=== PATIENT | male | born 1955 | race Caucasian/White ===

== ENCOUNTER 2016-04-14 14:25 | Emergency (ER) | payer OTHER ==
[2016-04-14 14:35] VITALS: TEMP 98.8
[2016-04-14] MEDS ORDERED: NS 1,000 ML IV ONE (15:01)
--- NOTE | 2016-04-14 15:09 | EDPHY ---
H & P Stated Complaint: 3 days fever-? PNA Time Seen by Provider: 04/14/16 14:40 HPI/ROS: CHIEF COMPLAINT: High fever HISTORY OF PRESENT ILLNESS: The patient is a 60-year-old partially quadriplegic man who comes to the emergency department with his family complaining of fevers up to 101 for the last 2 nights as well as increased mucusy and slightly greenish discharge from his trach tube and mild increase in his oxygen requirement from 1-2 L. The patient denies cough shortness of breath currently however though. he has had increased spasticity in his extremities and increased pain compared to his chronic baseline diffuse body pain. Also his family feels that he may also have darkened urine compared to baseline. He does have a history of sacral wounds currently being treated with a wound VAC. His family states that these are doing well and improving dramatically. He also has a PEG tube for tube feedings. This has been doing well with normal he stool. He has a suprapubic catheter changed 3 weeks ago. Also baclofen pump a chronic spasticity. REVIEW OF SYSTEMS: Constitutional: See HPI EENTM: denies: blurred vision, double vision, nose congestion Respiratory: See HPI Cardiac: denies: chest pain, irregular heart rate, lightheadedness, palpitations Gastrointestinal/Abdominal: denies: abdominal pain, diarrhea, nausea, vomiting, blood streaked stools Genitourinary: See HPI Musculoskeletal: denies: joint pain, muscle pain Skin: denies: lesions, rash, jaundice, bruising Neurological: denies: headache, numbness, paresthesia, tingling, dizziness, weakness Hematologic/Lymphatic: denies: blood clots, easy bleeding, easy bruising Immunologic/allergic: denies: HIV/AIDS, transplant EXAM: GENERAL: Quadriplegic sitting in wheelchair HEAD: Atraumatic, normocephalic. EYES: Pupils equal round and reactive to light, extraocular movements intact, sclera anicteric, conjunctiva are normal. ENT: TMs normal, nares patent, oropharynx clear without exudates. Moist mucous membranes. NECK: supple without lymphadenopathy or JVD. LUNGS: Mild rhonchi in left lower lobe. No wheezes rales or rhonchi. HEART: Regular rate and rhythm without murmurs, rubs or gallops. ABDOMEN: Soft, nontender, the G-tube in super to pubic catheter in place, no erythema or drainage. No guarding, no rebound. No masses appreciated. BACK: No CVA tenderness, no spinal tenderness, step-offs or deformities EXTREMITIES: Chronic spasming and atrophy, no movement, baseline NEUROLOGICAL: Cranial nerves II through XII grossly intact. Normal speech, no movement of extremities, pain throughout and spasming PSYCH: Normal mood, normal affect. SKIN: Warm, dry, normal turgor, decubitus lesion examination deferred Source: Patient Exam Limitations: No limitations - Personal History Current Tetanus/Diphtheria Vaccine: Unsure Current Tetanus Diphtheria and Acellular Pertussis (TDAP): Unsure - Medical/Surgical History Hx Asthma: No Hx Chronic Respiratory Disease: Yes Hx Diabetes: No Hx Cardiac Disease: Yes Hx Renal Disease: No Hx Cirrhosis: No Hx Alcoholism: No Hx HIV/AIDS: No Hx Splenectomy or Spleen Trauma: No Other PMH: Quadriplegia [id number], pneumonia. Pericardial effusion, multple decubitus ulcer bottom and back, UTI's, Baclofen pump, Peg tube, Tracheostomy ( capped), - Family History Significant Family History: No pertinent family hx - Social History Smoking Status: Never smoked Alcohol Use: Sober Drug Use: None Constitutional: Initial Vital Signs Temperature (C) 37.1 C 04/14/16 14:31 Heart Rate 63 04/14/16 14:31 Respiratory Rate 16 04/14/16 14:31 Blood Pressure 115/74 04/14/16 14:31 O2 Sat (%) 98 04/14/16 14:31 O2 Delivery Mode Nasal Cannula O2 (L/minute) 2 Allergies/Adverse Reactions: Milk Containing Products [dairy] Allergy (Severe, Verified 04/14/16 14:35) Swelling/neck,face,throat soy Allergy (Severe, Verified 04/14/16 14:35) Swelling/neck,face,throat Penicillins Allergy (Verified 04/14/16 14:35) Other-Enter Comments shellfish derived Allergy (Verified 04/14/16 14:35) tree nut [Nuts] Allergy (Verified 04/14/16 14:35) wheat Allergy (Severe, Uncoded 04/27/15 10:47) [place] Home Medications: Medication Instructions Recorded Midodrine HCl 10 mg TUBE TID 04/06/15 ZOLPIDEM TARTRATE [Ambien CR 12.5 12.5 mg TUBE HS 04/06/15 mg] fentaNYL [Duragesic 100 MCG Patch 100 mcg TD Q72H 04/06/15 (*)] Ferrous Sulfate 325 mg TUBE BID 04/27/15 Sennosides [Senna] 1 tab TUBE BID 04/27/15 Acetaminophen [Tylenol 325mg (*)] 650 mg PO Q6 08/24/15 Baclofen [Baclofen 10 mg (*)] 10 mg TUBE TID 08/24/15 Gabapentin [Neurontin Oral Liquid] 500 mg PO QID 08/24/15 Ondansetron Odt [Zofran Odt 4 mg 4 mg PO TID PRN 08/24/15 (*)] Oxybutynin Chloride 10 mg PO DAILY 08/24/15 Sertraline HCl [Zoloft 100mg (*)] 100 mg TUBE HS 08/24/15 clonazePAM [Klonopin (*)] 0.25 mg TUBE QID 08/24/15 Albuterol [Proventil Neb] 3 ml IH Q4 PRN 10/31/15 Docusate Sodium [Colace 100 MG (*)] 200 mg PO BID 10/31/15 Ibuprofen [Motrin (*)] 200 mg PO DAILY PRN 10/31/15 Polyethylene Glycol 3350 [Miralax 8.5 gm TUBE DAILY 10/31/15 17 gm (*)] oxyCODONE IR [Oxycodone Ir (*)] 30 mg TUBE Q3 10/31/15 tiZANidine HCL [Zanaflex] 4 mg PO BID 10/31/15 Medical Decision Making - Diagnostics Imaging: X-ray: chest x-ray was obtained. I viewed the images myself on the PACS system. My interpretation of the images is: negative for acute disease . The radiologist interpretation is improved compared to previous, no consolidation, left-sided atelectasis unchanged. ED Course/Re-evaluation: The patient's x-ray is improved compared to previous. He is saturating well. I offered admission to him and his family because I was concerned about his slight increased oxygen requirement from 1-2 L as well as his worsening mucus at suctioning and low-grade fevers. The family however states that they do not wish to be admitted. They state that this happens every time and that they would prefer to go home and monitor him there for any worsening symptoms. They will bring him back immediately should he have any worsening symptoms. I agree with this plan and gave him strict instructions to return within 24 hours if his symptoms worsen. Patient's family agrees with this plan. Differential Diagnosis: Partial list of the Differential diagnosis considered include but were not limited to; pneumonia, bronchitis, urinary tract infection, and although unlikely based on the history and physical exam, I also considered sepsis, decubitus infection, acute coronary disease, CHF. I discussed these differential diagnoses and the plan with the patient as well as the usual and expected course. The patient understands that the diagnosis is provisional and that in medicine we are not always correct and that further workup is often warranted. Usual and customary warnings were given. All of the patient's questions were answered. The patient was instructed to return to the emergency department should the symptoms at all worsen or return, otherwise to followup with the physician as we discussed. - Data Points Laboratory Results: Laboratory Results 04/14/16 15:10 04/14/16 15:10 04/14/16 04/14/16 04/14/16 15:35 15:10 15:10 WBC RBC Hgb Hct MCV MCH MCHC RDW Plt Count MPV Neut % (Auto) Lymph % (Auto) [place] % (Auto) Eos % (Auto) Baso % (Auto) Nucleat RBC Rel Count Absolute Neuts (auto) Absolute Lymphs (auto) Absolute Monos (auto) Absolute Eos (auto) Absolute Basos (auto) Absolute Nucleated RBC Immature Gran % Immature Gran # APTT VBG Lactic Acid Sodium 136 mEq/L mEq/L (134-144) Potassium 4.8 mEq/L mEq/L (3.5-5.2) Chloride 92 mEq/L L mEq/L (97-110) Carbon Dioxide 33 mEq/l H mEq/l (22-31) Anion Gap 11 mEq/L mEq/L (8-16) BUN 13 mg/dL mg/dL (7-23) Creatinine 0.4 mg/dL L mg/dL (0.7-1.3) Estimated GFR > 60 Glucose 96 mg/dL mg/dL (70-100) Calcium 9.3 mg/dL mg/dL (8.5-10.4) Urine Color YELLOW Urine Appearance HAZY Urine pH 8.0 H (5.0-7.5) Ur Specific [place] 1.009 (1.002-1.030) Urine Protein NEGATIVE (NEGATIVE) Urine Ketones NEGATIVE (NEGATIVE) Urine Blood 2+ H (NEGATIVE) Urine Nitrate POSITIVE H (NEGATIVE) Urine Bilirubin NEGATIVE (NEGATIVE) Urine Urobilinogen NEGATIVE EU EU (0.2-1.0) Ur Leukocyte Esterase 2+ H (NEGATIVE) Urine RBC 15-25 /hpf H /hpf (0-3) Urine WBC 5-10 /hpf H /hpf (0-3) Ur Epithelial Cells TRACE /lpf /lpf (NONE-1+) Urine Bacteria 1+ /hpf H /hpf (NONE SEEN) Ur Culture Indicated? INDICATED H (NI) Urine Glucose NEGATIVE (NEGATIVE) Influenza Typ A,B (DFA) NEGATIVE FOR FLU (NEGATIVE) 04/14/16 04/14/16 04/14/16 15:10 15:10 15:10 WBC 10.43 10^3/uL H 10^3/uL (3.80-9.50) RBC 3.52 10^6/uL L 10^6/uL (4.40-6.38) Hgb 10.5 g/dL L g/dL (13.7-17.5) Hct 32.5 % L % (40.0-51.0) MCV 92.3 fL fL (81.5-99.8) MCH 29.8 pg pg (27.9-34.1) MCHC 32.3 g/dL L g/dL (32.4-36.7) RDW 13.5 % % (11.5-15.2) Plt Count 144 10^3/uL L 10^3/uL (150-400) MPV 11.1 fL fL (8.7-11.7) Neut % (Auto) 87.7 % H % (39.3-74.2) Lymph % (Auto) 5.8 % L % (15.0-45.0) [place] % (Auto) 5.7 % % (4.5-13.0) Eos % (Auto) 0.2 % L % (0.6-7.6) Baso % (Auto) 0.2 % L % (0.3-1.7) Nucleat RBC Rel Count 0.0 % % (0.0-0.2) Absolute Neuts (auto) 9.16 10^3/uL H 10^3/uL (1.70-6.50) Absolute Lymphs (auto) 0.60 10^3/uL L 10^3/uL (1.00-3.00) Absolute Monos (auto) 0.59 10^3/uL 10^3/uL (0.30-0.80) Absolute Eos (auto) 0.02 10^3/uL L 10^3/uL (0.03-0.40) Absolute Basos (auto) 0.02 10^3/uL 10^3/uL (0.02-0.10) Absolute Nucleated RBC 0.00 10^3/uL 10^3/uL (0-0.01) Immature Gran % 0.4 % % (0.0-1.1) Immature Gran # 0.04 10^3/uL 10^3/uL (0.00-0.10) APTT 36.4 SEC SEC (23.0-38.0) VBG Lactic Acid 1.2 mmol/L mmol/L (0.7-2.1) Sodium Potassium Chloride Carbon Dioxide Anion Gap BUN Creatinine Estimated GFR Glucose Calcium Urine Color Urine Appearance Urine pH Ur Specific [place] Urine Protein Urine Ketones Urine Blood Urine Nitrate Urine Bilirubin Urine Urobilinogen Ur Leukocyte Esterase Urine RBC Urine WBC Ur Epithelial Cells Urine Bacteria Ur Culture Indicated? Urine Glucose Influenza Typ A,B (DFA) Medications Given: Discontinued Medications Sodium Chloride (Ns) 1,000 mls @ 0 mls/hr IV ONCE ONE PRN Reason: Wide Open Stop: 04/14/16 15:02 Last Admin: 04/14/16 15:16 Dose: 1,000 mls Departure - Departure Disposition: Home, Routine, Self-Care Clinical Impression: Fever Qualifiers: Fever type: unspecified Qualified Code(s): R50.9 - Fever, unspecified Condition: Fair Instructions: Fever in Adults (ED) Referrals: KYLIE ALDANA [Primary Care Provider] - As per Instructions
[2016-04-14 15:25] LABS: % IMMATURE GRANULYOCYTES 0.4 % (0.0-1.1); ABSOLUTE IMMATURE GRANULOCYTES 0.04 10^3/uL (0.00-0.10); ADD DIFF? NO; ADD MORPH? NO; ADD SCAN? NO; ATYPICAL LYMPHOCYTE FLAG 0 (0-99); FRAGMENT RBC FLAG 0 (0-99); HEMATOCRIT 32.5 % (40.0-51.0); HEMOGLOBIN 10.5 g/dL (13.7-17.5); LEFT SHIFT FLG 0 (0-99); LIPEMIA HEMOLYSIS FLAG 80 (0-99); MEAN CELL HEMOGLOBIN 29.8 pg (27.9-34.1); MEAN CELL HEMOGLOBIN CONCENTR. 32.3 g/dL (32.4-36.7); MEAN CELL VOLUME 92.3 fL (81.5-99.8); MEAN PLATELET VOLUME 11.1 fL (8.7-11.7); PLATELET CLUMPS FLAG 0 (0-99); PLATELET COUNT 144 10^3/uL (150-400); RED BLOOD CELL COUNT 3.52 10^6/uL (4.40-6.38); RED CELL DISTRIBUTION WIDTH 13.5 % (11.5-15.2)
[2016-04-14 15:37] LABS: ANION GAP 11 mEq/L (8-16); CARBON DIOXIDE 33 mEq/l (22-31); CHLORIDE 92 mEq/L (97-110); POTASSIUM 4.8 mEq/L (3.5-5.2); SODIUM 136 mEq/L (134-144)
[2016-04-14 15:38] LABS: CALCIUM 9.3 mg/dL (8.5-10.4); CREATININE 0.4 mg/dL (0.7-1.3); GLOMERULAR FILTRATION RATE > 60; GLUCOSE 96 mg/dL (70-100)
[2016-04-14 16:48] LABS: COLOR YELLOW; LEUKOCYTE ESTERASE,URINE 2+ (NEGATIVE); NITRITE,URINE POSITIVE (NEGATIVE)
[2016-04-14 16:57] VITALS: BP 148/92; PULSE 73; RESP 14; O2SAT 94
[2016-04-14 16:58] LABS: BACTERIA 1+ /hpf (NONE SEEN); RBC,URINE 15-25 /hpf (0-3)
== END 2016-04-14 16:56 | disposition home or self-care (01) ==
DX: R50.9 Fever, unspecified (principal)

== ENCOUNTER 2016-05-24 15:54 | Emergency (ER) | payer OTHER ==
--- NOTE | 2016-05-24 17:04 | EDPHY ---
H & P Stated Complaint: INCREASED SECRETIONS AND FEVER - Personal History Current Tetanus Diphtheria and Acellular Pertussis (TDAP): Yes - Medical/Surgical History Hx Asthma: No Hx Chronic Respiratory Disease: No Hx Diabetes: No Hx Cardiac Disease: No Hx Renal Disease: No Hx Cirrhosis: No Hx Alcoholism: No Hx HIV/AIDS: No Hx Splenectomy or Spleen Trauma: No Other PMH: Quadriplegia [id number], recent admission for pneumonia. Pericardial effusion, multple decubitus ulcer bottom and back, UTI's, Baclofen pump, Peg tube, Tracheostomy (capped), - Social History Smoking Status: Never smoked Time Seen by Provider: 05/24/16 16:39 HPI/ROS: CHIEF COMPLAINT: Increased respiratory secretions HISTORY OF PRESENT ILLNESS: 60-year-old male history of quadriplegia secondary to C3 level injury, family has noticed that for the past 3 days he has had increased secretions the patient's upon suctioning Hand has had a fever to a high of 101, currently afebrile. Mentating clearly. REVIEW OF SYSTEMS: A ten point review of systems was performed and is negative with the exception of the items mentioned in the HPI PAST MEDICAL & SURGICAL HISTORY: C3 quadriplegia. Chronic respiratory failure with tracheostomy. patient did receive a influenza vaccination this season SOCIAL HISTORY:lives with family PHYSICAL EXAM (Prior to examination, patient consented to physical exam, hands were washed and my usual and customary physical exam procedures followed) 1) GENERAL: Well-developed, well-nourished, alert and oriented. Appears to be in no acute distress. 2) HEAD: Normocephalic, atraumatic 3) HEENT: Pupils equal, round, reactive to light bilaterally. Sclera anicteric. Nasopharynx, oropharynx, clear, no lesions. Ears bilaterally with normal tympanic membranes. 4) NECK: Full range of motion, no meningeal signs. 5) LUNGS: Clear auscultation bilaterally, no wheezes, no rhonchi, no retractions. 6) HEART: Regular rate and rhythm, no murmur, no heave, no gallop. 7) ABDOMEN: No guarding, no rebound, no focal tenderness, negative McBurney's, 8) MUSCULOSKELETAL: No peripheral edema or discoloration. 9) BACK: no visual or palpable abnormality. 10) SKIN: No rash, no petechiae. 11) Psychiatric: Patient is oriented X 3, there is no agitation. DIFFERENTIAL DIAGNOSIS: in no particular order including but not limited to pneumonia, bronchitis, influenza (Tegan,D Sadie) Constitutional: Initial Vital Signs Temperature (C) 37.4 C 05/24/16 16:01 Heart Rate 54 L 05/24/16 16:01 Respiratory Rate 16 05/24/16 16:01 Blood Pressure 172/67 H 05/24/16 16:01 O2 Sat (%) 92 05/24/16 16:01 O2 Delivery Mode Room Air Allergies/Adverse Reactions: Milk Containing Products [dairy] Allergy (Severe, Verified 05/24/16 15:58) Swelling/neck,face,throat soy Allergy (Severe, Verified 05/24/16 15:58) Swelling/neck,face,throat Penicillins Allergy (Verified 05/24/16 15:58) Other-Enter Comments shellfish derived Allergy (Verified 05/24/16 15:58) tree nut [Nuts] Allergy (Verified 05/24/16 15:58) wheat Allergy (Severe, Uncoded 05/24/16 15:58) [place] Home Medications: Medication Instructions Recorded Midodrine HCl 10 mg TUBE TID 04/06/15 ZOLPIDEM TARTRATE [Ambien CR 12.5 12.5 mg TUBE HS 04/06/15 mg] fentaNYL [Duragesic 100 MCG Patch 100 mcg TD Q72H 04/06/15 (*)] Ferrous Sulfate 325 mg TUBE BID 04/27/15 Sennosides [Senna] 1 tab TUBE BID 04/27/15 Acetaminophen [Tylenol 325mg (*)] 650 mg PO Q6 08/24/15 Baclofen [Baclofen 10 mg (*)] 10 mg TUBE TID 08/24/15 Gabapentin [Neurontin Oral Liquid] 500 mg PO QID 08/24/15 Sertraline HCl [Zoloft 100mg (*)] 100 mg TUBE HS 08/24/15 clonazePAM [Klonopin (*)] 0.25 mg TUBE QID 08/24/15 Docusate Sodium [Colace 100 MG (*)] 200 mg PO BID 10/31/15 Ibuprofen [Motrin (*)] 200 mg PO DAILY PRN 10/31/15 Polyethylene Glycol 3350 [Miralax 8.5 gm TUBE DAILY 10/31/15 17 gm (*)] oxyCODONE IR [Oxycodone Ir (*)] 30 mg TUBE Q3 10/31/15 tiZANidine HCL [Zanaflex] 4 mg PO BID 10/31/15 AZITHROMYCIN [Z-PACK] 500 mg PO DAILY #1 packet 05/24/16 Medical Decision Making - Diagnostics Imaging Results: Imaging Impressions Chest X-Ray 05/24/16 16:41 Impression: No definite pneumonia. Imaging Impressions Chest X-Ray 05/24/16 16:41 Impression: No definite pneumonia. Images reviewed by myself (Robert Javed) ED Course/Re-evaluation: The patient was evaluated and managed by the physician's legal administrative assistant. My cosignature indicates that I reviewed the chart and I agree with the findings and plan of care as documented. I am the secondary supervising physician. ( Sherry Helms) Patient was re-evaluated with serial exams. Discussed case Dr. Sherry Helms in the ER. We discussed his chronic anemia. We discussed his normal serum sodium level today. At Most recent exam at 6:44 p.m lungs are clear bilaterally, maintain normal mentation. Offered admission however I do not think that this is definitively indicated. The patient and his would like to be discharged. I am prescribing azithromycin to cover for prophylactic infection. Had a lengthy discussion recommended that should he develop new or worsening symptoms needs to return to the ER immediately for re-evaluation. ( Robert Javed) - Data Points Laboratory Results: Laboratory Results 05/24/16 17:45 05/24/16 17:45 05/24/16 05/24/16 05/24/16 17:45 17:45 17:45 WBC 4.79 10^3/uL 10^3/uL (3.80-9.50) RBC 3.28 10^6/uL L 10^6/uL (4.40-6.38) Hgb 9.5 g/dL L g/dL (13.7-17.5) Hct 29.8 % L % (40.0-51.0) MCV 90.9 fL fL (81.5-99.8) MCH 29.0 pg pg (27.9-34.1) MCHC 31.9 g/dL L g/dL (32.4-36.7) RDW 13.4 % % (11.5-15.2) Plt Count 144 10^3/uL L 10^3/uL (150-400) MPV 10.9 fL fL (8.7-11.7) Neut % (Auto) 71.4 % % (39.3-74.2) Lymph % (Auto) 19.8 % % (15.0-45.0) [place] % (Auto) 6.5 % % (4.5-13.0) Eos % (Auto) 1.7 % % (0.6-7.6) Baso % (Auto) 0.2 % L % (0.3-1.7) Nucleat RBC Rel Count 0.0 % % (0.0-0.2) Absolute Neuts (auto) 3.42 10^3/uL 10^3/uL (1.70-6.50) Absolute Lymphs (auto) 0.95 10^3/uL L 10^3/uL (1.00-3.00) Absolute Monos (auto) 0.31 10^3/uL 10^3/uL (0.30-0.80) Absolute Eos (auto) 0.08 10^3/uL 10^3/uL (0.03-0.40) Absolute Basos (auto) 0.01 10^3/uL L 10^3/uL (0.02-0.10) Absolute Nucleated RBC 0.00 10^3/uL 10^3/uL (0-0.01) Immature Gran % 0.4 % % (0.0-1.1) Immature Gran # 0.02 10^3/uL 10^3/uL (0.00-0.10) Sodium 136 mEq/L mEq/L (134-144) Potassium 4.8 mEq/L mEq/L (3.5-5.2) Chloride 91 mEq/L L mEq/L (97-110) Carbon Dioxide 34 mEq/l H mEq/l (22-31) Anion Gap 11 mEq/L mEq/L (8-16) BUN 13 mg/dL mg/dL (7-23) Creatinine 0.4 mg/dL L mg/dL (0.7-1.3) Estimated GFR > 60 Glucose 88 mg/dL mg/dL (70-100) Calcium 9.1 mg/dL mg/dL (8.5-10.4) Influenza Typ A,B (DFA) NEGATIVE FOR FLU (NEGATIVE) Departure - Departure Disposition: Home, Routine, Self-Care Clinical Impression: Upper respiratory infection Qualifiers: URI type: unspecified viral URI Qualified Code(s): J06.9 - Acute upper respiratory infection, unspecified Condition: Good Instructions: Upper Respiratory Infection (ED) Additional Instructions: Return to the ER if Bruno develops difficulty breathing, develops fever, or any other symptoms that concern you Referrals: KYLIE ALDANA [Primary Care Provider] - 1-2 days without fail Prescriptions: AZITHROMYCIN [Z-PACK] 500 mg PO DAILY #1 packet
[2016-05-24 17:58] LABS: % IMMATURE GRANULYOCYTES 0.4 % (0.0-1.1); ABSOLUTE IMMATURE GRANULOCYTES 0.02 10^3/uL (0.00-0.10); ADD DIFF? NO; ADD MORPH? NO; ADD SCAN? NO; ATYPICAL LYMPHOCYTE FLAG 0 (0-99); FRAGMENT RBC FLAG 0 (0-99); HEMATOCRIT 29.8 % (40.0-51.0); HEMOGLOBIN 9.5 g/dL (13.7-17.5); LEFT SHIFT FLG 0 (0-99); LIPEMIA HEMOLYSIS FLAG 80 (0-99); MEAN CELL HEMOGLOBIN CONCENTR. 31.9 g/dL (32.4-36.7); MEAN CELL VOLUME 90.9 fL (81.5-99.8); MEAN PLATELET VOLUME 10.9 fL (8.7-11.7); PLATELET CLUMPS FLAG 0 (0-99); PLATELET COUNT 144 10^3/uL (150-400); RED BLOOD CELL COUNT 3.28 10^6/uL (4.40-6.38); RED CELL DISTRIBUTION WIDTH 13.4 % (11.5-15.2)
[2016-05-24 18:11] LABS: ANION GAP 11 mEq/L (8-16); CALCIUM 9.1 mg/dL (8.5-10.4); CARBON DIOXIDE 34 mEq/l (22-31); CHLORIDE 91 mEq/L (97-110); CREATININE 0.4 mg/dL (0.7-1.3); GLOMERULAR FILTRATION RATE > 60; GLUCOSE 88 mg/dL (70-100); POTASSIUM 4.8 mEq/L (3.5-5.2); SODIUM 136 mEq/L (134-144)
[2016-05-24 19:24] VITALS: BP 121/76; PULSE 52; RESP 18; TEMP 98.6; O2SAT 99
== END 2016-05-24 19:23 | disposition home or self-care (01) ==
DX: J06.9 Acute upper respiratory infection, unspecified (principal)

== ENCOUNTER 2016-07-18 07:27 | Inpatient (IN) | payer OTHER ==
--- NOTE | 2016-07-18 07:36 | EDPHY ---
H & P Stated Complaint: fever wet chest sounds pain Time Seen by Provider: 07/18/16 07:36 - Personal History Current Tetanus/Diphtheria Vaccine: Yes - Medical/Surgical History Hx Asthma: No Hx Chronic Respiratory Disease: No Hx Diabetes: No Hx Cardiac Disease: No Hx Renal Disease: No Hx Cirrhosis: No Hx Alcoholism: No Hx HIV/AIDS: No Hx Splenectomy or Spleen Trauma: No Other PMH: Quadriplegia [id number], recent admission for pneumonia. Pericardial effusion, multple decubitus ulcer bottom and back, UTI's, Baclofen pump, Peg tube, Tracheostomy (capped), - Social History Smoking Status: Never smoked Constitutional: Initial Vital Signs Temperature (C) 37.2 C 07/18/16 07:31 Heart Rate 82 07/18/16 07:31 Respiratory Rate 18 07/18/16 07:31 Blood Pressure 96/66 L 07/18/16 07:31 O2 Sat (%) 90 L 07/18/16 07:31 O2 Delivery Mode Room Air O2 (L/minute) 2 Allergies/Adverse Reactions: Milk Containing Products [dairy] Allergy (Severe, Verified 07/18/16 07:30) Swelling/neck,face,throat Penicillins Allergy (Severe, Verified 07/18/16 12:28) Other-Enter Comments soy Allergy (Severe, Verified 07/18/16 07:30) Swelling/neck,face,throat shellfish derived Allergy (Verified 07/18/16 07:30) tree nut [Nuts] Allergy (Verified 07/18/16 07:30) wheat Allergy (Severe, Uncoded 05/24/16 15:58) [place] Home Medications: Medication Instructions Recorded Midodrine HCl 10 mg TUBE QID 04/06/15 ZOLPIDEM TARTRATE [Ambien CR 12.5 12.5 mg TUBE HS 04/06/15 mg] fentaNYL [Duragesic 100 MCG Patch 100 mcg TD Q48H 04/06/15 (*)] Ferrous Sulfate 325 mg TUBE BID 04/27/15 Sennosides [Senna] 1 tab TUBE DAILY 04/27/15 Acetaminophen [Tylenol 325mg (*)] 650 mg TUBE Q6 08/24/15 Baclofen [Baclofen 10 mg (*)] 10 mg TUBE TID 08/24/15 Gabapentin [Neurontin Oral Liquid] 600 mg TUBE Q8H 08/24/15 Sertraline HCl [Zoloft 100mg (*)] 100 mg TUBE DAILY 08/24/15 clonazePAM [Klonopin (*)] 0.25 mg TUBE QID 08/24/15 Docusate Sodium [Colace 100 MG (*)] 200 mg TUBE BID 10/31/15 Ibuprofen [Motrin (*)] 200 mg TUBE DAILY PRN 10/31/15 Polyethylene Glycol 3350 [Miralax 8.5 gm TUBE TID 10/31/15 17 gm (*)] oxyCODONE IR [Oxycodone Ir (*)] 30 mg TUBE 5XD 10/31/15 tiZANidine HCL [Zanaflex] 4 mg TUBE BID 10/31/15 Bisacodyl [Magic Bullet 10 mg] 10 mg VT DAILY 07/18/16 Ondansetron Odt [Zofran Odt 4 mg 8 mg PO DAILY PRN 07/18/16 (*)] Tolterodine Tartrate [Detrol] 4 mg TUBE DAILY 07/18/16 Medical Decision Making - Diagnostics Imaging Results: Imaging Impressions Chest X-Ray 07/18/16 07:48 Impression: Increased left lower lobe opacity consistent with pneumonia. Results called and discussed with Eric Carrillo MD on July 18, 2016 at 0834 hours. Imaging: Discussed imaging studies w/ scalloper Radiologist, I viewed and interpreted images myself ED Course/Re-evaluation: CHIEF COMPLAINT: Fever, pain, cough HISTORY OF PRESENT ILLNESS: This patient is a 61 year old male with C3-C4 paralysis and tracheostomy complaining of fever, pain, and cough noticed over the last few days. He reports increased pain and difficulty breathing, and his states he has been more contracted. His reports that they suctioned his tracheostomy tube at home, but his breathing remained "gurgling" and rattly. He states that his symptoms are consistent with previous infectious processes. He denies any recent aspiration. He denies other chronic medical history. REVIEW OF SYSTEMS: A 10 point review of systems was performed and is negative with the exception of the elements mentioned in the history of present illness. PHYSICAL EXAM: HR, BP, O2 Sat, RR. Temp noted General Appearance: Alert, well hydrated, appropriate, and non-toxic appearing. Head: Atraumatic without scalp tenderness or obvious injury Eyes: Pupils equal, round, reactive to light and accommodation, EOMI, no trauma , no injection. Ears: Clear bilaterally, no perforation, normal landmarks Nose: Atraumatic, no rhinorrhea, clear. Throat: There is no erythema or exudates, no lesions, normal tonsils, mucus membranes moist. Neck: Tracheostomy in place. Supple, nontender, no lymphadenopathy. Respiratory: Rhonchi in left base. No retractions, no distress, no wheezes, and no accessory muscle use. Cardiovascular: Regular rate and rhythm, no murmurs, rubs, or gallops. Good capillary refill all extremities. Gastrointestinal: Abdomen is soft, nontender, non-distended, no masses, no rebound, no guarding, no peritoneal signs. Musculoskeletal: Quadriplegic. Sacral decubitus ulcer with wound VAC in place. Otherwise atraumatic. Neurological: Alert, appropriate, and interactive. Nonfocal neuro exam. Skin: No rashes, good turgor, no nodules on palpation. Past medical history: C3-C4 paralysis (2013) Past surgical history: C-spine stabilization and infusion, PEG tube, tracheostomy Family history: Noncontributory Social history: at bedside. Nonsmoker. PCP: Zeeshan Bustillo at [facility] DIFFERENTIAL DIAGNOSIS: The differential diagnosis for the patient's fever included but was not limited to pneumonia, viral syndrome, and sepsis. MEDICAL DECISION MAKING: This patient is a 61 year old male with C3-C4 paralysis presenting with cough and pain similar to previous infectious processes. Physical exam reveals congestion and rhonchi in the left base as well as a decubitus ulcer which is currently managed with wound VAC. The patient is quadriplegic so thorough workup will be completed as there may be complaints not perceived. The patient is afebrile, with normal pulse. His blood pressure is low but this is chronic due to C3 paralysis. The patient does not meet sepsis criteria at this time. Plan for labs including CBC, CHEM, and UA, as well as chest x-ray. Plan to administer 1mg IV Dilaudid for pain relief. Lab results received. WBC count elevated with white shift. The patient is anemic , but this condition is chronic for him. 8:[address] Marcello Martinez, radiologist. Left lower lobe infiltrate noted on x- ray. 8:34 Reassessed patient. Discussed results of x-ray. Plan to admit for pneumonia. Decubitus ulcer noted, currently well-managed. Plan to administer 750mg IV Levaquin and 1gm IV Ertapenem. Concern for aspiration addressed choice of full-spectrum antibiotics.. 8:47 Spoke with hospitalist service. Dr. Gutiérrez accepts admission for pneumonia. - Data Points Laboratory Results: Laboratory Results 07/18/16 07:50 07/18/16 07:50 07/18/16 07/18/16 07/18/16 07:50 07:50 07:50 WBC 11.99 10^3/uL H 10^3/uL (3.80-9.50) RBC 3.19 10^6/uL L 10^6/uL (4.40-6.38) Hgb 9.6 g/dL L g/dL (13.7-17.5) Hct 28.8 % L % (40.0-51.0) MCV 90.3 fL fL (81.5-99.8) MCH 30.1 pg pg (27.9-34.1) MCHC 33.3 g/dL g/dL (32.4-36.7) RDW 12.9 % % (11.5-15.2) Plt Count 148 10^3/uL L 10^3/uL (150-400) MPV 11.1 fL fL (8.7-11.7) Neut % (Auto) 90.4 % H % (39.3-74.2) Lymph % (Auto) 3.8 % L % (15.0-45.0) [place] % (Auto) 5.0 % % (4.5-13.0) Eos % (Auto) 0.3 % L % (0.6-7.6) Baso % (Auto) 0.1 % L % (0.3-1.7) Nucleat RBC Rel Count 0.0 % % (0.0-0.2) Absolute Neuts (auto) 10.85 10^3/uL H 10^3/uL (1.70-6.50) Absolute Lymphs (auto) 0.45 10^3/uL L 10^3/uL (1.00-3.00) Absolute Monos (auto) 0.60 10^3/uL 10^3/uL (0.30-0.80) Absolute Eos (auto) 0.03 10^3/uL 10^3/uL (0.03-0.40) Absolute Basos (auto) 0.01 10^3/uL L 10^3/uL (0.02-0.10) Absolute Nucleated RBC 0.00 10^3/uL 10^3/uL (0-0.01) Immature Gran % 0.4 % % (0.0-1.1) Immature Gran # 0.05 10^3/uL 10^3/uL (0.00-0.10) PT 13.4 SEC SEC (12.0-15.0) INR 1.03 (0.83-1.16) APTT 36.6 SEC SEC (23.0-38.0) VBG Lactic Acid Sodium 128 mEq/L L mEq/L (134-144) Potassium 4.6 mEq/L mEq/L (3.5-5.2) Chloride 89 mEq/L L mEq/L (97-110) Carbon Dioxide 28 mEq/l mEq/l (22-31) Anion Gap 11 mEq/L mEq/L (8-16) BUN 14 mg/dL mg/dL (7-23) Creatinine 0.4 mg/dL L mg/dL (0.7-1.3) Estimated GFR > 60 Glucose 90 mg/dL mg/dL (70-100) Calcium 9.2 mg/dL mg/dL (8.5-10.4) Total Bilirubin 1.0 mg/dL mg/dL (0.1-1.4) 07/18/16 07:50 WBC RBC Hgb Hct MCV MCH MCHC RDW Plt Count MPV Neut % (Auto) Lymph % (Auto) [place] % (Auto) Eos % (Auto) Baso % (Auto) Nucleat RBC Rel Count Absolute Neuts (auto) Absolute Lymphs (auto) Absolute Monos (auto) Absolute Eos (auto) Absolute Basos (auto) Absolute Nucleated RBC Immature Gran % Immature Gran # PT INR APTT VBG Lactic Acid 1.1 mmol/L mmol/L (0.7-2.1) Sodium Potassium Chloride Carbon Dioxide Anion Gap BUN Creatinine Estimated GFR Glucose Calcium Total Bilirubin Medications Given: Discontinued Medications Hydromorphone HCl (Dilaudid) 1 mg IVP EDNOW ONE Stop: 07/18/16 07:50 Last Admin: 07/18/16 08:05 Dose: 1 mg Hydromorphone HCl (Dilaudid) 1 mg IVP EDNOW ONE Stop: 07/18/16 10:37 Last Admin: 07/18/16 10:36 Dose: 1 mg Hydromorphone HCl (Dilaudid) 1 mg IVP EDNOW ONE Stop: 07/18/16 12:22 Last Admin: 07/18/16 12:28 Dose: 1 mg Sodium Chloride (Ns) 500 mls @ 0 mls/hr IV ONCE ONE PRN Reason: Wide Open Stop: 07/18/16 07:59 Last Admin: 07/18/16 08:06 Dose: 500 mls Levofloxacin/Dextrose (Levaquin 750 Mg (Premix)) 150 mls @ 100 mls/hr IV EDNOW ONE PRN Reason: Protocol Stop: 07/18/16 10:06 Last Admin: 07/18/16 08:56 Dose: 150 mls Departure - Departure Disposition: [facility] Inpatient Acute Clinical Impression: Pneumonia Qualifiers: Pneumonia type: due to unspecified organism Laterality: left Lung location: lower lobe of lung Qualified Code(s): J18.1 - Lobar pneumonia, unspecified organism Condition: Fair Report Scribed for: Eric Carrillo Report Scribed by: Edita Hanna Date of Report: 07/18/16 Time of Report: 08:33
[2016-07-18] MEDS ORDERED: HYDROmorphONE/DILAUDID 1 MG/ML SYR IVP ONE ×3 (07:49→12:21)
[2016-07-18] MEDS ORDERED: NS 500 ML IV ONE (07:58)
[2016-07-18 08:13] LABS: % IMMATURE GRANULYOCYTES 0.4 % (0.0-1.1); ABSOLUTE IMMATURE GRANULOCYTES 0.05 10^3/uL (0.00-0.10); ADD DIFF? NO; ADD MORPH? NO; ADD SCAN? NO; ATYPICAL LYMPHOCYTE FLAG 0 (0-99); FRAGMENT RBC FLAG 10 (0-99); HEMATOCRIT 28.8 % (40.0-51.0); HEMOGLOBIN 9.6 g/dL (13.7-17.5); LEFT SHIFT FLG 0 (0-99); LIPEMIA HEMOLYSIS FLAG 80 (0-99); MEAN CELL HEMOGLOBIN 30.1 pg (27.9-34.1); MEAN CELL HEMOGLOBIN CONCENTR. 33.3 g/dL (32.4-36.7); MEAN CELL VOLUME 90.3 fL (81.5-99.8); MEAN PLATELET VOLUME 11.1 fL (8.7-11.7); PLATELET CLUMPS FLAG 20 (0-99); PLATELET COUNT 148 10^3/uL (150-400); RED BLOOD CELL COUNT 3.19 10^6/uL (4.40-6.38); RED CELL DISTRIBUTION WIDTH 12.9 % (11.5-15.2)
[2016-07-18 08:19] LABS: INR 1.03 (0.83-1.16); PROTIME(PATIENT) 13.4 SEC (12.0-15.0)
[2016-07-18 08:20] LABS: APTT 36.6 SEC (23.0-38.0)
[2016-07-18 08:25] LABS: ANION GAP 11 mEq/L (8-16); CALCIUM 9.2 mg/dL (8.5-10.4); CARBON DIOXIDE 28 mEq/l (22-31); CHLORIDE 89 mEq/L (97-110); CREATININE 0.4 mg/dL (0.7-1.3); GLOMERULAR FILTRATION RATE > 60; GLUCOSE 90 mg/dL (70-100); POTASSIUM 4.6 mEq/L (3.5-5.2); SODIUM 128 mEq/L (134-144)
[2016-07-18] MEDS ORDERED: ERTAPENEM 1 GM in NS 100 ML IV ONE (08:37)
[2016-07-18] MEDS ORDERED: ONDANSETRON DISINTEGRATING 4 MG TAB PO PRN ×2 (09:26→13:42)
[2016-07-18] MEDS ORDERED: ACETAMINOPHEN 325 MG TAB PO PRN (09:26)
[2016-07-18] MEDS ORDERED: NS 1,000 ML IV SCH ×2 (09:30→21:00)
[2016-07-18] MEDS ORDERED: HYDROmorphONE/DILAUDID 1 MG/ML SYR ONE (10:21)
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
[2016-07-18 12:38] LABS: COLOR YELLOW; LEUKOCYTE ESTERASE,URINE 2+ (NEGATIVE)
[2016-07-18 12:48] LABS: AMORPHOUS PRESENT /hpf (NONE-1+)
[2016-07-18 12:53] LABS: BACTERIA 1+ /hpf (NONE SEEN); NITRITE,URINE POSITIVE (NEGATIVE)
[2016-07-18] MEDS ORDERED: IBUPROFEN 200 MG TAB PO PRN (13:42)
[2016-07-18] MEDS ORDERED: SENNOSIDES TUBE SCH (13:45)
[2016-07-18] MEDS: fentaNYL 100 MCG PATCH TD SCH (14:22)
[2016-07-18] MEDS: TOLTERODINE TARTRATE 1 MG TAB TUBE SCH (14:22)
[2016-07-18] MEDS: ERTAPENEM 1 GM in NS 100 ML IV SCH (14:23)
[2016-07-18] MEDS: GABAPENTIN 250 MG/5 ML 30 ML BOTTLE TUBE SCH ×2 (14:40→20:48)
[2016-07-18] MEDS: ACETAMINOPHEN 325 MG TAB TUBE SCH (17:30)
[2016-07-18] MEDS: MIDODRINE HCL 5 MG TAB TUBE SCH ×2 (17:31→20:47)
[2016-07-18] MEDS: POLYETHYLENE GLYCOL 3350 17 GM PKT TUBE SCH ×2 (17:31→20:47)
[2016-07-18] MEDS: clonazePAM 0.5 MG TAB TUBE SCH ×2 (17:32→20:47)
[2016-07-18] MEDS: BACLOFEN 10 MG TAB TUBE SCH ×2 (17:32→20:47)
[2016-07-18] MEDS: ZOLPIDEM TARTRATE 5 MG TAB PO SCH (20:47)
[2016-07-18] MEDS: DOCUSATE SODIUM 100 MG CAP PO SCH (20:47)
[2016-07-18] MEDS ORDERED: NON-FORMULARY NEW DRUG (Zolpidem Tartrate [Ambien Cr 12.5 Mg] 12.5 MG) TUBE SCH (21:00)
[2016-07-18] MEDS: FERROUS SULFATE 325 MG TAB PO SCH (21:10)
[2016-07-19] MEDS: ACETAMINOPHEN 325 MG TAB TUBE SCH ×4 (00:15→18:00)
[2016-07-19 04:49] LABS: HEMATOCRIT 26.2 % (40.0-51.0); HEMOGLOBIN 8.4 g/dL (13.7-17.5); MEAN CELL HEMOGLOBIN CONCENTR. 32.1 g/dL (32.4-36.7); MEAN CELL VOLUME 93.6 fL (81.5-99.8); RED BLOOD CELL COUNT 2.8 10^6/uL (4.40-6.38); RED CELL DISTRIBUTION WIDTH 13.6 % (11.5-15.2)
[2016-07-19 05:58] LABS: ANION GAP 10 mEq/L (8-16); CALCIUM 8.9 mg/dL (8.5-10.4); CARBON DIOXIDE 31 mEq/l (22-31); CHLORIDE 96 mEq/L (97-110); CREATININE 0.5 mg/dL (0.7-1.3); GLOMERULAR FILTRATION RATE > 60; GLUCOSE 86 mg/dL (70-100); POTASSIUM 4.2 mEq/L (3.5-5.2); SODIUM 137 mEq/L (134-144)
[2016-07-19] MEDS: GABAPENTIN 250 MG/5 ML 30 ML BOTTLE TUBE SCH ×3 (06:03→21:51)
[2016-07-19] MEDS: clonazePAM 0.5 MG TAB TUBE SCH ×4 (06:03→21:51)
[2016-07-19] MEDS: MIDODRINE HCL 5 MG TAB TUBE SCH ×4 (06:04→21:51)
[2016-07-19] MEDS: ENOXAPARIN 40 MG/0.4 ML SYR SC SCH (09:42)
[2016-07-19] MEDS: SENNOSIDES 17.6 MG/10 ML UDL PO SCH (09:42)
[2016-07-19] MEDS: POLYETHYLENE GLYCOL 3350 17 GM PKT TUBE SCH ×3 (09:42→22:33)
[2016-07-19] MEDS: TOLTERODINE TARTRATE 1 MG TAB TUBE SCH (09:43)
[2016-07-19] MEDS: SERTRALINE HCL 100 MG TAB TUBE SCH (09:43)
[2016-07-19] MEDS: FERROUS SULFATE 325 MG TAB PO SCH ×2 (09:43→22:32)
[2016-07-19] MEDS: BACLOFEN 10 MG TAB TUBE SCH ×3 (09:44→21:52)
[2016-07-19] MEDS: ERTAPENEM 1 GM in NS 100 ML IV SCH (09:44)
[2016-07-19] MEDS: DOCUSATE SODIUM 100 MG CAP PO SCH ×2 (09:44→21:51)
[2016-07-19] MEDS: BISACODYL 10 MG SUPP PR SCH (09:44)
--- NOTE | 2016-07-19 11:33 | HOSPPROG ---
Hospitalist Progress Note Assessment/Plan: 61-year-old with C3 quadriplegia is admitted with fever and nonproductive cough. Chest x-ray personally reviewed and is notable for a left elevated hemidiaphragm and possible home left lower lobe pneumonia. He is in hypoxemic respiratory failure requiring supplemental oxygen. # pneumonia with acute hypoxemic respiratory failure, at risk for aspiration. Currently on increased oxygen needs. On 1 L at home at baseline * Will do speech evaluation * Will add Zithromax to cover atypicals * Continue monitoring and oxygen as needed * Discussed with Dr. Calabrese # tracheostomy, defer to pulmonology if this needs to be downsized. # C3 quadriplegia and poor cough with elevated left hemidiaphragm, at risk for poor sponsored antibiotics and recurrent pneumonia. Complicated by contractions , neuropathy and respiratory failure on 1 L at home. * Continue pulmonary toilet here in the hospital # stage IV sacral wound followed by the wound clinic and Dr. Bocanegra. Wound Care has been consulted and I will alert Dr. Dior in that he is in the hospital. # hypertension # history of seizures # nutrition, continue his usual tube feeds # DVT prophylaxis Subjective: Patient does have increased difficulty breathing although admits to chronic congestion in his lungs. No chest pain no emesis recently but does think he might of had some vomiting prior to admission. He is on tube feeds however does drink water Objective: Vital Signs Temp Pulse Resp BP Pulse Ox 36.4 C 65 14 93/53 L 93 07/19/16 08:00 07/19/16 08:00 07/19/16 08:00 07/19/16 08:00 07/19/16 08:00 Microbiology 07/18/16 17:55 Respiratory Panel (PCR) - Final Nasal, Sinus - [place] Viral Transport No Organism Detected Laboratory Results 07/19/16 04:30 07/19/16 05:15 07/18/16 07/19/16 07/20/16 05:59 05:59 05:59 Intake Total 4563 Output Total 4200 Balance 363 PT 13.4 SEC (12.0-15.0) 07/18/16 07:50 INR 1.03 (0.83-1.16) 07/18/16 07:50 - Physical Exam Constitutional: chronically ill appearing, uncomfortable Eyes: PERRL, EOMI Ears, Nose, Mouth, Throat: moist mucous membranes Cardiovascular: regular rate and rhythym, no murmur, rub, or gallop Respiratory: reduced air movement, inspiratory crackles, bronchial breath sounds , respiratory distress Gastrointestinal: normoactive bowel sounds, soft, non-tender abdomen, no palpable masses Genitourinary: guaman in urethra Skin: warm, pressure ulcer, other (wound vac) Musculoskeletal: other (C3 paraplegia), No full muscle strength Neurologic: AAOx3 Psychiatric: interacting appropriately ICD10 Worksheet Patient Problems: Problems Problem Status Onset History of quadriplegia Acute Generalized tonic-clonic seizure Acute New onset seizure Acute Urinary tract infection Acute Constipation Acute Abdominal pain Acute Fecal impaction of colon Acute Anemia Acute Hyponatremia Acute Pneumonia Acute
--- NOTE | 2016-07-19 15:08 | WOCRNPDOC ---
SHILA Advanced Assessment Note - Skin Integrity Problem, Advanced Assess Coccyx Pressure Injury Dressing Type: Black Vac Foam, Hydrocolloid, Wound Vac Dressing Description: Intact Exudate Amount: Scant Exudate Color: Reddish/Yellow Exudate Characteristic(s): Serosanguinous Integumentary Issue Intervention: Dressing Changed Marty Wound Tissue: Erythema (mild) Marty Wound Swelling: Mild Wound Bed Color: Red Wound Bed Constitution: Granulation Tissue Wound Edges: Epithelizing Site Odor: None Site Measurement - Head-to-Toe Length X Width X Depth (cm): [id number], ridge in medial wound bed undermines 3cm from 6-11 o'clock Pressure Injury Stage: Stage 4 (Previous stage; now resembles stage 3) Pressure Injury Present on Admit: Yes (Documented in H&P) Skin Integrity Problem Comment: Well-granulating wound noted over coccyx, previously a stage 4 pressure injury w/ current appearance consistent w/ stage 3. Mild marty-wound erythema, discrete, w/ minimal associated swelling. There is a vertical ridge in the middle of the wound bed which undermines to 3cm from 6- 11 o'clock. Marty-wound skin prepped and draped, and 1 piece of black vac foam was placed in wound bed and bridged over patient's L hip to his L lower abdomen. Wound vac therapy resumes at 125 mmHg low, continuous suction, no leak detected. Report given to [facility] consultantMURALI Goodwin. Next dressing change scheduled for Friday 07/21. Ileo/sacral pressure injury Dressing Type: Allevyn Life, Non-Bordered Foam Dressing Description: Intact, Shadowed Exudate Amount: Minimal Exudate Color: Reddish/Yellow Exudate Characteristic(s): Serosanguinous Integumentary Issue Intervention: Dressing Changed, Hydrogel Applied Marty Wound Tissue: Blanching, Erythema, Scaly, Dry, Hypertrophic Marty Wound Swelling: Mild Wound Bed Color: Red, Yellow Wound Bed Constitution: Granulation Tissue, Smooth Tissue, Mixed Loose & Adhered Slough/Eschar Wound Edges: Epithelizing Site Odor: None Site Measurement - Head-to-Toe Length X Width X Depth (cm): Proximal: [id number]. Distal: 0.6cmx0.5cmx slough Pressure Injury Stage: Stage 4 (previous stage; presently appearance consistent w/ stage 3) Pressure Injury Present on Admit: Yes (Documented in H&P) Skin Integrity Problem Comment: This wound was previously a stage 4 pressure injury, appearance now consistent w/ stage 3. There are now two smaller wounds w / copious hypertrophic tissue surrounding. The proximal wound is comprised of 60 % smooth tissue, 40% granulation; distal wound was slough-filled, base visualized when site cleansed. Marty-wound tissue is flaky and dry, w/ mild blanching erythema throughout. Hydrogel applied, followed by Allevyn dressing. In addition, this author sent down a honey imed absorbent dressing to be applied over the wound, followed by the Allevyn.
--- NOTE | 2016-07-19 19:45 | GCON ---
[f rep st] CONSULTATION DATE OF CONSULTATION: 07/19/2016 HISTORY OF PRESENT ILLNESS: The patient is a 61-year-old man with C3 quadriplegia who is well known to [facility] He was admitted at this time with fev er and nonproductive cough. He was found to have a left lower lobe pneumonia with acute hypoxemic r espiratory failure. He has been followed as an outpatient for a stage IV sacral decubitus ulcer, pr eviously [address] Robles. The wound has been treated with wound VAC therapy with impro vement, as well as offloading pressure from his sacrum. The wound VAC was just changed this afterno on by the wound care nurse, Annita French. His daughter and the patient do not have any current complai nts at this time. PAST MEDICAL HISTORY: C3 quadriplegia, history of seizures, pneumonia with history of bilateral ace st tubes, chronic spasticity, hypertension, iron-deficiency anemia. PAST SURGICAL HISTORY: C-spine stabilization and fusion, tracheostomy, PEG tube, suprapubic cathete r, wound debridement. ALLERGIES: Penicillin and adhesive. SOCIAL HISTORY: He lives at home with his . He has home care. His daughter is a MEDICAL RECORDS ADMINISTRATOR. He is a nonsmoker. He denies alcohol or recreational drug use. FAMILY HISTORY: Noncontributory to wound. REVIEW OF SYSTEMS: Nonproductive cough, otherwise negative aside from HPI. PHYSICAL EXAM: GENERAL: A thin man, in no acute distress, daughter at bedside. HEENT: Normocepha lic, atraumatic. No hearing deficits. Pupils equal and round. No scleral icterus. Mucous membran es moist. NECK: Trachea midline. Tracheostomy tube in place. RESPIRATORY: No increased work of breathing. CARDIOVASCULAR: No peripheral edema. NEURO: Quadriplegia. MUSCULOSKELETAL: Quadripleg ia and spasticity. SKIN: The sacral wound has a wound VAC intact over the top. No surrounding jay thema or evidence of infection. IMPRESSION AND PLAN: The patient is a 61-year-old man with quadriplegia and a stage IV pressure ulc er of his sacrum, admitted with left lower lobe pneumonia. We will continue to follow him through h is hospital stay and provide wound care. He is on a [place] bed. He will continue offloading rosa e to side. We will change the wound VAC Tuesday, Tuesday and Tuesday. May consider advanced wound healing product while inpatient. Please do not hesitate to contact me or Dr. Robles with any wound c are questions. The patient and his daughter had their questions answered to their satisfaction. /[id number]/MODL
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
[2016-07-19] MEDS: ZOLPIDEM TARTRATE 5 MG TAB PO SCH (21:52)
[2016-07-20] MEDS: ACETAMINOPHEN 325 MG TAB TUBE SCH ×5 (00:14→23:19)
[2016-07-20] MEDS: ONDANSETRON 4 MG/2 ML VIAL IVP PRN ×2 (01:57→20:32)
[2016-07-20] MEDS ORDERED: VANCOMYCIN 1.25 GM in D5W 250 ML IV SCH (04:30)
[2016-07-20] MEDS: MIDODRINE HCL 5 MG TAB TUBE SCH ×4 (05:15→21:27)
[2016-07-20] MEDS: GABAPENTIN 250 MG/5 ML 30 ML BOTTLE TUBE SCH ×3 (05:16→21:27)
[2016-07-20] MEDS: clonazePAM 0.5 MG TAB TUBE SCH ×4 (05:16→21:27)
[2016-07-20 05:44] LABS: HEMATOCRIT 26.3 % (40.0-51.0); HEMOGLOBIN 8.4 g/dL (13.7-17.5); MEAN CELL HEMOGLOBIN 29.8 pg (27.9-34.1); MEAN CELL HEMOGLOBIN CONCENTR. 31.9 g/dL (32.4-36.7); MEAN CELL VOLUME 93.3 fL (81.5-99.8); RED BLOOD CELL COUNT 2.82 10^6/uL (4.40-6.38); RED CELL DISTRIBUTION WIDTH 12.9 % (11.5-15.2)
[2016-07-20 06:07] LABS: ANION GAP 11 mEq/L (8-16); CALCIUM 9.2 mg/dL (8.5-10.4); CARBON DIOXIDE 32 mEq/l (22-31); CHLORIDE 94 mEq/L (97-110); CREATININE 0.4 mg/dL (0.7-1.3); GLOMERULAR FILTRATION RATE > 60; GLUCOSE 112 mg/dL (70-100); POTASSIUM 4.4 mEq/L (3.5-5.2); SODIUM 137 mEq/L (134-144)
[2016-07-20] MEDS: TOLTERODINE TARTRATE 1 MG TAB TUBE SCH (08:19)
[2016-07-20] MEDS: BACLOFEN 10 MG TAB TUBE SCH ×3 (08:19→21:28)
[2016-07-20] MEDS: FERROUS SULFATE 300 MG/5 ML UD CUP TUBE SCH ×2 (08:19→21:27)
[2016-07-20] MEDS: SERTRALINE HCL 100 MG TAB TUBE SCH (08:20)
[2016-07-20] MEDS: ERTAPENEM 1 GM in NS 100 ML IV SCH (08:39)
[2016-07-20] MEDS: ENOXAPARIN 40 MG/0.4 ML SYR SC SCH (08:39)
[2016-07-20] MEDS: BISACODYL 10 MG SUPP PR SCH (09:08)
[2016-07-20] MEDS: DOCUSATE SODIUM 100 MG CAP PO SCH ×2 (09:08→20:31)
[2016-07-20] MEDS: POLYETHYLENE GLYCOL 3350 17 GM PKT TUBE SCH ×3 (09:09→20:32)
[2016-07-20] MEDS: SENNOSIDES 17.6 MG/10 ML UDL PO SCH (09:09)
--- NOTE | 2016-07-20 13:21 | PDINTPN ---
Civil Lawyer Progress Note Assessment/Plan: Assessment/plan: 61 M with C3 quadreplegia and chronic and recurrent aspiration despite tracheostomy and PEG admitted with fever, leukocytosis and increased oxygen requirement consistent with PNA. He was treated with antibiotics and improved, though did have an increased O2 requirement and increased infiltrates on HD# 2. His trach was placed 02/14/15 while an inpatient at [facility], where he had sever pneumonia requiring mechanical ventilation and bilateral pleural effusions. He was eventually discharged to [place] and then home where his plays a very active role in management. She reports frequent suctioing up to 2-3 times daily and a desire to keep the trach for long term care phlebotomist use. The trach is a 70mm TTS Bivona , which was not likely the original trach. * PNA- clinically improved though oxygen requirement and CXR seem to be fluctuating- his needs increased to as high as 8 lpm overnight and are now back to 2 lpm (baseline). Continue antibiotics * Hypoxemia- as above- his procalcitonin is relatively low, but his BNP is > 4000. He may benefit from diuresis. Another distinct possibility is aspiration pneumonitis (as opposed to PNA), which has been a chronic problem. I have called ENT to look at the trach to help determine if a differnt device would be more appropriate for long term care phlebotomist use. Objective: Vital Signs Temp Pulse Resp BP Pulse Ox 37.0 C 65 16 103/59 L 92 07/20/16 07:34 07/20/16 07:34 07/20/16 07:34 07/20/16 07:34 07/20/16 07:34 Microbiology 07/19/16 16:39 - Final Sputum, Induced/Suctioned Laboratory Results 07/20/16 05:10 07/20/16 05:10 07/19/16 07/20/16 07/21/16 05:59 05:59 05:59 Intake Total 4563 3031 Output Total 4200 2025 Balance 363 1006 PT 13.4 SEC (12.0-15.0) 07/18/16 07:50 INR 1.03 (0.83-1.16) 07/18/16 07:50 Physical Exam - Physical Exam General Appearance: alert, no apparent distress, thin EENT: PERRL/EOMI, other (tracheostomy tube) Neck: supple Respiratory: rales, rhonchi, No respiratory distress Cardiac/Chest: regular rate, rhythm, No edema Abdomen: non-tender, soft, No distended Skin: normal color, warm/dry Lymphatic: no adenopathy Extremities: No pedal edema Neuro/Psych: alert, normal mood/affect ICD10 Worksheet Patient Problems: Problems Problem Status Onset Pneumonia Acute Abdominal pain Acute Anemia Acute Constipation Acute Fecal impaction of colon Acute Generalized tonic-clonic seizure Acute History of quadriplegia Acute Hyponatremia Acute New onset seizure Acute Urinary tract infection Acute
[2016-07-20] MEDS: fentaNYL 100 MCG PATCH TD SCH (14:02)
[2016-07-20] MEDS ORDERED: FUROSEMIDE 20 MG/2 ML VIAL IVP ONE (15:19)
--- NOTE | 2016-07-20 15:23 | HOSPPROG ---
Hospitalist Progress Note Assessment/Plan: 61-year-old with C3 quadriplegia is admitted with fever and nonproductive cough. Chest x-ray personally reviewed and is notable for a left elevated hemidiaphragm and possible home left lower lobe pneumonia. He is in hypoxemic respiratory failure requiring supplemental oxygen. Discussed with Dr. Calabrese # pneumonia with acute hypoxemic respiratory failure, at risk for aspiration. Oxygen needs increased overnight however now close to baseline On 1 L at home at baseline * Will do speech evaluation * Will add Zithromax to cover atypicals # elevated BPP chest x-ray could potentially represent pulmonary edema. * Give 1 time dose of Lasix, patient's blood pressure is borderline still give low dose follow-up symptoms, oxygen needs and chest x-ray in a.m.. # tracheostomy, will have ENT see evaluate to make # C3 quadriplegia and poor cough with elevated left hemidiaphragm, at risk for poor sponsored antibiotics and recurrent pneumonia. Complicated by contractions , neuropathy and respiratory failure on 1 L at home. * Continue pulmonary toilet here in the hospital # stage IV sacral wound followed by the wound clinic and Dr. Bocanegra. Wound Care has been consulted and I will alert Dr. Dior in that he is in the hospital. # hypertension # history of seizures # nutrition, continue his usual tube feeds # DVT prophylaxis Disposition: Patient will likely need 1-2 more days acute hospitalization. We will need to make sure his respiratory status is stabilized and ENT has time to evaluate his trach. Subjective: Feels like his oxygen needs are better he says his shortness of breath is much improved since admission Objective: Vital Signs Temp Pulse Resp BP Pulse Ox 37.0 C 65 16 103/59 L 92 07/20/16 07:34 07/20/16 07:34 07/20/16 07:34 07/20/16 07:34 07/20/16 07:34 Microbiology 07/19/16 16:39 - Final Sputum, Induced/Suctioned Laboratory Results 07/20/16 05:10 07/20/16 05:10 07/19/16 07/20/16 07/21/16 05:59 05:59 05:59 Intake Total 4563 3031 Output Total 4200 2024 Balance 363 1006 PT 13.4 SEC (12.0-15.0) 07/18/16 07:50 INR 1.03 (0.83-1.16) 07/18/16 07:50 - Physical Exam Constitutional: chronically ill appearing, uncomfortable Eyes: PERRL, EOMI Ears, Nose, Mouth, Throat: moist mucous membranes Cardiovascular: regular rate and rhythym Respiratory: no respiratory distress, reduced air movement, inspiratory crackles Gastrointestinal: soft, non-tender abdomen Genitourinary: guaman in urethra Skin: warm, pressure ulcer Neurologic: AAOx3 Psychiatric: interacting appropriately ICD10 Worksheet Patient Problems: Problems Problem Status Onset History of quadriplegia Acute Generalized tonic-clonic seizure Acute New onset seizure Acute Urinary tract infection Acute Constipation Acute Abdominal pain Acute Fecal impaction of colon Acute Anemia Acute Hyponatremia Acute Pneumonia Acute
[2016-07-20] MEDS ORDERED: BIOTENE DRY MOUTH MOUTHWASH 237 ML BTL MM PRN (21:58)
[2016-07-20] MEDS ORDERED: ORAL BALANCE GEL TUBE PO PRN (22:07)
[2016-07-20] MEDS: ZOLPIDEM TARTRATE 5 MG TAB PO SCH (23:19)
[2016-07-21] MEDS: GABAPENTIN 250 MG/5 ML 30 ML BOTTLE TUBE SCH ×3 (04:46→21:22)
[2016-07-21] MEDS: ONDANSETRON 4 MG/2 ML VIAL IVP PRN (04:46)
[2016-07-21] MEDS: clonazePAM 0.5 MG TAB TUBE SCH ×4 (04:46→21:24)
[2016-07-21] MEDS: ACETAMINOPHEN 325 MG TAB TUBE SCH ×4 (04:46→23:55)
[2016-07-21] MEDS: MIDODRINE HCL 5 MG TAB TUBE SCH ×4 (04:47→21:23)
[2016-07-21 05:12] LABS: HEMATOCRIT 27.9 % (40.0-51.0); HEMOGLOBIN 8.9 g/dL (13.7-17.5); MEAN CELL HEMOGLOBIN 30.1 pg (27.9-34.1); MEAN CELL HEMOGLOBIN CONCENTR. 31.9 g/dL (32.4-36.7); MEAN CELL VOLUME 94.3 fL (81.5-99.8); RED BLOOD CELL COUNT 2.96 10^6/uL (4.40-6.38); RED CELL DISTRIBUTION WIDTH 12.9 % (11.5-15.2)
[2016-07-21 06:12] LABS: ANION GAP 10 mEq/L (8-16); CALCIUM 9.2 mg/dL (8.5-10.4); CARBON DIOXIDE 35 mEq/l (22-31); CHLORIDE 93 mEq/L (97-110); CREATININE 0.4 mg/dL (0.7-1.3); GLOMERULAR FILTRATION RATE > 60; GLUCOSE 88 mg/dL (70-100); POTASSIUM 4.8 mEq/L (3.5-5.2); SODIUM 138 mEq/L (134-144)
[2016-07-21] MEDS ORDERED: ACETAMINOPHEN 325 MG TAB TUBE PRN (07:24)
[2016-07-21] MEDS: BISACODYL 10 MG SUPP PR SCH (08:36)
[2016-07-21] MEDS: TOLTERODINE TARTRATE 1 MG TAB TUBE SCH (08:42)
[2016-07-21] MEDS: ENOXAPARIN 40 MG/0.4 ML SYR SC SCH (08:42)
[2016-07-21] MEDS: FERROUS SULFATE 300 MG/5 ML UD CUP TUBE SCH ×2 (08:42→21:24)
[2016-07-21] MEDS: SERTRALINE HCL 100 MG TAB TUBE SCH (08:43)
[2016-07-21] MEDS: BACLOFEN 10 MG TAB TUBE SCH ×3 (08:43→21:24)
[2016-07-21] MEDS: ERTAPENEM 1 GM in NS 100 ML IV SCH (09:03)
--- NOTE | 2016-07-21 09:40 | PDINTPN ---
Parachute Inspector Progress Note Assessment/Plan: Assessment/plan: 61 M with C3 quadreplegia and chronic and recurrent aspiration despite tracheostomy and PEG admitted with fever, leukocytosis and increased oxygen requirement consistent with PNA. He was treated with antibiotics and improved, though did have an increased O2 requirement and increased infiltrates on HD# 2. His trach was placed 02/14/15 while an inpatient at [facility], where he had sever pneumonia requiring mechanical ventilation and bilateral pleural effusions. He was eventually discharged to [place] and then home where his plays a very active role in management. She reports frequent suctioing up to 2-3 times daily and a desire to keep the trach for intermediate frame tender use. The trach is a 70mm TTS Bivona , which was not likely the original trach. * PNA- he seems quite stable from this perspective and his CXR may have "blossomed". Continue antibiotics, though his procalcitonin is relatively low * Hypoxemia- presumably from PNA but seems to fluctuate. DDx includes PNA, volume overload, BOOP, central sleep apnea, positional hypoxia. Not much response to lasix, but O2 requirement back to baseline in AM two days in a row. Continue support for now, and consider outpatient nocturnal oximetry study. * Chronic trach- discussed with ENT. His device is OK for intermediate frame tender use, but he should get outpatient ENT followup for ongoing management such as trach changes , cleaning, etc. Objective: Vital Signs Temp Pulse Resp BP Pulse Ox 36.9 C 55 L 16 103/56 L 99 07/21/16 00:00 07/21/16 01:00 07/21/16 01:00 07/21/16 01:00 07/21/16 04:00 Microbiology 07/19/16 16:39 - Final Sputum, Induced/Suctioned Laboratory Results 07/21/16 04:55 07/21/16 04:55 07/20/16 07/21/16 07/22/16 05:59 05:59 05:59 Intake Total 3035 2729 Output Total 2024 1849 Balance 1006 249 PT 13.4 SEC (12.0-15.0) 07/18/16 07:50 INR 1.03 (0.83-1.16) 07/18/16 07:50 Physical Exam - Physical Exam General Appearance: alert, no apparent distress EENT: PERRL/EOMI Neck: supple, other (trach site clean) Respiratory: lungs clear, normal breath sounds, No respiratory distress Cardiac/Chest: regular rate, rhythm, No edema Abdomen: soft, No distended Skin: normal color, warm/dry Lymphatic: no adenopathy Extremities: No pedal edema Neuro/Psych: alert, normal mood/affect ICD10 Worksheet Patient Problems: Problems Problem Status Onset Pneumonia Acute Abdominal pain Acute Anemia Acute Constipation Acute Fecal impaction of colon Acute Generalized tonic-clonic seizure Acute History of quadriplegia Acute Hyponatremia Acute New onset seizure Acute Urinary tract infection Acute
--- NOTE | 2016-07-21 11:19 | SOAPPROG ---
<Frida Petty - Last Filed: 07/21/16 11:18> SOAP Progress Note Assessment/Plan: Assessment: 61yo M well known to our service for stage IV sacral debuc Amniofill or epifix under wound vac today Will not need to change wound vac dressing x 1 week - home care can change F/u at wound healing center in [address] Robles and Annita Hyatt [facility] Objective: Vital Signs Temp Pulse Resp BP Pulse Ox 37.0 C 63 14 101/51 L 94 07/21/16 08:00 07/21/16 08:00 07/21/16 08:00 07/21/16 08:00 07/21/16 08:00 Microbiology 07/19/16 16:39 - Final Sputum, Induced/Suctioned Laboratory Results 07/21/16 04:55 07/21/16 04:55 07/20/16 07/21/16 07/22/16 05:59 05:59 05:59 Intake Total 3031 2099 Output Total 2024 1850 Balance 1006 249 PT 13.4 SEC (12.0-15.0) 07/18/16 07:50 INR 1.03 (0.83-1.16) 07/18/16 07:50 ICD10 Worksheet Patient Problems: Problems Problem Status Onset Pneumonia Acute chronic disease mgmt/transitional care Acute Abdominal pain Acute Anemia Acute Constipation Acute Fecal impaction of colon Acute Generalized tonic-clonic seizure Acute History of quadriplegia Acute Hyponatremia Acute New onset seizure Acute Urinary tract infection Acute <Jackie Robles - Last Filed: 07/21/16 15:30> SOAP Progress Note Assessment/Plan: Assessment: Wound much improved today. Can keep WV in place one week if it will hold. Otherwise change if soiled or leaking. Plan: 07/21/16 15:30 Objective: Vital Signs Temp Pulse Resp BP Pulse Ox 37.0 C 63 14 101/51 L 94 07/21/16 08:00 07/21/16 08:00 07/21/16 08:00 07/21/16 08:00 07/21/16 08:00 Microbiology 07/19/16 16:39 - Final Sputum, Induced/Suctioned Laboratory Results 07/21/16 04:55 07/21/16 04:55 0607/21/16 07/22/16 05:59 05:59 05:59 Intake Total 3032098 Output Total 2024 1849 Balance 1006 249 PT 13.4 SEC (12.0-15.0) 07/18/16 07:50 INR 1.03 (0.83-1.16) 07/18/16 07:50
[2016-07-21] MEDS: SENNOSIDES 17.6 MG/10 ML UDL TUBE SCH (12:15)
--- NOTE | 2016-07-21 13:10 | WOCRNPDOC ---
SHILA Advanced Assessment Note - Skin Integrity Problem, Advanced Assess Coccyx Pressure Injury Dressing Type: Black Vac Foam, Wound Vac Dressing Description: Intact Exudate Amount: Minimal Exudate Color: Reddish/Yellow Exudate Characteristic(s): Serosanguinous Integumentary Issue Intervention: Dressing Changed Masha Wound Tissue: Blanching, Erythema, Macerated (mild, along margins) Masha Wound Swelling: Mild Wound Bed Color: Red Wound Bed Constitution: Granulation Tissue Wound Edges: Epithelizing Site Odor: None Site Measurement - Head-to-Toe Length X Width X Depth (cm): [id number] (w/ ridge through middle running head-to-toe that undermines 2.8cm from 6-11 o'clock ) Pressure Injury Stage: Stage 4 (now has appearance of a stage 3) Pressure Injury Present on Admit: Yes (Documented in H&P) Skin Integrity Problem Comment: Assessed site w/ Dr. Robles and MANUEL Garcia. Determination made to apply Epifix placental tissue graft, followed by NPWT x 7 days. Wound comprised of 100% granulation, w/ mild erythema and maceration noted in immediate masha-wound tissues. Draped masha-wound skin w/ hydrocolloid dressing, Epifix placed followed by Adaptic Touch and steri-strips. One continuous piece of black Simplace foam placed over wound bed, bridged over L hip to patient's L lower abdomen. Vac set at 125mmHg, low, continuous suction, no leaks. retail merchandising coordinatorMURALI Ramirez present and assisting. Ileo/sacral pressure injury Dressing Type: Allevyn Life, Other Other Dressing Type: ManukaHD honey sheet Dressing Description: Intact Exudate Amount: Scant Exudate Color: Reddish/Yellow Exudate Characteristic(s): Serosanguinous Integumentary Issue Intervention: Dressing Changed Masha Wound Tissue: Blanching, Erythema Masha Wound Swelling: Mild Wound Bed Color: Red, Yellow Wound Bed Constitution: Granulation Tissue, Smooth Tissue, Adhered Slough Wound Edges: Epithelizing Site Measurement - Head-to-Toe Length X Width X Depth (cm): Proximal: 1.0hkj7gjy6.2cm; Distal: 0.6cmx0.5cmx 0.1cm Pressure Injury Stage: Stage 4 (Current appearance consistent w/ stage 3) Skin Integrity Problem Comment: Two discrete full-thickness pressure injuries noted to L ileosacral region, consistent in appearance w/ stage 3 at this time; previously a stage 4, so it resumes its original staging. Masha-wound tissue is is various stages of epithelialization, w/ blanching erythema throughout and hypertrophic tissue noted. Distal wound, which was previously slough-filled, is now 50% smooth/granulating tissue. Continue w/ ManukaHD to promote autolysis of remaining slough.
[2016-07-21] MEDS: DOCUSATE SODIUM 100 MG CAP PO SCH (13:24)
--- NOTE | 2016-07-21 13:40 | HOSPPROG ---
Hospitalist Progress Note Assessment/Plan: 61-year-old with C3 quadriplegia is admitted with fever and nonproductive cough. # pneumonia with acute hypoxemic respiratory failure, at risk for aspiration. Oxygen needs increased overnight however now close to baseline On 1 L at home at baseline * Will do speech evaluation * Currently on Ertapenem, can switch to Levaquin. * Sputum culture is c/w Stenotrophomonas Maltophilia sensitive to Levaquin. Will stop Ertapenem and start Levaquin # elevated BPP chest x-ray could potentially represent pulmonary edema. * No need for Lasix today, although he has required Lasix in the past. Will hold for now. # tracheostomy, will need f/u with ENT as an outpatient. # C3 quadriplegia and poor cough with elevated left hemidiaphragm, at risk for poor sponsored antibiotics and recurrent pneumonia. Complicated by contractions , neuropathy and respiratory failure on 1 L at home. * Continue pulmonary toilet here in the hospital # stage IV sacral wound followed by the wound clinic and Dr. Bocanegra. Wound Care has been consulted. # hypertension # history of seizures # nutrition, continue his usual tube feeds # DVT prophylaxis Disposition: Will be ready for discharge in 1-2 days, possibly tomorrow Subjective: No complaints. O2 requirements are close to baseline Objective: Vital Signs Temp Pulse Resp BP Pulse Ox 37.0 C 63 14 101/51 L 94 07/21/16 08:00 07/21/16 08:00 07/21/16 08:00 07/21/16 08:00 07/21/16 08:00 Microbiology 07/19/16 16:39 - Final Sputum, Induced/Suctioned Laboratory Results 07/21/16 04:55 07/21/16 04:55 07/20/16 07/21/16 07/22/16 05:59 05:59 05:59 Intake Total 30309 Output Total 2024 185 Balance 1006 249 PT 13.4 SEC (12.0-15.0) 07/18/16 07:50 INR 1.03 (0.83-1.16) 07/18/16 07:50 - Physical Exam Constitutional: no apparent distress, chronically ill appearing Eyes: PERRL, EOMI Ears, Nose, Mouth, Throat: moist mucous membranes, hearing normal Cardiovascular: regular rate and rhythym, No JVD Respiratory: no respiratory distress, reduced air movement Gastrointestinal: normoactive bowel sounds Skin: warm Neurologic: AAOx3 Psychiatric: interacting appropriately ICD10 Worksheet Patient Problems: Problems Problem Status Onset Pneumonia Acute chronic disease mgmt/transitional care Acute Abdominal pain Acute Anemia Acute Constipation Acute Fecal impaction of colon Acute Generalized tonic-clonic seizure Acute History of quadriplegia Acute Hyponatremia Acute New onset seizure Acute Urinary tract infection Acute
[2016-07-21] MEDS ORDERED: IBUPROFEN SUSP 100 MG/5 ML UDCUP PO PRN (15:30)
[2016-07-21] MEDS: POLYETHYLENE GLYCOL 3350 17 GM PKT TUBE SCH ×3 (15:53→21:24)
[2016-07-21] MEDS ORDERED: ZOLPIDEM TARTRATE 5 MG TAB TUBE SCH (21:00)
[2016-07-22] MEDS: GABAPENTIN 250 MG/5 ML 30 ML BOTTLE TUBE SCH ×2 (05:04→14:28)
[2016-07-22] MEDS: clonazePAM 0.5 MG TAB TUBE SCH ×3 (05:04→16:51)
[2016-07-22] MEDS: MIDODRINE HCL 5 MG TAB TUBE SCH ×3 (05:05→16:50)
[2016-07-22] MEDS: ACETAMINOPHEN 325 MG TAB TUBE SCH ×3 (05:05→16:50)
[2016-07-22] MEDS: SERTRALINE HCL 100 MG TAB TUBE SCH (08:44)
[2016-07-22] MEDS: TOLTERODINE TARTRATE 1 MG TAB TUBE SCH (08:44)
[2016-07-22] MEDS: FERROUS SULFATE 300 MG/5 ML UD CUP TUBE SCH (08:44)
[2016-07-22] MEDS: BACLOFEN 10 MG TAB TUBE SCH ×2 (08:44→16:51)
[2016-07-22] MEDS: ENOXAPARIN 40 MG/0.4 ML SYR SC SCH (08:44)
[2016-07-22] MEDS: BISACODYL 10 MG SUPP PR SCH (08:45)
[2016-07-22] MEDS: POLYETHYLENE GLYCOL 3350 17 GM PKT TUBE SCH ×2 (08:45→16:53)
[2016-07-22] MEDS: SENNOSIDES 17.6 MG/10 ML UDL TUBE SCH (08:45)
--- NOTE | 2016-07-22 09:37 | PDINTPN ---
Milieu Coordinator Progress Note Assessment/Plan: Assessment/plan: 61 M with C3 quadreplegia and chronic and recurrent aspiration despite tracheostomy and PEG admitted with fever, leukocytosis and increased oxygen requirement consistent with PNA. He was treated with antibiotics and improved, though did have an increased O2 requirement and increased infiltrates on HD# 2. His trach was placed 02/14/15 while an inpatient at [facility], where he had sever pneumonia requiring mechanical ventilation and bilateral pleural effusions. He was eventually discharged to [place] and then home where his plays a very active role in management. 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 The trach is a 70mm TTS [place] , which was not likely the original trach. * PNA- he seems quite stable from this perspective and his CXR may have "blossomed". Continue antibiotics, though his procalcitonin is relatively low. * Hypoxemia- likely transient mucous plugging. Only brief desat last pm and cleared with suctioning. * Chronic trach- discussed with ENT. His device is OK for terminal operations manager use, but he should get outpatient ENT followup for ongoing management such as trach changes , cleaning, etc. * Dispo- dc home soon? Objective: Vital Signs Temp Pulse Resp BP Pulse Ox 37.4 C 58 L 20 135/77 H 100 07/22/16 08:00 07/22/16 08:00 07/22/16 08:00 07/22/16 08:00 07/22/16 08:00 Microbiology 07/19/16 16:39 - Final Sputum, Induced/Suctioned Laboratory Results 07/21/16 04:55 07/21/16 04:55 07/21/16 07/22/16 07/23/16 05:59 05:59 05:59 Intake Total 2099 1500 Output Total 1850 2150 Balance 249 -650 PT 13.4 SEC (12.0-15.0) 07/18/16 07:50 INR 1.03 (0.83-1.16) 07/18/16 07:50 Physical Exam - Physical Exam General Appearance: alert, no apparent distress, thin EENT: PERRL/EOMI Neck: supple Respiratory: lungs clear, normal breath sounds, No respiratory distress Cardiac/Chest: regular rate, rhythm, No edema Abdomen: non-tender, soft, No distended Skin: normal color, warm/dry Lymphatic: no adenopathy Extremities: No pedal edema Neuro/Psych: alert, normal mood/affect, oriented x 3 ICD10 Worksheet Patient Problems: Problems Problem Status Onset Pneumonia Acute chronic disease mgmt/transitional care Acute Abdominal pain Acute Anemia Acute Constipation Acute Fecal impaction of colon Acute Generalized tonic-clonic seizure Acute History of quadriplegia Acute Hyponatremia Acute New onset seizure Acute Urinary tract infection Acute
--- NOTE | 2016-07-22 11:27 | HOSPPROG ---
Hospitalist Progress Note Assessment/Plan: 61-year-old with C3 quadriplegia is admitted with Pneumonia. He has a hx of chronic trach (placed Feb 2015), long standing dysphagia, recurrent aspiration, and chronic stage IV sacral wound. He was treated with Ertapenem and this has been switched to Levaquin with a stop date of 07/27. He is now back to baseline. He lives at home and discharge is being arranged for possibly today vs tomorrow. He has a hx of chronic urinary colonization and is not symptomatic. He needs f/u with ENT as an outpatient # pneumonia with acute hypoxemic respiratory failure, at risk for aspiration. On 1 L at home at baseline * Levaquin. * Sputum culture is c/w Stenotrophomonas Maltophilia sensitive to Levaquin. Will stop Ertapenem and start Levaquin # elevated BPP chest x-ray could potentially represent pulmonary edema. * No need for Lasix today, although he has required Lasix in the past. Will hold for now. # tracheostomy, will need f/u with ENT as an outpatient. # C3 quadriplegia and poor cough with elevated left hemidiaphragm, at risk for poor sponsored antibiotics and recurrent pneumonia. Complicated by contractions , neuropathy and respiratory failure on 1 L at home. * Continue pulmonary toilet here in the hospital # stage IV sacral wound followed by the wound clinic and Dr. Bocanegra. Wound Care has been consulted. # hypertension # history of seizures # nutrition, continue his usual tube feeds # DVT prophylaxis Disposition: likely today vs tomorrow Subjective: Feels better. Now back to baseline. Objective: Vital Signs Temp Pulse Resp BP Pulse Ox 37.4 C 58 L 20 135/77 H 100 07/22/16 08:00 07/22/16 08:00 07/22/16 08:00 07/22/16 08:00 07/22/16 08:00 Microbiology 07/19/16 16:39 - Final Sputum, Induced/Suctioned Laboratory Results 07/21/16 04:55 07/21/16 04:55 07/21/16 07/22/16 07/23/16 05:59 05:59 05:59 Intake Total 2099 1500 Output Total 1850 2150 Balance 249 -650 PT 13.4 SEC (12.0-15.0) 07/18/16 07:50 INR 1.03 (0.83-1.16) 07/18/16 07:50 - Physical Exam Constitutional: no apparent distress, chronically ill appearing Eyes: PERRL, EOMI Ears, Nose, Mouth, Throat: moist mucous membranes, hearing normal Cardiovascular: regular rate and rhythym, no murmur, rub, or gallop, No JVD Respiratory: reduced air movement Gastrointestinal: normoactive bowel sounds, soft, non-tender abdomen Skin: warm, normal color Neurologic: AAOx3 Psychiatric: interacting appropriately, not anxious, not encephalopathic ICD10 Worksheet Patient Problems: Problems Problem Status Onset Pneumonia Acute chronic disease mgmt/transitional care Acute Abdominal pain Acute Anemia Acute Constipation Acute Fecal impaction of colon Acute Generalized tonic-clonic seizure Acute History of quadriplegia Acute Hyponatremia Acute New onset seizure Acute Urinary tract infection Acute
[2016-07-22] MEDS: ONDANSETRON 4 MG/2 ML VIAL IVP PRN (12:24)
--- NOTE | 2016-07-22 13:08 | PDDCSUM ---
Discharge Summary Discharge Summary: 61-year-old with C3 quadriplegia is admitted with Pneumonia. He has a hx of chronic trach (placed Feb 2015), long standing dysphagia, recurrent aspiration, and chronic stage IV sacral wound. He was treated with Ertapenem and this has been switched to Levaquin with a stop date of 07/27. He is now back to baseline. He lives at home and discharge is has been arranged for today. He has a hx of chronic urinary colonization and is not symptomatic. He needs f/u with ENT as an outpatient DISCHARGE DIAGNOSIS # pneumonia with acute hypoxemic respiratory failure, at risk for aspiration. On 1 L at home at baseline * Levaquin. * Sputum culture is c/w Stenotrophomonas Maltophilia sensitive to Levaquin. Will stop Ertapenem and start Levaquin # elevated BPP chest x-ray could potentially represent pulmonary edema. * No need for Lasix today, although he has required Lasix in the past. Will hold for now. # tracheostomy, will need f/u with ENT as an outpatient. # C3 quadriplegia and poor cough with elevated left hemidiaphragm, at risk for poor sponsored antibiotics and recurrent pneumonia. Complicated by contractions , neuropathy and respiratory failure on 1 L at home. * Continue pulmonary toilet here in the hospital # stage IV sacral wound followed by the wound clinic and Dr. Bocanegra. Wound Care has been consulted. # hypertension # history of seizures # nutrition, continue his usual tube feeds DISCHARGE MEDS: NEW MEDICATION: Levaquin 750 mg daily x 5 additional days f/u: with PCP in one week total time spent on discharge is 35 minutes
--- NOTE | 2016-07-22 13:59 | PDIAF ---
- Diagnosis Diagnosis: pneumonia Code Status: Full Code - Medication Management Discharge Medications: Medications to Continue on Transfer Midodrine HCl 10 mg TUBE QID 04/06/15 [Last Taken 07/18/16] ZOLPIDEM TARTRATE [Ambien CR 12.5 mg] 12.5 mg TUBE HS 04/06/15 [Last Taken 07/17] fentaNYL [Duragesic 100 MCG Patch (*)] 100 mcg TD Q48H 04/06/15 [Last Taken 10/24] Ferrous Sulfate 325 mg TUBE BID 04/27/15 [Last Taken 07/17/16] Sennosides [Senna] 1 tab TUBE DAILY 04/27/15 [Last Taken 07/17/16] Acetaminophen [Tylenol 325mg (*)] 650 mg TUBE Q6 08/24/15 [Last Taken 07/18/16] Baclofen [Baclofen 10 mg (*)] 10 mg TUBE TID 08/24/15 [Last Taken 07/17/16] Gabapentin [Neurontin Oral Liquid] 600 mg TUBE Q8H 08/24/15 [Last Taken 07/18/16 ] Sertraline HCl [Zoloft 100mg (*)] 100 mg TUBE DAILY 08/24/15 [Last Taken ] clonazePAM [Klonopin (*)] 0.25 mg TUBE QID 08/24/15 [Last Taken 07/18/16] Docusate Sodium [Colace 100 MG (*)] 200 mg TUBE BID 10/31/15 [Last Taken ] Ibuprofen [Motrin (*)] 200 mg TUBE DAILY PRN 10/31/15 [Last Taken 07/17/16] Polyethylene Glycol 3350 [Miralax 17 gm (*)] 8.5 gm TUBE TID 10/31/15 [Last Taken 07/18/16] oxyCODONE IR [Oxycodone Ir (*)] 30 mg TUBE 5XD 10/31/15 [Last Taken 07/17/16] tiZANidine HCL [Zanaflex] 4 mg TUBE BID 10/31/15 [Last Taken 07/17/16] Bisacodyl [Magic Bullet 10 mg] 10 mg TN DAILY 07/18/16 [Last Taken 07/17/16] Ondansetron Odt [Zofran Odt 4 mg (*)] 8 mg PO DAILY PRN 07/18/16 [Last Taken 11/23] Tolterodine Tartrate [Detrol 1MG (*)] 4 mg TUBE DAILY 07/18/16 [Last Taken 07/17] levOFLOXACIN [levAQUIN (*)] 750 mg PO DAILY #5 tab 07/22/16 [Last Taken Unknown] Discharge Medications: Refer to the Discharge Home Medication list for PRN reason. - Orders Services needed: Home [facility] Care Face to Face: I certify that this patient was under my care and that I had the required [id number] encounter meeting the encounter requirements on the discharge day. My findings support the fact that the patient is homebound as defined in CMS Chapter 7 Medicare Benefits Manual 30.1.1, The condition of the patient is such that there exists a normal inability to leave home and consequently, leaving home would require a considerable and taxing effort. Diet Recommendation: other (npo. TUBE FEEDS) - Follow Up Care Current Providers and Referrals: KYLIE ALDANA [Primary Care Provider] - As per Instructions
[2016-07-22] MEDS: fentaNYL 100 MCG PATCH TD SCH (15:13)
[2016-07-22 16:18] VITALS: BP 122/61; PULSE 54; RESP 18; TEMP 98.6; O2SAT 95
== END 2016-07-22 18:05 | disposition home health service (06) | DRG 193 ==
LOC: F2N 12:58
PROVIDERS: ADMIT Internal Medicine; ATTEND Family Medicine
DX: J18.0 Bronchopneumonia, unspecified organism (principal); B96.89 Other specified bacterial agents as the cause of diseases classified elsewhere; L89.153 Pressure ulcer of sacral region, stage 3; D50.9 Iron deficiency anemia, unspecified; G82.51 Quadriplegia, C1-C4 complete; V00.1 Rolling-type pedestrian conveyance accident; Z98.1 Arthrodesis status; Z93.1 Gastrostomy status; R13.10 Dysphagia, unspecified; Z93.0 Tracheostomy status; Z93.59 Other cystostomy status; I10 Essential (primary) hypertension; Z99.81 Dependence on supplemental oxygen
CPT/HCPCS: 96365; J1170; J1335; J1650; J1940; J1956; J2405; J3370

== ENCOUNTER 2016-09-02 08:48 | Emergency (ER) | payer OTHER ==
--- NOTE | 2016-09-02 09:34 | EDPHY ---
H & P Stated Complaint: G-tube pulled out this AM, in since 2014 Time Seen by Provider: 09/02/16 09:03 HPI/ROS: CHIEF COMPLAINT: feeding tube pulled out HISTORY OF PRESENT ILLNESS: 61-year-old male presents emergency department by private vehicle with his after his feeding tube was pulled out by a caregiver this morning while transferring him out of bed. Patient is a quadriplegic and is wheelchair bound since an accident in 2013. After the feeding tube was pulled the placed a Gamez catheter to keep the hole open. No bleeding from site. is requesting a urinalysis as well as she states his urine is slightly darker than it usually is. No fevers or chills, no increased sedation or fatigue. The patient has no complaints. REVIEW OF SYSTEMS: A comprehensive 10 point review of systems is otherwise negative aside from elements mentioned in the history of present illness. Source: Patient, Family Exam Limitations: No limitations - Personal History Current Tetanus/Diphtheria Vaccine: Yes Current Tetanus Diphtheria and Acellular Pertussis (TDAP): Yes - Medical/Surgical History Hx Asthma: No Hx Chronic Respiratory Disease: No Hx Diabetes: No Hx Cardiac Disease: No Hx Renal Disease: No Hx Cirrhosis: No Hx Alcoholism: No Hx HIV/AIDS: No Hx Splenectomy or Spleen Trauma: No Other PMH: Quadriplegia C3-C4 2013, recent admission for pneumonia. Pericardial effusion, multple decubitus ulcer bottom and back, UTI's, Baclofen pump, Peg tube, Tracheostomy (capped), - Family History Significant Family History: No pertinent family hx - Social History Smoking Status: Never smoked - Physical Exam Exam: Physical Exam Gen: Alert and Oriented, NAD, in wheelchair HEENT: PERRL, moist mucous membranes NECK: Trach in place, no surrounding drainage or erythema CV: Irregular rate and regular rhythm PULM: CTAB, no wheezes ABDOMEN: soft, non tender to palpation, G-tube site with no bleeding or surrounding erythema, Gamez catheter in G-tube location present time, BS present NEURO: Awake, alert and oriented, patient is a quadriplegic, no movement below shoulders EXTREMITIES: normal appearing SKIN: no rash or break in skin on exposed skin PSYCH: answers questions appropriately. Constitutional: Initial Vital Signs Temperature (C) 37.6 C 09/02/16 08:55 Heart Rate 90 09/02/16 08:55 Respiratory Rate 17 09/02/16 08:55 Blood Pressure 84/63 L 09/02/16 08:55 O2 Sat (%) 95 09/02/16 08:55 O2 Delivery Mode Nasal Cannula O2 (L/minute) 1 Allergies/Adverse Reactions: Milk Containing Products [dairy] Allergy (Severe, Verified 09/02/16 08:51) Swelling/neck,face,throat Penicillins Allergy (Severe, Verified 09/02/16 08:51) Other-Enter Comments soy Allergy (Severe, Verified 09/02/16 08:51) Swelling/neck,face,throat shellfish derived Allergy (Verified 09/02/16 08:51) tree nut [Nuts] Allergy (Verified 09/02/16 08:51) wheat Allergy (Severe, Uncoded 05/24/16 15:58) [place] Home Medications: Medication Instructions Recorded Midodrine HCl 10 mg TUBE QID 04/06/15 ZOLPIDEM TARTRATE [Ambien CR 12.5 12.5 mg TUBE HS 04/06/15 mg] fentaNYL [Duragesic 100 MCG Patch 100 mcg TD Q48H 04/06/15 (*)] Ferrous Sulfate 325 mg TUBE BID 04/27/15 Sennosides [Senna] 1 tab TUBE DAILY 04/27/15 Acetaminophen [Tylenol 325mg (*)] 650 mg TUBE Q6 08/24/15 Baclofen [Baclofen 10 mg (*)] 10 mg TUBE TID 08/24/15 Gabapentin [Neurontin Oral Liquid] 600 mg TUBE Q8H 08/24/15 Sertraline HCl [Zoloft 100mg (*)] 100 mg TUBE DAILY 08/24/15 clonazePAM [Klonopin (*)] 0.25 mg TUBE QID 08/24/15 Docusate Sodium [Colace 100 MG (*)] 200 mg TUBE BID 10/31/15 Ibuprofen [Motrin (*)] 200 mg TUBE DAILY PRN 10/31/15 Polyethylene Glycol 3350 [Miralax 8.5 gm TUBE TID 10/31/15 17 gm (*)] oxyCODONE IR [Oxycodone Ir (*)] 30 mg TUBE 5XD 10/31/15 tiZANidine HCL [Zanaflex] 4 mg TUBE BID 10/31/15 Bisacodyl [Magic Bullet 10 mg] 10 mg NM DAILY 07/18/16 Ondansetron Odt [Zofran Odt 4 mg 8 mg PO DAILY PRN 07/18/16 (*)] Tolterodine Tartrate [Detrol 1MG 4 mg TUBE DAILY 07/18/16 (*)] levOFLOXACIN [levAQUIN (*)] 750 mg PO DAILY #5 tab 07/22/16 Medical Decision Making Procedures: Feeding tube replacement- 24 [place]i gastrostomy feeding to placed without difficulty, 9 mL saline placed in the balloon, tube flushed without difficulty, contents withdrawn without difficulty. ED Course/Re-evaluation: Gastrostomy tube replaced without difficulty, concerned about urine that is a little darker than usual. Urinalysis shows 25-50 WBCs, 15-25 RBCs. The states that his urine is always mildly infected due to indwelling catheter. She and the patient would like to wait for the culture results prior to starting on antibiotics. Patient with blood pressure of 89/60 upon discharge, this is normal for patient per patient and . He will be discharged home. They are given return precautions for any fevers, problems with feeding tube, any other questions or concerns. - Data Points Laboratory Results: 09/02/16 09:17 Urine Color YELLOW Urine Appearance MODERATELY TURBID Urine pH 7.0 (5.0-7.5) Ur Specific [place] 1.014 (1.002-1.030) Urine Protein 1+ H (NEGATIVE) Urine Ketones NEGATIVE (NEGATIVE) Urine Blood 1+ H (NEGATIVE) Urine Nitrate NEGATIVE (NEGATIVE) Urine Bilirubin NEGATIVE (NEGATIVE) Urine Urobilinogen NEGATIVE EU EU (0.2-1.0) Ur Leukocyte Esterase 3+ H (NEGATIVE) Urine RBC 15-25 /hpf H /hpf (0-3) Urine WBC 25-50 /hpf H /hpf (0-3) Ur Epithelial Cells NONE SEEN /lpf /lpf (NONE-1+) Urine Bacteria 4+ /hpf H /hpf (NONE SEEN) Urine Mucus 1+ /lpf /lpf (NONE-1+) Urine Yeast PRESENT /hpf /hpf (NONE SEEN) Urine Glucose NEGATIVE (NEGATIVE) Departure - Departure Disposition: Home, Routine, Self-Care Clinical Impression: Gastrojejunostomy tube dislodgement Condition: Good Instructions: How to Use and Care for Your PEG Tube (ED) Additional Instructions: Call for urine culture results in 48 hours. [phone]. Return to the ED for any problems with feeding tube, fevers, any new symptoms or concerns. Referrals: KYLIE ALDANA [Primary Care Provider] - As per Instructions
[2016-09-02 09:41] LABS: COLOR YELLOW; LEUKOCYTE ESTERASE,URINE 3+ (NEGATIVE); NITRITE,URINE NEGATIVE (NEGATIVE)
[2016-09-02 09:53] LABS: BACTERIA 4+ /hpf (NONE SEEN); MUCUS 1+ /lpf (NONE-1+); RBC,URINE 15-25 /hpf (0-3); WBC,URINE 25-50 /hpf (0-3); YEAST PRESENT /hpf (NONE SEEN)
[2016-09-02 10:25] VITALS: BP 89/67; PULSE 86; RESP 16; TEMP 98.8; O2SAT 98
== END 2016-09-02 10:41 | disposition home or self-care (01) ==
PROC: 0DH63UZ Insertion of Feeding Device into Stomach, Percutaneous Approach (ICD-10-PCS; principal; 2016-09-02)
DX: K94.23 Gastrostomy malfunction (principal)

== ENCOUNTER 2016-09-10 14:27 | Emergency (ER) | payer OTHER ==
[2016-09-10 14:36] VITALS: RESP 16
--- NOTE | 2016-09-10 15:00 | EDPHY ---
H & P Stated Complaint: feeding tube leaking Source: Patient, Family Exam Limitations: No limitations - Personal History Current Tetanus Diphtheria and Acellular Pertussis (TDAP): Yes - Medical/Surgical History Hx Asthma: No Hx Chronic Respiratory Disease: No Hx Diabetes: No Hx Cardiac Disease: No Hx Renal Disease: No Hx Cirrhosis: No Hx Alcoholism: No Hx HIV/AIDS: No Hx Splenectomy or Spleen Trauma: No Other PMH: Quadriplegia C3-C4 2013, recent admission for pneumonia. Pericardial effusion, multple decubitus ulcer bottom and back, UTI's, Baclofen pump, Peg tube, Tracheostomy (capped), - Social History Smoking Status: Never smoked HPI/ROS: CHIEF COMPLAINT: Feeding tube malfunction HISTORY OF PRESENT ILLNESS: Patient presents with . She complains that his feeding tube has been leaking since it was placed on September 02. The original tube was placed back in 2014. This is a G-tube. It was accidentally pulled out. Which time they were seen here this emergency department with a bedside replacement of the tube on September 02. Since then she has noted drainage at the site. It is sometimes black and sometimes appears to be consistent with the food product. He has had no complaints of abdominal pain or fever. No other associated complaints or modifying factors. They have been dressing it with further gauze but it is not stopping the leakage. REVIEW OF SYSTEMS: Ten systems reviewed and are negative unless otherwise noted in the HPI PAST MEDICAL HISTORY: C3-C4 spinal cord injury with quadriplegia (2013) SOCIAL HISTORY: Lives with his spouse here in [place] FAMILY HISTORY: Noncontributory EXAMINATION General Appearance: Presents in wheelchair. Alert, no distress Head: normocephalic, atraumatic Eyes: Pupils equal and round, no conjunctival pallor or injection ENT, Mouth: Mucous membranes moist Gastrointestinal: Abdomen is soft. There is a G-tube in place on the left side of the abdomen. There is drainage from around the insertion site consistent with gastric contents. There is also mild skin breakdown at the site of insertion. No erythema. No fluctuance. No signs of infection. Neurological: A&O. Baseline neuro quadriplegia status Skin: Warm and dry, no rash. Mild breakdown of the skin at the site of the G- tube insertion. DIFFERENTIAL DIAGNOSES: Including but not limited to G-tube dysfunction, perforated G-tube, cellulitis, G-tube tract dysfunction, paralysis, spinal cord injury MDM: 2:50 p.m. Complaints of leaking from around the insertion site of the G-tube. This has been present for nearly a week since it was replaced here. No abdominal pain. No fever. There is some reports of erythema and irritation at the site we will break down the dressing to examine the skin. I will also obtain a tube study for placement. 3:45 p.m. I discussed the case with radiologist Dr. Teixeira. X-ray reveals tube within the lumen of the stomach. No abnormality noted. I will consult GI for further recommendations. 4:15 p.m. I discussed the case with Dr. Parsons. He informed me that there is no larger G-tube that may be placed. He recommended that I ensured that the balloon is up against the line of the stomach as much as can be. Recommends a depth of approximately 2.5 cm from the flange. He said that we can then dressed the wound and within 3-4 days that should improved. I discussed this with the patient's spouse. I have performed this I have also placed a total of 10 mL in the balloon. It was originally at approximately 6 mL, which also may help tamponade. He tolerated this well without any complication. He will be discharged home with instructions to follow up with GI next week. Return here for any signs of infection. As there was some skin breakdown, we did provide a tube of the skin barrier cream for them to apply. SUPERVISION: Patient was evaluated in conjunction with the supervising physician. Please see their note for details. (Nathanael Herrera) Constitutional: Initial Vital Signs Temperature (C) 36.8 C 09/10/16 14:34 Heart Rate 59 L 09/10/16 14:34 Respiratory Rate 16 09/10/16 14:34 Blood Pressure 81/44 L 09/10/16 14:34 O2 Sat (%) 96 09/10/16 14:34 O2 Delivery Mode Room Air Allergies/Adverse Reactions: Milk Containing Products [dairy] Allergy (Severe, Verified 09/10/16 14:32) Swelling/neck,face,throat Penicillins Allergy (Severe, Verified 09/10/16 14:32) Other-Enter Comments soy Allergy (Severe, Verified 09/10/16 14:32) Swelling/neck,face,throat shellfish derived Allergy (Verified 09/10/16 14:32) tree nut [Nuts] Allergy (Verified 09/10/16 14:32) wheat Allergy (Severe, Uncoded 09/10/16 14:32) [place] Home Medications: Medication Instructions Recorded Midodrine HCl 10 mg TUBE QID 04/06/15 ZOLPIDEM TARTRATE [Ambien CR 12.5 12.5 mg TUBE HS 04/06/15 mg] fentaNYL [Duragesic 100 MCG Patch 100 mcg TD Q48H 04/06/15 (*)] Ferrous Sulfate 325 mg TUBE BID 04/27/15 Sennosides [Senna] 1 tab TUBE DAILY 04/27/15 Acetaminophen [Tylenol 325mg (*)] 650 mg TUBE Q6 08/24/15 Baclofen [Baclofen 10 mg (*)] 10 mg TUBE TID 08/24/15 Gabapentin [Neurontin Oral Liquid] 600 mg TUBE Q8H 08/24/15 Sertraline HCl [Zoloft 100mg (*)] 100 mg TUBE DAILY 08/24/15 clonazePAM [Klonopin (*)] 0.25 mg TUBE QID 08/24/15 Docusate Sodium [Colace 100 MG (*)] 200 mg TUBE BID 10/31/15 Ibuprofen [Motrin (*)] 200 mg TUBE DAILY PRN 10/31/15 Polyethylene Glycol 3350 [Miralax 8.5 gm TUBE TID 10/31/15 17 gm (*)] oxyCODONE IR [Oxycodone Ir (*)] 30 mg TUBE 5XD 10/31/15 tiZANidine HCL [Zanaflex] 4 mg TUBE BID 10/31/15 Bisacodyl [Magic Bullet 10 mg] 10 mg NE DAILY 07/18/16 Ondansetron Odt [Zofran Odt 4 mg 8 mg PO DAILY PRN 07/18/16 (*)] Tolterodine Tartrate [Detrol 1MG 4 mg TUBE DAILY 07/18/16 (*)] levOFLOXACIN [levAQUIN (*)] 750 mg PO DAILY #5 tab 07/22/16 Medical Decision Making - Diagnostics Imaging Results: Imaging Impressions Abdomen X-Ray 09/10/16 14:56 Impression: 1. Gastrostomy is positioned within the stomach, with no contrast extravasation. 2. Bibasilar consolidation, left greater than right, which could be related to atelectasis and effusion, although pneumonia cannot be excluded. ED Course/Re-evaluation: I have evaluated and participated in the management of this patient. My co- signature indicates that I have reviewed this chart and that I agree with the findings and the plan of care as documented. My personal history and physical findings include: G-tube inadvertently dislodged and replaced in ED with 24 [place]. He has been leaking around the tube since it was replaced. He denies abdominal pain. On exam his abdomen is soft, nontender. [address], mild surrounding erythema/chafed skin around insertion site. I reviewed the x-ray. Tube is appropriately placed. Physician metal moulder's assistant spoke with Dr. Waldemar Parsons and was given advice about how to reposition and check the tube for optimal positioning. This was done. The patient will follow up with Dr. Parsons. (Oneida Salazar) Departure - Departure Disposition: Home, Routine, Self-Care Clinical Impression: Feeding tube dysfunction Qualifiers: Encounter type: initial encounter Qualified Code(s): T85.598A - Other mechanical complication of other gastrointestinal prosthetic devices, implants and grafts, initial encounter Condition: Good Instructions: How to Use and Care for Your PEG Tube (ED) Additional Instructions: 1. Follow up with GI next week 2. Return to the ER for any worsening symptoms, fever, chills Referrals: KYLIE ALDANA [Primary Care Provider] - As per Instructions Waldemar Parsons MD [Medical Doctor] - As per Instructions
[2016-09-10 16:39] VITALS: BP 98/62; PULSE 51; TEMP 97.7; O2SAT 100
== END 2016-09-10 16:38 | disposition home or self-care (01) ==
DX: T85.598A Other mechanical complication of other gastrointestinal prosthetic devices, implants and grafts, initial encounter (principal); Y82.8 Other medical devices associated with adverse incidents

== ENCOUNTER 2016-11-08 16:33 | Emergency (ER) | payer OTHER ==
[2016-11-08 16:41] VITALS: RESP 18
--- NOTE | 2016-11-08 17:20 | EDPHY ---
H & P Time Seen by Provider: 11/08/16 16:52 HPI/ROS: CHIEF COMPLAINT: Fever, cough HISTORY OF PRESENT ILLNESS: 61-year-old male with C3-4 paraplegia presents with fever and cough. Onset of a moist cough a few days ago, associated with low-grade fever. He also seems more contracted than usual, which usually happens when he has an infection. Concern for pneumonia. Tolerating fluids via PEG tube, no diarrhea. Has not received a flu vaccination this year. No urinary symptoms, sore throat or runny nose. REVIEW OF SYSTEMS: Eyes: No visual changes ENT: No sore throat Respiratory: no shortness of breath Cardiac: No palpitations Gastrointestinal: No nausea, vomiting or diarrhea Genitourinary: no dysuria Musculoskeletal: No new extremity swelling Skin: No rash; healed decubitus ulcers Neurological: No headache Psychiatric: No anxiety Past Medical/Surgical History: C3-4 quadriplegia secondary to injury in 2013 Tracheostomy, peg tube and suprapubic catheter Social History: Smoking Status: Never smoked Physical Exam: General Appearance: Alert, pleasant, non-toxic appearing Eyes: Pupils equal and round, no conjunctival injection ENT, Mouth: Mucous membranes moist Neck: Normal inspection Respiratory: Lungs are clear to auscultation anteriorly Cardiovascular: Regular rate and rhythm Gastrointestinal: Abdomen is soft Neurological: alert, answers questions appropriately, paraplegic Skin: Warm and dry Extremities: normal inspection Psychiatric: Mood and affect normal Constitutional: Initial Vital Signs Temperature (C) 36.8 C 11/08/16 16:38 Heart Rate 52 L 11/08/16 16:38 Respiratory Rate 18 11/08/16 16:38 Blood Pressure 146/87 H 11/08/16 16:38 O2 Sat (%) 98 11/08/16 16:38 O2 Delivery Mode Nasal Cannula O2 (L/minute) 5 Allergies/Adverse Reactions: Milk Containing Products [dairy] Allergy (Severe, Verified 09/10/16 14:32) Swelling/neck,face,throat Penicillins Allergy (Severe, Verified 09/10/16 14:32) Other-Enter Comments soy Allergy (Severe, Verified 09/10/16 14:32) Swelling/neck,face,throat shellfish derived Allergy (Verified 09/10/16 14:32) tree nut [Nuts] Allergy (Verified 09/10/16 14:32) wheat Allergy (Severe, Uncoded 09/10/16 14:32) [place] Home Medications: Medication Instructions Recorded Midodrine HCl 10 mg TUBE QID 04/06/15 ZOLPIDEM TARTRATE [Ambien CR 12.5 12.5 mg TUBE HS 04/06/15 mg] fentaNYL [Duragesic 100 MCG Patch 100 mcg TD Q48H 04/06/15 (*)] Ferrous Sulfate 325 mg TUBE BID 04/27/15 Sennosides [Senna] 1 tab TUBE DAILY 04/27/15 Acetaminophen [Tylenol 325mg (*)] 650 mg TUBE Q6 08/24/15 Baclofen [Baclofen 10 mg (*)] 10 mg TUBE TID 08/24/15 Gabapentin [Neurontin Oral Liquid] 600 mg TUBE Q8H 08/24/15 Sertraline HCl [Zoloft 100mg (*)] 100 mg TUBE DAILY 08/24/15 clonazePAM [Klonopin (*)] 0.25 mg TUBE QID 08/24/15 Docusate Sodium [Colace 100 MG (*)] 200 mg TUBE BID 10/31/15 Ibuprofen [Motrin (*)] 200 mg TUBE DAILY PRN 10/31/15 Polyethylene Glycol 3350 [Miralax 8.5 gm TUBE TID 10/31/15 17 gm (*)] oxyCODONE IR [Oxycodone Ir (*)] 30 mg TUBE 5XD 10/31/15 tiZANidine HCL [Zanaflex] 4 mg TUBE BID 10/31/15 Bisacodyl [Magic Bullet 10 mg] [address] DAILY 07/18/16 Ondansetron Odt [Zofran Odt 4 mg 8 mg PO DAILY PRN 07/18/16 (*)] Tolterodine Tartrate [Detrol 1MG 4 mg TUBE DAILY 07/18/16 (*)] levOFLOXACIN [levAQUIN (*)] 750 mg PO DAILY #5 tab 07/22/16 Doxycycline Monohydrate 100 mg PO BID #400 ml 11/08/16 Medical Decision Making - Diagnostics EKG Interpretation: CXR: possible LLL infiltrate Imaging: I viewed and interpreted images myself ED Course/Re-evaluation: This non-toxic appearing patient presents with fever and cough. He is at high risk for pneumonia. He does not meet SIRS criteria, O2 sat normal and lactate is normal. Chest x-ray reveals a possible early infiltrate. Urine cx sent because of fever in pt with suprapubic catheter; I doubt urinary source, however. He greatly prefers to go home. Doxycycline prescribed. Warning signs discussed. Differential Diagnosis: Differential diagnosis includes pyelonephritis, cholecystitis, influenza, cellulitis, pneumonia, abscess, decubitus ulcer, meningitis. - Data Points Laboratory Results: Laboratory Results 11/08/16 17:22 11/08/16 17:22 Departure - Departure Disposition: Home, Routine, Self-Care Clinical Impression: Pneumonia Qualifiers: Pneumonia type: due to unspecified organism Laterality: unspecified laterality Lung location: unspecified part of lung Qualified Code(s): J18.9 - Pneumonia, unspecified organism Condition: Good Instructions: Pneumonia (ED) Additional Instructions: Return for worsening symptoms, shortness of breath or any concerns. Take Tylenol as needed for fever. Referrals: KYLIE ALDANA [Primary Care Provider] - 2-3 days, if not improved Prescriptions: Doxycycline Monohydrate 100 mg PO BID #400 ml
[2016-11-08 17:41] LABS: % IMMATURE GRANULYOCYTES 0.4 % (0.0-1.1); ABSOLUTE IMMATURE GRANULOCYTES 0.02 10^3/uL (0.00-0.10); ADD DIFF? NO; ADD MORPH? NO; ADD SCAN? NO; ATYPICAL LYMPHOCYTE FLAG 10 (0-99); FRAGMENT RBC FLAG 0 (0-99); HEMATOCRIT 32.4 % (40.0-51.0); HEMOGLOBIN 10.7 g/dL (13.7-17.5); LEFT SHIFT FLG 0 (0-99); LIPEMIA HEMOLYSIS FLAG 80 (0-99); MEAN CELL HEMOGLOBIN 29.5 pg (27.9-34.1); MEAN CELL VOLUME 89.3 fL (81.5-99.8); PLATELET CLUMPS FLAG 10 (0-99); PLATELET COUNT 190 10^3/uL (150-400); RED BLOOD CELL COUNT 3.63 10^6/uL (4.40-6.38); RED CELL DISTRIBUTION WIDTH 14.1 % (11.5-15.2)
[2016-11-08 17:57] LABS: ANION GAP 10 mEq/L (8-16); CALCIUM 9.8 mg/dL (8.5-10.4); CARBON DIOXIDE 34 mEq/l (22-31); CHLORIDE 87 mEq/L (97-110); CREATININE 0.5 mg/dL (0.7-1.3); GLOMERULAR FILTRATION RATE > 60; GLUCOSE 99 mg/dL (70-100); POTASSIUM 5.2 mEq/L (3.5-5.2); SODIUM 131 mEq/L (134-144)
[2016-11-08 18:40] VITALS: BP 140/70; PULSE 80; TEMP 98.4; O2SAT 95
[2016-11-08 18:53] LABS: COLOR YELLOW; LEUKOCYTE ESTERASE,URINE 1+ (NEGATIVE); NITRITE,URINE NEGATIVE (NEGATIVE)
[2016-11-08 19:06] LABS: BACTERIA 1+ /hpf (NONE SEEN); MUCUS TRACE /lpf (NONE-1+); YEAST PRESENT /hpf (NONE SEEN)
== END 2016-11-08 18:40 | disposition home or self-care (01) ==
DX: J18.9 Pneumonia, unspecified organism (principal)

== ENCOUNTER 2016-12-11 14:56 | Emergency (ER) | payer OTHER ==
[2016-12-11 15:10] VITALS: RESP 16
--- NOTE | 2016-12-11 16:12 | EDPHY ---
HPI/HX/ROS/PE/MDM Narrative: CHIEF COMPLAINT: Possible infection HPI: The patient is a quadriplegic 61 y/o male with a tracheostomy complaining of difficulty breathing, fever, pain, and increased amount of and darker suctioned mucus. He was seen here on 11/08/16 for a possible infection. He was determined to have pneumonia and was sent home on antibiotics. The antibiotic prescribed was not covered by insurance so the family had the PCP prescribe Levaquin. Two days after starting Levaquin lab results indicated a positive urinary culture. He was switched to a macrolide antibiotic and had an adverse reaction. Over the past few days, his family has noticed the mucus suctioned is darker green and brown than normal and there is more mucus to suction. He has a fever of 101, difficulty breathing, and increased pain and shaking. His family denies any other associated symptoms. In addition, his family reports his tracheostomy hasn't been changed in two years. HPI obtained primarily from family. REVIEW OF SYSTEMS: Aside from elements discussed in the HPI, a comprehensive 10-point review of systems was reviewed and is negative. PMH: C3-C4 quadriplegia secondary ot injury in 2013, tracheostomy, peg tube, suprapubic catheter. Prior medical records reviewed including 11/08/16 ED visit SOCIAL HISTORY: Family at bedside, lives with his family, lives in [place] PHYSICAL EXAM: General:Patient is alert, in no acute distress. ENT:Eyes are normal to inspection. ENT inspection normal. Neck: Normal inspection. Tracheostomy. Respiratory:No respiratory distress. Breath sounds normal bilaterally. Cardiovascular: Regular rate and rhythm. Normal cap refill. Abdomen:The abdomen is nontender to palpation. There are no peritoneal signs. There are normal bowel sounds. Back: Normal to inspection. No tenderness to palpation. Skin: Normal color. No rash. Warm and dry. Extremities: Normal appearance. Full range of motion. Neuro: Oriented x3. C3-C4 quadriplegia ED Course: Study: X-ray of the chest Indication: Possible pneumonia, increased mucus Results: X-ray of the chest was obtained. The results of the study are: Right middle lobe infiltrate The study was read by the radiologist, Dr. Teixeira. I viewed the images myself on the PACS system. I reassessed the patient and discussed the results of his workup with him and his family. I feel he is ready for discharge. Medication instructions, follow- up instructions, and return precautions given. MDM: This patient presents with fever and chills in the setting of frequent PNA and chronic quadreplegia. His labs are unremarkable and his normal lactate is certainly reassuring. His CXR is difficult to interpret, but seems to show a RML infiltrate. His UA is abnormal but he has a chronic guaman so difficult to interpret as well. I had an extensive discussion with patient and family and they are comfortable to treat PNA with levofloxacin as outpatient and follow-up with PCP. - Data Points Imaging: Discussed imaging studies w/ call center support consultant Radiologist, I viewed and interpreted images myself Laboratory Results: Laboratory Results 12/11/16 16:35 12/11/16 16:35 12/11/16 12/11/16 12/11/16 17:36 16:35 16:35 WBC 7.91 10^3/uL 10^3/uL (3.80-9.50) RBC 3.45 10^6/uL L 10^6/uL (4.40-6.38) Hgb 10.2 g/dL L g/dL (13.7-17.5) Hct 31.4 % L % (40.0-51.0) MCV 91.0 fL fL (81.5-99.8) MCH 29.6 pg pg (27.9-34.1) MCHC 32.5 g/dL g/dL (32.4-36.7) RDW 14.4 % % (11.5-15.2) Plt Count 170 10^3/uL 10^3/uL (150-400) MPV 10.3 fL fL (8.7-11.7) Neut % (Auto) 81.6 % H % (39.3-74.2) Lymph % (Auto) 12.1 % L % (15.0-45.0) [place] % (Auto) 5.2 % % (4.5-13.0) Eos % (Auto) 0.4 % L % (0.6-7.6) Baso % (Auto) 0.3 % % (0.3-1.7) Nucleat RBC Rel Count 0.0 % % (0.0-0.2) Absolute Neuts (auto) 6.46 10^3/uL 10^3/uL (1.70-6.50) Absolute Lymphs (auto) 0.96 10^3/uL L 10^3/uL (1.00-3.00) Absolute Monos (auto) 0.41 10^3/uL 10^3/uL (0.30-0.80) Absolute Eos (auto) 0.03 10^3/uL 10^3/uL (0.03-0.40) Absolute Basos (auto) 0.02 10^3/uL 10^3/uL (0.02-0.10) Absolute Nucleated RBC 0.00 10^3/uL 10^3/uL (0-0.01) Immature Gran % 0.4 % % (0.0-1.1) Immature Gran # 0.03 10^3/uL 10^3/uL (0.00-0.10) VBG Lactic Acid Sodium 137 mEq/L mEq/L (134-144) Potassium 5.0 mEq/L mEq/L (3.5-5.2) Chloride 92 mEq/L L mEq/L (97-110) Carbon Dioxide 35 mEq/l H mEq/l (22-31) Anion Gap 10 mEq/L mEq/L (8-16) BUN 14 mg/dL mg/dL (7-23) Creatinine 0.5 mg/dL L mg/dL (0.7-1.3) Estimated GFR > 60 Glucose 106 mg/dL H mg/dL (70-100) Calcium 9.3 mg/dL mg/dL (8.5-10.4) Urine Color LT. YELLOW Urine Appearance CLEAR Urine pH 7.0 (5.0-7.5) Ur Specific [place] 1.010 (1.002-1.030) Urine Protein NEGATIVE (NEGATIVE) Urine Ketones NEGATIVE (NEGATIVE) Urine Blood TRACE-INTACT H (NEGATIVE) Urine Nitrate NEGATIVE (NEGATIVE) Urine Bilirubin NEGATIVE (NEGATIVE) Urine Urobilinogen 0.2 EU EU (0.2-1.0) Ur Leukocyte Esterase 2+ H (NEGATIVE) Urine RBC Pending Urine WBC Pending Ur Epithelial Cells Pending Urine Glucose NEGATIVE (NEGATIVE) 12/11/16 16:35 WBC RBC Hgb Hct MCV MCH MCHC RDW Plt Count MPV Neut % (Auto) Lymph % (Auto) [place] % (Auto) Eos % (Auto) Baso % (Auto) Nucleat RBC Rel Count Absolute Neuts (auto) Absolute Lymphs (auto) Absolute Monos (auto) Absolute Eos (auto) Absolute Basos (auto) Absolute Nucleated RBC Immature Gran % Immature Gran # VBG Lactic Acid 1.0 mmol/L mmol/L (0.7-2.1) Sodium Potassium Chloride Carbon Dioxide Anion Gap BUN Creatinine Estimated GFR Glucose Calcium Urine Color Urine Appearance Urine pH Ur Specific [place] Urine Protein Urine Ketones Urine Blood Urine Nitrate Urine Bilirubin Urine Urobilinogen Ur Leukocyte Esterase Urine RBC Urine WBC Ur Epithelial Cells Urine Glucose Medications Given: Discontinued Medications Sodium Chloride (Ns) 500 mls @ 1,000 mls/hr IV EDNOW ONE PRN Reason: Protocol Stop: 12/11/16 16:42 Last Admin: 12/11/16 16:32 Dose: 500 mls General Time Seen by Provider: 12/11/16 15:59 Initial Vital Signs: Initial Vital Signs Temperature (C) 37 C 12/11/16 15:05 Heart Rate 78 12/11/16 15:05 Respiratory Rate 16 12/11/16 15:05 Blood Pressure 136/72 H 12/11/16 15:05 O2 Sat (%) 32 L 12/11/16 15:05 O2 Delivery Mode Nasal Cannula O2 (L/minute) 1.5 Allergies/Adverse Reactions: Milk Containing Products [dairy] Allergy (Severe, Verified 12/11/16 15:06) Swelling/neck,face,throat Penicillins Allergy (Severe, Verified 12/11/16 15:06) Other-Enter Comments soy Allergy (Severe, Verified 12/11/16 15:06) Swelling/neck,face,throat shellfish derived Allergy (Verified 12/11/16 15:06) tree nut [Nuts] Allergy (Verified 12/11/16 15:06) wheat Allergy (Severe, Uncoded 09/10/16 14:32) [place] Home Medications: Medication Instructions Recorded Midodrine HCl 10 mg TUBE QID 04/06/15 ZOLPIDEM TARTRATE [Ambien CR 12.5 12.5 mg TUBE HS 04/06/15 mg] fentaNYL [Duragesic 100 MCG Patch 100 mcg TD Q48H 04/06/15 (*)] Ferrous Sulfate 325 mg TUBE BID 04/27/15 Sennosides [Senna] 1 tab TUBE DAILY 04/27/15 Acetaminophen [Tylenol 325mg (*)] 650 mg TUBE Q6 08/24/15 Baclofen [Baclofen 10 mg (*)] 10 mg TUBE TID 08/24/15 Gabapentin [Neurontin Oral Liquid] 600 mg TUBE Q8H 08/24/15 Sertraline HCl [Zoloft 100mg (*)] 100 mg TUBE DAILY 08/24/15 clonazePAM [Klonopin (*)] 0.25 mg TUBE QID 08/24/15 Docusate Sodium [Colace 100 MG (*)] 200 mg TUBE BID 10/31/15 Ibuprofen [Motrin (*)] 200 mg TUBE DAILY PRN 10/31/15 Polyethylene Glycol 3350 [Miralax 8.5 gm TUBE TID 10/31/15 17 gm (*)] oxyCODONE IR [Oxycodone Ir (*)] 30 mg TUBE 5XD 10/31/15 tiZANidine HCL [Zanaflex] 4 mg TUBE BID 10/31/15 Bisacodyl [Magic Bullet 10 mg] 10 mg [place] DAILY 07/18/16 Ondansetron Odt [Zofran Odt 4 mg 8 mg PO DAILY PRN 07/18/16 (*)] Tolterodine Tartrate [Detrol 1MG 4 mg TUBE DAILY 07/18/16 (*)] Doxycycline Monohydrate 100 mg PO BID #400 ml 11/08/16 levOFLOXACIN [levAQUIN] 750 mg PO DAILY #10 tab 12/11/16 Departure - Departure Disposition: Home, Routine, Self-Care Clinical Impression: Pneumonia Qualifiers: Pneumonia type: due to unspecified organism Laterality: right Lung location: middle lobe of lung Qualified Code(s): J18.1 - Lobar pneumonia, unspecified organism Condition: Good Instructions: Pneumonia (ED) Additional Instructions: 1. Take antibiotic as directed. Take the entire course of antibiotics, even if symptoms improve before the course is over. 2. Follow-up with your primary care provider for unimproved symptoms in 5-7 days. 3. Return for worsening of condition. Referrals: KYLIE ALDANA [Primary Care Provider] - As per Instructions Prescriptions: levOFLOXACIN [levAQUIN] 750 mg PO DAILY #10 tab Report Scribed for: Miguel Byrnes Report Scribed by: Ronna García Date of Report: 12/11/16 Time of Report: 16:36 Physician Review and Approval Statement: Portions of this note were transcribed by an ED scribe. I personally performed the history, physical exam, and medical decision making; and confirm the accuracy of the information in the transcribed note.
[2016-12-11] MEDS ORDERED: NS 500 ML IV ONE (16:13)
[2016-12-11 16:53] LABS: PLATELET COUNT 170 10^3/uL (150-400)
[2016-12-11 19:20] VITALS: O2SAT 97
[2016-12-11 19:36] VITALS: BP 101/62; PULSE 66; TEMP 98.2
== END 2016-12-11 19:35 | disposition home or self-care (01) ==
DX: J18.9 Pneumonia, unspecified organism (principal); E86.9 Volume depletion, unspecified
CPT/HCPCS: 71020; 96365; 96366; 99284; J1956

== ENCOUNTER 2017-01-13 01:54 | Observation (INO) | payer OTHER ==
[2017-01-13 02:37] LABS: % IMMATURE GRANULYOCYTES 0.2 % (0.0-1.1); ABSOLUTE IMMATURE GRANULOCYTES 0.01 10^3/uL (0.00-0.10); ADD DIFF? NO; ADD MORPH? NO; ADD SCAN? NO; ATYPICAL LYMPHOCYTE FLAG 10 (0-99); FRAGMENT RBC FLAG 0 (0-99); HEMATOCRIT 32.9 % (40.0-51.0); HEMOGLOBIN 10.7 g/dL (13.7-17.5); LEFT SHIFT FLG 0 (0-99); LIPEMIA HEMOLYSIS FLAG 80 (0-99); MEAN CELL HEMOGLOBIN 30.2 pg (27.9-34.1); MEAN CELL HEMOGLOBIN CONCENTR. 32.5 g/dL (32.4-36.7); MEAN CELL VOLUME 92.9 fL (81.5-99.8); MEAN PLATELET VOLUME 10.7 fL (8.7-11.7); PLATELET CLUMPS FLAG 0 (0-99); PLATELET COUNT 175 10^3/uL (150-400); RED BLOOD CELL COUNT 3.54 10^6/uL (4.40-6.38); RED CELL DISTRIBUTION WIDTH 12.9 % (11.5-15.2)
[2017-01-13 02:42] LABS: ANION GAP 14 mEq/L (8-16); CALCIUM 9.6 mg/dL (8.5-10.4); CARBON DIOXIDE 35 mEq/l (22-31); CHLORIDE 92 mEq/L (97-110); CREATININE 0.5 mg/dL (0.7-1.3); GLOMERULAR FILTRATION RATE > 60; GLUCOSE 87 mg/dL (70-100); POTASSIUM 4.7 mEq/L (3.5-5.2); SODIUM 141 mEq/L (134-144)
[2017-01-13 02:52] LABS: COLOR YELLOW; LEUKOCYTE ESTERASE,URINE 3+ (NEGATIVE); NITRITE,URINE NEGATIVE (NEGATIVE)
[2017-01-13 03:00] LABS: BACTERIA TRACE /hpf (NONE SEEN); MUCUS TRACE /lpf (NONE-1+); RBC,URINE 50-182 /hpf (0-3)
[2017-01-13] MEDS ORDERED: HYDROmorphONE/DILAUDID 1 MG/ML INJ IVP ONE ×3 (03:01→05:04)
[2017-01-13] MEDS ORDERED: HYDROmorphONE/DILAUDID 1 MG/ML INJ ONE ×3 (03:01→12:21)
[2017-01-13] MEDS ORDERED: IOPAMIDOL (ISOVUE-300) 100 ML BTL ONE (03:04)
[2017-01-13] MEDS ORDERED: NS 1,000 ML IV ONE (03:05)
--- NOTE | 2017-01-13 03:05 | EDPHY ---
H & P Stated Complaint: abd pain possible uti sx HPI/ROS: HPI The patient presents with pain throughout his body that mostly in his shoulders in abdomen which began suddenly at 2:00 p.m. today. The pain is achy, radiates diffusely, and has been constant. His daughter who helps in his care gave him all of his usual pain medication, also a dose of Levaquin for possible urinary tract infection. His abdominal pain got worse after this. He has not had any vomiting or fever. He has been coughing, though this is usual for him. He does not have any shortness of breath. He has had frequent urinary tract infections. A visiting came to the house and did a urinalysis which showed leukocyte esterase and blood. He has had body pains like this before, usually in the setting of infection. He uses a baclofen pump for pain and is trying to taper off of his oral pain medications which could include OxyContin. He also wears a fentanyl patch. He is starting to use Dilaudid in his pump in addition to baclofen and they are trying to lower his dose of oral pain medication. REVIEW OF SYSTEMS Constitutional: No fever, no chills. Eyes: No discharge. ENT: No sore throat. Cardiovascular: No chest pain, no palpitations. Respiratory: No cough, no shortness of breath. Gastrointestinal: No abdominal pain, no vomiting. Genitourinary: No hematuria. Musculoskeletal: No back pain. Skin: No rashes. Neurological: No headache. PMHx: Quadriplegic, baclofen pump in place, suprapubic catheter, feeding tube Soc Hx: Lives at home with family PHYSICAL General Appearance: Alert, no distress Eyes: Pupils equal and round no pallor or injection ENT, Mouth: Mucous membranes moist Respiratory: There are no retractions, lungs are clear to auscultation Cardiovascular: Regular rate and rhythm Gastrointestinal: Abdomen is soft and non-tender, no masses, bowel sounds normal, palpable baclofen pump, suprapubic tube in place, feeding tube in place Neurological: A&O, quadriplegic Skin: Warm and dry, no rashes Musculoskeletal: Capped trach in place Extremities: Contractions of his upper extremities, no lower extremity edema Psychiatric: Patient is oriented X 3, there is no agitation Source: Patient Exam Limitations: No limitations - Personal History Current Tetanus/Diphtheria Vaccine: Yes Current Tetanus Diphtheria and Acellular Pertussis (TDAP): Yes - Medical/Surgical History Hx Asthma: No Hx Chronic Respiratory Disease: No Hx Diabetes: No Hx Cardiac Disease: No Hx Renal Disease: No Hx Cirrhosis: No Hx Alcoholism: No Hx HIV/AIDS: No Hx Splenectomy or Spleen Trauma: No Other PMH: Quadriplegia C3-C4 2014, trach, pNA, Pericardial effusion, multple decubitus ulcer bottom and back, UTI's, Baclofen pump, Peg tube, Tracheostomy ( capped), - Social History Smoking Status: Never smoked Constitutional: Initial Vital Signs Temperature (C) 36.7 C 01/13/17 01:57 Heart Rate 52 L 01/13/17 01:57 Respiratory Rate 20 01/13/17 01:57 Blood Pressure 87/47 L 01/13/17 01:57 O2 Sat (%) 99 01/13/17 01:57 O2 Delivery Mode Nasal Cannula O2 (L/minute) 3 Allergies/Adverse Reactions: Milk Containing Products [dairy] Allergy (Severe, Verified 12/11/16 15:06) Swelling/neck,face,throat Penicillins Allergy (Severe, Verified 12/11/16 15:06) Other-Enter Comments soy Allergy (Severe, Verified 12/11/16 15:06) Swelling/neck,face,throat shellfish derived Allergy (Verified 12/11/16 15:06) tree nut [Nuts] Allergy (Verified 12/11/16 15:06) wheat Allergy (Severe, Uncoded 09/10/16 14:32) [place] Home Medications: Medication Instructions Recorded Midodrine HCl 10 mg TUBE QID 04/06/15 ZOLPIDEM TARTRATE [Ambien CR 12.5 12.5 mg TUBE HS 04/06/15 mg] fentaNYL [Duragesic 100 MCG Patch 100 mcg TD Q48H 04/06/15 (*)] Ferrous Sulfate 325 mg TUBE BID 04/27/15 Sennosides [Senna] 1 tab TUBE DAILY 04/27/15 Acetaminophen [Tylenol 325mg (*)] 650 mg TUBE Q6 08/24/15 Baclofen [Baclofen 10 mg (*)] 10 mg TUBE TID 08/24/15 Gabapentin [Neurontin Oral Liquid] 600 mg TUBE Q8H 08/24/15 Sertraline HCl [Zoloft 100mg (*)] 100 mg TUBE DAILY 08/24/15 clonazePAM [Klonopin (*)] 0.25 mg TUBE QID 08/24/15 Docusate Sodium [Colace 100 MG (*)] 200 mg TUBE BID 10/31/15 Ibuprofen [Motrin (*)] 200 mg TUBE DAILY PRN 10/31/15 Polyethylene Glycol 3350 [Miralax 8.5 gm TUBE TID 10/31/15 17 gm (*)] oxyCODONE IR [Oxycodone Ir (*)] 30 mg TUBE 5XD 10/31/15 tiZANidine HCL [Zanaflex] 4 mg TUBE BID 10/31/15 Bisacodyl [Magic Bullet 10 mg] 10 mg [place] DAILY 07/18/16 Ondansetron Odt [Zofran Odt 4 mg 8 mg PO DAILY PRN 07/18/16 (*)] Tolterodine Tartrate [Detrol 1MG 4 mg TUBE DAILY 07/18/16 (*)] Doxycycline Monohydrate 100 mg PO BID #400 ml 11/08/16 levOFLOXACIN [levAQUIN] 750 mg PO DAILY #10 tab 12/11/16 Medical Decision Making - Diagnostics Imaging Results: CT scan abdomen pelvis with IV contrast demonstrates dilated distal appendix measuring up to 12 mm, possible right basilar pneumonia, discussed with Dr. Diaz of Radiology. Chest x-ray demonstrates no obvious infiltrate. Interpreted by me, radiology interpretation is pending. Imaging: Discussed imaging studies w/ medical associate Radiologist, I viewed and interpreted images myself Differential Diagnosis: This is a 61-year-old male who is a quadriplegic who presents from home with increasing body pains, felt most prominently in his shoulder an abdomen. On arrival, he is afebrile, hypotensive, and does not have any overt signs of infection on exam. In the emergency department, patient was given 1 L of IV fluid. He was given 2 doses of Dilaudid for pain with minimal improvement in his symptoms. He was then given a dose of ketamine which did not help his pain. He then was given another dose of Dilaudid. Labs were checked and were relatively unremarkable. Urine appeared infected, however given the patient has a chronic indwelling suprapubic catheter I think it is unclear if this is truly an infection. CT scan of his abdomen pelvis was performed which demonstrated possible appendicitis with a dilated appendix without any other signs. He was also noted to have a possible right lower lobe pneumonia. I have discussed the case with Dr. Calixto of General surgery. He recommends a dose of Invanz for possible appendicitis and will see the patient in the hospital. I discussed the case with the hospitalist Dr. Colon who will admit the patient. Patient's pain could be related to possible appendicitis, versus pneumonia, versus UTI, verses opiate withdrawal. - Data Points Laboratory Results: Laboratory Results 01/13/17 02:27 01/13/17 02:27 01/13/17 01/13/17 01/13/17 02:41 02:27 02:27 WBC RBC Hgb Hct MCV MCH MCHC RDW Plt Count MPV Neut % (Auto) Lymph % (Auto) [place] % (Auto) Eos % (Auto) Baso % (Auto) Nucleat RBC Rel Count Absolute Neuts (auto) Absolute Lymphs (auto) Absolute Monos (auto) Absolute Eos (auto) Absolute Basos (auto) Absolute Nucleated RBC Immature Gran % Immature Gran # Sodium 141 mEq/L mEq/L (134-144) Potassium 4.7 mEq/L mEq/L (3.5-5.2) Chloride 92 mEq/L L mEq/L (97-110) Carbon Dioxide 35 mEq/l H mEq/l (22-31) Anion Gap 14 mEq/L mEq/L (8-16) BUN 11 mg/dL mg/dL (7-23) Creatinine 0.5 mg/dL L mg/dL (0.7-1.3) Estimated GFR > 60 Glucose 87 mg/dL mg/dL (70-100) Calcium 9.6 mg/dL mg/dL (8.5-10.4) Total Bilirubin 0.3 mg/dL mg/dL (0.1-1.4) Conjugated Bilirubin 0.2 mg/dL mg/dL (0.0-0.5) Unconjugated Bilirubin 0.1 mg/dL mg/dL (0.0-1.1) AST 34 IU/L IU/L (17-59) ALT 52 IU/L IU/L (21-72) Alkaline Phosphatase 93 IU/L IU/L (38-126) Total Protein 7.3 g/dL g/dL (6.3-8.2) Albumin 4.1 g/dL g/dL (3.5-5.0) Urine Color YELLOW Urine Appearance HAZY Urine pH 6.0 (5.0-7.5) Ur Specific [place] 1.016 (1.002-1.030) Urine Protein NEGATIVE (NEGATIVE) Urine Ketones NEGATIVE (NEGATIVE) Urine Blood NEGATIVE (NEGATIVE) Urine Nitrate NEGATIVE (NEGATIVE) Urine Bilirubin NEGATIVE (NEGATIVE) Urine Urobilinogen NEGATIVE EU EU (0.2-1.0) Ur Leukocyte Esterase 3+ H (NEGATIVE) Urine RBC 50-182 /hpf H /hpf (0-3) Urine WBC 10-15 /hpf H /hpf (0-3) Ur Epithelial Cells Not Reported Urine Bacteria TRACE /hpf H /hpf (NONE SEEN) Urine Mucus TRACE /lpf /lpf (NONE-1+) Urine Glucose NEGATIVE (NEGATIVE) 01/13/17 02:27 WBC 5.41 10^3/uL 10^3/uL (3.80-9.50) RBC 3.54 10^6/uL L 10^6/uL (4.40-6.38) Hgb 10.7 g/dL L g/dL (13.7-17.5) Hct 32.9 % L % (40.0-51.0) MCV 92.9 fL fL (81.5-99.8) MCH 30.2 pg pg (27.9-34.1) MCHC 32.5 g/dL g/dL (32.4-36.7) RDW 12.9 % % (11.5-15.2) Plt Count 175 10^3/uL 10^3/uL (150-400) MPV 10.7 fL fL (8.7-11.7) Neut % (Auto) 67.4 % % (39.3-74.2) Lymph % (Auto) 21.1 % % (15.0-45.0) [place] % (Auto) 9.6 % % (4.5-13.0) Eos % (Auto) 1.5 % % (0.6-7.6) Baso % (Auto) 0.2 % L % (0.3-1.7) Nucleat RBC Rel Count 0.0 % % (0.0-0.2) Absolute Neuts (auto) 3.65 10^3/uL 10^3/uL (1.70-6.50) Absolute Lymphs (auto) 1.14 10^3/uL 10^3/uL (1.00-3.00) Absolute Monos (auto) 0.52 10^3/uL 10^3/uL (0.30-0.80) Absolute Eos (auto) 0.08 10^3/uL 10^3/uL (0.03-0.40) Absolute Basos (auto) 0.01 10^3/uL L 10^3/uL (0.02-0.10) Absolute Nucleated RBC 0.00 10^3/uL 10^3/uL (0-0.01) Immature Gran % 0.2 % % (0.0-1.1) Immature Gran # 0.01 10^3/uL 10^3/uL (0.00-0.10) Sodium Potassium Chloride Carbon Dioxide Anion Gap BUN Creatinine Estimated GFR Glucose Calcium Total Bilirubin Conjugated Bilirubin Unconjugated Bilirubin AST ALT Alkaline Phosphatase Total Protein Albumin Urine Color Urine Appearance Urine pH Ur Specific [place] Urine Protein Urine Ketones Urine Blood Urine Nitrate Urine Bilirubin Urine Urobilinogen Ur Leukocyte Esterase Urine RBC Urine WBC Ur Epithelial Cells Urine Bacteria Urine Mucus Urine Glucose Medications Given: Hydromorphone HCl (Dilaudid) 0.4 - 1 mg IVP Q3H PRN PRN Reason: Pain, Severe Unable to Take PO Stop: 01/23/17 05:59 Last Admin: 01/13/17 06:23 Dose: 1 mg Discontinued Medications Clonazepam (Klonopin) 0.5 mg PO EDNOW ONE Stop: 01/13/17 05:22 Last Admin: 01/13/17 05:39 Dose: 0.5 mg Ertapenem (Invanz) 1 gm IVP EDNOW ONE PRN Reason: Protocol Stop: 01/13/17 05:18 Last Admin: 01/13/17 06:23 Dose: 1 gm Hydromorphone HCl (Dilaudid) 0.5 mg IVP EDNOW ONE Stop: 01/13/17 03:02 Last Admin: 01/13/17 03:07 Dose: 0.5 mg Hydromorphone HCl (Dilaudid) 0.5 mg IVP EDNOW ONE Stop: 01/13/17 03:37 Last Admin: 01/13/17 03:37 Dose: 0.5 mg Hydromorphone HCl (Dilaudid) 1 mg IVP EDNOW ONE Stop: 01/13/17 05:05 Last Admin: 01/13/17 05:09 Dose: 1 mg Sodium Chloride (Ns) 1,000 mls @ 0 mls/hr IV EDNOW ONE; Wide Open PRN Reason: Protocol Stop: 01/13/17 03:06 Last Admin: 01/13/17 03:10 Dose: 1,000 mls Ketamine HCl (Ketamine) 14.1 mg 0.2 mg/kg (14.1 mg) IVP EDNOW ONE Stop: 01/13/17 04:12 Last Admin: 01/13/17 04:30 Dose: 14.1 mg Ondansetron HCl (Zofran) 4 mg IVP EDNOW ONE Stop: 01/13/17 03:31 Last Admin: 01/13/17 03:12 Dose: 4 mg Departure - Departure Disposition: [facility] In[facility] Acute Clinical Impression: Chronic complete quadriplegia Abdominal pain Qualifiers: Abdominal location: generalized Qualified Code(s): R10.84 - Generalized abdominal pain Condition: Fair
[2017-01-13] MEDS ORDERED: ONDANSETRON 4 MG/2 ML VIAL ONE (03:11)
[2017-01-13 03:14] LABS: ALBUMIN 4.1 g/dL (3.5-5.0); BILIRUBIN,TOTAL 0.3 mg/dL (0.1-1.4); BILIRUBIN-CONJUGATED 0.2 mg/dL (0.0-0.5); BILIRUBIN-UNCONJUGATED 0.1 mg/dL (0.0-1.1); TOTAL PROTEIN 7.3 g/dL (6.3-8.2)
[2017-01-13] MEDS ORDERED: ONDANSETRON 4 MG/2 ML VIAL IVP ONE (03:30)
[2017-01-13] MEDS ORDERED: KETAMINE 100 MG/10 ML SYR IVP ONE (04:11)
[2017-01-13] MEDS ORDERED: ERTAPENEM 1 GM VIAL IVP ONE (05:17)
[2017-01-13] MEDS ORDERED: clonazePAM 0.5 MG TAB PO ONE (05:21)
--- NOTE | 2017-01-13 05:49 | PDGENHP ---
History and Physical - Chief Complaint Abdominal pain - History of Present Illness 61 yo M w/ quadriplegia presents with abdominal pain. History obtained from patient, daughter, and pedigree tracer. They describe abdominal pain starting around 2 PM on day prior to admission. Patient's symptoms are vague due to quadriplegia. He denies fever, chills, sore throat, congestion, and other new respiratory symptoms. There have been no problems with his trach, G-tube, or supra-pubic tube. His urine is not cloud or malodorous. He has had no significant change in bowel habits either. In the ED urine appears dirty, but likely chronically so 2/[address] scan of the abdomen revealed possible appendicitis as well as stable or slightly worsened renal and bladder stones. History Information - Allergies/Home Medication List Allergies/Adverse Reactions: Milk Containing Products [dairy] Allergy (Severe, Verified 12/11/16 15:06) Swelling/neck,face,throat Penicillins Allergy (Severe, Verified 12/11/16 15:06) Other-Enter Comments soy Allergy (Severe, Verified 12/11/16 15:06) Swelling/neck,face,throat shellfish derived Allergy (Verified 12/11/16 15:06) tree nut [Nuts] Allergy (Verified 12/11/16 15:06) wheat Allergy (Severe, Uncoded 09/10/16 14:32) [place] Home Medications: Midodrine HCl 10 mg TUBE QID 04/06/15 [Last Taken 07/18/16] ZOLPIDEM TARTRATE [Ambien CR 12.5 mg] 12.5 mg TUBE HS 04/06/15 [Last Taken 07/17] fentaNYL [Duragesic 100 MCG Patch (*)] 100 mcg TD Q48H 04/06/15 [Last Taken 10/24] Ferrous Sulfate 325 mg TUBE BID 04/27/15 [Last Taken 07/17/16] Sennosides [Senna] 1 tab TUBE DAILY 04/27/15 [Last Taken 07/17/16] Acetaminophen [Tylenol 325mg (*)] 650 mg TUBE Q6 08/24/15 [Last Taken 07/18/16] Baclofen [Baclofen 10 mg (*)] 10 mg TUBE TID 08/24/15 [Last Taken 07/17/16] Gabapentin [Neurontin Oral Liquid] 600 mg TUBE Q8H 08/24/15 [Last Taken 07/18/16 ] Sertraline HCl [Zoloft 100mg (*)] 100 mg TUBE DAILY 08/24/15 [Last Taken ] clonazePAM [Klonopin (*)] 0.25 mg TUBE QID 08/24/15 [Last Taken 07/18/16] Docusate Sodium [Colace 100 MG (*)] 200 mg TUBE BID 10/31/15 [Last Taken ] Ibuprofen [Motrin (*)] 200 mg TUBE DAILY PRN 10/31/15 [Last Taken 07/17/16] Polyethylene Glycol 3350 [Miralax 17 gm (*)] 8.5 gm TUBE TID 10/31/15 [Last Taken 07/18/16] oxyCODONE IR [Oxycodone Ir (*)] 30 mg TUBE 5XD 10/31/15 [Last Taken 07/17/16] tiZANidine HCL [Zanaflex] 4 mg TUBE BID 10/31/15 [Last Taken 07/17/16] Bisacodyl [Magic Bullet 10 mg] 10 mg [place] DAILY 07/18/16 [Last Taken 07/17/16] Ondansetron Odt [Zofran Odt 4 mg (*)] 8 mg PO DAILY PRN 07/18/16 [Last Taken 11/23] Tolterodine Tartrate [Detrol 1MG (*)] 4 mg TUBE DAILY 07/18/16 [Last Taken 07/17] I have personally reviewed and updated: family history, medical history - Past Medical History Additional medical history: Quadriplegia - Surgical History Additional surgical history: Trach, PEG, SPT - Family History Positive for: cancer - Social History Smoking Status: Never smoked Review of Systems Review of Systems: ROS: 10pt was reviewed & negative except for what was stated in HPI & below Physical Exam Physical Exam: Temp Pulse Resp BP Pulse Ox 36.7 C 61 14 102/66 100 01/13/17 01:57 01/13/17 04:30 01/13/17 04:30 01/13/17 04:30 01/13/17 04:30 Constitutional: chronically ill appearing, uncomfortable Eyes: PERRL, EOMI Ears, Nose, Mouth, Throat: moist mucous membranes, no oral mucosal ulcers Cardiovascular: regular rate and rhythym, no murmur, rub, or gallop Respiratory: no respiratory distress, clear to auscultation Gastrointestinal: other (PEG tube and SPT without signs of infection) Skin: warm, normal color Neurologic: AAOx3, CN II-XII Intact Lab Data & Imaging Review 01/13/17 02:27 01/13/17 02:27 WBC 5.41 10^3/uL (3.80-9.50) 01/13/17 02:27 RBC 3.54 10^6/uL (4.40-6.38) L 01/13/17 02:27 Hgb 10.7 g/dL (13.7-17.5) L 01/13/17 02:27 Hct 32.9 % (40.0-51.0) L 01/13/17 02:27 MCV 92.9 fL (81.5-99.8) 01/13/17 02:27 MCH 30.2 pg (27.9-34.1) 01/13/17 02:27 MCHC 32.5 g/dL (32.4-36.7) 01/13/17 02:27 RDW 12.9 % (11.5-15.2) 01/13/17 02:27 Plt Count 175 10^3/uL (150-400) 01/13/17 02:27 MPV 10.7 fL (8.7-11.7) 01/13/17 02:27 Neut % (Auto) 67.4 % (39.3-74.2) 01/13/17 02:27 Lymph % (Auto) 21.1 % (15.0-45.0) 01/13/17 02:27 [place] % (Auto) 9.6 % (4.5-13.0) 01/13/17 02:27 Eos % (Auto) 1.5 % (0.6-7.6) 01/13/17 02:27 Baso % (Auto) 0.2 % (0.3-1.7) L 01/13/17 02:27 Nucleat RBC Rel Count 0.0 % (0.0-0.2) 01/13/17 02:27 Absolute Neuts (auto) 3.65 10^3/uL (1.70-6.50) 01/13/17 02:27 Absolute Lymphs (auto) 1.14 10^3/uL (1.00-3.00) 01/13/17 02:27 Absolute Monos (auto) 0.52 10^3/uL (0.30-0.80) 01/13/17 02:27 Absolute Eos (auto) 0.08 10^3/uL (0.03-0.40) 01/13/17 02:27 Absolute Basos (auto) 0.01 10^3/uL (0.02-0.10) L 01/13/17 02:27 Absolute Nucleated RBC 0.00 10^3/uL (0-0.01) 01/13/17 02:27 Immature Gran % 0.2 % (0.0-1.1) 01/13/17 02:27 Immature Gran # 0.01 10^3/uL (0.00-0.10) 01/13/17 02:27 Sodium 141 mEq/L (134-144) 01/13/17 02:27 Potassium 4.7 mEq/L (3.5-5.2) 01/13/17 02:27 Chloride 92 mEq/L (97-110) L 01/13/17 02:27 Carbon Dioxide 35 mEq/l (22-31) H 01/13/17 02:27 Anion Gap 14 mEq/L (8-16) 01/13/17 02:27 BUN 11 mg/dL (7-23) 01/13/17 02:27 Creatinine 0.5 mg/dL (0.7-1.3) L 01/13/17 02:27 Estimated GFR > 60 01/13/17 02:27 Glucose 87 mg/dL (70-100) 01/13/17 02:27 Calcium 9.6 mg/dL (8.5-10.4) 01/13/17 02:27 Total Bilirubin 0.3 mg/dL (0.1-1.4) 01/13/17 02:27 Conjugated Bilirubin 0.2 mg/dL (0.0-0.5) 01/13/17 02:27 Unconjugated Bilirubin 0.1 mg/dL (0.0-1.1) 01/13/17 02:27 AST 34 IU/L (17-59) 01/13/17 02:27 ALT 52 IU/L (21-72) 01/13/17 02:27 Alkaline Phosphatase 93 IU/L (38-126) 01/13/17 02:27 Total Protein 7.3 g/dL (6.3-8.2) 01/13/17 02:27 Albumin 4.1 g/dL (3.5-5.0) 01/13/17 02:27 Urine Color YELLOW 01/13/17 02:41 Urine Appearance HAZY 01/13/17 02:41 Urine pH 6.0 (5.0-7.5) 01/13/17 02:41 Ur Specific [place] 1.016 (1.002-1.030) 01/13/17 02:41 Urine Protein NEGATIVE (NEGATIVE) 01/13/17 02:41 Urine Ketones NEGATIVE (NEGATIVE) 01/13/17 02:41 Urine Blood NEGATIVE (NEGATIVE) 01/13/17 02:41 Urine Nitrate NEGATIVE (NEGATIVE) 01/13/17 02:41 Urine Bilirubin NEGATIVE (NEGATIVE) 01/13/17 02:41 Urine Urobilinogen NEGATIVE EU (0.2-1.0) 01/13/17 02:41 Ur Leukocyte Esterase 3+ (NEGATIVE) H 01/13/17 02:41 Urine RBC 50-182 /hpf (0-3) H 01/13/17 02:41 Urine WBC 10-15 /hpf (0-3) H 01/13/17 02:41 Ur Epithelial Cells Not Reported 01/13/17 02:41 Urine Bacteria TRACE /hpf (NONE SEEN) H 01/13/17 02:41 Urine Mucus TRACE /lpf (NONE-1+) 01/13/17 02:41 Urine Glucose NEGATIVE (NEGATIVE) 01/13/17 02:41 Imaging Review: CT w/ possible appendicitis; stable renal and increased bladder stones. Assessment & Plan Assessment: 61 yo M quadriplegic presents w/ abdominal pain. Plan: 1. Abdominal pain - Unclear etiology; differential includes appendicitis vs. UTI vs. worsening stone burden. Vital signs stable, no signs of autonomic dysreflexia, WBC WNL, and LFTs unremarkable. - Surgery service consulted: recommended Invanz x1 and will evaluate for possible appendicitis - Obtain urine culture - Will order Dilaudid IV PRN in addition to home regimen (needs home meds reconciled) 2. C3 quadriplegia - S/p trach, PEG, and SPT. He used to have s Stage IV decubitus ulcer but this has healed per daughter's and caregiver's reports. Has baclofen pump in place. 3. Chronic pain - On fentanyl patch (50 mcg recently decreased from 62.5), oxycodone PRN, and Dilaudid now being infused through baclofen pump at unclear rate. - Needs home meds reconciled - Additional Dilaudid IV PRN for breakthrough Code - Full Ppx - SCDs Dispo - Admit to observation status
[2017-01-13] MEDS ORDERED: ONDANSETRON DISINTEGRATING 4 MG TAB PO PRN ×2 (06:00→09:55)
[2017-01-13] MEDS ORDERED: ONDANSETRON 4 MG/2 ML VIAL IVP PRN ×2 (06:00→11:36)
[2017-01-13] MEDS ORDERED: ACETAMINOPHEN 325 MG TAB PO PRN (06:00)
[2017-01-13] MEDS: HYDROmorphONE/DILAUDID 1 MG/ML INJ IVP PRN ×4 (06:23→20:36)
[2017-01-13] MEDS ORDERED: BUPIVACAINE 0.25% 30 ML SDV ONE (09:40)
--- NOTE | 2017-01-13 09:57 | PDGENHP ---
History and Physical - Chief Complaint abdominal pain - History of Present Illness 61yo M quadriplegic well known to my partner Dr Robles. Presents to the ED with abdominal pain, appears to be lower abdominal in nature. In the past, the patient had relief with IV narcotics but the pain has persisted ever since. Reviewed the CT scan and he does have dilated appendix at the tip, WBC normal. History Information - Allergies/Home Medication List Allergies/Adverse Reactions: Milk Containing Products [dairy] Allergy (Severe, Verified 12/11/16 15:06) Swelling/neck,face,throat Penicillins Allergy (Severe, Verified 12/11/16 15:06) Other-Enter Comments soy Allergy (Severe, Verified 12/11/16 15:06) Swelling/neck,face,throat nitrofurantoin [From Macrobid] Allergy (Verified 01/13/17 08:27) Other-Enter Comments shellfish derived Allergy (Verified 12/11/16 15:06) tree nut [Nuts] Allergy (Verified 12/11/16 15:06) wheat Allergy (Severe, Uncoded 09/10/16 14:32) [place] Home Medications: Midodrine HCl 10 mg TUBE QID 04/06/15 [Last Taken 01/12/17] ZOLPIDEM TARTRATE [Ambien CR 12.5 mg] 12.5 mg TUBE HS 04/06/15 [Last Taken 01/11] Ferrous Sulfate 325 mg TUBE BID 04/27/15 [Last Taken 01/12/17] Acetaminophen [Tylenol 325mg (*)] 650 mg TUBE Q6H 08/24/15 [Last Taken 01/12/17] Baclofen [Baclofen 10 mg (*)] 10 mg TUBE TID 08/24/15 [Last Taken 01/12/17] Gabapentin [Neurontin Oral Liquid] 600 mg TUBE Q8H 08/24/15 [Last Taken 01/12/17 ] Sertraline HCl [Zoloft 100mg (*)] 100 mg TUBE DAILY 08/24/15 [Last Taken ] clonazePAM [Klonopin (*)] 0.25 mg TUBE QID 08/24/15 [Last Taken 01/12/17] Polyethylene Glycol 3350 [Miralax 17 gm (*)] 8.5 gm TUBE TID 10/31/15 [Last Taken 01/12/17] oxyCODONE IR [Oxycodone Ir (*)] 30 mg TUBE QID 10/31/15 [Last Taken 01/12/17] tiZANidine HCL [Zanaflex] 4 mg TUBE BID 10/31/15 [Last Taken 01/12/17] Bisacodyl [Magic Bullet 10 mg] 10 mg [place] DAILY 07/18/16 [Last Taken 01/12/17] Ondansetron Odt [Zofran Odt 4 mg (*)] 8 mg PO DAILY PRN 07/18/16 [Last Taken 07/24] Tolterodine Tartrate [Detrol 1MG (*)] 4 mg TUBE DAILY 07/18/16 [Last Taken 01/12] Sennosides/Docusate Sodium [Senna-Docusate Sodium Tablet] 1 each TUBE DAILY 08/23 [Last Taken 01/12/17] fentaNYL [Duragesic 50 MCG Patch (*)] 50 mcg TD Q48H 01/13/17 [Last Taken ] I have personally reviewed and updated: medical history, social history, surgical history - Past Medical History Additional medical history: Quadriplegia - Surgical History Additional surgical history: Trach, PEG, SPT - Family History Positive for: cancer - Social History Smoking Status: Never smoked Review of Systems Review of Systems: ROS: 10pt was reviewed & negative except for what was stated in HPI & below Physical Exam Physical Exam: Temp Pulse Resp BP Pulse Ox 36.5 C 66 18 101/56 L 99 01/13/17 09:37 01/13/17 09:37 01/13/17 09:37 01/13/17 09:37 01/13/17 09:37 O2 (L/minute) 3 Constitutional: no apparent distress, appears nourished, not in pain Eyes: PERRL, anicteric sclera, EOMI Ears, Nose, Mouth, Throat: moist mucous membranes, hearing normal, ears appear normal, no oral mucosal ulcers, other (trach c/d/i with pessy shilpi in place ) Cardiovascular: regular rate and rhythym, no murmur, rub, or gallop, No edema Respiratory: no respiratory distress, no rales or rhonchi, clear to auscultation Gastrointestinal: other (soft, TTP in lower abdomen. PEG in place, suprapubic in place. ) Genitourinary: no bladder fullness, no bladder tenderness Skin: warm, normal color, no rashes or abrasions, no fluctuance, no induration, No mottled Musculoskeletal: full muscle strength, no muscle tenderness, normal joint ROM, no joint effusions Psychiatric: interacting appropriately, not anxious, not encephalopathic, thought process linear Lymph, Heme, Immunologic: no cervical LAD, no supraclavicular LAD Lab Data & Imaging Review 01/13/17 02:27 01/13/17 02:27 WBC 5.41 10^3/uL (3.80-9.50) 01/13/17 02:27 RBC 3.54 10^6/uL (4.40-6.38) L 01/13/17 02:27 Hgb 10.7 g/dL (13.7-17.5) L 01/13/17 02:27 Hct 32.9 % (40.0-51.0) L 01/13/17 02:27 MCV 92.9 fL (81.5-99.8) 01/13/17 02:27 MCH 30.2 pg (27.9-34.1) 01/13/17 02:27 MCHC 32.5 g/dL (32.4-36.7) 01/13/17 02:27 RDW 12.9 % (11.5-15.2) 01/13/17 02:27 Plt Count 175 10^3/uL (150-400) 01/13/17 02:27 MPV 10.7 fL (8.7-11.7) 01/13/17 02:27 Neut % (Auto) 67.4 % (39.3-74.2) 01/13/17 02:27 Lymph % (Auto) 21.1 % (15.0-45.0) 01/13/17 02:27 [place] % (Auto) 9.6 % (4.5-13.0) 01/13/17 02:27 Eos % (Auto) 1.5 % (0.6-7.6) 01/13/17 02:27 Baso % (Auto) 0.2 % (0.3-1.7) L 01/13/17 02:27 Nucleat RBC Rel Count 0.0 % (0.0-0.2) 01/13/17 02:27 Absolute Neuts (auto) 3.65 10^3/uL (1.70-6.50) 01/13/17 02:27 Absolute Lymphs (auto) 1.14 10^3/uL (1.00-3.00) 01/13/17 02:27 Absolute Monos (auto) 0.52 10^3/uL (0.30-0.80) 01/13/17 02:27 Absolute Eos (auto) 0.08 10^3/uL (0.03-0.40) 01/13/17 02:27 Absolute Basos (auto) 0.01 10^3/uL (0.02-0.10) L 01/13/17 02:27 Absolute Nucleated RBC 0.00 10^3/uL (0-0.01) 01/13/17 02:27 Immature Gran % 0.2 % (0.0-1.1) 01/13/17 02:27 Immature Gran # 0.01 10^3/uL (0.00-0.10) 01/13/17 02:27 Sodium 141 mEq/L (134-144) 01/13/17 02:27 Potassium 4.7 mEq/L (3.5-5.2) 01/13/17 02:27 Chloride 92 mEq/L (97-110) L 01/13/17 02:27 Carbon Dioxide 35 mEq/l (22-31) H 01/13/17 02:27 Anion Gap 14 mEq/L (8-16) 01/13/17 02:27 BUN 11 mg/dL (7-23) 01/13/17 02:27 Creatinine 0.5 mg/dL (0.7-1.3) L 01/13/17 02:27 Estimated GFR > 60 01/13/17 02:27 Glucose 87 mg/dL (70-100) 01/13/17 02:27 Calcium 9.6 mg/dL (8.5-10.4) 01/13/17 02:27 Total Bilirubin 0.3 mg/dL (0.1-1.4) 01/13/17 02:27 Conjugated Bilirubin 0.2 mg/dL (0.0-0.5) 01/13/17 02:27 Unconjugated Bilirubin 0.1 mg/dL (0.0-1.1) 01/13/17 02:27 AST 34 IU/L (17-59) 01/13/17 02:27 ALT 52 IU/L (21-72) 01/13/17 02:27 Alkaline Phosphatase 93 IU/L (38-126) 01/13/17 02:27 Total Protein 7.3 g/dL (6.3-8.2) 01/13/17 02:27 Albumin 4.1 g/dL (3.5-5.0) 01/13/17 02:27 Urine Color YELLOW 01/13/17 02:41 Urine Appearance HAZY 01/13/17 02:41 Urine pH 6.0 (5.0-7.5) 01/13/17 02:41 Ur Specific [place] 1.016 (1.002-1.030) 01/13/17 02:41 Urine Protein NEGATIVE (NEGATIVE) 01/13/17 02:41 Urine Ketones NEGATIVE (NEGATIVE) 01/13/17 02:41 Urine Blood NEGATIVE (NEGATIVE) 01/13/17 02:41 Urine Nitrate NEGATIVE (NEGATIVE) 01/13/17 02:41 Urine Bilirubin NEGATIVE (NEGATIVE) 01/13/17 02:41 Urine Urobilinogen NEGATIVE EU (0.2-1.0) 01/13/17 02:41 Ur Leukocyte Esterase 3+ (NEGATIVE) H 01/13/17 02:41 Urine RBC 50-182 /hpf (0-3) H 01/13/17 02:41 Urine WBC 10-15 /hpf (0-3) H 01/13/17 02:41 Ur Epithelial Cells Not Reported 01/13/17 02:41 Urine Bacteria TRACE /hpf (NONE SEEN) H 01/13/17 02:41 Urine Mucus TRACE /lpf (NONE-1+) 01/13/17 02:41 Urine Glucose NEGATIVE (NEGATIVE) 01/13/17 02:41 Visualized and Interpreted imaging results: Yes Interpretation: CT: tip of appendix is inflamed, doesnt appear to be any periappendiceal fluid Assessment & Plan Assessment: Abdominal pain (Acute) Chronic complete quadriplegia (Acute) Plan: 61yo M with MMP, lower abdominal pain which is unrelenting - Plan will be to go to OR, ex-laparoscopy appendectomy. Discussed the risks, benefits and alternatives discussed with patient, daughter at bedside and who is MDPOA over telephone.
[2017-01-13] MEDS ORDERED: ONDANSETRON 0.8 MG/ML UDSYR TUBE PRN (10:23)
[2017-01-13] MEDS ORDERED: fentaNYL 100 MCG/2 ML INJ ONE ×2 (10:24→12:07)
[2017-01-13] MEDS ORDERED: PROPOFOL 200 MG/20 ML VIAL ONE (10:27)
--- NOTE | 2017-01-13 10:34 | PDHPUP ---
History & Physical Update H&P update statement: This history and physical update is based on an assessment of the patient which was completed after admission or registration (within 24 hours), but prior to the surgery/procedure. H&P update: H&P reviewed & patient examined, no change in patient's condition since H&P completed
[2017-01-13] MEDS ORDERED: NALOXONE HCL 0.4 MG/ML INJ IVP PRN (11:36)
[2017-01-13] MEDS ORDERED: fentaNYL 100 MCG/2 ML INJ IVP PRN (11:36)
[2017-01-13] MEDS ORDERED: LR 500 ML IV PRN (11:36)
--- NOTE | 2017-01-13 11:36 | PDANEPAE ---
DREW History of Present Illness PATIENT PRESENTS FOR [facility] Past Medical History - Pulmonary History Hx Oxygen in Use at Home: No Hx Sleep Apnea: No Sleep Apnea Screening Result - Last Documented: Negative Pulmonary History Comment: tracheostomy - Endocrine History Hx Diabetes: No - Neurological & Psychiatric Hx Hx Neurological and Psychiatric Disorders: Yes - Chronic Pain History Chronic Pain: Yes (Neck, shoulders) ANE Review of Systems Review of Systems: ANE Patient History - Allergies Allergies/Adverse Reactions: Milk Containing Products [dairy] Allergy (Severe, Verified 12/11/16 15:06) Swelling/neck,face,throat Penicillins Allergy (Severe, Verified 12/11/16 15:06) Other-Enter Comments soy Allergy (Severe, Verified 12/11/16 15:06) Swelling/neck,face,throat nitrofurantoin [From Macrobid] Allergy (Verified 01/13/17 08:27) Other-Enter Comments shellfish derived Allergy (Verified 12/11/16 15:06) tree nut [Nuts] Allergy (Verified 12/11/16 15:06) wheat Allergy (Severe, Uncoded 09/10/16 14:32) [place] - Home Medications Home medications: home medication list seen and reviewed Home Medications: Midodrine HCl 10 mg TUBE QID 04/06/15 [Last Taken 01/12/17] ZOLPIDEM TARTRATE [Ambien CR 12.5 mg] 12.5 mg TUBE HS 04/06/15 [Last Taken 01/11] Ferrous Sulfate 325 mg TUBE BID 04/27/15 [Last Taken 01/12/17] Acetaminophen [Tylenol 325mg (*)] 650 mg TUBE Q6H 08/24/15 [Last Taken 01/12/17] Baclofen [Baclofen 10 mg (*)] 10 mg TUBE TID 08/24/15 [Last Taken 01/12/17] Gabapentin [Neurontin Oral Liquid] 600 mg TUBE Q8H 08/24/15 [Last Taken 01/12/17 ] Sertraline HCl [Zoloft 100mg (*)] 100 mg TUBE DAILY 08/24/15 [Last Taken ] clonazePAM [Klonopin (*)] 0.25 mg TUBE QID 08/24/15 [Last Taken 01/12/17] Polyethylene Glycol 3350 [Miralax 17 gm (*)] 8.5 gm TUBE TID 10/31/15 [Last Taken 01/12/17] oxyCODONE IR [Oxycodone Ir (*)] 30 mg TUBE QID 10/31/15 [Last Taken 01/12/17] tiZANidine HCL [Zanaflex] 4 mg TUBE BID 10/31/15 [Last Taken 01/12/17] Bisacodyl [Magic Bullet 10 mg] 10 mg [place] DAILY 07/18/16 [Last Taken 01/12/17] Ondansetron Odt [Zofran Odt 4 mg (*)] 8 mg PO DAILY PRN 07/18/16 [Last Taken 07/24] Tolterodine Tartrate [Detrol 1MG (*)] 4 mg TUBE DAILY 07/18/16 [Last Taken 01/12] Sennosides/Docusate Sodium [Senna-Docusate Sodium Tablet] 1 each TUBE DAILY 08/23 [Last Taken 01/12/17] fentaNYL [Duragesic 50 MCG Patch (*)] 50 mcg TD Q48H 01/13/17 [Last Taken ] - NPO status NPO Status: no food or drink >8 hours NPO Since - Liquids (Date): 01/13/17 NPO Since - Liquids (Time): 00:00 NPO Since - Solids (Date): 01/13/17 NPO Since - Solids (Time): 00:00 - Anes Hx Anes Hx: no prior problems - Smoking Hx Smoking Status: Never smoked ANE Labs/Vital Signs - Labs Result Diagrams: 01/13/17 02:27 01/13/17 02:27 - Vital Signs Blood Pressure: 101/56 Heart Rate: 66 Respiratory Rate: 18 O2 Sat (%): 99 Height: 182.88 cm Weight: 70.307 kg ANE Physical Exam - Airway Mallampati Score: Class 1 Mouth exam: normal dental/mouth exam - Pulmonary Pulmonary: other - Cardiovascular Cardiovascular: regular rate and rhythym - ASA Status ASA Status: III (tracheostomy)
--- NOTE | 2017-01-13 12:04 | POSTANESTH ---
Post Anesthetic Evaluation Cardiovascular Status: Similar to Pre-Op Cond Respiratory Status: Similar to Pre-op Cond. Level of Consciousness/Mental Status: Can Participate in Eval Pain Control: Adequate, Prn Tx Ordered Nausea/Vomiting Control: Adequate, Prn Tx Ordered Complications Possibly Related to Anesthesia: None Noted
--- NOTE | 2017-01-13 12:24 | POSTOPPROG ---
Post Op Note Date of Operation: 01/13/17 Surgeon: Mike Wilson Grain Grader: Anish Calixto MD Anesthesiologist: Monica Anesthesia: GET(General Endotracheal) Pre-op Diagnosis: Appendicitis Post-op Diagnosis: same Procedure: Lap appy Findings: tip appeared inflamed and had adhesions Inf/Abcess present in the surg proc area at time of surgery?: No EBL: Minimal Total fluids administered: 500cc NS washout Specimen(s): appendix
[2017-01-13] MEDS ORDERED: oxyCODONE IR 5 MG TAB ONE (13:13)
[2017-01-13] MEDS: clonazePAM 0.5 MG TAB TUBE SCH ×3 (14:10→21:21)
[2017-01-13] MEDS: GABAPENTIN 250 MG/5 ML 30 ML BOTTLE TUBE SCH ×2 (14:34→22:55)
--- NOTE | 2017-01-13 15:34 | GOP ---
[f rep st] OPERATIVE REPORT DATE OF OPERATION: 01/13/2017 SURGEON: Mike Wilson MD VICE PRESIDENT OF RECRUITING: Zack Calixto MD, who was requested for me for adequate exposure and timely completion of the case. ANESTHESIA: General endotracheal. ANESTHESIOLOGIST: Harrison Anderson MD. PREOPERATIVE DIAGNOSIS: Acute appendicitis. POSTOPERATIVE DIAGNOSIS: Acute appendicitis. PROCEDURE PERFORMED: Laparoscopic appendectomy. FINDINGS: Appendix appeared inflamed at the tip with some mild adhesive disease to it. Remainder of the appendix did appear normal. Uneventful appendectomy performed. SPECIMENS: Appendix. ESTIMATED BLOOD LOSS: 5 cc. DESCRIPTION OF PROCEDURE: The patient was greeted in the preoperative suite. Risks, benefits, and alternatives were discussed with him, his daughter, and his was is his MDPOA. Consent was subsequently given by the , assent was obtained by the patient. He was brought back to the operative suite and placed on the OR table in the supine position. After all anesthesia and machines, including SCDs, were on and functioning, a World [employer] time-out was performed. After successful induction of general anesthesia, the patient's abdomen was prepped and draped in typical sterile fashion. I used an Ioban to successfully excluded both his G-tube and his suprapubic catheter. I entered the abdomen via an infraumbilical cutdown through which I bluntly entered the abdominal cavity. Through this, I inserted my 12 mm Visiport and achieved pneumoperitoneum to 15 mmHg which was well tolerated by the patient. I then inserted 2 additional 5 mm trocars, 1 in the left lower and 1 in the left upper quadrant, both under direct visualization. Once successfully in the abdomen, I identified the appendix by tracing the taeniae inferiorly. The appendix, again, the base did not appear infected. The tip was somewhat indurated and injected and did appear inflamed with some mild adhesions. I successfully skeletonized the appendix using the Harmonic Scalpel down to the appendiceal base. I then amputated the appendix from the cecal base using a single fire Endo-REA blue load stapler. The appendix was then placed in an EndoCatch bag and removed. My staple line was then inspected and noted to be intact and hemostatic. I then ran a portion of the terminal ilium looking for any other pathology, none of which was found. He had some free fluid in his pelvis which was successfully irrigated and washed out. I then infiltrated local anesthesia into all port sites which were removed under direct visualization. I then evacuated my pneumoperitoneum and closed my infraumbilical site with an 0 Vicryl stitch, noting excellent fascial reapproximation. Skin was then closed with Monocryl over which Dermabond was placed. The patient was then extubated in the operative suite and taken to the PACU in satisfactory condition. DRAINS: None. COUNTS: All counts were reported as correct x2. /[id number]/MODL MTDD
[2017-01-13] MEDS ORDERED: clonazePAM 0.5 MG TAB TUBE SCH (16:00)
[2017-01-13] MEDS: ACETAMINOPHEN 325 MG TAB TUBE SCH ×2 (17:19→23:18)
[2017-01-13] MEDS: BACLOFEN 10 MG TAB TUBE SCH ×2 (17:20→21:20)
[2017-01-13] MEDS: POLYETHYLENE GLYCOL 3350 17 GM PKT TUBE SCH ×2 (17:20→21:19)
[2017-01-13] MEDS: MIDODRINE HCL 5 MG TAB TUBE SCH ×2 (17:20→21:20)
--- NOTE | 2017-01-13 20:20 | HOSPPROG ---
Hospitalist Progress Note Assessment/Plan: 61 yo M quadriplegic presents w/ abdominal pain. First encounter, chart reviewed. Discussed at bedside with Dr Guillen. Plan: 1. Abdominal pain - Unclear etiology appendicitis vs. UTI vs. worsening stone burden. Vital signs stable, no signs of autonomic dysreflexia, WBC WNL, and LFTs unremarkable. Appreciate Surgery consult Plan for OR today Invanz for possible appendicitis Obtain urine culture, pending Dilaudid IV PRN, will add IV Morphine. Will restart home meds when taking PO 2. C3 quadriplegia - S/p trach, PEG, and SPT. He used to have s Stage IV decubitus ulcer but this has healed per daughter's and caregiver's reports. Has baclofen pump in place. 3. Chronic pain - On fentanyl patch (50 mcg recently decreased from 62.5), oxycodone PRN, and Dilaudid now being infused through baclofen pump at unclear rate. Needs home meds restarted when taking PO Additional Dilaudid IV PRN for breakthrough and Morphine Code - Full Ppx - SCDs Dispo - Admit to observation status Subjective: Still having abd pain. Objective: Vital Signs Temp Pulse Resp BP Pulse Ox 36.9 C 62 16 121/71 H 100 01/13/17 20:03 01/13/17 20:03 01/13/17 20:03 01/13/17 20:03 01/13/17 20:03 01/12/17 01/13/17 01/14/17 05:59 05:59 05:59 Intake Total 1740 Output Total 600 Balance 1140 - Physical Exam Constitutional: chronically ill appearing, uncomfortable, cachectic Eyes: PERRL, anicteric sclera, EOMI Ears, Nose, Mouth, Throat: moist mucous membranes, hearing normal, ears appear normal Cardiovascular: regular rate and rhythym, No JVD, No edema Respiratory: no respiratory distress, no rales or rhonchi, reduced air movement Gastrointestinal: tenderness, No ascites, No distension Skin: warm, normal color, No mottled Musculoskeletal: muscular tenderness, generalized weakness, No normal joint ROM Neurologic: AAOx3 Psychiatric: not encephalopathic, thought process linear, anxious ICD10 Worksheet Patient Problems: Problems Problem Status Onset Chronic complete quadriplegia Acute MRSA (methicillin resistant Staphylococcus aureus) Acute ~11/08/16 MRSA (methicillin resistant Staphylococcus aureus) Acute ~09/02/16 chronic disease mgmt/transitional care Acute History of quadriplegia Acute Generalized tonic-clonic seizure Acute New onset seizure Acute Urinary tract infection Acute Constipation Acute Abdominal pain Acute Fecal impaction of colon Acute Anemia Acute Hyponatremia Acute Pneumonia Acute
[2017-01-13] MEDS ORDERED: NON-FORMULARY NEW DRUG (Zolpidem Tartrate [Ambien Cr 12.5 Mg] 12.5 MG) TUBE SCH (21:00)
[2017-01-13] MEDS ORDERED: ZOLPIDEM TARTRATE 5 MG TAB TUBE SCH (21:00)
[2017-01-13] MEDS: FERROUS SULFATE 325 MG TAB PO SCH (21:20)
[2017-01-13] MEDS ORDERED: GABAPENTIN 250 MG/5 ML 30 ML BOTTLE TUBE SCH (22:00)
[2017-01-14] MEDS: HYDROmorphONE/DILAUDID 1 MG/ML INJ IVP PRN ×2 (00:02→06:15)
[2017-01-14] MEDS: GABAPENTIN 250 MG/5 ML 30 ML BOTTLE TUBE SCH ×2 (05:49→13:03)
[2017-01-14] MEDS: clonazePAM 0.5 MG TAB TUBE SCH ×2 (05:51→13:02)
[2017-01-14] MEDS: ACETAMINOPHEN 325 MG TAB TUBE SCH ×2 (05:52→13:02)
[2017-01-14] MEDS: MIDODRINE HCL 5 MG TAB TUBE SCH ×2 (05:52→13:02)
[2017-01-14 08:17] VITALS: RESP 14; TEMP 98.4
[2017-01-14] MEDS ORDERED: SERTRALINE HCL 100 MG TAB TUBE SCH (09:00)
[2017-01-14] MEDS ORDERED: BISACODYL 10 MG SUPP PR SCH (09:00)
[2017-01-14] MEDS ORDERED: SENNOSIDES/DOCUSATE SODIUM TAB PO SCH (09:00)
[2017-01-14] MEDS ORDERED: TOLTERODINE TARTRATE 1 MG TAB TUBE SCH (09:00)
[2017-01-14] MEDS ORDERED: fentaNYL 50 MCG PATCH TD SCH (09:00)
[2017-01-14] MEDS: BACLOFEN 10 MG TAB TUBE SCH (10:13)
[2017-01-14] MEDS: FERROUS SULFATE 325 MG TAB PO SCH (10:13)
[2017-01-14] MEDS: POLYETHYLENE GLYCOL 3350 17 GM PKT TUBE SCH (10:13)
[2017-01-14 11:25] VITALS: BP 90/61; PULSE 62; O2SAT 100
--- NOTE | 2017-01-14 13:11 | PDIAF ---
- Diagnosis Diagnosis: abd pain Code Status: Full Code - Medication Management Discharge Medications: Medications to Continue on Transfer Midodrine HCl 10 mg TUBE QID 04/06/15 [Last Taken 01/12/17] ZOLPIDEM TARTRATE [Ambien CR 12.5 mg] 12.5 mg TUBE HS 04/06/15 [Last Taken 01/11] Ferrous Sulfate 325 mg TUBE BID 04/27/15 [Last Taken 01/12/17] Acetaminophen [Tylenol 325mg (*)] 650 mg TUBE Q6H 08/24/15 [Last Taken 01/12/17] Baclofen [Baclofen 10 mg (*)] 10 mg TUBE TID 08/24/15 [Last Taken 01/12/17] Gabapentin [Neurontin Oral Liquid] 600 mg TUBE Q8H 08/24/15 [Last Taken 01/12/17 ] Sertraline HCl [Zoloft 100mg (*)] 100 mg TUBE DAILY 08/24/15 [Last Taken ] clonazePAM [Klonopin (*)] 0.25 mg TUBE QID 08/24/15 [Last Taken 01/12/17] Polyethylene Glycol 3350 [Miralax 17 gm (*)] 8.5 gm TUBE TID 10/31/15 [Last Taken 01/12/17] oxyCODONE IR [Oxycodone Ir (*)] 30 mg TUBE QID 10/31/15 [Last Taken 01/12/17] tiZANidine HCL [Zanaflex] 4 mg TUBE BID 10/31/15 [Last Taken 01/12/17] Bisacodyl [Magic Bullet 10 mg] 10 mg [place] DAILY 07/18/16 [Last Taken 01/12/17] Ondansetron Odt [Zofran Odt 4 mg (*)] 8 mg PO DAILY PRN 07/18/16 [Last Taken 07/24] Tolterodine Tartrate [Detrol 1MG (*)] 4 mg TUBE DAILY 07/18/16 [Last Taken 01/12] Sennosides/Docusate Sodium [Senna-Docusate Sodium Tablet] 1 each TUBE DAILY 08/23 [Last Taken 01/12/17] fentaNYL [Duragesic 50 MCG Patch (*)] 50 mcg TD Q48H 01/13/17 [Last Taken ] Discharge Medications: Refer to the Discharge Home Medication list for PRN reason. PICC Care - Routine: N/A - Orders Services needed: Home Care, Registered Nurse Home Care Face to Face: I certify that this patient was under my care and that I had the required [id number] encounter meeting the encounter requirements on the discharge day. My findings support the fact that the patient is homebound as defined in Home Care Face to Face Continued: CMS Chapter 7 Medicare Benefits Manual 30.1.1 , The condition of the patient is such that there exists a normal inability to leave home and consequently, leaving home would require a considerable and taxing effort. Isolation Type: Contact Isolation - Follow Up Care Current Providers and Referrals: KYLIE ALDANA [Primary Care Provider] - As per Instructions
--- NOTE | 2017-01-14 15:20 | ASMTCMCOM ---
CM Note CM Note Notes: Spoke w/t pt, he wanted to know if he could get homecare. Pt is already current with [facility] per . Advised pt that I could set up a different home care agency for RN if he wanted, pt stated I should come back and speak with his . On the phone his declined any changes in homecare and was upset that pt was being dc'd today, as they were not prepared. CM apologized for any miscommunication and will relay concerns to the staff. DC Plan: Home w/ current homecare Date Signed: 01/14/2017 03:19 PM Electronically Signed By:Letty Vargas RN
--- NOTE | 2017-01-14 15:52 | SOAPPROG ---
SOAP Progress Note Assessment/Plan: Assessment/Plan: 61yo M POD#1 s/p lap appy - Pain remarkably improved today, He states that he feels much better - Tolerating TFs without issue - Abdomen is soft, incision sites are c/d/i - OK with dc home from my standpoint. Discussed with Krzysztof that I will want to see him in clinic 10-14 days for routine post op 01/14/17 15:51 Subjective: Feels much better Objective: Vital Signs Temp Pulse Resp BP Pulse Ox 36.9 C 62 14 90/61 L 100 01/14/17 11:25 01/14/17 11:25 01/14/17 11:25 01/14/17 11:25 01/14/17 11:25 01/13/17 01/14/17 01/15/17 05:59 05:59 05:59 Intake Total 1840 Output Total 2300 Balance -460 ICD10 Worksheet Patient Problems: Problems Problem Status Onset Abdominal pain Acute Chronic complete quadriplegia Acute Anemia Acute Constipation Acute Fecal impaction of colon Acute Generalized tonic-clonic seizure Acute History of quadriplegia Acute Hyponatremia Acute MRSA (methicillin resistant Staphylococcus aureus) Acute ~09/02/16 MRSA (methicillin resistant Staphylococcus aureus) Acute ~11/08/16 New onset seizure Acute Pneumonia Acute Urinary tract infection Acute chronic disease mgmt/transitional care Acute
--- NOTE | 2017-01-14 15:59 | GDS ---
[f rep st] DISCHARGE SUMMARY DISCHARGE DIAGNOSES: 1. Possible appendicitis. 2. Abdominal pain. 3. History of quadriplegia. 4. Chronic pain. CONSULTATIONS: Surgery. STUDIES AND PROCEDURES: Laparoscopic appendectomy. PHYSICAL EXAM: GENERAL: The patient is alert. VITAL SIGNS: Afebrile at 36.9, pulse is 62, respira tory rate 14, blood pressure is 90/61, he is saturating 100% on 4 L. I have seen evaluated the patie nt on the day of discharge. HOSPITAL COURSE: The patient is a 61-year-old male with history of quadriplegia. He presented to the emergency room with complaints of abdominal pain. He was evaluated and diagnosed with. 1. Abdominal pain. During this hospitalization, he received a laparoscopic appendectomy performed homero Wilson of general surgery. The patient's pain has completely resolved. He is feeling sign ificantly better and he is tolerating his regular diet. 2. History of C3 quadriplegia. The patient is stable with regard to this condition. 3. Chronic pain. He has continued his previously prescribed pain medications during this hospital c ourse. DISPOSITION: The patient will be discharged home with home health care and follow up in the outpatie nt setting with his primary care physician. He will also follow up with General Surgery. There are no pending studies. DISCHARGE MEDICATIONS: Please refer to EMR form. I have not discontinued any of the patient's previ ously prescribed home medications. /[id number]/MODL
--- NOTE | 2017-01-15 13:55 | ASDISCHSUM ---
Discharge Information Plan Status: Medically Cleared to Leave: Discharge Date:01/14/2017 04:17 PM CM D/C Disposition: ADT D/C Disposition:Home Health Service Projected Discharge Date:01/14/2017 04:17 PM Transportation at D/C: Discharge Delay Reason: Follow-Up Date:01/14/2017 04:17 PM Discharge Slot: Final Diagnosis: Placement Information Patient Contact Information Contact Name:KATHIE Relationship: Address:[address] Work Phone: City:[place] [facility] Phone: State/[employer] Code:[place] Email: Financial Information Financial Class: Primary Plan Desc:MEDICARE OUTPATIENT Primary Plan Number:[id number] Secondary Plan Desc:[facility] Secondary Plan Number:[id number] Assessment Information [facility] Progress Note CM Note CM Note Notes: Spoke w/t pt, he wanted to know if he could get homecare. Pt is already current with [facility] per . Advised pt that I could set up a different home care agency for RN if he wanted, pt stated I should come back and speak with his . On the phone his declined any changes in homecare and was upset that pt was being dc'd today, as they were not prepared. CM apologized for any miscommunication and will relay concerns to the staff. DC Plan: Home w/ current homecare Date Signed: 01/14/2017 03:19 PM Electronically Signed By:Letty Vargas RN Intervention Information Intervention Type:*CATHLEEN-Signed Date of Service:01/13/2017 03:29 PM Patient Type:Observation Staff Member:Mireya Carvalho Hours: Discipline: Severity: Comment:
== END 2017-01-14 16:17 | disposition home health service (06) ==
LOC: F3E 06:33
PROVIDERS: ADMIT Student in an Organized Health Care Education/Training Program; ATTEND Internal Medicine
PROC: 0DTJ4ZZ Resection of Appendix, Percutaneous Endoscopic Approach (ICD-10-PCS; principal; 2017-01-13 09:45)
DX: K35.80 Unspecified acute appendicitis (principal); G82.52 Quadriplegia, C1-C4 incomplete; G89.29 Other chronic pain; Z87.440 Personal history of urinary (tract) infections; Z93.1 Gastrostomy status; Z96.0 Presence of urogenital implants
CPT/HCPCS: 44970; 71010; 74177; 88304; G0378; J0171; J1170; J1335; J2405; J2704; J3010; Q9967; 96374

== ENCOUNTER 2017-02-19 10:42 | Inpatient (IN) | payer OTHER ==
--- NOTE | 2017-02-19 11:08 | EDPHY ---
H & P Stated Complaint: fever, abd pain for past couple days. - Personal History Current Tetanus/Diphtheria Vaccine: Yes Current Tetanus Diphtheria and Acellular Pertussis (TDAP): Yes - Medical/Surgical History Hx Asthma: No Hx Chronic Respiratory Disease: No Hx Diabetes: No Hx Cardiac Disease: No Hx Renal Disease: No Hx Cirrhosis: No Hx Alcoholism: No Hx HIV/AIDS: No Hx Splenectomy or Spleen Trauma: No Other PMH: Quadriplegia C3-C4 2014, trach, pNA, Pericardial effusion, multple decubitus ulcer bottom and back, UTI's, Baclofen pump, Peg tube, Tracheostomy ( capped), - Social History Smoking Status: Never smoked Time Seen by Provider: 02/19/17 10:48 HPI/ROS: CHIEF COMPLAINT: Fever, abdominal pain, history of quadriplegia HISTORY OF PRESENT ILLNESS: 61-year-old male with multiple medical comorbidities arrives via private vehicle with his . is the primary historian. Patient has a history of appendectomy, quadriplegia, chronic pain, chronic UTI with indwelling suprapubic catheter reports that he felt warm this morning, obtained a temperature 101.5degrees. He was complaining of concomitant abdominal pain. Stooling habits have been normal. Urine output has been normal. G-tube feedings have been normal. No influenza vaccination. REVIEW OF SYSTEMS: A ten point review of systems was performed and is negative with the exception of the items mentioned in the HPI PAST MEDICAL & SURGICAL HISTORY: G-tube. Indwelling suprapubic catheter. Chronic UTI. Chronic pain. C3 quadriplegia. Wheelchair-bound. Appendectomy. SOCIAL HISTORY:Lives with PHYSICAL EXAM (Prior to examination, patient consented to physical exam, hands were washed and my usual and customary physical exam procedures followed) 1) GENERAL: Well-developed, well-nourished, alert and oriented.. 2) HEAD: Normocephalic, atraumatic 3) HEENT: Pupils equal, round, reactive to light bilaterally. Sclera anicteric. Nasopharynx, oropharynx, clear, no lesions. No tonsillar enlargement or exudate Ears bilaterally with normal tympanic membranes. 4) NECK: Full range of motion, no meningeal signs. Tracheostomy in place. 5) LUNGS: Clear auscultation bilaterally, no wheezes, no rhonchi, no retractions. 6) HEART: Regular rate and rhythm, no murmur, no heave, no gallop. 7) ABDOMEN: G-tube in suprapubic catheter in place. No signs of infection at sites. Patient does not appear to experience pain with palpation of the abdomen., 8) MUSCULOSKELETAL: Moving all extremities, no focal areas of tenderness, no obvious trauma. No peripheral edema or discoloration. 9) BACK: No CVA tenderness, no midline vertebral tenderness, no fluctuance, no step-off, no obvious trauma, no visual or palpable abnormality. 10) SKIN: No rash, no petechiae. 11) normal male external genitalia no rash no lesions.. DIFFERENTIAL DIAGNOSIS: In no particular order including but not limited to bowel obstruction, acute surgical abdominal pathology, pneumonia, influenza (Tegan,Robert Noel) Constitutional: Initial Vital Signs Temperature (C) 37.1 C 02/19/17 10:42 Heart Rate 65 02/19/17 10:42 Respiratory Rate 16 02/19/17 10:42 Blood Pressure 80/53 L 02/19/17 10:42 O2 Sat (%) 93 02/19/17 10:42 O2 Delivery Mode Nasal Cannula O2 (L/minute) 4 Allergies/Adverse Reactions: Milk Containing Products [dairy] Allergy (Severe, Verified 12/11/16 15:06) Swelling/neck,face,throat Penicillins Allergy (Severe, Verified 12/11/16 15:06) Other-Enter Comments soy Allergy (Severe, Verified 12/11/16 15:06) Swelling/neck,face,throat nitrofurantoin [From Macrobid] Allergy (Verified 01/13/17 08:27) Other-Enter Comments shellfish derived Allergy (Verified 12/11/16 15:06) tree nut [Nuts] Allergy (Verified 12/11/16 15:06) wheat Allergy (Severe, Uncoded 09/10/16 14:32) [place] Home Medications: Medication Instructions Recorded Midodrine HCl 10 mg TUBE QID 04/06/15 ZOLPIDEM TARTRATE [Ambien CR 12.5 12.5 mg TUBE HS 04/06/15 mg] Ferrous Sulfate 325 mg TUBE BID 04/27/15 Acetaminophen [Tylenol 325mg (*)] 650 mg TUBE Q6H 08/24/15 Baclofen [Baclofen 10 mg (*)] 10 mg TUBE TID 08/24/15 Gabapentin [Neurontin Oral Liquid] 600 mg TUBE Q8H 08/24/15 Sertraline HCl [Zoloft 100mg (*)] 100 mg TUBE DAILY 08/24/15 clonazePAM [Klonopin (*)] 0.25 mg TUBE QID 08/24/15 Polyethylene Glycol 3350 [Miralax 8.5 gm TUBE TID 10/31/15 17 gm (*)] oxyCODONE IR [Oxycodone Ir (*)] 30 mg TUBE QID 10/31/15 tiZANidine HCL [Zanaflex] 4 mg TUBE BID 10/31/15 Bisacodyl [Magic Bullet 10 mg] 10 mg WA DAILY 07/18/16 Ondansetron Odt [Zofran Odt 4 mg 8 mg PO DAILY PRN 07/18/16 (*)] Tolterodine Tartrate [Detrol 1MG 4 mg TUBE DAILY 07/18/16 (*)] Sennosides/Docusate Sodium 1 each TUBE DAILY 01/13/17 [Senna-Docusate Sodium Tablet] fentaNYL [Duragesic 50 MCG Patch 50 mcg TD Q48H 01/13/17 (*)] Medical Decision Making - Diagnostics Imaging Results: Imaging Impressions Abdomen CT 02/19/17 11:04 Impression: 1. Elevated left hemidiaphragm with new patchy infiltrate left lower lobe, possible pneumonia. Stable right lower lobe infiltrate. 2. Nonobstructing left nephrolithiasis. 3. Dependent urinary bladder calculi. Results called to Fidencio Javed PA-C at 1:15 p.m. Chest X-Ray 02/19/17 11:04 Impression: Elevated left hemidiaphragm, with new left lower lobe infiltrate suspicious for pneumonia. ED Course/Re-evaluation: I discussed this case with Fidencio. This patient is a quadriplegic with a pneumonia. He has autonomic dysfunction from his underlying quadriplegia and therefore is always slightly hypotensive. He has no intra-abdominal findings. His lactate is fine. We will give him dual antibiotics and admit him to the hospital. (Eric Carrillo) 11:05 a.m.: Old medical records reviewed. Discussed case with secondary supervising physician Dr. Eric Carrillo in the ER. Will obtain diagnostic studies. 1:55 p.m.: Consultation with hospitalist Poonam, admit to Dr. Svetlana Thomas for pneumonia (Robert Javed) - Data Points Laboratory Results: Laboratory Results 02/19/17 11:10 02/19/17 11:10 02/19/17 02/19/17 02/19/17 13:10 12:00 11:10 WBC RBC Hgb Hct MCV MCH MCHC RDW Plt Count MPV Neut % (Auto) Lymph % (Auto) [place] % (Auto) Eos % (Auto) Baso % (Auto) Nucleat RBC Rel Count Absolute Neuts (auto) Absolute Lymphs (auto) Absolute Monos (auto) Absolute Eos (auto) Absolute Basos (auto) Absolute Nucleated RBC Immature Gran % Immature Gran # PT INR APTT VBG Lactic Acid Sodium 132 mEq/L L mEq/L (135-145) Potassium 4.3 mEq/L mEq/L (3.5-5.2) Chloride 88 mEq/L L mEq/L (97-110) Carbon Dioxide 30 mEq/l mEq/l (22-31) Anion Gap 14 mEq/L mEq/L (8-16) BUN 9 mg/dL mg/dL (7-23) Creatinine 0.4 mg/dL L mg/dL (0.7-1.3) Estimated GFR > 60 Glucose 104 mg/dL H mg/dL (70-100) Calcium 9.0 mg/dL mg/dL (8.5-10.4) Total Bilirubin 0.6 mg/dL mg/dL (0.1-1.4) Conjugated Bilirubin 0.1 mg/dL mg/dL (0.0-0.5) Unconjugated Bilirubin 0.5 mg/dL mg/dL (0.0-1.1) AST 35 IU/L IU/L (17-59) ALT 51 IU/L IU/L (21-72) Alkaline Phosphatase 88 IU/L IU/L (38-126) Total Protein 6.7 g/dL g/dL (6.3-8.2) Albumin 4.0 g/dL g/dL (3.5-5.0) Lipase 16 IU/L L IU/L (23-300) Urine Color YELLOW Urine Appearance CLEAR Urine pH 8.0 H (5.0-7.5) Ur Specific [place] 1.006 (1.002-1.030) Urine Protein NEGATIVE (NEGATIVE) Urine Ketones NEGATIVE (NEGATIVE) Urine Blood 1+ H (NEGATIVE) Urine Nitrate NEGATIVE (NEGATIVE) Urine Bilirubin NEGATIVE (NEGATIVE) Urine Urobilinogen 2.0 EU H EU (0.2-1.0) Ur Leukocyte Esterase 1+ H (NEGATIVE) Urine RBC 1-3 /hpf /hpf (0-3) Urine WBC 3-5 /hpf H /hpf (0-3) Ur Epithelial Cells NONE SEEN /lpf /lpf (NONE-1+) Urine Bacteria TRACE /hpf H /hpf (NONE SEEN) Urine Glucose NEGATIVE (NEGATIVE) Nasal Influenza A PCR Pending Nasal Influenza B PCR Pending 02/19/17 02/19/17 02/19/17 11:10 11:10 11:10 WBC 6.19 10^3/uL 10^3/uL (3.80-9.50) RBC 3.11 10^6/uL L 10^6/uL (4.40-6.38) Hgb 9.5 g/dL L g/dL (13.7-17.5) Hct 28.0 % L % (40.0-51.0) MCV 90.0 fL fL (81.5-99.8) MCH 30.5 pg pg (27.9-34.1) MCHC 33.9 g/dL g/dL (32.4-36.7) RDW 13.1 % % (11.5-15.2) Plt Count 99 10^3/uL L 10^3/uL (150-400) MPV 11.1 fL fL (8.7-11.7) Neut % (Auto) 81.9 % H % (39.3-74.2) Lymph % (Auto) 9.0 % L % (15.0-45.0) [place] % (Auto) 8.4 % % (4.5-13.0) Eos % (Auto) 0.2 % L % (0.6-7.6) Baso % (Auto) 0.2 % L % (0.3-1.7) Nucleat RBC Rel Count 0.0 % % (0.0-0.2) Absolute Neuts (auto) 5.07 10^3/uL 10^3/uL (1.70-6.50) Absolute Lymphs (auto) 0.56 10^3/uL L 10^3/uL (1.00-3.00) Absolute Monos (auto) 0.52 10^3/uL 10^3/uL (0.30-0.80) Absolute Eos (auto) 0.01 10^3/uL L 10^3/uL (0.03-0.40) Absolute Basos (auto) 0.01 10^3/uL L 10^3/uL (0.02-0.10) Absolute Nucleated RBC 0.00 10^3/uL 10^3/uL (0-0.01) Immature Gran % 0.3 % % (0.0-1.1) Immature Gran # 0.02 10^3/uL 10^3/uL (0.00-0.10) PT 13.9 SEC SEC (12.0-15.0) INR 1.05 (0.83-1.16) APTT 34.9 SEC SEC (23.0-38.0) VBG Lactic Acid 0.9 mmol/L mmol/L (0.7-2.1) Sodium Potassium Chloride Carbon Dioxide Anion Gap BUN Creatinine Estimated GFR Glucose Calcium Total Bilirubin Conjugated Bilirubin Unconjugated Bilirubin AST ALT Alkaline Phosphatase Total Protein Albumin Lipase Urine Color Urine Appearance Urine pH Ur Specific [place] Urine Protein Urine Ketones Urine Blood Urine Nitrate Urine Bilirubin Urine Urobilinogen Ur Leukocyte Esterase Urine RBC Urine WBC Ur Epithelial Cells Urine Bacteria Urine Glucose Nasal Influenza A PCR Nasal Influenza B PCR Medications Given: Discontinued Medications Fentanyl (Sublimaze) 100 mcg IVP EDNOW ONE Stop: 02/19/17 12:32 Last Admin: 02/19/17 12:37 Dose: 100 mcg Hydromorphone HCl (Dilaudid) 1 mg IVP EDNOW ONE Stop: 02/19/17 13:35 Last Admin: 02/19/17 13:38 Dose: 1 mg Departure - Departure Clinical Impression: Thrombocytopenia, Quadriplegia Referrals: KYLIE ALDANA [Primary Care Provider] - As per Instructions
[2017-02-19 11:26] LABS: PLATELET COUNT 99 10^3/uL (150-400)
[2017-02-19] MEDS ORDERED: IOPAMIDOL (ISOVUE-300) 100 ML BTL ONE (11:29)
[2017-02-19 11:40] LABS: INR 1.05 (0.83-1.16); PROTIME(PATIENT) 13.9 SEC (12.0-15.0)
[2017-02-19] MEDS ORDERED: fentaNYL 100 MCG/2 ML INJ IVP ONE ×2 (12:31→13:34)
[2017-02-19] MEDS ORDERED: HYDROmorphONE/DILAUDID 1 MG/ML INJ IVP ONE (13:34)
[2017-02-19] MEDS ORDERED: ONDANSETRON DISINTEGRATING 4 MG TAB PO PRN ×2 (14:38→14:41)
[2017-02-19] MEDS ORDERED: ONDANSETRON 4 MG/2 ML VIAL IVP PRN (14:38)
[2017-02-19] MEDS ORDERED: NS 1,000 ML IV SCH (14:45)
[2017-02-19] MEDS ORDERED: SIMETHICONE DROPS 30 ML BOTTLE PO PRN (14:51)
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
[2017-02-19] MEDS: HYDROmorphONE/DILAUDID 1 MG/ML INJ IVP PRN ×2 (16:47→21:14)
[2017-02-19] MEDS: fentaNYL 50 MCG PATCH TD SCH (16:49)
[2017-02-19] MEDS: clonazePAM 0.5 MG TAB TUBE SCH ×2 (16:52→21:23)
[2017-02-19] MEDS: BACLOFEN 10 MG TAB TUBE SCH ×2 (16:52→21:21)
[2017-02-19] MEDS: ACETAMINOPHEN 325 MG TAB PO SCH ×2 (16:53→21:19)
[2017-02-19] MEDS: POLYETHYLENE GLYCOL 3350 17 GM PKT TUBE SCH ×2 (16:54→21:25)
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
[2017-02-19] MEDS: GABAPENTIN 250 MG/5 ML 30 ML BOTTLE TUBE SCH (18:32)
[2017-02-19] MEDS: MIDODRINE HCL 5 MG TAB TUBE SCH ×2 (18:33→21:21)
[2017-02-19] MEDS ORDERED: NON-FORMULARY NEW DRUG (Zolpidem Tartrate [Ambien Cr 12.5 Mg] 12.5 MG) TUBE SCH (21:00)
[2017-02-19] MEDS: ZOLPIDEM TARTRATE 5 MG TAB TUBE SCH (21:23)
[2017-02-20] MEDS: GABAPENTIN 250 MG/5 ML 30 ML BOTTLE TUBE SCH ×4 (00:28→23:48)
[2017-02-20] MEDS: HYDROmorphONE/DILAUDID 1 MG/ML INJ IVP PRN (02:22)
[2017-02-20 05:36] LABS: PLATELET COUNT 86 10^3/uL (150-400)
[2017-02-20] MEDS ORDERED: NS 500 ML IV ONE (05:49)
[2017-02-20] MEDS: clonazePAM 0.5 MG TAB TUBE SCH ×4 (06:05→21:16)
[2017-02-20] MEDS: MIDODRINE HCL 5 MG TAB TUBE SCH ×4 (06:05→21:16)
[2017-02-20] MEDS: ACETAMINOPHEN 325 MG TAB PO SCH ×3 (06:06→21:16)
[2017-02-20] MEDS: BISACODYL 10 MG SUPP PR SCH ×2 (10:19→10:35)
[2017-02-20] MEDS: BACLOFEN 10 MG TAB TUBE SCH ×3 (10:34→21:18)
[2017-02-20] MEDS: POLYETHYLENE GLYCOL 3350 17 GM PKT TUBE SCH ×3 (10:35→21:15)
[2017-02-20] MEDS: ENOXAPARIN 40 MG/0.4 ML SYR SC SCH (10:35)
[2017-02-20] MEDS: SERTRALINE HCL 100 MG TAB TUBE SCH (10:35)
--- NOTE | 2017-02-20 10:56 | HOSPPROG ---
Hospitalist Progress Note Assessment/Plan: Patient is a 61-year-old gentleman with quadriplegia. He has had a recent bout of viral gastroenteritis. Today his stool studies show norovirus. Will give him supportive care. Today is my 1st encounter with the patient. Chart reviewed. * norovirus -will give supportive care and hydrate -likely the etiology of his fever -patient states he has been feeling dehydrated for a while * initial concern for pneumonia -likely has chronic atelectasis/patient has an elevated hemidiaphragm and is quadriplegic * pyuria, likely chronic colonization * hypotension -blood pressure is lower than his baseline will continue active hydration * anemia -close to his baseline * chronic abdominal pain -patient on scheduled Oxy-IR has requested p.r.n. oxy IR * DVT prophylaxis -low-molecular weight heparin * plan. Continue supportive Care/explain to Krzysztof the plan of care. Subjective: Bruno feeling better after getting fluids. Objective: Vital Signs Temp Pulse Resp BP Pulse Ox 36.8 C 59 L 16 104/54 L 95 02/20/17 08:00 02/20/17 08:00 02/20/17 08:00 02/20/17 08:00 02/20/17 08:00 Microbiology 02/20/17 05:04 Gastrointestinal Tract Panel (PCR) - Final Stool Norovirus Gi/Gii Laboratory Results 02/20/17 04:15 02/19/17 02/20/17 02/21/17 05:59 05:59 05:59 Intake Total 150 Output Total 2000 Balance -1850 PT 13.9 SEC (12.0-15.0) 02/19/17 11:10 INR 1.05 (0.83-1.16) 02/19/17 11:10 - Physical Exam Constitutional: chronically ill appearing, other (Patient is extremely thin) Eyes: PERRL Ears, Nose, Mouth, Throat: hearing normal Cardiovascular: regular rate and rhythym Respiratory: no respiratory distress Gastrointestinal: normoactive bowel sounds Skin: warm, other (Take site clear has a previous tracheostomy site) Musculoskeletal: other (Patient is quadriplegic) Neurologic: AAOx3 Psychiatric: interacting appropriately, not anxious, thought process linear ICD10 Worksheet Patient Problems: Problems Problem Status Onset Quadriplegia Acute Thrombocytopenia Acute Abdominal pain Acute Anemia Acute Chronic complete quadriplegia Acute Constipation Acute Fecal impaction of colon Acute Generalized tonic-clonic seizure Acute History of quadriplegia Acute Hyponatremia Acute MRSA (methicillin resistant Staphylococcus aureus) Acute ~09/02/16 MRSA (methicillin resistant Staphylococcus aureus) Acute ~11/08/16 New onset seizure Acute Pneumonia Acute Urinary tract infection Acute chronic disease mgmt/transitional care Acute
[2017-02-20] MEDS: TOLTERODINE TARTRATE 2 MG EXT REL CAP PO SCH (11:04)
--- NOTE | 2017-02-20 12:24 | ASMTCMCOM ---
CM Note CM Note Notes: Patient chart reviewed. DC'd from this facility last month with [facility]. He is a quadrapalegic and has home health in place with supportive family. Needs to be determined at this time. CM to follow. Date Signed: 02/20/2017 12:23 PM Electronically Signed By:Domi Napier RN
[2017-02-20] MEDS: NS 1,000 ML IV SCH ×2 (12:36→21:20)
--- NOTE | 2017-02-20 13:29 | WOCRNPDOC ---
WOCRN Advanced Assessment Note - Skin Integrity Problem, Advanced Assess Tracheostomy Site Dressing Type: Gauze (drain sponge x2) Dressing Description: Clean/Dry, Intact Exudate Amount: Moderate Exudate Color: Reddish/Yellow Integumentary Issue Intervention: Visualized Under Dressing Masha Wound Tissue: Blanching, Intact Masha Wound Swelling: None Skin Integrity Problem Comment: Visualized under gauze at trach site. Moistened gauze used to clean away secretions. Small area of denuded skin noted just distal to trach tubing. It appears that this is related to moisture in the area. Recommend frequent gentle cleaning of the area to keep moisture buildup from secretions to a minimum. Wound care will not continue to follow this wound. 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 Patient rolled to his right side with help of MURALI Guadalupe. Both wounds are now closed with obvious scarring. TAPS in place and patient being rolled Q2 hours. Of note, the Clinitron bed ordered for this patient has not yet arrived so he remains on a standard Accumax mattress at this time. Wound care will not continue to follow these wounds.
[2017-02-20] MEDS: oxyCODONE IR 5 MG TAB PO PRN ×2 (16:19→23:49)
[2017-02-20] MEDS: ZOLPIDEM TARTRATE 5 MG TAB TUBE SCH (23:49)
[2017-02-21 05:04] LABS: PLATELET COUNT 92 10^3/uL (150-400)
[2017-02-21] MEDS: ACETAMINOPHEN 325 MG TAB PO SCH ×2 (05:44→18:21)
[2017-02-21] MEDS: MIDODRINE HCL 5 MG TAB TUBE SCH ×4 (05:45→21:10)
[2017-02-21] MEDS: clonazePAM 0.5 MG TAB TUBE SCH ×4 (05:45→21:10)
[2017-02-21] MEDS: NS 1,000 ML IV SCH ×2 (05:46→15:56)
[2017-02-21] MEDS: GABAPENTIN 250 MG/5 ML 30 ML BOTTLE TUBE SCH ×2 (05:48→15:52)
[2017-02-21] MEDS: POLYETHYLENE GLYCOL 3350 17 GM PKT TUBE SCH ×3 (09:59→21:10)
[2017-02-21] MEDS: ENOXAPARIN 40 MG/0.4 ML SYR SC SCH (09:59)
[2017-02-21] MEDS: BISACODYL 10 MG SUPP PR SCH (10:03)
[2017-02-21] MEDS: BACLOFEN 10 MG TAB TUBE SCH ×3 (10:03→21:10)
[2017-02-21] MEDS: SERTRALINE HCL 100 MG TAB TUBE SCH (10:03)
[2017-02-21] MEDS: TOLTERODINE TARTRATE 2 MG EXT REL CAP PO SCH (10:09)
--- NOTE | 2017-02-21 11:20 | ASMTCMCOM ---
CM Note CM Note Notes: Per hospitalist patient is medically ready to dc back to home with current services resumed. Attempted to contact his and no answer. Attempted to call daughter number and again no answer. Will attempt again in an hour. CM to follow. Date Signed: 02/21/2017 11:20 AM Electronically Signed By:Domi Napier RN
--- NOTE | 2017-02-21 12:43 | HOSPPROG ---
Hospitalist Progress Note Assessment/Plan: Patient is a 61-year-old gentleman with quadriplegia. He has had a recent bout of viral gastroenteritis. Today his stool studies show norovirus. Will give him supportive care. * norovirus -will give supportive care and hydrate -likely the etiology of his fever -feeling much better today * initial concern for pneumonia -likely has chronic atelectasis/patient has an elevated hemidiaphragm and is quadriplegic * pyuria, likely chronic colonization * hypotension/much improved today * anemia -close to his baseline * chronic abdominal pain -patient on scheduled Oxy-IR has requested p.r.n. oxy IR * DVT prophylaxis -low-molecular weight heparin * plan. dc home, he is feeling much better today Subjective: Krzysztof said he is feeling better. Objective: Vital Signs Temp Pulse Resp BP Pulse Ox 37 C 56 L 18 108/66 96 02/21/17 12:00 02/21/17 12:00 02/21/17 12:00 02/21/17 12:00 02/21/17 12:00 Microbiology 02/20/17 05:04 Gastrointestinal Tract Panel (PCR) - Final Stool Norovirus Gi/Gii Laboratory Results 02/21/17 04:20 02/21/17 04:20 02/20/17 02/21/17 02/22/17 05:59 05:59 05:59 Intake Total 150 4722 Output Total 1999 850 775 Balance -1850 3872 -775 PT 13.9 SEC (12.0-15.0) 02/19/17 11:10 INR 1.05 (0.83-1.16) 02/19/17 11:10 - Physical Exam Constitutional: chronically ill appearing, cachectic Eyes: PERRL Ears, Nose, Mouth, Throat: hearing normal Cardiovascular: regular rate and rhythym Respiratory: no respiratory distress, reduced air movement Genitourinary: other (suprapubic guaman) Skin: warm Musculoskeletal: other (quadraplegia) Neurologic: AAOx3 Psychiatric: interacting appropriately, not anxious ICD10 Worksheet Patient Problems: Problems Problem Status Onset Quadriplegia Acute Thrombocytopenia Acute Abdominal pain Acute Anemia Acute Chronic complete quadriplegia Acute Constipation Acute Fecal impaction of colon Acute Generalized tonic-clonic seizure Acute History of quadriplegia Acute Hyponatremia Acute MRSA (methicillin resistant Staphylococcus aureus) Acute ~09/02/16 MRSA (methicillin resistant Staphylococcus aureus) Acute ~11/08/16 New onset seizure Acute Pneumonia Acute Urinary tract infection Acute chronic disease mgmt/transitional care Acute
--- NOTE | 2017-02-21 15:07 | ASMTCMCOM ---
CM Note CM Note Notes: Spoke to at 3pm. She states she is unaware of discharge and has not talked with MD. Relayed information regarding dc plan and his status. She is upset and states she can't come for hours. I suggested she might come in the am to get him and she is agreeable to that plan. Hopsitalist aware dc might be delayed due to family. CM to follow. Date Signed: 02/21/2017 03:06 PM Electronically Signed By:Domi Napier RN
[2017-02-21] MEDS: fentaNYL 50 MCG PATCH TD SCH (15:42)
[2017-02-21 20:26] VITALS: RESP 16
[2017-02-21] MEDS: ZOLPIDEM TARTRATE 5 MG TAB TUBE SCH ×2 (21:09→23:54)
[2017-02-21] MEDS: ACETAMINOPHEN 500 MG TAB PO SCH (21:09)
[2017-02-22] MEDS: GABAPENTIN 250 MG/5 ML 30 ML BOTTLE TUBE SCH ×3 (00:02→13:43)
[2017-02-22] MEDS: oxyCODONE IR 5 MG TAB PO PRN (01:56)
[2017-02-22] MEDS: NS 1,000 ML IV SCH (02:03)
[2017-02-22] MEDS: ACETAMINOPHEN 500 MG TAB PO SCH ×2 (05:48→13:41)
[2017-02-22] MEDS: MIDODRINE HCL 5 MG TAB TUBE SCH ×2 (05:48→11:47)
[2017-02-22] MEDS: clonazePAM 0.5 MG TAB TUBE SCH ×2 (05:48→11:47)
[2017-02-22] MEDS: ENOXAPARIN 40 MG/0.4 ML SYR SC SCH (09:42)
[2017-02-22] MEDS: BACLOFEN 10 MG TAB TUBE SCH (09:43)
[2017-02-22] MEDS: POLYETHYLENE GLYCOL 3350 17 GM PKT TUBE SCH (09:44)
[2017-02-22] MEDS: SERTRALINE HCL 100 MG TAB TUBE SCH (09:45)
[2017-02-22] MEDS: TOLTERODINE TARTRATE 2 MG EXT REL CAP PO SCH (09:45)
[2017-02-22] MEDS: BISACODYL 10 MG SUPP PR SCH (10:09)
[2017-02-22 11:39] VITALS: BP 106/66; PULSE 52; TEMP 97.9; O2SAT 95
--- NOTE | 2017-02-22 11:43 | HOSPPROG ---
Hospitalist Progress Note Assessment/Plan: Patient is a 61-year-old gentleman with quadriplegia. He has had a recent bout of viral gastroenteritis. Today his stool studies show norovirus. Will give him supportive care. * norovirus -will give supportive care and hydrate -likely the etiology of his fever -feeling much better today * initial concern for pneumonia -likely has chronic atelectasis/patient has an elevated hemidiaphragm and is quadriplegic * pyuria, likely chronic colonization * hypotension/much improved today * anemia -close to his baseline * chronic abdominal pain -patient on scheduled Oxy-IR has requested p.r.n. oxy IR * DVT prophylaxis -low-molecular weight heparin *home today > 30 minutes Subjective: feels better. ready for dc. 1 stool per day Objective: Vital Signs Temp Pulse Resp BP Pulse Ox 36.6 C 52 L 16 106/66 95 02/22/17 11:38 02/22/17 11:38 02/22/17 11:38 02/22/17 11:38 02/22/17 11:38 Microbiology 02/20/17 05:04 Gastrointestinal Tract Panel (PCR) - Final Stool Norovirus Gi/Gii Laboratory Results 02/21/17 04:20 02/21/17 04:20 02/21/17 02/22/17 02/23/17 05:59 05:59 05:59 Intake Total 4722 6784 Output Total 850 5325 Balance 3872 1459 PT 13.9 SEC (12.0-15.0) 02/19/17 11:10 INR 1.05 (0.83-1.16) 02/19/17 11:10 - Physical Exam Constitutional: no apparent distress, appears nourished Eyes: PERRL, anicteric sclera Ears, Nose, Mouth, Throat: moist mucous membranes, hearing normal Cardiovascular: regular rate and rhythym, no murmur, rub, or gallop Respiratory: no respiratory distress, no rales or rhonchi Gastrointestinal: normoactive bowel sounds, No guarding, No rebound Genitourinary: no bladder fullness, No guaman in urethra Skin: warm, normal color Musculoskeletal: full muscle strength Neurologic: AAOx3 ICD10 Worksheet Patient Problems: Problems Problem Status Onset Quadriplegia Acute Thrombocytopenia Acute Abdominal pain Acute Anemia Acute Chronic complete quadriplegia Acute Constipation Acute Fecal impaction of colon Acute Generalized tonic-clonic seizure Acute History of quadriplegia Acute Hyponatremia Acute MRSA (methicillin resistant Staphylococcus aureus) Acute ~09/02/16 MRSA (methicillin resistant Staphylococcus aureus) Acute ~11/08/16 New onset seizure Acute Pneumonia Acute Urinary tract infection Acute chronic disease mgmt/transitional care Acute
--- NOTE | 2017-02-22 12:35 | PDIAF ---
- Diagnosis Diagnosis: norovirus Code Status: Full Code - Medication Management Discharge Medications: Medications to Continue on Transfer Midodrine HCl 10 mg TUBE QID 04/06/15 [Last Taken 02/19/17 05:00] ZOLPIDEM TARTRATE [Ambien CR 12.5 mg] 12.5 mg TUBE HS 04/06/15 [Last Taken 02/19 05:00] Ferrous Sulfate 325 mg TUBE BID 04/27/15 [Last Taken 02/19/17 09:00] Acetaminophen [Tylenol 325mg (*)] 650 mg TUBE Q6H 08/24/15 [Last Taken 02/19/17 05:00] Baclofen [Baclofen 10 mg (*)] 10 mg TUBE TID 08/24/15 [Last Taken 02/19/17 09:00 ] Gabapentin [Neurontin Oral Liquid] 600 mg TUBE Q8H 08/24/15 [Last Taken 05:00] Sertraline HCl [Zoloft 100mg (*)] 100 mg TUBE DAILY 08/24/15 [Last Taken 09:00] clonazePAM [Klonopin (*)] 0.25 mg TUBE QID 08/24/15 [Last Taken 02/19/17 11:00] Polyethylene Glycol 3350 [Miralax 17 gm (*)] 8.5 gm TUBE TID 10/31/15 [Last Taken 02/19/17 05:00] oxyCODONE IR [Oxycodone Ir (*)] 30 mg TUBE QID 10/31/15 [Last Taken 02/19/17 11: 00] tiZANidine HCL [Zanaflex] 4 mg TUBE BID 10/31/15 [Last Taken 02/19/17 09:00] Bisacodyl [Magic Bullet 10 mg] 10 mg [place] DAILY 07/18/16 [Last Taken 02/19/17 09: 00] Ondansetron Odt [Zofran Odt 4 mg (*)] 8 mg PO DAILY PRN 07/18/16 [Last Taken 07/24] Sennosides/Docusate Sodium [Senna-Docusate Sodium Tablet] 1 each TUBE DAILY 08/23 [Last Taken 02/19/17 09:00] fentaNYL [Duragesic 50 MCG Patch (*)] 50 mcg TD Q48H 12/07/17 [Last Taken 09:00] Tolterodine Tartrate [Detrol LA 2MG (*)] 4 mg PO DAILY 02/19/17 [Last Taken 09:00] Discharge Medications: Refer to the Discharge Home Medication list for PRN reason. - Orders Services needed: Home Care, Physical Therapy, Occupational Therapy Home Care Face to Face: I certify that this patient was under my care and that I had the required qgor-ct-unre encounter meeting the encounter requirements on the discharge day. My findings support the fact that the patient is homebound as defined in Home Care Face to Face Continued: CMS Chapter 7 Medicare Benefits Manual 30.1.1 , The condition of the patient is such that there exists a normal inability to leave home and consequently, leaving home would require a considerable and taxing effort. Isolation Type: Contact Isolation, Droplet Isolation - Follow Up Care Current Providers and Referrals: KYLIE ALDANA [Primary Care Provider] - As per Instructions
--- NOTE | 2017-02-22 12:40 | ASMTCMCOM ---
CM Note CM Note Notes: Patient medically ready for dc to home. He has current HHC services set up and his is caregiver as well. She will transport him in private vehicle that is handicap equipped. Will alert HHC services regarding discharge for resumption of service. Compassionate aware of dc as well [place]. Will update via [facility]. Date Signed: 02/22/2017 12:39 PM Electronically Signed By:Domi Napier RN
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
== END 2017-02-22 13:59 | disposition home health service (06) | DRG 391 ==
LOC: F3E 15:28 → OBSVTOIN 17:45
PROVIDERS: ADMIT Internal Medicine; ATTEND Internal Medicine
DX: A08.39 Other viral enteritis (principal); G82.52 Quadriplegia, C1-C4 incomplete; J98.11 Atelectasis; G89.29 Other chronic pain; Z93.1 Gastrostomy status; Z96.9 Presence of functional implant, unspecified
CPT/HCPCS: 96365; 97162-GP; 97166-GO; 97530-GO; G8978-GP-CM; G8979-GP-CI; G8987-GO-CM; G8988-GO-CM; G8989-GO-CM; J1170; J1650; J1956; J3010; Q9967

== ENCOUNTER 2017-04-21 00:09 | Emergency (ER) | payer OTHER ==
[2017-04-21 00:20] VITALS: TEMP 98.4
[2017-04-21] MEDS ORDERED: ONDANSETRON 4 MG/2 ML VIAL IVP ONE (00:39)
[2017-04-21] MEDS ORDERED: NS 1,000 ML IV ONE (00:39)
[2017-04-21] MEDS ORDERED: HYDROmorphONE/DILAUDID 1 MG/ML INJ IVP ONE ×2 (00:39→02:04)
[2017-04-21] MEDS ORDERED: HYDROmorphONE/DILAUDID 2 MG/ML INJ ONE ×3 (00:43→04:16)
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
[2017-04-21] MEDS ORDERED: clonazePAM 0.5 MG TAB PO ONE (01:06)
[2017-04-21 01:09] LABS: PLATELET COUNT 97 10^3/uL (150-400)
[2017-04-21 01:14] VITALS: RESP 16
[2017-04-21] MEDS ORDERED: HYDROmorphONE/DILAUDID 2 MG/ML INJ IVP ONE (01:24)
[2017-04-21] MEDS ORDERED: IOPAMIDOL (ISOVUE-300) 100 ML BTL ONE (03:05)
[2017-04-21] MEDS ORDERED: HYDROmorphONE/DILAUDID 1 MG/ML INJ IM ONE (04:17)
[2017-04-21 04:26] VITALS: BP 94/45; PULSE 58; O2SAT 97
== END 2017-04-21 04:30 | disposition home or self-care (01) ==
DX: K59.00 Constipation, unspecified (principal); E86.9 Volume depletion, unspecified
CPT/HCPCS: 74177; 96361; 96372; 96374; 96375; 96376; 99285; J1170; J2405; Q9967

== ENCOUNTER 2017-05-10 02:04 | Emergency (ER) | payer OTHER ==
[2017-05-10] MEDS ORDERED: NS 1,000 ML IV ONE (02:08)
--- NOTE | 2017-05-10 02:08 | EDPHY ---
H & P Time Seen by Provider: 05/10/17 02:07 HPI/ROS: HPI CHIEF COMPLAINT: Abdominal pain HISTORY OF PRESENT ILLNESS: Patient is a 61-year-old male, presents emergency room with abdominal pain. Patient states that he often suffers from constipation and chronic abdominal pain with a pain over the last 3 days has been worse. Pain is located left upper quadrant. Describes rather severe. Could not sleep tonight. Denies any chest pain or shortness of breath denies vomiting. Denies diarrhea. States he has had a bowel movement today. Denies fever. Decided come the emergency room for further evaluation of his abdominal pain. Past Medical History: History of pneumonia, quadriplegic incomplete, pain pump , norovirus Past Surgical History: Peg tube Social History: Denies drugs alcohol tobacco. Family History: Noncontributory ROS REVIEW OF SYSTEMS: A comprehensive 10 point review of systems is otherwise negative aside from elements mentioned in the history of present illness. Exam Constitutional quadriplegic incomplete, triage nursing summary reviewed, vital signs reviewed, awake/alert. Eyes normal conjunctivae and sclera, EOMI, PERRLA. HENT normal inspection, atraumatic, moist mucus membranes, no epistaxis, neck supple/ no meningismus, no raccoon eyes. Respiratory clear to auscultation bilaterally, normal breath sounds, no respiratory distress, no wheezing. Cardiovascular rate normal, regular rhythm, no murmur, no edema, distal pulses normal. Gastrointestinal mild tender palpation left upper quadrant, no rebound, no guarding, normal bowel sounds, no distension, no pulsatile mass. Genitourinary no CVA tenderness. Musculoskeletal no midline vertebral tenderness, full range of motion, no calf swelling, no tenderness of extremities, no meningismus, good pulses, neurovascularly intact. Skin pink, warm, & dry, no rash, skin atraumatic. Neurologic quadriplegic incomplete. Wheelchair-bound. Normal neurological exam at his baseline. Psychiatric normal mood/affect. Heme/Lymph/Immune no lymphadenopathy. Differential diagnosis includes but is not limited to and in no particular order : Bowel obstruction, appendicitis, gallbladder disease, diverticulitis, colitis , enteritis, perforated viscus, gastritis, GERD, esophagitis, urinary tract infection, pyelonephritis, kidney stones Medical Decision Making: Plan for this patient IV establishment with IV fluid bolus 1 L normal saline, IV Zofran for nausea IV Dilaudid 0.5 mg for pain control, basic blood work and lactic acid re-evaluate. Plan on CT scan abdomen pelvis with IV contrast rule out acute intra-abdominal process. Re-evaluation: CT scan abdomen pelvis with IV contrast shows no evidence of acute inflammatory process. I do not have a great explanation for his diffuse crampy abdominal pain. Blood work is being reassuring vital signs are stable. I will add some Bentyl for him for abdominal cramping. I do recommend he follows up with Gastroenterology. Additionally return precautions discussed returning if worsening abdominal pain fever vomiting. He does feel better after IV Dilaudid IV fluids here in the emergency room. Source: Patient - Medical/Surgical History Hx Asthma: No Hx Chronic Respiratory Disease: No Hx Diabetes: No Hx Cardiac Disease: No Hx Renal Disease: No Hx Cirrhosis: No Hx Alcoholism: No Hx HIV/AIDS: No Hx Splenectomy or Spleen Trauma: No Other PMH: Quadriplegia C3-C4 2013, trach, pNA, Pericardial effusion, multple decubitus ulcer bottom and back, UTI's, Baclofen pump, Peg tube, Tracheostomy ( capped), APPY JANUARY 2017 - Social History Smoking Status: Never smoked Constitutional: Initial Vital Signs Temperature (C) 36.4 C 05/10/17 02:17 Heart Rate 55 L 05/10/17 02:17 Respiratory Rate 12 05/10/17 02:17 Blood Pressure 148/133 H 05/10/17 02:17 O2 Sat (%) 99 05/10/17 02:17 O2 Delivery Mode Nasal Cannula O2 (L/minute) 1.5 Allergies/Adverse Reactions: Milk Containing Products [dairy] Allergy (Severe, Verified 04/21/17 00:16) Swelling/neck,face,throat Penicillins Allergy (Severe, Verified 04/21/17 00:16) Other-Enter Comments soy Allergy (Severe, Verified 04/21/17 00:16) Swelling/neck,face,throat nitrofurantoin [From Macrobid] Allergy (Verified 04/21/17 00:16) Other-Enter Comments shellfish derived Allergy (Verified 04/21/17 00:16) tree nut [Nuts] Allergy (Verified 04/21/17 00:16) wheat Allergy (Severe, Uncoded 09/10/16 14:32) [place] Home Medications: Medication Instructions Recorded Midodrine HCl 10 mg TUBE QID 04/06/15 ZOLPIDEM TARTRATE [Ambien CR 12.5 12.5 mg TUBE HS 04/06/15 mg] Ferrous Sulfate 325 mg TUBE BID 04/27/15 Acetaminophen [Tylenol 325mg (*)] 650 mg TUBE Q6H 08/24/15 Baclofen [Baclofen 10 mg (*)] 10 mg TUBE TID 08/24/15 Gabapentin [Neurontin Oral Liquid] 600 mg TUBE Q8H 08/24/15 Sertraline HCl [Zoloft 100mg (*)] 100 mg TUBE DAILY 08/24/15 clonazePAM [Klonopin (*)] 0.25 mg TUBE QID 08/24/15 Polyethylene Glycol 3350 [Miralax 8.5 gm TUBE TID 10/31/15 17 gm (*)] oxyCODONE IR [Oxycodone Ir (*)] 30 mg TUBE QID 10/31/15 tiZANidine HCL [Zanaflex] 4 mg TUBE BID 10/31/15 Bisacodyl [Magic Bullet 10 mg] 10 mg [place] DAILY 07/18/16 Ondansetron Odt [Zofran Odt 4 mg 8 mg PO DAILY PRN 07/18/16 (*)] Sennosides/Docusate Sodium 1 each TUBE DAILY 01/13/17 [Senna-Docusate Sodium Tablet] fentaNYL [Duragesic 50 MCG Patch 50 mcg TD Q48H 01/13/17 (*)] Tolterodine Tartrate [Detrol LA 4 mg PO DAILY 02/19/17 2MG (*)] Dicyclomine [Bentyl 20 MG (*)] 20 mg PO QID #14 tab 05/10/17 Magnesium Citrate [Citrate of 300 ml PO BID #1 solution 05/10/17 Magnesia] Medical Decision Making - Data Points Laboratory Results: Laboratory Results 05/10/17 02:25 05/10/17 02:25 05/10/17 05/10/17 05/10/17 02:25 02:25 02:25 WBC 5.78 10^3/uL 10^3/uL (3.80-9.50) RBC 3.12 10^6/uL L 10^6/uL (4.40-6.38) Hgb 9.4 g/dL L g/dL (13.7-17.5) Hct 28.5 % L % (40.0-51.0) MCV 91.3 fL fL (81.5-99.8) MCH 30.1 pg pg (27.9-34.1) MCHC 33.0 g/dL g/dL (32.4-36.7) RDW 12.5 % % (11.5-15.2) Plt Count 165 10^3/uL 10^3/uL (150-400) MPV 10.6 fL fL (8.7-11.7) Neut % (Auto) 71.4 % % (39.3-74.2) Lymph % (Auto) 20.1 % % (15.0-45.0) [place] % (Auto) 7.3 % % (4.5-13.0) Eos % (Auto) 0.7 % % (0.6-7.6) Baso % (Auto) 0.2 % L % (0.3-1.7) Nucleat RBC Rel Count 0.0 % % (0.0-0.2) Absolute Neuts (auto) 4.13 10^3/uL 10^3/uL (1.70-6.50) Absolute Lymphs (auto) 1.16 10^3/uL 10^3/uL (1.00-3.00) Absolute Monos (auto) 0.42 10^3/uL 10^3/uL (0.30-0.80) Absolute Eos (auto) 0.04 10^3/uL 10^3/uL (0.03-0.40) Absolute Basos (auto) 0.01 10^3/uL L 10^3/uL (0.02-0.10) Absolute Nucleated RBC 0.00 10^3/uL 10^3/uL (0-0.01) Immature Gran % 0.3 % % (0.0-1.1) Immature Gran # 0.02 10^3/uL 10^3/uL (0.00-0.10) PT INR APTT VBG Lactic Acid 0.8 mmol/L mmol/L (0.7-2.1) Sodium 133 mEq/L L mEq/L (135-145) Potassium 4.2 mEq/L mEq/L (3.5-5.2) Chloride 88 mEq/L L mEq/L (97-110) Carbon Dioxide 31 mEq/l mEq/l (22-31) Anion Gap 14 mEq/L mEq/L (8-16) BUN 9 mg/dL mg/dL (7-23) Creatinine 0.4 mg/dL L mg/dL (0.7-1.3) Estimated GFR > 60 Glucose 69 mg/dL L mg/dL (70-100) Calcium 8.9 mg/dL mg/dL (8.5-10.4) Total Bilirubin 0.7 mg/dL mg/dL (0.1-1.4) Conjugated Bilirubin 0.4 mg/dL mg/dL (0.0-0.5) Unconjugated Bilirubin 0.3 mg/dL mg/dL (0.0-1.1) AST 29 IU/L IU/L (17-59) ALT 41 IU/L IU/L (21-72) Alkaline Phosphatase 70 IU/L IU/L (38-126) Total Protein 7.2 g/dL g/dL (6.3-8.2) Albumin 4.3 g/dL g/dL (3.5-5.0) Lipase 21 IU/L L IU/L (23-300) 05/10/17 02:09 WBC RBC Hgb Hct MCV MCH MCHC RDW Plt Count MPV Neut % (Auto) Lymph % (Auto) [place] % (Auto) Eos % (Auto) Baso % (Auto) Nucleat RBC Rel Count Absolute Neuts (auto) Absolute Lymphs (auto) Absolute Monos (auto) Absolute Eos (auto) Absolute Basos (auto) Absolute Nucleated RBC Immature Gran % Immature Gran # PT 13.8 SEC SEC (12.0-15.0) INR 1.04 (0.83-1.16) APTT 36.9 SEC SEC (23.0-38.0) VBG Lactic Acid Sodium Potassium Chloride Carbon Dioxide Anion Gap BUN Creatinine Estimated GFR Glucose Calcium Total Bilirubin Conjugated Bilirubin Unconjugated Bilirubin AST ALT Alkaline Phosphatase Total Protein Albumin Lipase Medications Given: Discontinued Medications Hydromorphone HCl (Dilaudid) 0.5 mg IVP EDNOW ONE Stop: 05/10/17 02:20 Last Admin: 05/10/17 02:42 Dose: 1 mg Sodium Chloride (Ns) 1,000 mls @ 0 mls/hr IV EDNOW ONE; Wide Open PRN Reason: Protocol Stop: 05/10/17 02:09 Last Admin: 05/10/17 02:34 Dose: 1,000 mls Ondansetron HCl (Zofran) 4 mg IVP EDNOW ONE Stop: 05/10/17 02:20 Last Admin: 05/10/17 02:39 Dose: 4 mg Departure - Departure Disposition: Home, Routine, Self-Care Clinical Impression: Abdominal pain Qualifiers: Abdominal location: generalized Qualified Code(s): R10.84 - Generalized abdominal pain Condition: Good Instructions: Acute Abdominal Pain (ED) Referrals: KYLIE ALDANA [Primary Care Provider] - As per Instructions Simon Ford MD [Medical Doctor] - As per Instructions Prescriptions: Dicyclomine [Bentyl 20 MG (*)] 20 mg PO QID #14 tab Magnesium Citrate [Citrate of Magnesia] 300 ml PO BID #1 solution
[2017-05-10] MEDS ORDERED: ONDANSETRON 4 MG/2 ML VIAL IVP ONE (02:19)
[2017-05-10 02:20] VITALS: TEMP 97.5
[2017-05-10 02:38] LABS: PLATELET COUNT 165 10^3/uL (150-400)
[2017-05-10] MEDS: HYDROmorphONE/DILAUDID 2 MG/ML INJ IVP ONE ×2 (02:42→04:39)
[2017-05-10] MEDS ORDERED: IOPAMIDOL (ISOVUE-300) 100 ML BTL ONE (02:47)
[2017-05-10 02:51] LABS: INR 1.04 (0.83-1.16); PROTIME(PATIENT) 13.8 SEC (12.0-15.0)
[2017-05-10] MEDS ORDERED: HYDROmorphONE/DILAUDID 2 MG/ML INJ ONE ×2 (04:30→04:34)
[2017-05-10] MEDS ORDERED: HYDROmorphONE/DILAUDID 1 MG/ML INJ IVP ONE (04:32)
[2017-05-10 04:52] VITALS: BP 79/53; PULSE 76; RESP 16; O2SAT 96
== END 2017-05-10 04:52 | disposition home or self-care (01) ==
DX: R10.84 Generalized abdominal pain (principal); E86.9 Volume depletion, unspecified
CPT/HCPCS: 74177; 96361; 96374; 96375; 99285; J1170; J2405; Q9967

== ENCOUNTER 2017-06-05 06:02 | Emergency (ER) | payer OTHER ==
--- NOTE | 2017-06-05 06:19 | EDPHY ---
H & P Stated Complaint: abd pain Source: Patient Exam Limitations: No limitations - Personal History Current Tetanus/Diphtheria Vaccine: Unsure Current Tetanus Diphtheria and Acellular Pertussis (TDAP): Unsure - Medical/Surgical History Hx Asthma: No Hx Chronic Respiratory Disease: No Hx Diabetes: No Hx Cardiac Disease: No Hx Renal Disease: No Hx Cirrhosis: No Hx Alcoholism: No Hx HIV/AIDS: No Hx Splenectomy or Spleen Trauma: No Other PMH: Quadriplegia C3-C4 2014, trach, pNA, Pericardial effusion, multple decubitus ulcer bottom and back, UTI's, Baclofen pump, Peg tube, Tracheostomy ( capped), APPY JANUARY 2017 - Social History Smoking Status: Never smoked Time Seen by Provider: 06/05/17 06:04 HPI/ROS: HPI The patient presents brought in by ambulance from his assisted living facility for abdominal pain, worse than his usual that began last night and has been constant and is rated as severe. He has been taking his usual pain medication, however this is not helping. He was given fentanyl 200 mcg EN route. He has not had any nausea or vomiting. He has been able to tolerate his usual G-tube feeds. He has had 2 visits in the last 2 months for abdominal pain, on 1 visit he was constipated. He does not have any fevers or chills. REVIEW OF SYSTEMS Constitutional: No fever, no chills. Eyes: No discharge. ENT: No sore throat. Cardiovascular: No chest pain, no palpitations. Respiratory: No cough, no shortness of breath. Gastrointestinal: See HPI Genitourinary: No hematuria. Musculoskeletal: No back pain. Skin: No rashes. Neurological: No headache. 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, G-tube in place Soc Hx: Resides at the [facility] PHYSICAL General Appearance: Alert, no distress Eyes: Pupils equal and round no pallor or injection ENT, Mouth: Mucous membranes moist Respiratory: There are no retractions, lungs are clear to auscultation Cardiovascular: Regular rate and rhythm Gastrointestinal: Abdomen is soft, G-tube is in place, suprapubic tube is in place Neurological: A&O, quadriplegic Skin: Warm and dry, no rashes Musculoskeletal: Neck is supple Extremities: symmetrical, full range of motion Psychiatric: Patient is oriented X 3, there is no agitation (Riguzzi,Floridalma) Constitutional: Initial Vital Signs Temperature (C) 37.3 C 06/05/17 06:09 Heart Rate 54 L 06/05/17 06:09 Respiratory Rate 16 06/05/17 06:09 Blood Pressure 111/63 06/05/17 06:09 O2 Sat (%) 97 06/05/17 06:09 O2 Delivery Mode Room Air Allergies/Adverse Reactions: Milk Containing Products [dairy] Allergy (Severe, Verified 04/21/17 00:16) Swelling/neck,face,throat Penicillins Allergy (Severe, Verified 04/21/17 00:16) Other-Enter Comments soy Allergy (Severe, Verified 04/21/17 00:16) Swelling/neck,face,throat nitrofurantoin [From Macrobid] Allergy (Verified 04/21/17 00:16) Other-Enter Comments shellfish derived Allergy (Verified 04/21/17 00:16) tree nut [Nuts] Allergy (Verified 04/21/17 00:16) wheat Allergy (Severe, Uncoded 09/10/16 14:32) [place] Home Medications: Medication Instructions Recorded Midodrine HCl 10 mg TUBE QID 04/06/15 ZOLPIDEM TARTRATE [Ambien CR 12.5 12.5 mg TUBE HS 04/06/15 mg] Ferrous Sulfate 325 mg TUBE BID 04/27/15 Acetaminophen [Tylenol 325mg (*)] 650 mg TUBE Q6H 08/24/15 Baclofen [Baclofen 10 mg (*)] 10 mg TUBE TID 08/24/15 Gabapentin [Neurontin Oral Liquid] 600 mg TUBE Q8H 08/24/15 Sertraline HCl [Zoloft 100mg (*)] 100 mg TUBE DAILY 08/24/15 clonazePAM [Klonopin (*)] 0.25 mg TUBE QID 08/24/15 Polyethylene Glycol 3350 [Miralax 8.5 gm TUBE TID 10/31/15 17 gm (*)] oxyCODONE IR [Oxycodone Ir (*)] 30 mg TUBE QID 10/31/15 tiZANidine HCL [Zanaflex] 4 mg TUBE BID 10/31/15 Bisacodyl [Magic Bullet 10 mg] 10 mg IA DAILY 07/18/16 Ondansetron Odt [Zofran Odt 4 mg 8 mg PO DAILY PRN 07/18/16 (*)] Sennosides/Docusate Sodium 1 each TUBE DAILY 01/13/17 [Senna-Docusate Sodium Tablet] fentaNYL [Duragesic 50 MCG Patch 50 mcg TD Q48H 01/13/17 (*)] Tolterodine Tartrate [Detrol LA 4 mg PO DAILY 02/19/17 2MG (*)] Dicyclomine [Bentyl 20 MG (*)] 20 mg PO QID #14 tab 05/10/17 Magnesium Citrate [Citrate of 300 ml PO BID #1 solution 05/10/17 Magnesia] Medical Decision Making - Diagnostics Imaging Results: Imaging Impressions Abdomen CT 06/05/17 06:36 Impression: 1. Numerous nonobstructive small renal calculi as well as bladder calculi once again noted 2. No CT evidence of abscess or bowel obstruction. 3. G-tube in good position as well as suprapubic bladder catheter. These findings discussed by telephone with Dr. Trey Lubin at 8:25 hour, 2017. Differential Diagnosis: This is a 61-year-old male who is a quadriplegic, G-tube dependent who presents with worsening of his chronic abdominal pain. On exam, he does have diffuse abdominal tenderness. G-tube appears normal with no surrounding erythema. He has been able to tolerate his feeds. He does have a history of constipation. He is quite sedate here after receiving opiate pain medications. Differential diagnosis includes constipation, renal colic, biliary colic, less likely appendicitis as he is status post appy. In the emergency department, patient was started on IV fluids. Pain medication was held as his pain is controlled he is quite sedate. Labs will be checked. At 7:00 a.m., I anticipate the case will be signed out to the oncoming provider Dr. Lubin pending patient's CT scan. Labs were checked and do reveal anemia which is chronic for him. He does have an elevated CO2 which I suspect could be related to respiratory depression from opiate medications which she has just received. UA is pending. (Floridalma Shelby) Other Provider: I assumed care of the patient at 7 o'clock in the morning. 8:30 a.m.: I am informed that the patient's abdominal CT scan demonstrates no evidence of an acute process. I reviewed the patient's laboratory studies. The patient has had a total of 4 CT scans now this year for evaluation of chronic abdominal pain all of which continued to demonstrate no evidence of acute disease. The patient has a chronic metabolic alkalosis. At this point time I do feel the patient can be discharged from the emergency department. He is encouraged to continue to work with his primary care providers for evaluation of his chronic abdominal pain. (Eriberto Lubin) - Data Points Laboratory Results: Laboratory Results 06/05/17 06:10 06/05/17 06:10 06/05/17 06/05/17 06/05/17 06:55 06:10 06:10 WBC 4.81 10^3/uL 10^3/uL (3.80-9.50) RBC 3.01 10^6/uL L 10^6/uL (4.40-6.38) Hgb 9.0 g/dL L g/dL (13.7-17.5) Hct 27.2 % L % (40.0-51.0) MCV 90.4 fL fL (81.5-99.8) MCH 29.9 pg pg (27.9-34.1) MCHC 33.1 g/dL g/dL (32.4-36.7) RDW 12.4 % % (11.5-15.2) Plt Count 151 10^3/uL 10^3/uL (150-400) MPV 10.7 fL fL (8.7-11.7) Neut % (Auto) 57.4 % % (39.3-74.2) Lymph % (Auto) 28.7 % % (15.0-45.0) [place] % (Auto) 11.2 % % (4.5-13.0) Eos % (Auto) 2.1 % % (0.6-7.6) Baso % (Auto) 0.2 % L % (0.3-1.7) Nucleat RBC Rel Count 0.0 % % (0.0-0.2) Absolute Neuts (auto) 2.76 10^3/uL 10^3/uL (1.70-6.50) Absolute Lymphs (auto) 1.38 10^3/uL 10^3/uL (1.00-3.00) Absolute Monos (auto) 0.54 10^3/uL 10^3/uL (0.30-0.80) Absolute Eos (auto) 0.10 10^3/uL 10^3/uL (0.03-0.40) Absolute Basos (auto) 0.01 10^3/uL L 10^3/uL (0.02-0.10) Absolute Nucleated RBC 0.00 10^3/uL 10^3/uL (0-0.01) Immature Gran % 0.4 % % (0.0-1.1) Immature Gran # 0.02 10^3/uL 10^3/uL (0.00-0.10) Sodium 132 mEq/L L mEq/L (135-145) Potassium 4.6 mEq/L mEq/L (3.5-5.2) Chloride 86 mEq/L L mEq/L (97-110) Carbon Dioxide 37 mEq/l H mEq/l (22-31) Anion Gap 9 mEq/L mEq/L (8-16) BUN 9 mg/dL mg/dL (7-23) Creatinine 0.4 mg/dL L mg/dL (0.7-1.3) Estimated GFR > 60 Glucose 76 mg/dL mg/dL (70-100) Calcium 8.6 mg/dL mg/dL (8.5-10.4) Total Bilirubin 0.4 mg/dL mg/dL (0.1-1.4) Conjugated Bilirubin 0.4 mg/dL mg/dL (0.0-0.5) Unconjugated Bilirubin 0.0 mg/dL mg/dL (0.0-1.1) AST 22 IU/L IU/L (17-59) ALT 33 IU/L IU/L (21-72) Alkaline Phosphatase 74 IU/L IU/L (38-126) Total Protein 6.6 g/dL g/dL (6.3-8.2) Albumin 3.7 g/dL g/dL (3.5-5.0) Lipase 28 IU/L IU/L (23-300) Urine Color PALE YELLOW Urine Appearance HAZY Urine pH 8.0 H (5.0-7.5) Ur Specific [place] 1.002 (1.002-1.030) Urine Protein NEGATIVE (NEGATIVE) Urine Ketones NEGATIVE (NEGATIVE) Urine Blood 1+ H (NEGATIVE) Urine Nitrate NEGATIVE (NEGATIVE) Urine Bilirubin NEGATIVE (NEGATIVE) Urine Urobilinogen NEGATIVE EU EU (0.2-1.0) Ur Leukocyte Esterase TRACE H (NEGATIVE) Urine RBC 1-3 /hpf /hpf (0-3) Urine WBC 1-3 /hpf /hpf (0-3) Ur Epithelial Cells NONE SEEN /lpf /lpf (NONE-1+) Urine Bacteria 3+ /hpf H /hpf (NONE SEEN) Urine Mucus TRACE /lpf /lpf (NONE-1+) Urine Yeast PRESENT /hpf /hpf (NONE SEEN) Urine Glucose NEGATIVE (NEGATIVE) Medications Given: Discontinued Medications Sodium Chloride (Ns) 1,000 mls @ 0 mls/hr IV EDNOW ONE; Wide Open PRN Reason: Protocol Stop: 06/05/17 06:36 Last Admin: 06/05/17 06:46 Dose: 1,000 mls Departure - Departure Disposition: Home, Routine, Self-Care Clinical Impression: Chronic abdominal pain Condition: Good Instructions: Chronic Abdominal Pain (ED) Additional Instructions: 1. The laboratory testing and CT scan demonstrate no evidence of an abdominal emergency. 2. Please return to the ED for markedly worsening pain, intractable vomiting, high fever or other concerns. 3. Follow up with your primary care provider as needed. Referrals: NONE *PRIMARY CARE P,. [Primary Care Provider] - As per Instructions
[2017-06-05] MEDS ORDERED: NS 1,000 ML IV ONE (06:35)
[2017-06-05 06:40] LABS: PLATELET COUNT 151 10^3/uL (150-400)
[2017-06-05] MEDS ORDERED: IOPAMIDOL (ISOVUE-300) 100 ML BTL ONE (06:53)
[2017-06-05 09:39] VITALS: BP 106/71
== END 2017-06-05 09:35 | disposition home or self-care (01) ==
LOC: EDUNIT#
DX: R10.9 Unspecified abdominal pain (principal); G89.29 Other chronic pain; E86.9 Volume depletion, unspecified
CPT/HCPCS: 74177; 99285; Q9967

== ENCOUNTER 2017-06-10 09:55 | Day surgery (SDC) | payer OTHER ==
[2017-06-10] MEDS ORDERED: NALOXONE HCL 0.4 MG/ML INJ IVP PRN (11:23)
[2017-06-10] MEDS ORDERED: FLUMAZENIL 0.5 MG/5 ML MDV IVP PRN (11:23)
[2017-06-10] MEDS ORDERED: fentaNYL 100 MCG/2 ML INJ IVP PRN (11:23)
[2017-06-10] MEDS ORDERED: MIDAZOLAM 2 MG/2 ML VIAL IVP PRN (11:23)
[2017-06-10] MEDS ORDERED: MEPERIDINE 25 MG/ML SYR IVP PRN (11:23)
[2017-06-10] MEDS ORDERED: fentaNYL 100 MCG/2 ML INJ ONE (11:25)
[2017-06-10] MEDS ORDERED: NALOXONE HCL 0.4 MG/ML INJ ONE (11:25)
[2017-06-10] MEDS ORDERED: NS 1,000 ML IV SCH (11:30)
[2017-06-10] MEDS ORDERED: IOPAMIDOL (ISOVUE-300) 100 ML BTL ONE (12:30)
[2017-06-10] MEDS ORDERED: LIDOCAINE 1% 300 MG/30 ML SDV ONE (12:31)
[2017-06-10] MEDS ORDERED: ONDANSETRON 4 MG/2 ML VIAL IVP PRN (13:27)
[2017-06-10] MEDS ORDERED: ACETAMINOPHEN 325 MG TAB PO PRN (13:27)
--- NOTE | 2017-06-10 13:30 | PDRADPN ---
Radiology Procedure Note Date of Procedure: 06/10/17 Radiologist: Rishi Morales Anesthesia: IV Sedation Pre-op Diagnosis: Quadriplegia Post-op Diagnosis: Same Indication: Not tolerated gastric tube feeds Procedure: G to GJ conversion Finding(s): See dicated report Inf/Abcess present in the surg proc area at time of surgery?: No EBL: Minimal Complications: No immediate
--- NOTE | 2017-06-10 13:36 | PDGENHP ---
History & Physical Chief Complaint: Stomach pain, bloating History of Present Illness: 62 yo m w incomplete quadriplegia 2013 and gastrostomy tube. C/o recurrent stomach pain and bloating following tube feeds. G to GJ tube conversion requested. Pertinent Past, Social, Family History: Non contributory Relevant Physical Exam: G tube in place, abd soft, NTND Cardiorespiratory Assessment: Alec, normal resp effort
--- NOTE | 2017-06-10 13:37 | PDPROPOC ---
Sedation Plan of Care Sedation Plan of Care: vital signs stable, mental status noted, patient educated of risks, benefits, alternatives, patient can tolerate sedation Planned drugs: fentanyl Mallampati Score: Unable to assesss (Trach'd) Mallampati Reference Image: Patient passed 3-3-2 rule?: Yes
[2017-06-10 14:54] VITALS: BP 130/76
== END 2017-06-10 14:55 ==
LOC: FIMAGING 09:55
PROVIDERS: ATTEND Nurse Practitioner Family
PROC: 0DW03UZ Revision of Feeding Device in Upper Intestinal Tract, Percutaneous Approach (ICD-10-PCS; principal; 2017-06-10 13:20)
DX: G82.50 Quadriplegia, unspecified (principal); R63.3 Feeding difficulties
CPT/HCPCS: 49446; 49450; 99152; 99153; C1769; C1894; J1644; J2310; J3010; Q9967

== ENCOUNTER 2017-06-12 06:24 | Emergency (ER) | payer OTHER ==
--- NOTE | 2017-06-12 07:00 | EDPHY ---
H & P Stated Complaint: j tube fell out Time Seen by Provider: 06/12/17 06:59 - Personal History Current Tetanus/Diphtheria Vaccine: Yes Current Tetanus Diphtheria and Acellular Pertussis (TDAP): Yes - Medical/Surgical History Hx Asthma: No Hx Chronic Respiratory Disease: No Hx Diabetes: No Hx Cardiac Disease: No Hx Renal Disease: No Hx Cirrhosis: No Hx Alcoholism: No Hx HIV/AIDS: No Hx Splenectomy or Spleen Trauma: No Other PMH: Quadriplegia C3-C4 2013, trach, pNA, Pericardial effusion, multple decubitus ulcer bottom and back, UTI's, Baclofen pump, Peg tube, Tracheostomy ( capped), APPY JANUARY 2017 - Social History Smoking Status: Never smoked Constitutional: Initial Vital Signs Temperature (C) 36.9 C 06/12/17 06:30 Heart Rate 60 06/12/17 06:30 Respiratory Rate 18 06/12/17 06:30 Blood Pressure 91/61 L 06/12/17 06:30 O2 Sat (%) 96 06/12/17 06:30 O2 Delivery Mode Nasal Cannula O2 (L/minute) 2 Allergies/Adverse Reactions: Milk Containing Products [dairy] Allergy (Severe, Verified 06/12/17 06:33) Swelling/neck,face,throat Penicillins Allergy (Severe, Verified 06/12/17 06:33) Other-Enter Comments soy Allergy (Severe, Verified 06/12/17 06:33) Swelling/neck,face,throat nitrofurantoin [From Macrobid] Allergy (Verified 06/12/17 06:33) Other-Enter Comments shellfish derived Allergy (Verified 06/12/17 06:33) tree nut [Nuts] Allergy (Verified 06/12/17 06:33) wheat Allergy (Severe, Uncoded 06/12/17 06:33) [place] Home Medications: Medication Instructions Recorded Midodrine HCl 10 mg TUBE QID 04/06/15 ZOLPIDEM TARTRATE [Ambien CR 12.5 12.5 mg TUBE HS 04/06/15 mg] Ferrous Sulfate 325 mg TUBE BID 04/27/15 Acetaminophen [Tylenol 325mg (*)] 650 mg TUBE Q6H 08/24/15 Baclofen [Baclofen 10 mg (*)] 10 mg TUBE TID 08/24/15 Gabapentin [Neurontin Oral Liquid] 600 mg TUBE Q8H 08/24/15 Sertraline HCl [Zoloft 100mg (*)] 100 mg TUBE DAILY 08/24/15 clonazePAM [Klonopin (*)] 0.25 mg TUBE QID 08/24/15 Polyethylene Glycol 3350 [Miralax 8.5 gm TUBE TID 10/31/15 17 gm (*)] oxyCODONE IR [Oxycodone Ir (*)] 30 mg TUBE QID 10/31/15 tiZANidine HCL [Zanaflex] 4 mg TUBE BID 10/31/15 Bisacodyl [Magic Bullet 10 mg] 10 mg [place] DAILY 07/18/16 Ondansetron Odt [Zofran Odt 4 mg 8 mg PO DAILY PRN 07/18/16 (*)] Sennosides/Docusate Sodium 1 each TUBE DAILY 01/13/17 [Senna-Docusate Sodium Tablet] fentaNYL [Duragesic 50 MCG Patch 50 mcg TD Q48H 01/13/17 (*)] Tolterodine Tartrate [Detrol LA 4 mg PO DAILY 02/19/17 2MG (*)] Dicyclomine [Bentyl 20 MG (*)] 20 mg PO QID #14 tab 05/10/17 Magnesium Citrate [Citrate of 300 ml PO BID #1 solution 05/10/17 Magnesia] Medical Decision Making ED Course/Re-evaluation: CHIEF COMPLAINT: J-tube fell out HISTORY OF PRESENT ILLNESS: The patient is a 62 y/o male with quadriplegia arriving with his family member requesting help with his J-tube that fell out this morning. His family member also thinks the tube that was in place was too small for the fistula and has been difficult to push medications through. No other acute complaints. REVIEW OF SYSTEMS: A 10 point review of systems was performed and is negative with the exception of the elements mentioned in the history of present illness. PHYSICAL EXAM: HR, BP, O2 Sat, RR. Temp noted General Appearance: Alert, well hydrated, appropriate, and non-toxic appearing. Head: Atraumatic without scalp tenderness or obvious injury Eyes: Pupils equal, round, reactive to light and accommodation, EOMI, no trauma , no injection. Nose: Atraumatic, no rhinorrhea, clear. Throat: There is no erythema or exudates, no lesions, normal tonsils, mucus membranes moist. Neck: Supple. Respiratory: No retractions, no distress, no wheezes, and no accessory muscle use. Lungs are clear to auscultation bilaterally. Cardiovascular: Regular rate and rhythm, no murmurs, rubs, or gallops. Good capillary refill all extremities. Gastrointestinal: Abdomen is soft, nontender, non-distended, no masses, no rebound, no guarding, no peritoneal signs. G-tube fistula is clean and intact, no signs of infection. Musculoskeletal: Atraumatic. Neurological: Alert, appropriate, and interactive. Quadriplegia at baseline. Skin: No rashes, good turgor, no nodules on palpation. Past medical history: Quadriplegia C3-C4 2013, PNA, Pericardial effusion, multiple decubitus ulcer bottom and back, UTI's Past surgical history: Tracheostomy, Baclofen pump, Peg tube, Appendectomy Jan 2017 Family history: Noncontributory Social history: Family member at bedside. Lives in [place] DIAGNOSTICS/PROCEDURES/CRITICAL CARE TIME: Procedure: G-tube placement Indication: Dislodged GJ-tube. Temporary G-tube placed by myself to keep fistula open and usable until IR can place J-tube. No complications. Patient tolerated the procedure well. DIFFERENTIAL DIAGNOSIS: The differential diagnosis for the patient's symptoms included but was not limited to GJ-tube dislodgement, quadriplegia. MEDICAL DECISION MAKING: This is a 62 y/o male with quadriplegia who presents requesting replacement of his GJ-tube after it fell out this morning. No other acute complaints. Exam at baseline. I've temporarily placed a Gamez catheter in the fistula to keep it open until he can get to IR for J-tube replacement. Consulted with [facility]. They do not have the appropriately-sized tube in house and will need to order it. I placed a G-tube in the ED and patient will be discharged home awaiting call from radiology to return for J-tube placement as soon as it is available. Patient and family are comfortable with this plan. Care and return precautions discussed. - Data Points Medications Given: Discontinued Medications Hydromorphone HCl (Dilaudid) 1 mg IVP EDNOW ONE Stop: 06/12/17 07:24 Last Admin: 06/12/17 07:27 Dose: 1 mg Sodium Chloride (Ns) 1,000 mls @ 0 mls/hr IV ONCE ONE PRN Reason: Wide Open Stop: 06/12/17 07:28 Last Admin: 06/12/17 07:27 Dose: 1,000 mls Departure - Departure Disposition: Home, Routine, Self-Care Clinical Impression: Gastrojejunostomy tube dislodgement Condition: Good Instructions: How to Use and Care for Your PEG Tube (ED) Additional Instructions: Use G-tube as directed. Dr. Morales's office will contact you early this week as soon as the new J tube arrives to schedule placement. Return to the ED for any worsening of condition. Referrals: KYLIE ALDANA [Primary Care Provider] - As per Instructions Report Scribed for: Eric Carrillo Report Scribed by: Catrachita Keyes Date of Report: 06/12/17 Time of Report: 08:00
[2017-06-12] MEDS ORDERED: HYDROmorphONE/DILAUDID 2 MG/ML INJ IVP ONE ×2 (07:23→08:19)
[2017-06-12] MEDS ORDERED: HYDROmorphONE/DILAUDID 2 MG/ML INJ ONE (07:24)
[2017-06-12] MEDS ORDERED: NS 1,000 ML IV ONE (07:27)
[2017-06-12 07:28] VITALS: BP 98/62
== END 2017-06-12 08:37 | disposition home or self-care (01) ==
DX: K94.13 Enterostomy malfunction (principal)
CPT/HCPCS: 96361; 96374; 96376; 99284; J1170

== ENCOUNTER → 2017-06-24 | Day surgery (SDC) | payer OTHER ==
[~2017-06-24] MED LIST: IOPAMIDOL (ISOVUE-370) 150 ML BTL IV ONE
== END | disposition home or self-care (01) ==
LOC: FIMAGING 14:07
PROVIDERS: ATTEND Radiology Diagnostic Radiology
PROC: 0D20XUZ Change Feeding Device in Upper Intestinal Tract, External Approach (ICD-10-PCS; principal; 2017-06-24)
DX: Z43.1 Encounter for attention to gastrostomy (principal)
CPT/HCPCS: 49450; C1729; C1769; Q9967

== ENCOUNTER → 2017-06-27 | Outpatient (CLI) | payer OTHER | LOC: FIMAGING 11:30 | PROVIDERS: ATTEND Radiology Diagnostic Radiology | PROC: BD12YZZ Fluoroscopy of Stomach using Other Contrast (ICD-10-PCS; principal; 2017-06-27) | DX: K94.23 Gastrostomy malfunction (principal) ==

== ENCOUNTER 2017-07-04 04:43 | Inpatient (IN) | payer OTHER ==
[2017-07-04] MEDS ORDERED: NS 500 ML IV ONE ×2 (04:51→06:21)
--- NOTE | 2017-07-04 04:59 | EDPHY ---
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 Where according to his they performed the endoscopy to place the or reposition the J-tube. He presents emergency room this evening for increasing pulmonary secretions, change in sputum color out of his tracheostomy, fever 102-103 at home, increased stiffness, generalized weakness and spasticity. His is concerned that he may have pneumonia. He is residing at the [facility], nursing staff called his at home that he had low oxygen level in the 60s percent. They report 63% at [facility]. Upon arrival to the emergency room the patient is noted to have an O2 sat of 83 % on his baseline oxygen of 2 L, additionally is noted his blood pressure is 86/ 56. Heart rate in the 80s. reports to me that his blood pressure does run low high 80s to low 90s over 50s. This is not unusual for him. However the oxygen requirement is unusual. Past Medical History: Incomplete quadriplegic, previous history of pneumonia Past Surgical History: Peg tube, J tube, Trach, suprapubic catheterization Social History: at bedside. Lives at [facility]. Family History: Noncontributory ROS REVIEW OF SYSTEMS: A comprehensive 10 point review of systems is otherwise negative aside from elements mentioned in the history of present illness. Exam Constitutional triage nursing summary reviewed, vital signs reviewed, awake/ alert. Vital signs noted at triage to be hypoxic and hypotensive. Eyes normal conjunctivae and sclera, EOMI, PERRLA. HENT normal inspection, atraumatic, moist mucus membranes, no epistaxis, neck supple/ no meningismus, no raccoon eyes. Respiratory wet sounding cough with increasing tracheotomy secretions. Decreased air movement bilaterally. Cardiovascular rate normal, regular rhythm, no murmur, no edema, distal pulses normal. Gastrointestinal soft, non-tender, no rebound, no guarding, normal bowel sounds, no distension, no pulsatile mass. Genitourinary no CVA tenderness. Musculoskeletal no midline vertebral tenderness, full range of motion, no calf swelling, no tenderness of extremities, no meningismus, good pulses, neurovascularly intact. Skin pink, warm, & dry, no rash, skin atraumatic. Neurologic awake, alert and oriented x 3, AAOx3, moves all 4 extremities equally, motor intact, sensory intact, CN II-XII intact, normal cerebellar, normal vision, normal speech. Psychiatric normal mood/affect. Heme/Lymph/Immune no lymphadenopathy. Differential Diagnosis: Includes but is not limited to in a particular order sepsis, severe sepsis, bacteremia, pneumonia, PE, pneumothorax, CHF, electrolyte disturbance, UTI, UTI with sepsis, pyelo. Medical Decision Making: Plan for this patient given his low oxygen saturation and hypotension will obtain chest x-ray to rule out significant pneumonia, will deep suction to make sure he does not have significant mucous plugging, give IV fluid bolus, blood cultures, lactic acid, urine culture, check electrolytes, check urinalysis. Re-evaluation: X-ray of the chest reviewed; shows elevated hemidiaphragm left, and most likely pneumonia. Given the patient's increasing oxygen requirement, fever, generalized weakness, white blood cell count, and hypotension I am concerned this patient may have pneumonia. Respiratory did come down and deep suction the patient and was able to get thick yellow purulent sputum. 0539: Patient's blood work, x-ray reviewed. It appears that he has a left lower lobe pneumonia on his x-ray with an elevated hemidiaphragm. Also there is some haziness on the right lower lung field concerning for pneumonia. The x- ray is highly rotated. I will repeat for better position x-ray Additionally the patient is noted to have an elevated white blood cell count. Concerning for infection. Blood cultures, sputum culture are pending. As well as urine culture. His lactic acid upon arrival is 1. Patient's baseline oxygen is 2 L nasal cannula. However currently is on 6 L to maintain an oxygen saturation of 91-92%. Patient is getting normal saline IV fluids 500 cc fluid bolus. Will distally most likely repeat this fluid bolus. Want to see his response. Additionally I have admitted him to the step-down unit I spoke with Dr. Kumar who agrees to admit. IV Levaquin has been ordered. Patient asking for IV Dilaudid. 1 mg has been ordered. Patient is relatively stable however has I oxygen requirement. Patient be admitted to step-down unit for further close care. Updated his at bedside she is agreeable this plan. EKG interpretation by me on record in [employer] system. Impression time of EKG 5:45 a.m., sinus rhythm rate of 91 significant motion artifact with this EKG due to the patient's shaking. However I do not appreciate any significant acute ischemia like ST elevation however limited due to motion artifact. Patient has no chest pain. Source: Patient, Family - Medical/Surgical History Hx Asthma: No Hx Chronic Respiratory Disease: No Hx Diabetes: No Hx Cardiac Disease: No Hx Renal Disease: No Hx Cirrhosis: No Hx Alcoholism: No Hx HIV/AIDS: No Hx Splenectomy or Spleen Trauma: No Other PMH: Quadriplegia C3-C4 2013, trach, pNA, Pericardial effusion, multple decubitus ulcer bottom and back, UTI's, Baclofen pump, Peg tube, Tracheostomy ( capped), APPY JANUARY 2017 - Social History Smoking Status: Never smoked Constitutional: Initial Vital Signs Temperature (C) 36.9 C 07/04/17 04:47 Heart Rate 83 07/04/17 04:47 Respiratory Rate 20 07/04/17 04:47 Blood Pressure 85/55 L 07/04/17 04:47 O2 Sat (%) 82 L 07/04/17 04:47 O2 Delivery Mode Nasal Cannula O2 (L/minute) 6 Allergies/Adverse Reactions: corn syrup Allergy (Severe, Verified 07/04/17 08:33) Unknown Milk Containing Products [dairy] Allergy (Severe, Verified 07/04/17 05:01) Swelling/neck,face,throat Penicillins Allergy (Severe, Verified 07/04/17 05:01) Other-Enter Comments soy Allergy (Severe, Verified 07/04/17 05:01) Swelling/neck,face,throat nitrofurantoin [From Macrobid] Allergy (Verified 07/04/17 05:01) Other-Enter Comments shellfish derived Allergy (Verified 07/04/17 05:01) tree nut [Nuts] Allergy (Verified 07/04/17 05:01) wheat Allergy (Severe, Uncoded 07/04/17 05:01) [place] Home Medications: Medication Instructions Recorded Baclofen [Baclofen 10 mg (*)] 10 mg TUBE BID 07/04/17 Baclofen [Baclofen 10 mg (*)] 10 mg TUBE DAILY@1100 07/04/17 Biotene Moisturizing [place] 1 spray PO Q1H PRN 07/04/17 Ferrous Sulfate [Ferrous Sulf 325 325 mg TUBE BID 07/04/17 MG (*)] Gabapentin [Neurontin 300 MG (*)] 600 mg TUBE 05,17,22 07/04/17 Magnesium Citrate [Magnesium 150 ml TUBE DAILY PRN 07/04/17 Citrate 300 ml (*)] Magnesium Hydroxide [Milk of 30 ml TUBE BID PRN 07/04/17 Magnesia] Midodrine HCl 10 mg TUBE BID 07/04/17 Ondansetron [Ondansetron Odt] 8 mg TUBE Q8 PRN 07/04/17 Polyethylene Glycol 3350 [Miralax 17 gm TUBE DAILY 07/04/17 17 gm (*)] Polyethylene Glycol 3350 [Miralax 17 gm TUBE DAILY PRN 07/04/17 17 gm (*)] Sennosides [Senna Lax] 8.6 mg TUBE BID 07/04/17 Sertraline HCl [Zoloft 100mg (*)] 100 mg TUBE DAILY 07/04/17 Tizanidine HCl 4 mg TUBE BID 07/04/17 Tolterodine Tartrate [Detrol] 4 mg TUBE DAILY 07/04/17 Zolpidem Tartrate [Zolpidem 12.5 mg TUBE HS 07/04/17 Tartrate ER] clonazePAM [Klonopin (*)] 0.25 mg TUBE QID 07/04/17 fentaNYL [Duragesic 25 MCG Patch 25 mcg TD Q2D 07/04/17 (*)] oxyCODONE IR [Oxycodone Ir (*)] 10 - 20 mg TUBE Q6 PRN 07/04/17 oxyCODONE IR [Oxycodone Ir (*)] 30 mg TUBE QID 07/04/17 traZODone [traZODONE 50MG (*)] 50 mg TUBE HS 07/04/17 levOFLOXACIN [Levofloxacin] 750 mg PO DAILY #2 ml 07/08/17 Medical Decision Making - Data Points Laboratory Results: Laboratory Results 07/04/17 04:55 07/04/17 04:55 Medications Given: Discontinued Medications Acetaminophen (Tylenol) 650 mg PO Q4HRS PRN PRN Reason: Pain, Mild/Fever, Can Take PO Stop: 12/31/17 05:37 Last Admin: 07/04/17 07:46 Dose: 650 mg Acetaminophen (Tylenol 650/20.3ml Oral Liquid) 650 mg TUBE Q4 PRN PRN Reason: FEVER/MILD PAIN Stop: 01/01/18 14:23 Last Admin: 07/05/17 20:24 Dose: 650 mg Albuterol/Ipratropium (Duoneb) 3 ml IH EDNOW ONE Stop: 07/04/17 05:01 Last Admin: 07/04/17 08:07 Dose: 3 ml Baclofen (Baclofen) 10 mg TUBE BID MERRY Stop: 12/31/17 09:59 Last Admin: 07/08/17 08:36 Dose: 10 mg Baclofen (Baclofen) 10 mg TUBE DAILY@1100 [facility] Stop: 12/31/17 10:59 Last Admin: 07/08/17 12:20 Dose: 10 mg Benzocaine (Orajel) 1 lara TP Q2 PRN PRN Reason: MOUTH PAIN Stop: 01/03/18 14:38 Last Admin: 07/08/17 08:38 Dose: 1 lara Clonazepam (Klonopin) 0.25 mg TUBE QID MERRY Stop: 12/31/17 09:59 Last Admin: 07/08/17 12:20 Dose: 0.25 mg Enoxaparin Sodium (Lovenox) 40 mg SC DAILY MERRY Stop: 12/31/17 08:59 Last Admin: 07/08/17 08:36 Dose: 40 mg Fentanyl (Duragesic) 25 mcg TD Q2D MERRY Stop: 07/14/17 09:59 Last Admin: 07/08/17 08:36 Dose: 25 mcg Ferrous Sulfate (Ferrous Sulfate) 325 mg PO BID MERRY Stop: 12/31/17 09:59 Last Admin: 07/05/17 08:32 Dose: 325 mg Ferrous Sulfate (Ferrous Sulfate Oral Liquid) 300 mg TUBE BID MERRY Stop: 01/01/18 20:59 Last Admin: 07/08/17 08:36 Dose: 300 mg Gabapentin (Neurontin) 600 mg TUBE ,, MERRY Stop: 12/31/17 16:59 Last Admin: 07/08/17 05:07 Dose: 600 mg Hydromorphone HCl (Dilaudid) 1 mg IVP EDNOW ONE Stop: 07/04/17 05:26 Last Admin: 07/04/17 05:31 Dose: 1 mg Hydromorphone HCl (Dilaudid) 1 mg IVP EDNOW ONE Stop: 07/04/17 05:59 Last Admin: 07/04/17 06:06 Dose: 1 mg Hydromorphone HCl (Dilaudid) 0.2 - 0.4 mg IVP Q1H PRN PRN Reason: Pain, Severe Unable to Take PO Stop: 07/14/17 05:37 Last Admin: 07/08/17 13:42 Dose: 0.4 mg Hydromorphone HCl (Dilaudid) 1 mg IVP ONCE ONE Stop: 07/04/17 09:53 Last Admin: 07/04/17 10:52 Dose: 1 mg Sodium Chloride (Ns) 500 mls @ 1,000 mls/hr IV EDNOW ONE PRN Reason: Protocol Stop: 07/04/17 05:20 Last Admin: 07/04/17 05:30 Dose: 500 mls Levofloxacin/Dextrose (Levaquin 750 Mg (Premix)) 150 mls @ 100 mls/hr IV EDNOW ONE PRN Reason: Protocol Stop: 07/04/17 06:47 Last Admin: 07/04/17 05:33 Dose: 150 mls Levofloxacin/Dextrose (Levaquin 750 Mg (Premix)) 150 mls @ 100 mls/hr IV DAILY MRERY PRN Reason: Protocol Stop: 08/04/17 08:59 Last Admin: 07/08/17 08:37 Dose: 150 mls Sodium Chloride (Ns) 500 mls @ 1,000 mls/hr IV EDNOW ONE PRN Reason: Protocol Stop: 07/04/17 06:50 Last Admin: 07/04/17 06:24 Dose: 500 mls Sodium Chloride (Ns) 1,000 mls @ 100 mls/hr IV CONT MERRY Stop: 12/31/17 17:29 Last Admin: 07/05/17 02:32 Dose: 1,000 mls Magnesium Citrate (Magnesium Citrate) 150 ml TUBE DAILY PRN PRN Reason: CONSTIPATION/ABDOMINAL PAIN Stop: 12/31/17 09:47 Last Admin: 07/07/17 02:28 Dose: 150 ml Magnesium Hydroxide (Milk Of Magnesia) 30 ml TUBE BID PRN PRN Reason: Constipation Stop: 12/31/17 09:47 Last Admin: 07/07/17 03:49 Dose: 30 ml Midodrine (Proamatine) 10 mg TUBE BID [facility] Stop: 12/31/17 10:14 Last Admin: 07/08/17 08:37 Dose: 10 mg Ondansetron HCl (Zofran) 4 mg IVP EDNOW ONE Stop: 07/04/17 05:26 Last Admin: 07/04/17 05:34 Dose: 4 mg Oxycodone HCl (Oxycodone Ir) 10 - 20 mg TUBE Q6 PRN PRN Reason: BREAKTHROUGH PAIN Stop: 07/14/17 09:47 Last Admin: 07/08/17 15:12 Dose: 20 mg Oxycodone HCl (Oxycodone Ir) 30 mg TUBE QID [facility] Stop: 07/14/17 09:59 Last Admin: 07/04/17 12:21 Dose: Not Given Oxycodone HCl (Oxycodone Ir) 30 mg TUBE QID [facility] Stop: 07/14/17 10:29 Last Admin: 07/05/17 11:50 Dose: 30 mg Oxycodone HCl (Oxycodone Ir) 30 mg TUBE 0500,1100,1700,2300 [facility] Stop: 07/15/17 16:59 Last Admin: 07/08/17 12:20 Dose: 30 mg Polyethylene Glycol (Miralax) 17 gm TUBE DAILY [facility] Stop: 12/31/17 09:59 Last Admin: 07/08/17 08:37 Dose: 17 gm Saliva Substitute (Biotene) 15 ml MM Q1H PRN PRN Reason: Dry Mouth Stop: 12/31/17 10:11 Last Admin: 07/06/17 22:40 Dose: 15 ml Senna (Senokot) 1 tab PO BID MERRY Stop: 12/31/17 09:59 Last Admin: 07/04/17 22:30 Dose: Not Given Senna (Senexon Oral Liquid) 17.6 mg TUBE BID MERRY Stop: 01/01/18 08:59 Last Admin: 07/08/17 08:37 Dose: 17.6 mg Sertraline HCl (Zoloft) 100 mg TUBE DAILY [facility] Stop: 12/31/17 09:59 Last Admin: 07/08/17 08:37 Dose: 100 mg Tizanidine HCl (Zanaflex) 4 mg TUBE BID [facility] Stop: 12/31/17 09:59 Last Admin: 07/08/17 08:37 Dose: 4 mg Tolterodine Tartrate (Detrol) 4 mg TUBE DAILY [facility] Stop: 12/31/17 10:29 Last Admin: 07/08/17 08:38 Dose: 4 mg Trazodone HCl (Trazodone) 50 mg TUBE HS [facility] Stop: 12/31/17 20:59 Last Admin: 07/07/17 23:33 Dose: 50 mg Zolpidem Tartrate (Ambien) 10 mg TUBE HS PRN PRN Reason: Sleep/Insomnia Stop: 12/31/17 10:17 Last Admin: 07/08/17 00:17 Dose: 10 mg Departure - Departure Disposition: [facility] Acute Clinical Impression: Hypoxia, Generalized weakness Fever Qualifiers: Fever type: unspecified Qualified Code(s): R50.9 - Fever, unspecified Pneumonia Qualifiers: Pneumonia type: due to unspecified organism Laterality: left Lung location: lower lobe of lung Qualified Code(s): J18.1 - Lobar pneumonia, unspecified organism Condition: Serious
[2017-07-04] MEDS ORDERED: IPRATROPIUM/ALBUTEROL 3 ML DEYVIAL IH ONE (05:00)
[2017-07-04 05:11] LABS: PLATELET COUNT 144 10^3/uL (150-400)
[2017-07-04 05:16] LABS: CREATINE KINASE 52 IU/L (0-224)
[2017-07-04] MEDS ORDERED: ONDANSETRON 4 MG/2 ML VIAL IVP ONE (05:25)
[2017-07-04] MEDS ORDERED: HYDROmorphONE/DILAUDID 2 MG/ML INJ IVP ONE ×2 (05:25→05:58)
[2017-07-04] MEDS ORDERED: HYDROmorphONE/DILAUDID 1 MG/ML INJ ONE ×2 (05:27→06:00)
[2017-07-04] MEDS ORDERED: ACETAMINOPHEN 325 MG TAB PO PRN (05:38)
[2017-07-04] MEDS ORDERED: HYDROmorphONE/DILAUDID 1 MG/ML INJ IVP PRN (05:38)
[2017-07-04] MEDS ORDERED: ALBUTEROL 3 ML DEYVIAL IH PRN (05:38)
[2017-07-04] MEDS ORDERED: ONDANSETRON 4 MG/2 ML VIAL IVP PRN (05:38)
[2017-07-04] MEDS ORDERED: ONDANSETRON DISINTEGRATING 4 MG TAB PO PRN (05:38)
[2017-07-04 05:48] LABS: INR 1.02 (0.83-1.16); PROTIME(PATIENT) 13.6 SEC (12.0-15.0)
--- NOTE | 2017-07-04 05:49 | CPEKG ---
Heart Rate: 91 RR Interval: 659 P-R Interval: 143 QRSD Interval: 100 QT Interval: 356 QTC Interval: 439 P [place]: 0 QRS [place]: -73 T Wave [place]: 87 EKG Severity - ABNORMAL ECG - EKG Impression: SINUS RHYTHM EKG Impression: LEFT ANTERIOR FASCICULAR BLOCK EKG Impression: BORDERLINE T ABNORMALITIES, ANT-LAT LEADS Electronically Signed By: Tristin Cody 06-Jul-2017 11:53:04
--- NOTE | 2017-07-04 06:23 | PDGENHP ---
History and Physical - Chief Complaint Fever, pain, hypoxia - History of Present Illness 62 yo M w/ C3 quadriplegia presents with fever, pain, and hypoxia since Tuesday. Patient had an endoscopic procedure last Tuesday at [facility] in order to clip J-tube into proper place. Shortly after he began to develop progressive increase in sputum production followed by fever and hypoxia. A diffuse increase in pain, which usually accompanies infections for him, also developed. He has difficult to control pain at baseline with fentanyl patch, oxycodone 30 mg q6h, and baclofen/hydromorphone pump in place. In the ED patient is requiring 6 L/min O2 to maintain O2 sats >90%. He is febrile and complaining of severe, diffuse, pain. History Information - Allergies/Home Medication List Allergies/Adverse Reactions: Milk Containing Products [dairy] Allergy (Severe, Verified 07/04/17 05:01) Swelling/neck,face,throat Penicillins Allergy (Severe, Verified 07/04/17 05:01) Other-Enter Comments soy Allergy (Severe, Verified 07/04/17 05:01) Swelling/neck,face,throat nitrofurantoin [From Macrobid] Allergy (Verified 07/04/17 05:01) Other-Enter Comments shellfish derived Allergy (Verified 07/04/17 05:01) tree nut [Nuts] Allergy (Verified 07/04/17 05:01) wheat Allergy (Severe, Uncoded 07/04/17 05:01) [place] Home Medications: Midodrine HCl 10 mg TUBE QID 04/06/15 [Last Taken 02/19/17 05:00] ZOLPIDEM TARTRATE [Ambien CR 12.5 mg] 12.5 mg TUBE HS 04/06/15 [Last Taken 02/19 05:00] Ferrous Sulfate 325 mg TUBE BID 04/27/15 [Last Taken 02/19/17 09:00] Acetaminophen [Tylenol 325mg (*)] 650 mg TUBE Q6H 08/24/15 [Last Taken 02/19/17 05:00] Baclofen [Baclofen 10 mg (*)] 10 mg TUBE TID 08/24/15 [Last Taken 02/19/17 09:00 ] Gabapentin [Neurontin Oral Liquid] 600 mg TUBE Q8H 08/24/15 [Last Taken 05:00] Sertraline HCl [Zoloft 100mg (*)] 100 mg TUBE DAILY 08/24/15 [Last Taken 09:00] clonazePAM [Klonopin (*)] 0.25 mg TUBE QID 08/24/15 [Last Taken 02/19/17 11:00] Polyethylene Glycol 3350 [Miralax 17 gm (*)] 8.5 gm TUBE TID 10/31/15 [Last Taken 02/19/17 05:00] oxyCODONE IR [Oxycodone Ir (*)] 30 mg TUBE QID 10/31/15 [Last Taken 02/19/17 11: 00] tiZANidine HCL [Zanaflex] 4 mg TUBE BID 10/31/15 [Last Taken 02/19/17 09:00] Bisacodyl [Magic Bullet 10 mg] 10 mg [place] DAILY 07/18/16 [Last Taken 02/19/17 09: 00] Ondansetron Odt [Zofran Odt 4 mg (*)] 8 mg PO DAILY PRN 07/18/16 [Last Taken 07/24] Sennosides/Docusate Sodium [Senna-Docusate Sodium Tablet] 1 each TUBE DAILY 08/23 [Last Taken 02/19/17 09:00] fentaNYL [Duragesic 50 MCG Patch (*)] 50 mcg TD Q48H 01/13/17 [Last Taken 09:00] Tolterodine Tartrate [Detrol LA 2MG (*)] 4 mg PO DAILY 02/19/17 [Last Taken 09:00] I have personally reviewed and updated: family history, medical history - Past Medical History Additional medical history: Quadriplegia - Surgical History Additional surgical history: Trach, PEG, SPT - Family History Positive for: cancer - Social History Smoking Status: Never smoked Review of Systems Review of Systems: ROS: 10pt was reviewed & negative except for what was stated in HPI & below Physical Exam Physical Exam: Temp Pulse Resp BP Pulse Ox 37.7 C 88 20 113/58 L 95 07/04/17 06:12 07/04/17 06:12 07/04/17 06:12 07/04/17 06:12 07/04/17 06:12 O2 (L/minute) 5 Constitutional: chronically ill appearing, uncomfortable Eyes: PERRL, anicteric sclera Ears, Nose, Mouth, Throat: moist mucous membranes, no oral mucosal ulcers Cardiovascular: regular rate and rhythym, no murmur, rub, or gallop Respiratory: reduced air movement, rhonchi (Diffuse), other (Limited evaluation due to quadriplegia) Gastrointestinal: normoactive bowel sounds, other (J-tube site with mild surround erythema) Genitourinary: other (SPT in place, c/d/i dressing no signs of infection) Musculoskeletal: other (C3 quadriplegia) Neurologic: weakness, numbness, No facial droop Psychiatric: interacting appropriately, not anxious Lab Data & Imaging Review 07/04/17 04:55 07/04/17 04:55 WBC 10.19 10^3/uL (3.80-9.50) H 07/04/17 04:55 RBC 3.26 10^6/uL (4.40-6.38) L 07/04/17 04:55 Hgb 9.8 g/dL (13.7-17.5) L 07/04/17 04:55 Hct 29.8 % (40.0-51.0) L 07/04/17 04:55 MCV 91.4 fL (81.5-99.8) 07/04/17 04:55 MCH 30.1 pg (27.9-34.1) 07/04/17 04:55 MCHC 32.9 g/dL (32.4-36.7) 07/04/17 04:55 RDW 12.8 % (11.5-15.2) 07/04/17 04:55 Plt Count 144 10^3/uL (150-400) L 07/04/17 04:55 MPV 10.2 fL (8.7-11.7) 07/04/17 04:55 Neut % (Auto) 84.5 % (39.3-74.2) H 07/04/17 04:55 Lymph % (Auto) 7.9 % (15.0-45.0) L 07/04/17 04:55 [place] % (Auto) 6.7 % (4.5-13.0) 07/04/17 04:55 Eos % (Auto) 0.5 % (0.6-7.6) L 07/04/17 04:55 Baso % (Auto) 0.1 % (0.3-1.7) L 07/04/17 04:55 Nucleat RBC Rel Count 0.0 % (0.0-0.2) 07/04/17 04:55 Absolute Neuts (auto) 8.62 10^3/uL (1.70-6.50) H 07/04/17 04:55 Absolute Lymphs (auto) 0.80 10^3/uL (1.00-3.00) L 07/04/17 04:55 Absolute Monos (auto) 0.68 10^3/uL (0.30-0.80) 07/04/17 04:55 Absolute Eos (auto) 0.05 10^3/uL (0.03-0.40) 07/04/17 04:55 Absolute Basos (auto) 0.01 10^3/uL (0.02-0.10) L 07/04/17 04:55 Absolute Nucleated RBC 0.00 10^3/uL (0-0.01) 07/04/17 04:55 Immature Gran % 0.3 % (0.0-1.1) 07/04/17 04:55 Immature Gran # 0.03 10^3/uL (0.00-0.10) 07/04/17 04:55 PT 13.6 SEC (12.0-15.0) 07/04/17 05:25 INR 1.02 (0.83-1.16) 07/04/17 05:25 APTT 33.3 SEC (23.0-38.0) 07/04/17 05:25 VBG Lactic Acid 1.0 mmol/L (0.7-2.1) 07/04/17 04:55 Sodium 128 mEq/L (135-145) L 07/04/17 04:55 Potassium 4.4 mEq/L (3.3-5.0) 07/04/17 04:55 Chloride 86 mEq/L (97-110) L 07/04/17 04:55 Carbon Dioxide 33 mEq/l (22-31) H 07/04/17 04:55 Anion Gap 9 mEq/L (8-16) 07/04/17 04:55 BUN 10 mg/dL (7-23) 07/04/17 04:55 Creatinine 0.4 mg/dL (0.7-1.3) L 07/04/17 04:55 Estimated GFR > 60 07/04/17 04:55 Glucose 88 mg/dL (70-100) 07/04/17 04:55 Calcium 8.1 mg/dL (8.5-10.4) L 07/04/17 04:55 Magnesium 1.8 mg/dL (1.6-2.3) 07/04/17 04:55 Total Bilirubin 0.7 mg/dL (0.1-1.4) 07/04/17 04:55 Conjugated Bilirubin 0.5 mg/dL (0.0-0.5) 07/04/17 04:55 Unconjugated Bilirubin 0.2 mg/dL (0.0-1.1) 07/04/17 04:55 AST 21 IU/L (17-59) 07/04/17 04:55 ALT 32 IU/L (21-72) 07/04/17 04:55 Alkaline Phosphatase 81 IU/L (38-126) 07/04/17 04:55 Creatine Kinase 52 IU/L (0-224) 07/04/17 04:55 CK-MB (CK-2) Fraction 1.47 ng/mL (0.00-3.19) 07/04/17 04:55 Troponin I < 0.012 ng/mL (0.000-0.034) 07/04/17 04:55 NT-Pro-B Natriuret Pep 2010 pg/mL (0-125) H 07/04/17 04:55 Total Protein 6.7 g/dL (6.3-8.2) 07/04/17 04:55 Albumin 3.6 g/dL (3.5-5.0) 07/04/17 04:55 Lipase 15 IU/L (23-300) L 07/04/17 04:55 Procalcitonin 0.27 ng/mL (0.02-0.10) H 07/04/17 04:55 Urine Color YELLOW 07/04/17 05:25 Urine Appearance HAZY 07/04/17 05:25 Urine pH 7.0 (5.0-7.5) 07/04/17 05:25 Ur Specific [place] 1.009 (1.002-1.030) 07/04/17 05:25 Urine Protein NEGATIVE (NEGATIVE) 07/04/17 05:25 Urine Ketones NEGATIVE (NEGATIVE) 07/04/17 05:25 Urine Blood 2+ (NEGATIVE) H 07/04/17 05:25 Urine Nitrate NEGATIVE (NEGATIVE) 07/04/17 05:25 Urine Bilirubin NEGATIVE (NEGATIVE) 07/04/17 05:25 Urine Urobilinogen 2.0 EU (0.2-1.0) H 07/04/17 05:25 Ur Leukocyte Esterase 3+ (NEGATIVE) H 07/04/17 05:25 Urine RBC 15-25 /hpf (0-3) H 07/04/17 05:25 Urine WBC 3-5 /hpf (0-3) H 07/04/17 05:25 Ur Epithelial Cells TRACE /lpf (NONE-1+) 07/04/17 05:25 Urine Bacteria 3+ /hpf (NONE SEEN) H 07/04/17 05:25 Urine Mucus TRACE /lpf (NONE-1+) 07/04/17 05:25 Urine Yeast PRESENT /hpf (NONE SEEN) 07/04/17 05:25 Urine Glucose NEGATIVE (NEGATIVE) 07/04/17 05:25 Visualized and Interpreted Chest x-ray results: Yes Chest X-Ray results: other (Elevated L hemidiaphragm w/ chronic opacity; possible superimposed PNA, also with atelectasis vs. pna RLL) Visualized and Interpreted EKG results: Yes EKG Interpretation: Positive for: normal sinsus rhythm, other (Poor quality baseline) Assessment & Plan Assessment: 62 yo M w/ C3 quadriplegia p/w fever, hypoxia, and increased sputum production most likely 2/2 pneumonia. Plan: 1. Suspected pneumonia - Presents with fever, hypoxia, and increased sputum production starting shortly after endoscopic procedure performed last Tuesday. CXR shows chronic LLL opacity but possibly worsened from baseline; also w/ atelectasis vs. pneumonia RLL. Aspiration after his procedure is quite possible. His urine sample does not appear convincing for infection noting he has an indwelling catheter. J-tube site mildly irritated but does not seem overtly infected; trach and SPT site are well appearing. - Admit to SDU for close monitoring - S/p levofloxacin in ED, will continue broad coverage noting high risk for resistant organisms - Low threshold to step up to Invanz for anaerobic coverage (PCN allergic) if not improving - Blood cultures, sputum cultures, procalcitonin - Family ok with using trach to ventilate if necessary - Wound care, dietary consults placed - Discussed case with Dr. Felder 2. C3 paraplegia - S/p trach, J-tube, and SPT. This is complicated by difficult to control chronic pain, which he addresses with oxycodone 30 mg q6h, fentanyl patch 25 mcg/hr, and baclofen/hydromorphone pump. - Continue baseline pain regimen (needs med reconciliation) - Will use Dilaudid IV to control breakthrough pain for now 3. Hyponatremia - Appears acute on chronic from review of recent lab work. Noting infection, may be a hypovolemic component. - Monitor BMP s/p IVF 4. Normocytic anemia - At baseline Hgb currently; will add on ferritin and B12 to lab work. - Monitor CBC 5. Thrombocytopenia - Plts 144 on admission, this is near or above his usual value. Diet - NPO, Will consult Dietary for TFs Code - Full Ppx - LMWH Dispo - Admit to SDU under observation status for now
[2017-07-04] MEDS: HYDROmorphONE/DILAUDID 1 MG/ML INJ IVP PRN ×2 (07:19→14:21)
[2017-07-04] MEDS ORDERED: MAGNESIUM CITRATE 300 ML BOTTLE TUBE PRN (09:48)
[2017-07-04] MEDS ORDERED: MAGNESIUM HYDROXIDE 30 ML UDCUP TUBE PRN (09:48)
[2017-07-04] MEDS ORDERED: POLYETHYLENE GLYCOL 3350 17 GM PKT TUBE PRN (09:48)
[2017-07-04] MEDS ORDERED: HYDROmorphONE/DILAUDID 1 MG/ML INJ IVP ONE (09:52)
--- NOTE | 2017-07-04 09:54 | WOCRNPDOC ---
WOCRN Advanced Assessment Note - Skin Integrity Problem, Advanced Assess Left Upper Sacrum Pressure Injury Dressing Type: Open to Air Wound Bed Constitution: Healed Pressure Injury Stage: Stage 4 Pressure Injury Present on Admit: Yes Coccyx Pressure Injury Dressing Type: Open to Air Wound Bed Constitution: Healed Pressure Injury Stage: Stage 4 Pressure Injury Present on Admit: Yes
[2017-07-04] MEDS ORDERED: ONDANSETRON DISINTEGRATING 4 MG TAB TUBE PRN (10:15)
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
[2017-07-04] MEDS: TOLTERODINE TARTRATE 1 MG TAB TUBE SCH (10:54)
[2017-07-04] MEDS: SERTRALINE HCL 100 MG TAB TUBE SCH (10:59)
[2017-07-04] MEDS: BACLOFEN 10 MG TAB TUBE SCH ×3 (11:00→20:06)
[2017-07-04] MEDS: clonazePAM 0.5 MG TAB TUBE SCH ×4 (11:00→20:06)
[2017-07-04] MEDS: FERROUS SULFATE 325 MG TAB PO SCH ×2 (11:00→20:06)
[2017-07-04] MEDS: ENOXAPARIN 40 MG/0.4 ML SYR SC SCH (11:02)
[2017-07-04] MEDS: POLYETHYLENE GLYCOL 3350 17 GM PKT TUBE SCH (11:06)
[2017-07-04] MEDS: fentaNYL 25 MCG PATCH TD SCH (12:11)
[2017-07-04] MEDS: MIDODRINE HCL 5 MG TAB TUBE SCH ×2 (12:14→20:07)
[2017-07-04] MEDS: SENNOSIDES 1 TAB PO SCH ×2 (12:16→22:30)
[2017-07-04] MEDS: oxyCODONE IR 15 MG TAB TUBE SCH ×4 (12:22→20:07)
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
--- NOTE | 2017-07-04 16:23 | ASMTCMCOM ---
CM Note CM Note Notes: Pt admitted for suspected PNA, hypoxia, generalized weakness, fever. Pt has C3 quadriplegia, trach, j-tube, suprapubic catheter. Pt lives at [facility] (Main: [phone]) on their skilled unit ([phone]) and receives most of his care through them, as well as daily morning visits from [facility] ([phone]). Spoke with Holly, Web Site Administrator at [facility] (direct: [phone]) and updated on pts status. Pt's , Jenise, involved with patients care and has transported pt back to [facility] in the past via her handicap-accessible vehicle. OT was ordered but canceled due to pt's baseline C3-C4 quadriplegia and dependent for all ADLs. Wound Care was consulted; pt has two healed decub ulcers on pelvis areas; WC discussed continued preventive care w/pt's , Jenise. Anticipate pt to DC back to [facility] and resume prior HC services once medically stable. CM to follow. Date Signed: 07/04/2017 04:22 PM Electronically Signed By:Cris Armstrong RN
--- NOTE | 2017-07-04 16:26 | ASMTLACE ---
MIKE Acuity / Level of Answers: No Care: Did the patient have an inpatient admission? Comorbidities - select Answers: Opioid dependence all that apply / Chronic pain Other Notes: PNA, C3-C4 quadriplegia, tracheost du , J-tube, suprapubic catheter, decubitious ulcers # of Emergency department Answers: 5-8 visits in the last 6 months Score: 9 Date Signed: 07/04/2017 04:26 PM Electronically Signed By:Cris Armstrong RN
[2017-07-04] MEDS: GABAPENTIN 300 MG CAP TUBE SCH ×2 (16:41→20:08)
[2017-07-04] MEDS: NS 1,000 ML IV SCH (17:05)
[2017-07-04] MEDS: traZODone 50 MG TAB TUBE SCH (20:08)
[2017-07-05] MEDS: oxyCODONE IR 5 MG TAB TUBE PRN ×3 (02:30→15:08)
[2017-07-05] MEDS: NS 1,000 ML IV SCH (02:32)
[2017-07-05] MEDS: HYDROmorphONE/DILAUDID 1 MG/ML INJ IVP PRN ×4 (04:08→21:04)
[2017-07-05] MEDS: oxyCODONE IR 15 MG TAB TUBE SCH ×4 (05:16→22:00)
[2017-07-05] MEDS: GABAPENTIN 300 MG CAP TUBE SCH ×3 (05:16→21:04)
[2017-07-05] MEDS: clonazePAM 0.5 MG TAB TUBE SCH ×4 (05:16→20:22)
[2017-07-05 05:44] LABS: PLATELET COUNT 119 10^3/uL (150-400)
[2017-07-05] MEDS: SERTRALINE HCL 100 MG TAB TUBE SCH (08:32)
[2017-07-05] MEDS: FERROUS SULFATE 325 MG TAB PO SCH (08:32)
[2017-07-05] MEDS: BACLOFEN 10 MG TAB TUBE SCH ×3 (08:33→20:23)
[2017-07-05] MEDS: MIDODRINE HCL 5 MG TAB TUBE SCH ×2 (08:33→20:23)
[2017-07-05] MEDS: TOLTERODINE TARTRATE 1 MG TAB TUBE SCH (08:33)
[2017-07-05] MEDS: ENOXAPARIN 40 MG/0.4 ML SYR SC SCH (08:48)
[2017-07-05] MEDS: POLYETHYLENE GLYCOL 3350 17 GM PKT TUBE SCH (09:38)
[2017-07-05] MEDS: SENNOSIDES 17.6 MG/10 ML UDL TUBE SCH ×2 (09:38→21:32)
--- NOTE | 2017-07-05 12:53 | ASMTCMCOM ---
CM Note CM Note Notes: Patient lives at [facility] and his has a W/C van to transport. Patient doesn't have therapy goals due to his quad status. Will return to [facility] when medically ready. Date Signed: 07/05/2017 12:52 PM Electronically Signed By:Jackie Arevalo LCSW
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
--- NOTE | 2017-07-05 14:14 | PDINTPN ---
Senior Benefits Analyst Progress Note Assessment/Plan: Assessment: Sepsis: Associated with fever, hypotension, elevated procalcitonin. Pulmonary source likely. History of quadriplegia, tracheostomy, peg tube. History of recurrent pneumonia. Probable small pneumonia, left base. On Levaquin Recent J-tube placement through G-tube. Chronic pain syndrome with spasticity. On appropriate medications. DVT prophylaxis: On enoxaparin Plan: Continue care in the intensive care unit. Follow x-ray, laboratory. Continue antibiotics and pain management. Feedings and water flushes via J- tube. 25 min of critical care time spent directly with the patient. Discussed with hospitalist, nursing, respiratory, and the ICU multi disciplinary team. Subjective: Sleeping, arouses, responds. Objective: Vital Signs Temp Pulse Resp BP Pulse Ox 37.1 C 56 L 12 120/74 98 07/05/17 12:00 07/05/17 12:00 07/05/17 12:00 07/05/17 12:00 07/05/17 12:00 Laboratory Results 07/05/17 05:10 07/05/17 05:10 07/04/17 07/05/17 07/06/17 05:59 05:59 05:59 Intake Total 4663 826 Output Total 2850 0 Balance 1813 826 PT 13.6 SEC (12.0-15.0) 07/04/17 05:25 INR 1.02 (0.83-1.16) 07/04/17 05:25 Physical Exam - Physical Exam General Appearance: no apparent distress, thin, other (Sleeping, arouses) EENT: PERRL/EOMI, other (Nasal cannula in place) Neck: other Respiratory: lungs clear, decreased breath sounds (At bases), other (Does have diaphragmatic movement) Cardiac/Chest: bradycardia (Sinus) Abdomen: normal bowel sounds, non-tender, soft, other (Peg tube in place) Male Genitalia: other (Catheter in place, adequate urine output) Skin: warm/dry, pallor Extremities: pedal edema (Trace. Compression stockings in place) Neuro/Psych: cognition abnormalities (Somnolent), No no motor/sensory deficits ( C3 quad) ICD10 Worksheet Patient Problems: Problems Problem Status Onset Chronic complete quadriplegia Acute Thrombocytopenia Acute Quadriplegia Acute Hypoxia Acute Fever Acute Generalized weakness Acute MRSA (methicillin resistant Staphylococcus aureus) Acute ~11/08/16 MRSA (methicillin resistant Staphylococcus aureus) Acute ~09/02/16 chronic disease mgmt/transitional care Acute History of quadriplegia Acute Generalized tonic-clonic seizure Acute New onset seizure Acute Urinary tract infection Acute Constipation Acute Abdominal pain Acute Fecal impaction of colon Acute Anemia Acute Hyponatremia Acute Pneumonia Acute
[2017-07-05] MEDS ORDERED: ACETAMINOPHEN 650 MG/20.3 ML UDCUP TUBE PRN (14:24)
--- NOTE | 2017-07-05 15:47 | PDMN ---
Medical Necessity Medical necessity: Pt meets INPT criteria per MD as of 07/05/17 and MCG M-[id number] Pneumonia, Community Acquired (suspected pneumonia with SIRS/sepsis, hypotension , leukocytosis, fever, elevated procalcitonin; bacturia - pt with chronic SP catheter, acute on chronic hypoxic respiratory failure, C3 quadriplegia; requiring SDU monitoring, IVABx; est. LOS >2 MN).
[2017-07-05] MEDS: traZODone 50 MG TAB TUBE SCH (20:23)
[2017-07-05] MEDS: FERROUS SULFATE 300 MG/5 ML UD CUP TUBE SCH (20:23)
[2017-07-05] MEDS: BIOTENE DRY MOUTH ORAL RINSE 237 ML BTL MM PRN (21:19)
[2017-07-06] MEDS: ZOLPIDEM TARTRATE 5 MG TAB TUBE PRN ×2 (00:11→23:34)
[2017-07-06] MEDS: oxyCODONE IR 15 MG TAB TUBE SCH ×4 (05:19→22:29)
[2017-07-06] MEDS: GABAPENTIN 300 MG CAP TUBE SCH ×3 (05:20→22:29)
[2017-07-06] MEDS: clonazePAM 0.5 MG TAB TUBE SCH ×5 (06:24→20:20)
[2017-07-06] MEDS: oxyCODONE IR 5 MG TAB TUBE PRN ×3 (07:33→20:19)
[2017-07-06] MEDS: ENOXAPARIN 40 MG/0.4 ML SYR SC SCH (07:42)
[2017-07-06] MEDS: fentaNYL 25 MCG PATCH TD SCH (07:52)
[2017-07-06] MEDS ORDERED: ONDANSETRON DISINTEGRATING 4 MG TAB TUBE PRN (08:30)
[2017-07-06] MEDS: SERTRALINE HCL 100 MG TAB TUBE SCH (08:59)
[2017-07-06] MEDS: BACLOFEN 10 MG TAB TUBE SCH ×3 (08:59→20:20)
[2017-07-06] MEDS: POLYETHYLENE GLYCOL 3350 17 GM PKT TUBE SCH (08:59)
[2017-07-06] MEDS: FERROUS SULFATE 300 MG/5 ML UD CUP TUBE SCH ×2 (08:59→20:20)
[2017-07-06] MEDS: MIDODRINE HCL 5 MG TAB TUBE SCH ×2 (08:59→20:19)
[2017-07-06] MEDS: TOLTERODINE TARTRATE 1 MG TAB TUBE SCH (09:01)
[2017-07-06] MEDS: SENNOSIDES 17.6 MG/10 ML UDL TUBE SCH ×2 (09:13→20:20)
--- NOTE | 2017-07-06 13:56 | PDINTPN ---
Tools Developer Progress Note Assessment/Plan: Assessment: Sepsis: Associated with fever, hypotension, elevated procalcitonin. Pulmonary source likely. Sepsis physiology has resolved. History of quadriplegia, tracheostomy, peg tube, suprapubic catheter. Probable pneumonia, left base. On Levaquin. Chest x-ray looks worse today: atelectasis versus infiltrate? Clinically doing well but x-ray changes are worrisome. Will follow. Recent J-tube placement through G-tube. On tube feedings. Abd pain: LLQ. Unclear regarding the etiology of this chronic pain. Evaluation has been negative for his specific cause. Chronic pain syndrome with spasticity. On appropriate medications. DVT prophylaxis: On enoxaparin Plan: Continue care. Follow x-ray, laboratory. If x-ray continues to worsen he will require a bronchoscopy for airway assessment and removal of secretions if present. Continue antibiotics and pain management. Feedings and water flushes via J-tube. 30 min of critical care time spent directly with the patient. Discussed with hospitalist, nursing, respiratory, and the ICU multi disciplinary team. Subjective: Complains of ongoing left lower quadrant pain, present for months. Denies shortness of breath. No cough, no mucus Objective: Vital Signs Temp Pulse Resp BP Pulse Ox 36.8 C 61 17 114/77 96 07/06/17 08:00 07/06/17 08:00 07/06/17 08:00 07/06/17 08:00 07/06/17 08:00 Laboratory Results 07/06/17 05:30 07/05/17 05:10 07/05/17 07/06/17 07/07/17 05:59 05:59 05:59 Intake Total 4663 2895 Output Total 2850 3200 Balance 1813 -305 PT 13.6 SEC (12.0-15.0) 07/04/17 05:25 INR 1.02 (0.83-1.16) 07/04/17 05:25 CXR: Increased atelectasis/infiltrates at the bases, left more so than right. Physical Exam - Physical Exam General Appearance: thin, other (Somnolent, arousable, responsive) EENT: PERRL/EOMI, other (Nasal cannula in place at 2 L) Neck: other (Tracheostomy in placed, capped) Respiratory: lungs clear (Anteriorly), decreased breath sounds (At bases), No rales, No rhonchi, No wheezing Cardiac/Chest: regular rate, rhythm Abdomen: other (Peg/J tube in place. Suprapubic catheter in place. Some tenderness in the lower abdomen, left greater than right. No masses appreciated.), No normal bowel sounds (Decreased, present), No non-tender, No soft Male Genitalia: other (Suprapubic catheter, good urine output) Skin: warm/dry, pallor Extremities: pedal edema Neuro/Psych: No no motor/sensory deficits, No cognition abnormalities ( Quadriplegia) ICD10 Worksheet Patient Problems: Problems Problem Status Onset Chronic complete quadriplegia Acute Thrombocytopenia Acute Quadriplegia Acute Hypoxia Acute Fever Acute Generalized weakness Acute MRSA (methicillin resistant Staphylococcus aureus) Acute ~11/08/16 MRSA (methicillin resistant Staphylococcus aureus) Acute ~09/02/16 chronic disease mgmt/transitional care Acute History of quadriplegia Acute Generalized tonic-clonic seizure Acute New onset seizure Acute Urinary tract infection Acute Constipation Acute Abdominal pain Acute Fecal impaction of colon Acute Anemia Acute Hyponatremia Acute Pneumonia Acute
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
[2017-07-06] MEDS: HYDROmorphONE/DILAUDID 1 MG/ML INJ IVP PRN (18:59)
--- NOTE | 2017-07-06 20:18 | GCON ---
[f rep st] CONSULTATION INFECTIOUS DISEASES CONSULTATION DATE OF CONSULTATION: 07/06/2017 REFERRING PHYSICIAN: Cele Godwin MD REASON FOR CONSULTATION: Polymicrobial urine culture. HISTORY OF PRESENT ILLNESS: The patient is a 62-year-old male with a past medical history of C3 quad riplegia, who I am asked to see in consultation for a urine culture showing multiple bacterial specie s. The patient has a suprapubic catheter chronically in place which was changed approximately 2 week s ago and typically is changed every month. The patient recently had an endoscopic procedure related to his J tube done at [facility] last Tuesday. He is unclear if he received sedation fo r his procedure. After his procedure, the patient developed fever, hypoxia and increased sputum prod uction. He also had a diffuse increase in body pain. [facility] was noted to be requiring 6 liters to maintain his oxygen saturations greater than 90%. Temperature was also noted to be elevated at 38.1. Laboratory assessment revealed a white blood cell count of 10.2 with left shift. Chest x-ray was obtained showing a left basilar opacity. Blood cult ures were obtained as well as sputum and urine cultures. Blood cultures have remained "no growth" wi th urine culture showing growth of Pseudomonas Oryzihabitans, yeast species, and Enterococcus faecali s, all of which are greater than 100,000 colony-forming units. The patient's sputum has shown a Kleb siella species and a gram-negative amina, which is a non lactose fermenting organism, which is oxidase negative. The patient has had previous cultures with Stenotrophomonas. The patient has been receivi ng empiric levofloxacin since time of admission with clinical improvement. X-ray has shown progressi ve left lower lobe infiltrate and/or atelectasis. Given the above findings, I am now asked to assist in his ongoing management. 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 PAST SURGICAL HISTORY: Tracheostomy, debridement of sacral ulcer and abscess, suprapubic catheter pl acement, PEG tube. CURRENT MEDICATIONS: Levofloxacin 750 mg IV daily, baclofen 10 mg per tube b.i.d., albuterol nebs, K lonopin 0.25 mg by tube q.i.d., Lovenox 40 mg subcu daily, fentanyl patch 25 mcg applied q.48 hours, ferrous sulfate 300 mg per tube b.i.d., Neurontin 600 mg per tube t.i.d., midodrine 10 mg per tube b. i.d., OxyIR 30 mg per tube q.i.d., senna 17.6 mg per tube b.i.d., Zoloft 100 mg per tube daily, Zanaf mario 4 mg per tube b.i.d., Detrol 4 mg per tube daily, trazodone 50 mg per tube q.h.s. ALLERGIES: Penicillin associated with hives. SOCIAL HISTORY: Patient does not smoke or drink alcohol. REVIEW OF SYSTEMS: Outside that noted in the HPI, remainder of 10 system review is unremarkable. FAMILY HISTORY: Noncontributory. PHYSICAL EXAMINATION: VITAL SIGNS: Temperature 37.0, heart rate 66, respiratory rate 20, blood pres sure 141/77, oxygen saturation 93% on 2 liters. GENERAL: Patient is chronically ill-appearing, in n o acute distress. He appears nontoxic. HEENT: There is no scleral icterus, conjunctival injection, or conjunctival petechiae. Oropharynx shows dry mucous membranes with no thrush. There is no nasal discharge or sinus tenderness. NECK: No cervical or supraclavicular adenopathy. Tracheostomy is i n place. CHEST: Coarse breath sounds bilaterally. The respiratory effort is normal. CARDIOVASCULA R: Regular rate and rhythm without murmurs, gallops, or rubs. ABDOMEN: Soft, nontender, nondistend ed. Feeding tube site without erythema or drainage; suprapubic site without erythema or drainage. M USCULOSKELETAL: Contractures bilaterally. SKIN: No stigmata of endocarditis. The skin is warm and dry to touch. NEUROLOGIC: Patient is paraplegic. The patient is oriented appropriately. LABORATORY DATA: White blood cell count 3.3, hematocrit 22.5, platelets 100. Serum creatinine is 0. 3, bicarbonate 33. Blood cultures x2 sets: No growth. Sputum with polymicrobial Gram stain and whi te blood cells with growth of Klebsiella variicola, and a second non lactose fermenting gram-negative amina which is oxidase negative. Urine culture with polymicrobial carolina as outlined in HPI. Chest x-ray showing left lower lobe infiltrate. IMPRESSION: 1. Left lower lobe pneumonia: Clinical presentation most compatible with left lower lobe pneumonia. May have aspiration after recent procedure. Non lactose fermenting gram-negative aimna may represent Stenotrophomonas. Previous isolates have been levofloxacin susceptible. 2. Polymicrobial urine culture with chronic suprapubic catheter: Suspect this represents chronic co lonization and is not contributing to current presentation. RECOMMENDATIONS: 1. Agree with levofloxacin 750 mg IV daily with anticipated 5 day course of therapy. 2. Agree with plans for bronchoscopy to assess for mucus plugging if has progressive worsening of in filtrate. 3. No antibiotic therapy targeting urine organisms necessary at this point in time given these likel y represent colonization. 4. Follow up sputum culture and susceptibility findings as available. Thank you for this consultation. We will continue to follow the patient with you. /[id number]/MODL
[2017-07-06] MEDS: traZODone 50 MG TAB TUBE SCH (20:19)
[2017-07-06] MEDS: BIOTENE DRY MOUTH ORAL RINSE 237 ML BTL MM PRN (22:40)
[2017-07-07] MEDS: HYDROmorphONE/DILAUDID 1 MG/ML INJ IVP PRN ×2 (00:50→18:32)
[2017-07-07] MEDS: oxyCODONE IR 5 MG TAB TUBE PRN ×2 (02:28→19:35)
[2017-07-07] MEDS ORDERED: [UNRECOGNIZED DRUG - OTHER] TP PRN (04:43)
[2017-07-07] MEDS: clonazePAM 0.5 MG TAB TUBE SCH ×4 (05:32→20:54)
[2017-07-07] MEDS: GABAPENTIN 300 MG CAP TUBE SCH ×3 (05:32→20:55)
[2017-07-07] MEDS: oxyCODONE IR 15 MG TAB TUBE SCH ×4 (05:32→23:33)
[2017-07-07] MEDS: BACLOFEN 10 MG TAB TUBE SCH ×3 (09:30→20:54)
[2017-07-07] MEDS: FERROUS SULFATE 300 MG/5 ML UD CUP TUBE SCH ×2 (09:30→20:55)
[2017-07-07] MEDS: ENOXAPARIN 40 MG/0.4 ML SYR SC SCH (09:30)
[2017-07-07] MEDS: SERTRALINE HCL 100 MG TAB TUBE SCH (09:30)
[2017-07-07] MEDS: MIDODRINE HCL 5 MG TAB TUBE SCH ×2 (09:31→20:55)
[2017-07-07] MEDS: SENNOSIDES 17.6 MG/10 ML UDL TUBE SCH ×2 (09:31→20:46)
[2017-07-07] MEDS: POLYETHYLENE GLYCOL 3350 17 GM PKT TUBE SCH (09:31)
[2017-07-07] MEDS: TOLTERODINE TARTRATE 1 MG TAB TUBE SCH (09:31)
--- NOTE | 2017-07-07 14:16 | PCMIDPN ---
Assessment/Plan: Assessment: Left lower lobe pneumonia. Presented with fever and shortness of breath. Now mostly recovered back to baseline. Patient wants to go home. Will continue the Levaquin directed to the stenotrophomonas found in his sputum. The sensitivities from this sample do confirm that the isolate is fluoroquinolone susceptible. 2nd isolate waiting to be characterized. Plan: 1. Continue Levaquin 750 mg daily. Plan a 7 day total course. 2. Observe clinically for another day. If he maintains his improvement can discharge back to [facility]. Subjective: Patient is resting in his hospital bed. Known to our service from prior visits. Has a spinal cord injury. Feels better and back to baseline. Wants to go home. Denies shortness of breath. Objective: Levaquin # 3 Vital Signs Temp Pulse Resp BP Pulse Ox 37.1 C 55 L 16 89/57 L 98 07/07/17 08:00 07/07/17 08:00 07/07/17 08:00 07/07/17 08:00 07/07/17 08:00 Laboratory Results 07/06/17 05:30 07/05/17 05:10 07/06/17 07/07/17 07/08/17 05:59 05:59 05:59 Intake Total 2895 2495 Output Total 3200 1400 Balance -305 1095 - Physical Exam General Appearance: WD/WN, alert, no apparent distress, non-toxic Respiratory: No lungs clear, No normal breath sounds (Decreased breath sounds left lower lobe), No crackles, No wheezing Cardiac/Chest: regular rate, rhythm, No tachycardia Extremities: normal inspection Skin: normal color, warm/dry, No rash Neuro/Psych: alert, normal mood/affect, oriented x 3 ICD10 Worksheet Patient Problems: Problems Problem Status Onset Fever Acute Generalized weakness Acute Hypoxia Acute Pneumonia Acute Abdominal pain Acute Anemia Acute Chronic complete quadriplegia Acute Constipation Acute Fecal impaction of colon Acute Generalized tonic-clonic seizure Acute History of quadriplegia Acute Hyponatremia Acute MRSA (methicillin resistant Staphylococcus aureus) Acute ~09/02/16 MRSA (methicillin resistant Staphylococcus aureus) Acute ~11/08/16 New onset seizure Acute Quadriplegia Acute Thrombocytopenia Acute Urinary tract infection Acute chronic disease mgmt/transitional care Acute
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
[2017-07-07] MEDS: BENZOCAINE (ORAJEL) GEL 11.9GM TUBE TP PRN (20:56)
[2017-07-07] MEDS: traZODone 50 MG TAB TUBE SCH (23:33)
[2017-07-08] MEDS: ZOLPIDEM TARTRATE 5 MG TAB TUBE PRN (00:17)
[2017-07-08] MEDS: HYDROmorphONE/DILAUDID 1 MG/ML INJ IVP PRN ×3 (03:58→15:08)
[2017-07-08] MEDS: GABAPENTIN 300 MG CAP TUBE SCH (05:07)
[2017-07-08] MEDS: oxyCODONE IR 15 MG TAB TUBE SCH ×2 (05:07→12:20)
[2017-07-08] MEDS: clonazePAM 0.5 MG TAB TUBE SCH ×2 (05:08→12:20)
[2017-07-08 07:40] VITALS: BP 93/51
[2017-07-08] MEDS: fentaNYL 25 MCG PATCH TD SCH (08:36)
[2017-07-08] MEDS: FERROUS SULFATE 300 MG/5 ML UD CUP TUBE SCH (08:36)
[2017-07-08] MEDS: BACLOFEN 10 MG TAB TUBE SCH ×2 (08:36→12:20)
[2017-07-08] MEDS: ENOXAPARIN 40 MG/0.4 ML SYR SC SCH (08:36)
[2017-07-08] MEDS: POLYETHYLENE GLYCOL 3350 17 GM PKT TUBE SCH (08:37)
[2017-07-08] MEDS: SERTRALINE HCL 100 MG TAB TUBE SCH (08:37)
[2017-07-08] MEDS: SENNOSIDES 17.6 MG/10 ML UDL TUBE SCH (08:37)
[2017-07-08] MEDS: MIDODRINE HCL 5 MG TAB TUBE SCH (08:37)
[2017-07-08] MEDS: BENZOCAINE (ORAJEL) GEL 11.9GM TUBE TP PRN (08:38)
[2017-07-08] MEDS: TOLTERODINE TARTRATE 1 MG TAB TUBE SCH (08:38)
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
--- NOTE | 2017-07-08 11:19 | PDIAF ---
- Diagnosis Diagnosis: aspiration pneumonia Code Status: Full Code - Medication Management Discharge Medications: Medications to Continue on Transfer Baclofen [Baclofen 10 mg (*)] 10 mg TUBE BID 07/04/17 [Last Taken Unknown] Baclofen [Baclofen 10 mg (*)] 10 mg TUBE DAILY@1100 07/04/17 [Last Taken Unknown ] Biotene Moisturizing [place] 1 spray PO Q1H PRN 07/04/17 [Last Taken Unknown] Ferrous Sulfate [Ferrous Sulf 325 MG (*)] 325 mg TUBE BID 07/04/17 [Last Taken Unknown] Gabapentin [Neurontin 300 MG (*)] 600 mg TUBE 05,,07/04/17 [Last Taken Unknown] Magnesium Citrate [Magnesium Citrate 300 ml (*)] 150 ml TUBE DAILY PRN 07/04/17 [Last Taken Unknown] Magnesium Hydroxide [Milk of Magnesia] 30 ml TUBE BID PRN 07/04/17 [Last Taken Unknown] Midodrine HCl 10 mg TUBE BID 07/04/17 [Last Taken Unknown] Ondansetron [Ondansetron Odt] 8 mg TUBE Q8 PRN 07/04/17 [Last Taken Unknown] Polyethylene Glycol 3350 [Miralax 17 gm (*)] 17 gm TUBE DAILY 07/04/17 [Last Taken Unknown] Polyethylene Glycol 3350 [Miralax 17 gm (*)] 17 gm TUBE DAILY PRN 07/04/17 [ Last Taken Unknown] Sennosides [Senna Lax] 8.6 mg TUBE BID 07/04/17 [Last Taken Unknown] Sertraline HCl [Zoloft 100mg (*)] 100 mg TUBE DAILY 07/04/17 [Last Taken Unknown ] Tizanidine HCl 4 mg TUBE BID 07/04/17 [Last Taken Unknown] Tolterodine Tartrate [Detrol] 4 mg TUBE DAILY 07/04/17 [Last Taken Unknown] Zolpidem Tartrate [Zolpidem Tartrate ER] 12.5 mg TUBE HS 07/04/17 [Last Taken Unknown] clonazePAM [Klonopin (*)] 0.25 mg TUBE QID 07/04/17 [Last Taken Unknown] fentaNYL [Duragesic 25 MCG Patch (*)] 25 mcg TD Q2D 07/04/17 [Last Taken Unknown ] oxyCODONE IR [Oxycodone Ir (*)] 10 - 20 mg TUBE Q6 PRN 07/04/17 [Last Taken Unknown] oxyCODONE IR [Oxycodone Ir (*)] 30 mg TUBE QID 07/04/17 [Last Taken Unknown] traZODone [traZODONE 50MG (*)] 50 mg TUBE HS 07/04/17 [Last Taken Unknown] levOFLOXACIN [Levofloxacin] 750 mg PO DAILY #2 ml 07/08/17 [Last Taken Unknown] Alf Antibiotics: [id number] mg po liv;y through 07/10 Discharge Medications: Refer to the Discharge Home Medication list for PRN reason. - Orders Services needed: Home Care, Registered Nurse, Certified Auger Operator, Physical Therapy, Occupational Therapy, Speech Language Pathologist Home Care Face to Face: I certify that this patient was under my care and that I had the required [id number] encounter meeting the encounter requirements on the discharge day. My findings support the fact that the patient is homebound as defined in Home Care Face to Face Continued: CMS Chapter 7 Medicare Benefits Manual 30.1.1 , The condition of the patient is such that there exists a normal inability to leave home and consequently, leaving home would require a considerable and taxing effort. Isolation Type: Contact Isolation - Follow Up Care Current Providers and Referrals: KYLIE ALDANA [Primary Care Provider] - As per Instructions
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
--- NOTE | 2017-07-08 12:06 | SOAPPROG ---
SOAP Progress Note Assessment/Plan: Assessment: Sepsis: Associated with fever, hypotension, elevated procalcitonin. Pulmonary source likely. Sepsis physiology has resolved. History of quadriplegia, tracheostomy, peg tube, suprapubic catheter. Probable pneumonia, left base. On Levaquin for a total of a 7 day course as recommended by Infectious Disease. Chest yesterday with bibasilar atelectasis versus infiltrate? Clinically stable. Recent J-tube placement through G-tube. On tube feedings. Abd pain: LLQ. Unclear regarding the etiology of this chronic pain. Evaluation has been negative for his specific cause. Chronic pain syndrome with spasticity. On appropriate medications. DVT prophylaxis: On enoxaparin Plan: Can return to his assisted care living situation today at [facility]. He will complete a 7 day course of Levaquin. Bronchopulmonary therapies can be continued as needed post discharge. 30 min of critical care time spent directly with the patient. Discussed with hospitalist, nursing, respiratory, and the ICU multi disciplinary team. Subjective: Loose stools overnight. Feels his breathing is at baseline. Some persistent left lower quadrant pain, chronic Objective: Vital Signs Temp Pulse Resp BP Pulse Ox 36.5 C 50 L 16 93/51 L 99 07/08/17 07:39 07/08/17 07:39 07/08/17 00:00 07/08/17 07:39 07/08/17 07:39 Laboratory Results 07/06/17 05:30 07/05/17 05:10 07/07/17 07/08/17 07/09/17 05:59 05:59 05:59 Intake Total 2495 2180 Output Total 1400 2150 Balance 1095 30 PT 13.6 SEC (12.0-15.0) 07/04/17 05:25 INR 1.02 (0.83-1.16) 07/04/17 05:25 Physical Exam - Physical Exam General Appearance: no apparent distress, other (Sleeping, arousable, responsive ) EENT: PERRL/EOMI, other (Nasal cannula at 2) Neck: other (Tracheostomy tube in place, clamped) Respiratory: lungs clear (Anteriorly), decreased breath sounds (At bases. Moves little air.), No rhonchi Cardiac/Chest: bradycardia (Sinus) Abdomen: normal bowel sounds (Present, somewhat decreased), soft, No non-tender (Mild tenderness left lower quadrant) Male Genitalia: other (Suprapubic catheter in place) Skin: warm/dry, pallor Extremities: pedal edema (Trace) Neuro/Psych: No no motor/sensory deficits (Chronic paraplegia), No cognition abnormalities ICD10 Worksheet Patient Problems: Problems Problem Status Onset Chronic complete quadriplegia Acute Thrombocytopenia Acute Quadriplegia Acute Hypoxia Acute Fever Acute Generalized weakness Acute MRSA (methicillin resistant Staphylococcus aureus) Acute ~11/08/16 MRSA (methicillin resistant Staphylococcus aureus) Acute ~09/02/16 chronic disease mgmt/transitional care Acute History of quadriplegia Acute Generalized tonic-clonic seizure Acute New onset seizure Acute Urinary tract infection Acute Constipation Acute Abdominal pain Acute Fecal impaction of colon Acute Anemia Acute Hyponatremia Acute Pneumonia Acute
[2017-07-08] MEDS: oxyCODONE IR 5 MG TAB TUBE PRN (15:12)
== END 2017-07-08 15:15 | DRG 177 ==
LOC: OBSVTOIN 05:36 → F2N 06:44
PROVIDERS: ADMIT Student in an Organized Health Care Education/Training Program; ATTEND Student in an Organized Health Care Education/Training Program
DX: J69.0 Pneumonitis due to inhalation of food and vomit (principal); G82.52 Quadriplegia, C1-C4 incomplete; L89.154 Pressure ulcer of sacral region, stage 4; E86.9 Volume depletion, unspecified; D64.9 Anemia, unspecified; D69.6 Thrombocytopenia, unspecified; G89.29 Other chronic pain; Z93.0 Tracheostomy status; Z93.4 Other artificial openings of gastrointestinal tract status
CPT/HCPCS: 82607-90; G0378; J1170; J1650; J1956; J2405

== ENCOUNTER 2017-10-22 17:11 | Emergency (ER) | payer OTHER ==
--- NOTE | 2017-10-22 18:33 | EDPHY ---
H & P Time Seen by Provider: 10/22/17 17:54 HPI/ROS: CHIEF COMPLAINT: Intermittent chills and feeling sick for the last week HISTORY OF PRESENT ILLNESS: Patient has quadriplegia, history of pneumonia, history of previous UTI and decubitus ulcer. Has been having intermittent chills and fever up to 100 degrees F over the past week. This is associated with myalgias and worsening leg pain intermittently feeling shaky. He had an x- ray done earlier this week that showed possible pneumonia per family report. He does not take food or water orally, has a feeding tube. Does not have a cough, does not feel short of breath. Blood pressure 98/73, temperature 37.3 degrees. REVIEW OF SYSTEMS: Eye: no change in vision ENT: no sore throat Cardiac: no chest pain or syncope Pulmonary: no cough or SOB Abdomen: Chronic"stomach ache"which is unchanged, no vomiting or diarrhea. Musculoskeletal: Increasing bilateral sharp leg pain. Skin: no rash Neuro: no headache Constitutional: HPI : No change in color or appearance or odor of the urine. A comprehensive 10 point review of systems is otherwise negative aside from elements mentioned in the history of present illness. PAST MEDICAL HISTORY: C3-4 quadriplegia in 2014, tracheotomy, baclofen pump, peg tube and suprapubic. Appendectomy. Social history: Here with his spouse General Appearance: Alert and conversant, cooperative. Eyes: No scleral icterus. ENT, Mouth: No pharyngeal erythema or exudate, no trismus. Respiratory: Decreased breath sounds bilaterally, no wheezing or rhonchi heard anteriorly. Cardiovascular: Regular rate and rhythm. Gastrointestinal: Abdomen is soft and non tender. Both PEG tube and a suprapubic insertion site looks clean dry and intact. Neurological: Alert and able to answer questions. Has quadriplegia. Skin: Warm and dry, no rashes. His saw his sacral area which did not have decubitus ulcer or redness 2 days ago, they both do not want him to get out of the chair for me to examine his sacrum. Musculoskeletal: No peripheral edema. Psychiatric: Not agitated. ED course/MDM: Urinalysis, chest x-ray, labs. 2022: Results discussed, no pneumonia on chest x-ray, normal white blood cell count, urinalysis shows 5-10 WBC but is known to be colonized. Afebrile, not hypotensive. Patient and would like me to consult with the hospitalist service regarding treatment plan. 2027: Discussed with [place], agrees with not treating urine with antibiotics, discharge, follow symptoms. Family and patient are agreeable with this plan. 96% saturation on discharge on NC, baseline. Smoking Status: Never smoked Constitutional: Initial Vital Signs Temperature (C) 37.3 C 10/22/17 17:15 Heart Rate 60 10/22/17 17:15 Respiratory Rate 18 10/22/17 17:15 Blood Pressure 98/73 L 10/22/17 17:15 O2 Sat (%) 88 L 10/22/17 17:15 O2 Delivery Mode Nasal Cannula O2 (L/minute) 2 Allergies/Adverse Reactions: corn syrup Allergy (Severe, Verified 10/22/17 17:14) Unknown Milk Containing Products [dairy] Allergy (Severe, Verified 10/22/17 17:14) Swelling/neck,face,throat Penicillins Allergy (Severe, Verified 10/22/17 17:14) Other-Enter Comments soy Allergy (Severe, Verified 10/22/17 17:14) Swelling/neck,face,throat nitrofurantoin [From Macrobid] Allergy (Verified 10/22/17 17:14) Other-Enter Comments shellfish derived Allergy (Verified 10/22/17 17:14) tree nut [Nuts] Allergy (Verified 10/22/17 17:14) wheat Allergy (Severe, Uncoded 07/04/17 05:01) [place] Home Medications: Medication Instructions Recorded Baclofen [Baclofen 10 mg (*)] 10 mg TUBE BID 07/04/17 Baclofen [Baclofen 10 mg (*)] 10 mg TUBE DAILY@1100 07/04/17 Biotene Moisturizing [place] 1 spray PO Q1H PRN 07/04/17 Ferrous Sulfate [Ferrous Sulf 325 325 mg TUBE BID 07/04/17 MG (*)] Gabapentin [Neurontin 300 MG (*)] 600 mg TUBE ,,07/04/17 Magnesium Citrate [Magnesium 150 ml TUBE DAILY PRN 07/04/17 Citrate 300 ml (*)] Magnesium Hydroxide [Milk of 30 ml TUBE BID PRN 07/04/17 Magnesia] Midodrine HCl 10 mg TUBE BID 07/04/17 Ondansetron [Ondansetron Odt] 8 mg TUBE Q8 PRN 07/04/17 Polyethylene Glycol 3350 [Miralax 17 gm TUBE DAILY 07/04/17 17 gm (*)] Polyethylene Glycol 3350 [Miralax 17 gm TUBE DAILY PRN 07/04/17 17 gm (*)] Sennosides [Senna Lax] 8.6 mg TUBE BID 07/04/17 Sertraline HCl [Zoloft 100mg (*)] 100 mg TUBE DAILY 07/04/17 Tizanidine HCl 4 mg TUBE BID 07/04/17 Tolterodine Tartrate [Detrol] 4 mg TUBE DAILY 07/04/17 Zolpidem Tartrate [Zolpidem 12.5 mg TUBE HS 07/04/17 Tartrate ER] clonazePAM [Klonopin (*)] 0.25 mg TUBE QID 07/04/17 fentaNYL [Duragesic 25 MCG Patch 25 mcg TD Q2D 07/04/17 (*)] oxyCODONE IR [Oxycodone Ir (*)] 10 - 20 mg TUBE Q6 PRN 07/04/17 oxyCODONE IR [Oxycodone Ir (*)] 30 mg TUBE QID 07/04/17 traZODone [traZODONE 50MG (*)] 50 mg TUBE HS 07/04/17 levOFLOXACIN [Levofloxacin] 750 mg PO DAILY #2 ml 07/08/17 Medical Decision Making - Diagnostics Imaging Results: Imaging Impressions Chest X-Ray 10/22/17 18:18 Impression: Chronic elevation of the posterior left hemidiaphragm, with some compressive subsegmental atelectasis. Imaging: Discussed imaging studies w/ house calls nurse Radiologist Differential Diagnosis: Differential considered including but not limited to viral syndrome, temperature instability, pneumonia, UTI, skin infection - Data Points Laboratory Results: Laboratory Results 10/22/17 19:05 10/22/17 19:05 10/22/17 10/22/17 10/22/17 19:15 19:05 19:05 WBC RBC Hgb Hct MCV MCH MCHC RDW Plt Count MPV Neut % (Auto) Lymph % (Auto) [place] % (Auto) Eos % (Auto) Baso % (Auto) Nucleat RBC Rel Count Absolute Neuts (auto) Absolute Lymphs (auto) Absolute Monos (auto) Absolute Eos (auto) Absolute Basos (auto) Absolute Nucleated RBC Immature Gran % Immature Gran # PT 13.7 SEC SEC (12.0-15.0) INR 1.03 (0.83-1.16) APTT 31.4 SEC SEC (23.0-38.0) VBG Lactic Acid Sodium 134 mEq/L L mEq/L (135-145) Potassium 4.2 mEq/L mEq/L (3.3-5.0) Chloride 91 mEq/L L mEq/L (97-110) Carbon Dioxide 33 mEq/l H mEq/l (22-31) Anion Gap 10 mEq/L mEq/L (8-16) BUN 13 mg/dL mg/dL (7-23) Creatinine 0.3 mg/dL L mg/dL (0.7-1.3) Estimated GFR > 60 Glucose 99 mg/dL mg/dL (70-100) Calcium 8.7 mg/dL mg/dL (8.5-10.4) Total Bilirubin 0.4 mg/dL mg/dL (0.1-1.4) Urine Color YELLOW Urine Appearance MODERATELY TURBID Urine pH 6.0 (5.0-7.5) Ur Specific [place] 1.014 (1.002-1.030) Urine Protein NEGATIVE (NEGATIVE) Urine Ketones NEGATIVE (NEGATIVE) Urine Blood 2+ H (NEGATIVE) Urine Nitrate NEGATIVE (NEGATIVE) Urine Bilirubin NEGATIVE (NEGATIVE) Urine Urobilinogen NEGATIVE EU EU (0.2-1.0) Ur Leukocyte Esterase 2+ H (NEGATIVE) Urine RBC 1-3 /hpf /hpf (0-3) Urine WBC 5-10 /hpf H /hpf (0-3) Ur Epithelial Cells NONE SEEN /lpf /lpf (NONE-1+) Urine Bacteria 1+ /hpf H /hpf (NONE SEEN) Urine Mucus TRACE /lpf /lpf (NONE-1+) Urine Glucose NEGATIVE (NEGATIVE) 10/22/17 10/22/17 19:05 19:05 WBC 7.33 10^3/uL 10^3/uL (3.80-9.50) RBC 3.20 10^6/uL L 10^6/uL (4.40-6.38) Hgb 9.8 g/dL L g/dL (13.7-17.5) Hct 29.5 % L % (40.0-51.0) MCV 92.2 fL fL (81.5-99.8) MCH 30.6 pg pg (27.9-34.1) MCHC 33.2 g/dL g/dL (32.4-36.7) RDW 12.3 % % (11.5-15.2) Plt Count 174 10^3/uL 10^3/uL (150-400) MPV 10.5 fL fL (8.7-11.7) Neut % (Auto) 79.2 % H % (39.3-74.2) Lymph % (Auto) 13.4 % L % (15.0-45.0) [place] % (Auto) 5.9 % % (4.5-13.0) Eos % (Auto) 1.1 % % (0.6-7.6) Baso % (Auto) 0.1 % L % (0.3-1.7) Nucleat RBC Rel Count 0.0 % % (0.0-0.2) Absolute Neuts (auto) 5.81 10^3/uL 10^3/uL (1.70-6.50) Absolute Lymphs (auto) 0.98 10^3/uL L 10^3/uL (1.00-3.00) Absolute Monos (auto) 0.43 10^3/uL 10^3/uL (0.30-0.80) Absolute Eos (auto) 0.08 10^3/uL 10^3/uL (0.03-0.40) Absolute Basos (auto) 0.01 10^3/uL L 10^3/uL (0.02-0.10) Absolute Nucleated RBC 0.00 10^3/uL 10^3/uL (0-0.01) Immature Gran % 0.3 % % (0.0-1.1) Immature Gran # 0.02 10^3/uL 10^3/uL (0.00-0.10) PT INR APTT VBG Lactic Acid 0.6 mmol/L L mmol/L (0.7-2.1) Sodium Potassium Chloride Carbon Dioxide Anion Gap BUN Creatinine Estimated GFR Glucose Calcium Total Bilirubin Urine Color Urine Appearance Urine pH Ur Specific [place] Urine Protein Urine Ketones Urine Blood Urine Nitrate Urine Bilirubin Urine Urobilinogen Ur Leukocyte Esterase Urine RBC Urine WBC Ur Epithelial Cells Urine Bacteria Urine Mucus Urine Glucose Departure - Departure Disposition: Home, Routine, Self-Care Clinical Impression: History of fever Condition: Good Instructions: Fever in Adults (ED) Referrals: NONE *PRIMARY CARE P,. [Primary Care Provider] - As per Instructions ([facility], your PCP practice.)
[2017-10-22 19:32] LABS: INR 1.03 (0.83-1.16); PROTIME(PATIENT) 13.7 SEC (12.0-15.0)
[2017-10-22 19:37] LABS: PLATELET COUNT 174 10^3/uL (150-400)
[2017-10-22 21:02] VITALS: BP 133/88
== END 2017-10-22 21:02 | disposition home or self-care (01) ==
DX: R50.9 Fever, unspecified (principal); G82.52 Quadriplegia, C1-C4 incomplete; Z93.0 Tracheostomy status; Z93.1 Gastrostomy status; Z93.4 Other artificial openings of gastrointestinal tract status

== ENCOUNTER 2017-11-18 10:41 | Inpatient (IN) | payer OTHER ==
--- NOTE | 2017-11-18 11:01 | EDPHY ---
H & P Stated Complaint: 2-3 days of need for more o2/increasing pain/bloody sputum Time Seen by Provider: 11/18/17 10:57 HPI/ROS: CHIEF COMPLAINT: Low-grade fever, increasing oxygen requirement and frequent suctioning HISTORY OF PRESENT ILLNESS: The patient is brought to the emergency department by his caregiver with increasing low-grade fever over the past 2 days, increasing oxygen requirement and requiring frequent suctioning of his trach. Patient is also been complaining of diffuse body pain which is fairly typical for an infection. The patient has had no cloudy urine. The patient was last hospitalized in June with an aspiration pneumonia. He has not been on recent antibiotics. The patient has no decubitius ulcers per caregivers report. REVIEW OF SYSTEMS: A comprehensive 10 point review of systems is otherwise negative aside from elements mentioned in the history of present illness. Source: Patient - Medical/Surgical History Hx Asthma: No Hx Chronic Respiratory Disease: No Hx Diabetes: No Hx Cardiac Disease: No Hx Renal Disease: No Hx Cirrhosis: No Hx Alcoholism: No Hx HIV/AIDS: No Hx Splenectomy or Spleen Trauma: No Other PMH: Quadriplegia C3-C4 2013, trach, pNA, Pericardial effusion, multple decubitus ulcer bottom and back, UTI's, Baclofen pump, Peg tube, Tracheostomy ( capped), APPY JANUARY 2017 - Social History Smoking Status: Never smoked - Physical Exam Exam: General Appearance: Alert, no distress Eyes: Pupils equal and round no pallor or injection ENT, Mouth: Mucous membranes moist Respiratory: There are no retractions, lungs are clear to auscultation Cardiovascular: Regular rate and rhythm Gastrointestinal: Abdomen is soft and nontender, no masses, bowel sounds normal Neurological: Motor weakness consistent with known quadriplegia Skin: Warm and dry, no rashes Musculoskeletal: Neck is supple nontender Extremities: symmetrical, full range of motion Psychiatric: Patient is oriented X 3, there is no agitation Constitutional: Initial Vital Signs Temperature (C) 36.6 C 11/18/17 10:49 Heart Rate 62 11/18/17 10:49 Respiratory Rate 14 11/18/17 10:49 Blood Pressure 71/45 L 11/18/17 10:49 O2 Sat (%) 93 11/18/17 10:49 O2 Delivery Mode Nasal Cannula O2 (L/minute) 2.5 Allergies/Adverse Reactions: corn syrup Allergy (Severe, Verified 11/18/17 10:54) Unknown Milk Containing Products [dairy] Allergy (Severe, Verified 11/18/17 10:54) Swelling/neck,face,throat Penicillins Allergy (Severe, Verified 11/18/17 10:54) Other-Enter Comments soy Allergy (Severe, Verified 11/18/17 10:54) Swelling/neck,face,throat nitrofurantoin [From Macrobid] Allergy (Verified 11/18/17 10:54) Other-Enter Comments shellfish derived Allergy (Verified 11/18/17 10:54) tree nut [Nuts] Allergy (Verified 11/18/17 10:54) wheat Allergy (Severe, Uncoded 07/04/17 05:01) [place] Home Medications: Medication Instructions Recorded Baclofen [Baclofen 10 mg (*)] 10 mg TUBE BID 07/04/17 Baclofen [Baclofen 10 mg (*)] 10 mg TUBE DAILY@1100 07/04/17 Biotene Moisturizing [place] 1 spray PO Q1H PRN 07/04/17 Ferrous Sulfate [Ferrous Sulf 325 325 mg TUBE BID 07/04/17 MG (*)] Gabapentin [Neurontin 300 MG (*)] 600 mg TUBE 05,17,22 07/04/17 Magnesium Citrate [Magnesium 150 ml TUBE DAILY PRN 07/04/17 Citrate 300 ml (*)] Magnesium Hydroxide [Milk of 30 ml TUBE BID PRN 07/04/17 Magnesia] Midodrine HCl 10 mg TUBE BID 07/04/17 Ondansetron [Ondansetron Odt] 8 mg TUBE Q8 PRN 07/04/17 Polyethylene Glycol 3350 [Miralax 17 gm TUBE DAILY 07/04/17 17 gm (*)] Polyethylene Glycol 3350 [Miralax 17 gm TUBE DAILY PRN 07/04/17 17 gm (*)] Sennosides [Senna Lax] 8.6 mg TUBE BID 07/04/17 Sertraline HCl [Zoloft 100mg (*)] 100 mg TUBE DAILY 07/04/17 Tizanidine HCl 4 mg TUBE BID 07/04/17 Tolterodine Tartrate [Detrol] 4 mg TUBE DAILY 07/04/17 Zolpidem Tartrate [Zolpidem 12.5 mg TUBE HS 07/04/17 Tartrate ER] clonazePAM [Klonopin (*)] 0.25 mg TUBE QID 07/04/17 fentaNYL [Duragesic 25 MCG Patch 25 mcg TD Q2D 07/04/17 (*)] oxyCODONE IR [Oxycodone Ir (*)] 10 - 20 mg TUBE Q6 PRN 07/04/17 oxyCODONE IR [Oxycodone Ir (*)] 30 mg TUBE QID 07/04/17 traZODone [traZODONE 50MG (*)] 50 mg TUBE HS 07/04/17 levOFLOXACIN [Levofloxacin] 750 mg PO DAILY #2 ml 07/08/17 Medical Decision Making - Diagnostics EKG Interpretation: EKG: Complete interpretation has been separately recorded in the [email or web address] archive. Summary impression: Sinus rhythm, rate 58, J-point elevation noted in the precordial leads Imaging Results: Imaging Impressions Chest X-Ray 11/18/17 11:00 Impression: New/increased patchy left basilar opacities that could be related to atelectasis or pneumonia. ED Course/Re-evaluation: Patient did have a low blood pressure in triage. He was treated with a L of normal saline with improvement of his blood pressure to 110/70. He is not tachycardic. The patient was taken for a chest x-ray which demonstrates a left lower lobe infiltrate. The patient previously had grown stenotrophomonas out of his sputum. Blood cultures have been obtained. The patient's initial lactic acid is reassuring. The patient will require admission to the hospital for further care. The patient has been started on Levaquin in the emergency department. Consultation is made with Dr. Gary Vieira at 12:30 p.m.. The patient will be admitted to a medical-surgical floor bed. The patient will be admitted by Dr. Yates. Differential Diagnosis: Differential diagnosis considered includes asthma, bronchitis, pneumonia - Data Points Laboratory Results: Laboratory Results 11/18/17 11:29 11/18/17 11:29 11/18/17 11/18/17 11/18/17 11:29 11:29 11:29 WBC 13.16 10^3/uL H 10^3/uL (3.80-9.50) RBC 3.34 10^6/uL L 10^6/uL (4.40-6.38) Hgb 10.2 g/dL L g/dL (13.7-17.5) Hct 31.9 % L % (40.0-51.0) MCV 95.5 fL fL (81.5-99.8) MCH 30.5 pg pg (27.9-34.1) MCHC 32.0 g/dL L g/dL (32.4-36.7) RDW 13.0 % % (11.5-15.2) Plt Count 170 10^3/uL 10^3/uL (150-400) MPV 9.8 fL fL (8.7-11.7) Neut % (Auto) Not Reported Lymph % (Auto) Not Reported [place] % (Auto) Not Reported Eos % (Auto) Not Reported Baso % (Auto) Not Reported Nucleat RBC Rel Count Not Reported Absolute Neuts (auto) Not Reported Absolute Lymphs (auto) Not Reported Absolute Monos (auto) Not Reported Absolute Eos (auto) Not Reported Absolute Basos (auto) Not Reported Absolute Nucleated RBC Not Reported Immature Gran % Not Reported Seg Neutrophils % 97.0 % % Band Neutrophils % 0.0 % % Lymphocytes % 0.0 % % Monocytes % 3.0 % % Eosinophils % 0.0 % % Basophils % 0.0 % % Metamyelocytes % 0.0 % % Myelocytes % 0.0 % % Promyelocytes % 0.0 % % Blast Cells % 0.0 % % Immature Gran # Not Reported Absolute Seg Neuts 12.77 10^/uL H 10^/uL (1.70-6.50) Absolute Band Neuts 0.00 10^3/uL 10^3/uL (0.00-0.70) Absolute Lymphocytes 0.00 10^3/uL L 10^3/uL (1.00-3.00) Absolute Monocytes 0.39 10^3/uL 10^3/uL (0.30-0.80) Absolute Eosinophils 0.00 10^3/uL L 10^3/uL (0.03-0.40) Absolute Basophils 0.00 10^3/uL L 10^3/uL (0.02-0.10) Absolute Metamyelocyte 0.00 10^3/mL 10^3/mL (0.00-0.00) Absolute Myelocytes 0.00 10^3/mL 10^3/mL (0.00-0.00) Absolute Promyelocytes 0.00 10^3/uL 10^3/uL (0.00-0.00) Absolute Plasma Cells 0.00 10^3/uL 10^3/uL (0.00-0.00) Nucleated RBCs 3.0 /100 WBC H /100 WBC (0-0) Absolute Blast Cells 0.00 10^3/uL 10^3/uL (0.00-0.00) Plasma Cells % 0.0 % % Platelet Estimate ADEQUATE (ADEQ) Stomatocytes 1+ H VBG Lactic Acid 1.2 mmol/L mmol/L (0.7-2.1) Sodium 137 mEq/L mEq/L (135-145) Potassium 4.3 mEq/L mEq/L (3.3-5.0) Chloride 92 mEq/L L mEq/L (97-110) Carbon Dioxide 35 mEq/l H mEq/l (22-31) Anion Gap 10 mEq/L mEq/L (6-14) BUN 13 mg/dL mg/dL (7-23) Creatinine 0.4 mg/dL L mg/dL (0.7-1.3) Estimated GFR > 60 Glucose 122 mg/dL H mg/dL (70-100) Calcium 9.1 mg/dL mg/dL (8.5-10.4) Medications Given: Levofloxacin/Dextrose (Levaquin 750 Mg (Premix)) 150 mls @ 100 mls/hr IV EDNOW ONE PRN Reason: Protocol Stop: 11/18/17 13:40 Last Admin: 11/18/17 12:21 Dose: 150 mls Departure - Departure Disposition: [facility] Inpatient Acute Clinical Impression: Quadriplegia Pneumonia Qualifiers: Pneumonia type: due to unspecified organism Laterality: left Lung location: lower lobe of lung Qualified Code(s): J18.1 - Lobar pneumonia, unspecified organism Condition: Good Referrals: NONE *PRIMARY CARE P,. [Primary Care Provider] - As per Instructions
[2017-11-18 11:42] LABS: PLATELET COUNT 170 10^3/uL (150-400)
--- NOTE | 2017-11-18 12:09 | CPEKG ---
Test Reason : OPEN Blood Pressure : / mmHG Vent. Rate : 058 BPM Atrial Rate : 057 BPM P-R Int : 043 ms QRS Dur : 098 ms QT Int : 421 ms P-R-T Axes : 044 -11 065 degrees QTc Int : 414 ms Sinus rhythm Short SD interval Confirmed by Eriberto Lubin ([id number]) on 11/18/2017 12:09:06 PM Referred By: Confirmed By:Eriberto Lubin
[2017-11-18] MEDS ORDERED: HYDROmorphONE/DILAUDID 2 MG/ML INJ IVP ONE (12:52)
[2017-11-18] MEDS ORDERED: ACETAMINOPHEN 325 MG TAB PO PRN (13:44)
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
[2017-11-18] MEDS: HYDROmorphONE/DILAUDID 2 MG/ML INJ IVP PRN (14:20)
[2017-11-18] MEDS ORDERED: ACETAMINOPHEN 325 MG TAB TUBE PRN (15:47)
[2017-11-18] MEDS ORDERED: ONDANSETRON DISINTEGRATING 4 MG TAB PO PRN (15:47)
[2017-11-18] MEDS ORDERED: MAGNESIUM HYDROXIDE 30 ML UDCUP TUBE PRN (15:47)
[2017-11-18] MEDS ORDERED: MAGNESIUM CITRATE 300 ML BOTTLE TUBE PRN (15:47)
[2017-11-18] MEDS ORDERED: POLYETHYLENE GLYCOL 3350 17 GM PKT TUBE PRN (15:47)
[2017-11-18] MEDS ORDERED: MIDODRINE HCL 5 MG TAB PO PRN (16:23)
[2017-11-18] MEDS: clonazePAM 0.5 MG TAB TUBE SCH ×2 (16:45→20:46)
[2017-11-18] MEDS: BACLOFEN 10 MG TAB TUBE SCH ×2 (16:49→20:40)
[2017-11-18] MEDS: SODIUM CHLORIDE 1,000 MG TAB TUBE SCH ×2 (16:49→20:39)
[2017-11-18] MEDS: NS 1,000 ML IV SCH (17:57)
[2017-11-18] MEDS: ACETAMINOPHEN 325 MG TAB TUBE SCH ×2 (17:58→23:59)
[2017-11-18] MEDS: GABAPENTIN 250 MG/5 ML 30 ML BOTTLE TUBE SCH (17:58)
--- NOTE | 2017-11-18 18:30 | PCMIDPN ---
Assessment/Plan: Assessment/Plan: * Left lower lobe pneumonia versus tracheobronchitis in patient with paraplegia : Previous history of colonization with stenotrophomonas which is fluoroquinolone susceptible. Agree with empiric levofloxacin pending further sputum and blood culture data. Will also obtain influenza by PCR to ensure no evidence of influenza. 11/18/17 18:25 Subjective: Patient with history of C3 paraplegia previously seen by our service in June for left lower lobe pneumonia associated with stenotrophomonas is admitted with several day history of increased cough and sputum production which is brown, decreasing oxygen saturations, and increased work of breathing with need to increased baseline oxygen to 3 L from 1.5 L. notes having to frequently suction respiratory secretions which typically is not necessary. No change in typical urine characteristics with chronic suprapubic catheter. Low-grade temperatures noted into the 100 degree range. ED evaluation showed evidence of leukocytosis with chest x-ray showing new left lower lobe infiltrate. Patient is a resident of [place]. Given the above findings, I am now asked to assist in his ongoing management from an infectious disease perspective. Objective: Vital Signs Temp Pulse Resp BP Pulse Ox 37.3 C 68 19 115/75 95 11/18/17 14:17 11/18/17 14:17 11/18/17 14:17 11/18/17 14:17 11/18/17 14:17 Microbiology 11/18/17 15:25 - Final Sputum, Induced/Suctioned 11/17/17 11/18/17 11/19/17 05:59 05:59 05:59 Output Total 550 Balance -550 Laboratory Tests 11/18/17 11/18/17 11/18/17 11:29 11:29 11:29 WBC 13.16 H Creatinine 0.4 L Procalcitonin 0.08 Sputum Gram stain with mixed [place] Blood cultures x2 pending Chest x-ray showing left lower lobe infiltrate - Physical Exam General Appearance: alert, no apparent distress, thin EENT: dry mucous membranes, No scleral icterus, No thrush Respiratory: crackles (Bilateral lung [place]) Cardiac/Chest: regular rate, rhythm Abdomen: non-tender, other (Subcutaneous pump in right lower quadrant without erythema or tenderness; suprapubic catheter in place without surrounding erythema), No distended Neuro/Psych: alert ICD10 Worksheet Patient Problems: Problems Problem Status Onset Pneumonia Acute Quadriplegia Acute Abdominal pain Acute Anemia Acute Chronic complete quadriplegia Acute Constipation Acute Fecal impaction of colon Acute Fever Acute Generalized tonic-clonic seizure Acute Generalized weakness Acute History of quadriplegia Acute Hyponatremia Acute Hypoxia Acute MRSA (methicillin resistant Staphylococcus aureus) Acute ~09/02/16 MRSA (methicillin resistant Staphylococcus aureus) Acute ~11/08/16 New onset seizure Acute Thrombocytopenia Acute Urinary tract infection Acute chronic disease mgmt/transitional care Acute
--- NOTE | 2017-11-18 18:52 | PDMN ---
Medical Necessity Medical necessity: MCG: M282 cPNA: 62 yr old C3 quadriplegfia with trach- chronic suprapubic catheter, J tube- presents with fever, SOB, increased O2 req up to 3L ( 1.5 baseline) increased work of breathing, increased sputum over last week, sig in last 3 days., worsening chronic pain, initially hypotensive, high risk pt anticipate > 2 MN ongoing med nec care, further monitoring and tx.
[2017-11-18] MEDS: traZODone 50 MG TAB TUBE SCH (20:39)
[2017-11-18] MEDS: POLYETHYLENE GLYCOL 3350 17 GM PKT TUBE SCH (20:39)
[2017-11-18] MEDS: ALBUTEROL 3 ML DEYVIAL IH PRN (20:42)
[2017-11-18] MEDS: oxyCODONE IR 5 MG TAB TUBE PRN (23:59)
[2017-11-19] MEDS: ZOLPIDEM TARTRATE 5 MG TAB TUBE SCH ×2 (00:02→23:05)
[2017-11-19] MEDS: traZODone 50 MG TAB TUBE SCH ×2 (00:08→20:21)
[2017-11-19 05:37] LABS: PLATELET COUNT 125 10^3/uL (150-400)
[2017-11-19] MEDS: ACETAMINOPHEN 325 MG TAB TUBE SCH ×3 (05:58→17:46)
[2017-11-19] MEDS: GABAPENTIN 250 MG/5 ML 30 ML BOTTLE TUBE SCH ×4 (06:00→23:10)
[2017-11-19] MEDS: NS 1,000 ML IV SCH ×2 (06:01→20:22)
[2017-11-19] MEDS: clonazePAM 0.5 MG TAB TUBE SCH ×4 (06:32→20:22)
[2017-11-19] MEDS: ENOXAPARIN 40 MG/0.4 ML SYR SC SCH (09:26)
[2017-11-19] MEDS: MIDODRINE HCL 5 MG TAB TUBE SCH ×2 (09:26→17:49)
[2017-11-19] MEDS: POLYETHYLENE GLYCOL 3350 17 GM PKT TUBE SCH ×2 (09:26→20:18)
[2017-11-19] MEDS: BACLOFEN 10 MG TAB TUBE SCH ×3 (09:26→23:05)
[2017-11-19] MEDS: SERTRALINE HCL 100 MG TAB TUBE SCH (09:27)
[2017-11-19] MEDS: SENNOSIDES 1 TAB PO SCH (09:27)
[2017-11-19] MEDS: SODIUM CHLORIDE 1,000 MG TAB TUBE SCH ×3 (09:27→20:21)
[2017-11-19] MEDS ORDERED: MAGNESIUM HYDROXIDE 30 ML UDCUP TUBE PRN (11:52)
--- NOTE | 2017-11-19 12:00 | HOSPPROG ---
Hospitalist Progress Note Assessment/Plan: 62-year-old man with C3 quadriplegia status post trach, chronic suprapubic catheter and G-tube is admitted with fevers and increased oxygen needs. He does have a history of Stenotrophomonas pneumonia/tracheitis. # bronchial pneumonia/tracheitis * Continue Levaquin * Appreciate Infectious Disease input * Patient feeling better today # chronic pain with chronic narcotic dependency. * The baclofen and Dilaudid infusion pump # supra pubic catheter, recently changed. Likely not source of infection # status post G-tube # DVT prophylaxis on low molecular weight heparin f Subjective: Patient new to me and chart reviewed. Feeling a little bit better since admission. No specific complaints today. Objective: Vital Signs Temp Pulse Resp BP Pulse Ox 36.7 C 60 16 110/67 99 11/19/17 04:00 11/19/17 08:00 11/19/17 08:00 11/19/17 08:00 11/19/17 08:00 Microbiology 11/18/17 15:25 - Final Sputum, Induced/Suctioned Laboratory Results 11/19/17 04:25 11/19/17 04:25 11/18/17 11/19/17 11/20/17 05:59 05:59 05:59 Intake Total 2034 150 Output Total 1900 Balance 134 150 - Physical Exam Constitutional: chronically ill appearing Eyes: PERRL Cardiovascular: regular rate and rhythym Respiratory: no respiratory distress, clear to auscultation (Anterior), other ( Trach) Gastrointestinal: soft, non-tender abdomen, other (G-tube) Genitourinary: other (Suprapubic catheter) Skin: normal color Neurologic: AAOx3, weakness (Paraplegia) Psychiatric: interacting appropriately ICD10 Worksheet Patient Problems: Problems Problem Status Onset Chronic complete quadriplegia Acute Thrombocytopenia Acute Quadriplegia Acute Hypoxia Acute Fever Acute Generalized weakness Acute MRSA (methicillin resistant Staphylococcus aureus) Acute ~11/08/16 MRSA (methicillin resistant Staphylococcus aureus) Acute ~09/02/16 chronic disease mgmt/transitional care Acute History of quadriplegia Acute Generalized tonic-clonic seizure Acute New onset seizure Acute Urinary tract infection Acute Constipation Acute Abdominal pain Acute Fecal impaction of colon Acute Anemia Acute Hyponatremia Acute Pneumonia Acute
[2017-11-19] MEDS: fentaNYL 25 MCG PATCH TD SCH (12:19)
--- NOTE | 2017-11-19 13:59 | ASMTCMCOM ---
CM Note CM Note Notes: CM reviewing pt's chart for d/c planning. Pt is a 62y/o male with C3 paraplegia. He was brought in by his caregiver due to a low grade fever, increasing oxygen requirement and frequent suctioning of his trachea. Following his last hospitalization he was followed by home care with RN, CLOTH SANDER, PT/OT/ANIMAL RESCUER. He presently lives in [facility] and will return there upon d/c. CM to follow. D/C Plan: [facility] Date Signed: 11/19/2017 01:58 PM Electronically Signed By:Shaina Johnson
--- NOTE | 2017-11-19 17:20 | PCMIDPN ---
Assessment/Plan: Assessment/Plan: * Left lower lobe pneumonia versus tracheobronchitis in patient with paraplegia : Clinically improved with normalization of leukocytosis. No fever documented since hospital admission. Blood cultures remain no growth to date. Sputum with mixed oral [place] to date. Continue levofloxacin and follow clinical course. 11/19/17 17:18 Subjective: Patient with persistent cough and sputum production. Objective: Vital Signs Temp Pulse Resp BP Pulse Ox 36.6 C 144 H 18 131/79 H 99 11/19/17 15:43 11/19/17 16:30 11/19/17 16:30 11/19/17 15:43 11/19/17 16:30 Microbiology 11/18/17 15:25 - Final Sputum, Induced/Suctioned Laboratory Results 11/19/17 04:25 11/19/17 04:25 11/18/17 11/19/17 11/20/17 05:59 05:59 05:59 Intake Total 2034 150 Output Total 1900 Balance 134 150 Levofloxacin # 2 Sputum mixed oral [place] Blood cultures x2 no growth - Physical Exam General Appearance: alert, no apparent distress, non-toxic EENT: No thrush Respiratory: other (Decreased breath sounds bilaterally), No respiratory distress Cardiac/Chest: tachycardia Abdomen: non-tender, No distended ICD10 Worksheet Patient Problems: Problems Problem Status Onset Pneumonia Acute Quadriplegia Acute Abdominal pain Acute Anemia Acute Chronic complete quadriplegia Acute Constipation Acute Fecal impaction of colon Acute Fever Acute Generalized tonic-clonic seizure Acute Generalized weakness Acute History of quadriplegia Acute Hyponatremia Acute Hypoxia Acute MRSA (methicillin resistant Staphylococcus aureus) Acute ~09/02/16 MRSA (methicillin resistant Staphylococcus aureus) Acute ~11/08/16 New onset seizure Acute Thrombocytopenia Acute Urinary tract infection Acute chronic disease mgmt/transitional care Acute
[2017-11-19] MEDS: oxyCODONE IR 5 MG TAB TUBE PRN (23:06)
[2017-11-20] MEDS: ACETAMINOPHEN 325 MG TAB TUBE SCH ×4 (01:51→17:25)
[2017-11-20] MEDS: clonazePAM 0.5 MG TAB TUBE SCH ×4 (05:03→21:20)
[2017-11-20] MEDS: GABAPENTIN 250 MG/5 ML 30 ML BOTTLE TUBE SCH ×3 (05:11→23:30)
[2017-11-20] MEDS: oxyCODONE IR 5 MG TAB TUBE PRN ×2 (08:46→17:26)
[2017-11-20] MEDS: SODIUM CHLORIDE 1,000 MG TAB TUBE SCH ×3 (08:47→23:27)
[2017-11-20] MEDS: MIDODRINE HCL 5 MG TAB TUBE SCH ×2 (08:47→15:59)
[2017-11-20] MEDS: BACLOFEN 10 MG TAB TUBE SCH ×3 (08:48→21:19)
[2017-11-20] MEDS: ENOXAPARIN 40 MG/0.4 ML SYR SC SCH (08:48)
[2017-11-20] MEDS: SERTRALINE HCL 100 MG TAB TUBE SCH (08:48)
[2017-11-20] MEDS: SENNOSIDES 1 TAB PO SCH (09:21)
[2017-11-20] MEDS: POLYETHYLENE GLYCOL 3350 17 GM PKT TUBE SCH ×2 (09:21→21:29)
[2017-11-20] MEDS: NS 1,000 ML IV SCH ×2 (09:39→23:50)
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
--- NOTE | 2017-11-20 17:01 | PCMIDPN ---
Assessment/Plan: Assessment: aspiration pneumonia in patient with paraplegia. Clinically is getting a little bit better. He remains afebrile. Blood cultures are negative. Sputum continues to show mixed oral [place]. Plan to continue on Levaquin and follow up on symptoms. Plan: 1. Continue Levaquin. 2. follow his clinical course. 11/20/17 16:59 Subjective: Patient is laying in his bed. States he is feeling somewhat improved. Continues to have cough but less so. Continues to be somewhat productive of sputum. Objective: Levaquin # 3 Vital Signs Temp Pulse Resp BP Pulse Ox 36.6 C 67 16 123/76 H 2 L 11/20/17 13:48 11/20/17 13:48 11/20/17 13:48 11/20/17 13:48 11/20/17 13:48 Microbiology 11/18/17 15:25 - Final Sputum, Induced/Suctioned Laboratory Results 11/19/17 04:25 11/19/17 04:25 11/19/17 11/20/17 11/21/17 05:59 05:59 05:59 Intake Total 2034 3629 Output Total 1900 2450 1050 Balance 134 1179 -1050 - Physical Exam General Appearance: WD/WN, alert, no apparent distress, other ( paraplegic) Respiratory: coarse breath sounds, No lungs clear, No normal breath sounds, No respiratory distress, No crackles, No wheezing Cardiac/Chest: regular rate, rhythm, No tachycardia Skin: normal color, warm/dry, No rash Neuro/Psych: alert, normal mood/affect, oriented x 3 ICD10 Worksheet Patient Problems: Problems Problem Status Onset Pneumonia Acute Quadriplegia Acute Abdominal pain Acute Anemia Acute Chronic complete quadriplegia Acute Constipation Acute Fecal impaction of colon Acute Fever Acute Generalized tonic-clonic seizure Acute Generalized weakness Acute History of quadriplegia Acute Hyponatremia Acute Hypoxia Acute MRSA (methicillin resistant Staphylococcus aureus) Acute ~09/02/16 MRSA (methicillin resistant Staphylococcus aureus) Acute ~11/08/16 New onset seizure Acute Thrombocytopenia Acute Urinary tract infection Acute chronic disease mgmt/transitional care Acute
[2017-11-20] MEDS: ALBUTEROL 3 ML DEYVIAL IH PRN (19:19)
[2017-11-20] MEDS: traZODone 50 MG TAB TUBE SCH (23:23)
[2017-11-20] MEDS: ZOLPIDEM TARTRATE 5 MG TAB TUBE SCH (23:24)
[2017-11-21] MEDS: oxyCODONE IR 5 MG TAB TUBE PRN ×2 (03:22→15:47)
[2017-11-21] MEDS: ACETAMINOPHEN 325 MG TAB TUBE SCH ×4 (04:24→18:51)
[2017-11-21] MEDS: clonazePAM 0.5 MG TAB TUBE SCH ×4 (05:18→22:11)
[2017-11-21] MEDS: GABAPENTIN 250 MG/5 ML 30 ML BOTTLE TUBE SCH ×3 (05:20→22:18)
[2017-11-21] MEDS: HYDROmorphONE/DILAUDID 2 MG/ML INJ IVP PRN (08:35)
--- NOTE | 2017-11-21 08:57 | HOSPPROG ---
Hospitalist Progress Note Assessment/Plan: 62-year-old man with C3 quadriplegia status post trach, chronic SPC and G-tube admitted with fevers and increased oxygen needs. H/O of Stenotrophomonas pneumonia/tracheitis. Today is my first encounter w the patient, chart reviewed. # bronchial pneumonia/tracheitis - improving. He has had the trach for 4 yrs, but it is capped. Query if this is contributing to his tracheitis. * Continue Levaquin * ID following * Offered pulm consult to discuss trach and if it's worth considering removing it, but he is not interested in this * resp viral panel is negative * not sure if he is aspirating from his G tube, will further discuss w ID, may need this surgically evaluated # chronic pain with chronic narcotic dependency. * cont baclofen and Dilaudid infusion pump # chronic supra pubic catheter, recently changed. Likely not source of infection # Presence of G-tube - cont home tube feeds. Per pt, he takes a lot more free water than 50 q4h and is requesting increase in free water * increase free water to 100 q4h * follow [facility] closely * concern for G tube, J tube malfunction, reviewed this w Dr Chao, both are wide open # C3 quad # Underweight w a BMI of 17 # Pressure injury hx - wound care * appreciate wound care seeing him # DVT prophylaxis - Lovenox # Full code #Plan: continue current treatment, will need to discuss w ID about his G tube, could be impacting him getting aspiration pneumonia Subjective: Krzysztof said he feels terrible, his whole body aches. Objective: Vital Signs Temp Pulse Resp BP Pulse Ox 36.5 C 59 L 16 118/71 99 11/21/17 03:32 11/21/17 03:32 11/21/17 03:32 11/21/17 03:32 11/21/17 03:32 Microbiology 11/20/17 23:35 Respiratory Panel (PCR) - Final Nasal, Sinus - Swab No Organism Detected 11/18/17 15:25 - Final Sputum, Induced/Suctioned Laboratory Results 11/19/17 04:25 11/20/17 11/21/17 11/22/17 05:59 05:59 05:59 Intake Total 3629 1802 Output Total 2450 4050 Balance 1179 -2248 - Physical Exam Constitutional: uncomfortable, cachectic, No not in pain Eyes: PERRL Ears, Nose, Mouth, Throat: hearing normal Cardiovascular: regular rate and rhythym Respiratory: no respiratory distress Gastrointestinal: normoactive bowel sounds Skin: warm Musculoskeletal: other (quadraplegic) Neurologic: other (alert) Psychiatric: depressed ICD10 Worksheet Patient Problems: Problems Problem Status Onset Pneumonia Acute Quadriplegia Acute Abdominal pain Acute Anemia Acute Chronic complete quadriplegia Acute Constipation Acute Fecal impaction of colon Acute Fever Acute Generalized tonic-clonic seizure Acute Generalized weakness Acute History of quadriplegia Acute Hyponatremia Acute Hypoxia Acute MRSA (methicillin resistant Staphylococcus aureus) Acute ~09/02/16 MRSA (methicillin resistant Staphylococcus aureus) Acute ~11/08/16 New onset seizure Acute Thrombocytopenia Acute Urinary tract infection Acute chronic disease mgmt/transitional care Acute
[2017-11-21] MEDS ORDERED: IOPAMIDOL (ISOVUE-300) 100 ML BTL ONE (09:18)
[2017-11-21] MEDS: MIDODRINE HCL 5 MG TAB TUBE SCH ×2 (10:11→15:31)
[2017-11-21] MEDS: SENNOSIDES 1 TAB PO SCH (10:12)
[2017-11-21] MEDS: BACLOFEN 10 MG TAB TUBE SCH ×3 (10:14→22:13)
[2017-11-21] MEDS: SERTRALINE HCL 100 MG TAB TUBE SCH (10:14)
[2017-11-21] MEDS: SODIUM CHLORIDE 1,000 MG TAB TUBE SCH ×3 (10:15→22:16)
--- NOTE | 2017-11-21 10:27 | ASMTCMCOM ---
CM Note CM Note Notes: Spoke with patient's Jenise who confirmed that patient is living at [facility]. I sent referral paperwork. ID recommendations for continued antibiotics pending. Case Management will follow. Date Signed: 11/21/2017 10:26 AM Electronically Signed By:Krista Phillips RN
[2017-11-21] MEDS: fentaNYL 25 MCG PATCH TD SCH (10:34)
[2017-11-21] MEDS: POLYETHYLENE GLYCOL 3350 17 GM PKT TUBE SCH ×2 (10:34→22:09)
[2017-11-21] MEDS: ENOXAPARIN 40 MG/0.4 ML SYR SC SCH (10:40)
--- NOTE | 2017-11-21 10:40 | WOCRNPDOC ---
WOCRN Advanced Assessment Note - Skin Integrity Problem, Advanced Assess Sacrum Pressure Injury Dressing Type: Allevyn Life Dressing Description: Clean/Dry, Intact Exudate Amount: Scant Exudate Characteristic(s): Serosanguinous Integumentary Issue Intervention: Visualized Under Dressing Masha Wound Tissue: Scarred Wound Bed Color: [place] Wound Bed Constitution: Red/[place] - Non Granular Tissue (100%) Wound Edges: Attached Site Measurement - Head-to-Toe Length X Width X Depth (cm): 0.3x0.6x0.1 Pressure Injury Stage: Stage 4 Pressure Injury Present on Admit: Yes Skin Integrity Problem Comment: Reopening Stage 4 pressure injury. Now tiny partial thickness opening. Keep covered with Mepilex Border Sacral dressings. Keep HOB below 30 degrees as much as possible. Left Sacroilliac Pressure Injury Dressing Type: Allevyn Life Dressing Description: Clean/Dry, Intact Exudate Amount: Minimal Exudate Characteristic(s): Serosanguinous Integumentary Issue Intervention: Visualized Under Dressing Masha Wound Tissue: Intact, Scarred Masha Wound Swelling: None Wound Bed Color: [place] Wound Bed Constitution: Red/[place] - Non Granular Tissue (100%) Wound Edges: Attached Site Measurement - Head-to-Toe Length X Width X Depth (cm): 0.2x0.3x0.1 Pressure Injury Stage: Stage 4 Pressure Injury Present on Admit: Yes Skin Integrity Problem Comment: Tiny partial thickness opening in a previously very large stage 4 pressure injury. This is a reopening stage 4 pressure injury that is present on admission. Patient on clinitron bed. Turns in place. Wound care will sign off. Please reconsult prn worsening/new wounds. Make sure to place wedges under back and thighs so pelvic area is not being pressurized. MURALI Colon in room RADIATOR CORE TESTER also educated.
[2017-11-21] MEDS: ALBUTEROL 3 ML DEYVIAL IH PRN ×2 (10:59→16:33)
--- NOTE | 2017-11-21 12:59 | PCMIDPN ---
Assessment/Plan: Assessment: aspiration pneumonia in patient with paraplegia. Clinically is getting a little bit better. He remains afebrile. Blood cultures are negative. Sputum continues to show mixed oral [place]. Plan to continue on Levaquin and follow up on symptoms. Plan: 1. Continue Levaquin. 2. follow his clinical course. 11/20/17 16:59 Subjective: Patient is doing fairly well today. Decreased sputum production. No new complaints. Asking for biotin mouth wash. Objective: Levaquin # 4 Vital Signs Temp Pulse Resp BP Pulse Ox 36.4 C 57 L 16 108/65 96 11/21/17 12:00 11/21/17 12:00 11/21/17 12:00 11/21/17 12:00 11/21/17 12:00 Microbiology 11/20/17 23:15 - Final Sputum, Induced/Suctioned 11/20/17 23:35 Respiratory Panel (PCR) - Final Nasal, Sinus - Swab No Organism Detected 11/18/17 15:25 - Final Sputum, Induced/Suctioned Laboratory Results 11/19/17 04:25 11/21/17 08:42 11/20/17 11/21/17 11/22/17 05:59 05:59 05:59 Intake Total 3629 1802 Output Total 2450 4050 Balance 1179 -2248 - Physical Exam General Appearance: WD/WN, alert, other (paraplegic) Respiratory: lungs clear, normal breath sounds, No respiratory distress Cardiac/Chest: regular rate, rhythm, No tachycardia Skin: normal color, warm/dry, No rash Neuro/Psych: alert, normal mood/affect, oriented x 3 ICD10 Worksheet Patient Problems: Problems Problem Status Onset Pneumonia Acute Quadriplegia Acute Abdominal pain Acute Anemia Acute Chronic complete quadriplegia Acute Constipation Acute Fecal impaction of colon Acute Fever Acute Generalized tonic-clonic seizure Acute Generalized weakness Acute History of quadriplegia Acute Hyponatremia Acute Hypoxia Acute MRSA (methicillin resistant Staphylococcus aureus) Acute ~09/02/16 MRSA (methicillin resistant Staphylococcus aureus) Acute ~11/08/16 New onset seizure Acute Thrombocytopenia Acute Urinary tract infection Acute chronic disease mgmt/transitional care Acute
[2017-11-21] MEDS ORDERED: ORAL BALANCE GEL TUBE PO PRN (14:11)
[2017-11-21] MEDS: NS 1,000 ML IV SCH (15:28)
[2017-11-21] MEDS: ZOLPIDEM TARTRATE 5 MG TAB TUBE SCH (22:11)
[2017-11-21] MEDS: traZODone 50 MG TAB TUBE SCH (22:17)
[2017-11-22] MEDS: ACETAMINOPHEN 325 MG TAB TUBE SCH ×4 (00:50→18:16)
[2017-11-22] MEDS: oxyCODONE IR 5 MG TAB TUBE PRN ×3 (03:25→20:38)
[2017-11-22] MEDS: GABAPENTIN 250 MG/5 ML 30 ML BOTTLE TUBE SCH ×3 (06:14→23:05)
[2017-11-22] MEDS: clonazePAM 0.5 MG TAB TUBE SCH ×4 (06:14→20:37)
[2017-11-22] MEDS: SERTRALINE HCL 100 MG TAB TUBE SCH (09:14)
[2017-11-22] MEDS: SODIUM CHLORIDE 1,000 MG TAB TUBE SCH ×3 (09:14→23:09)
[2017-11-22] MEDS: MIDODRINE HCL 5 MG TAB TUBE SCH ×2 (09:15→14:37)
[2017-11-22] MEDS: BACLOFEN 10 MG TAB TUBE SCH ×3 (09:15→23:09)
[2017-11-22] MEDS: SENNOSIDES 1 TAB PO SCH (09:23)
[2017-11-22] MEDS: ENOXAPARIN 40 MG/0.4 ML SYR SC SCH (09:30)
[2017-11-22] MEDS: HYDROmorphONE/DILAUDID 2 MG/ML INJ IVP PRN ×2 (10:09→14:39)
[2017-11-22] MEDS: POLYETHYLENE GLYCOL 3350 17 GM PKT TUBE SCH ×2 (11:59→23:28)
[2017-11-22] MEDS: ALBUTEROL 3 ML DEYVIAL IH PRN ×2 (13:56→20:49)
--- NOTE | 2017-11-22 14:45 | HOSPPROG ---
Hospitalist Progress Note Assessment/Plan: 62-year-old man with C3 quadriplegia status post trach, chronic SPC and G-tube admitted with fevers and increased oxygen needs. H/O of Stenotrophomonas pneumonia/tracheitis. # bronchial pneumonia/tracheitis - improving. He has had the trach for 4 yrs, but it is capped. Query if this is contributing to his tracheitis. * Continue Levaquin * ID following * resp viral panel is negative * not sure if he is aspirating from his G tube, will further discuss w ID, may need this surgically evaluated # chronic pain with chronic narcotic dependency. * cont baclofen and Dilaudid infusion pump #diarrhea -if this is ongoing, will check for c diff -due to his quadriplegia he is on stool softeners multiple times daily # chronic supra pubic catheter, recently changed. Likely not source of infection # Presence of G-tube - cont home tube feeds. Per pt, he takes a lot more free water than 50 q4h and is requesting increase in free water * increase free water to 100 q4h * follow [facility]ist closely * concern for G tube, J tube malfunction, reviewed this w Dr Chao, both are wide open # C3 quad # Underweight w a BMI of 17 # Pressure injury hx - wound care * appreciate wound care seeing him # DVT prophylaxis - Lovenox # Full code #Plan: continue current treatment, will need to discuss w ID about his G tube, could be impacting him getting aspiration pneumonia Subjective: Krzysztof is upset because he wants to be in his wheelchair, doesn't want to get up here because he is worried about skin breakdown Objective: Vital Signs Temp Pulse Resp BP Pulse Ox 36.7 C 59 L 14 141/86 H 99 11/22/17 11:54 11/22/17 11:54 11/22/17 11:54 11/22/17 11:54 11/22/17 11:54 Microbiology 11/18/17 15:25 - Final Sputum, Induced/Suctioned 11/20/17 23:15 - Final Sputum, Induced/Suctioned Laboratory Results 11/19/17 04:25 11/21/17 08:42 11/21/17 11/22/17 11/23/17 05:59 05:59 05:59 Intake Total 1802 2102 2641 Output Total 405 2750 650 Balance -4114 -296 1990 - Physical Exam Constitutional: chronically ill appearing, cachectic Eyes: PERRL Ears, Nose, Mouth, Throat: hearing normal Cardiovascular: regular rate and rhythym Respiratory: rhonchi (scattered throughout both lungs, has poor inspiratory effort) Gastrointestinal: normoactive bowel sounds Genitourinary: guaman in urethra Skin: warm, No normal color (pale) Musculoskeletal: other (quadraplegic) Psychiatric: interacting appropriately, poor memory ICD10 Worksheet Patient Problems: Problems Problem Status Onset Pneumonia Acute Quadriplegia Acute Abdominal pain Acute Anemia Acute Chronic complete quadriplegia Acute Constipation Acute Fecal impaction of colon Acute Fever Acute Generalized tonic-clonic seizure Acute Generalized weakness Acute History of quadriplegia Acute Hyponatremia Acute Hypoxia Acute MRSA (methicillin resistant Staphylococcus aureus) Acute ~09/02/16 MRSA (methicillin resistant Staphylococcus aureus) Acute ~11/08/16 New onset seizure Acute Thrombocytopenia Acute Urinary tract infection Acute chronic disease mgmt/transitional care Acute
--- NOTE | 2017-11-22 16:16 | PCMIDPN ---
Assessment/Plan: # PNA, mechanism of PNA not clear to me, could be oral aspiration: no specific organism ID'd. Lillie reflects colonization --Levofloxacin 750mg through 11/25, change to PO at DC via feeding tube ( crushed pills or liquid) which is functioning as a G tube # Feeding tube, J tube not functioning. Reviewed fluoroscopic study and discussed w Dr Chao. G tube works. Discussed w patient and , at this point will continue to use G tube as is until becomes dysfunctional. If becomes dysfunction she want to pull tube and have IR replace w G tube (would be 2 step process) # Loose stool: strongly states it is his baseline Meds levofloxacin 750mg IV daily #4 micro sputum: lillie blood cx (2): negative Subjective: feeling better ready to go feels like resp status at baseline, typically wears 1.5 L at all times Objective: Vital Signs Temp Pulse Resp BP Pulse Ox 36.9 C 63 16 149/83 H 98 11/22/17 15:45 11/22/17 15:45 11/22/17 15:45 11/22/17 15:45 11/22/17 15:45 Microbiology 11/18/17 15:25 - Final Sputum, Induced/Suctioned 11/20/17 23:15 - Final Sputum, Induced/Suctioned Laboratory Results 11/19/17 04:25 11/21/17 08:42 11/21/17 11/22/17 11/23/17 05:59 05:59 05:59 Intake Total 1802 2102 3291 Output Total 4050 2750 1950 Balance -2248 648 1341 - Physical Exam General Appearance: alert, cachetic EENT: No scleral icterus, No thrush Respiratory: coarse breath sounds (R>L), No accessory muscle use Cardiac/Chest: regular rate, rhythm Extremities: other (diffuse wasting), No pedal edema Abdomen: non-tender, soft, other (G tube in place) Male Genitalia: other (suprapubic cath in place) Skin: No diaphoresis, No rash Neuro/Psych: alert, oriented x 3 - Time Spent With Patient Time Spent with Patient: greater than 35 minutes (Care coordinated with IR; plan of care discussed w patient and (via phone while in room w patient)) Time Spent with Patient: Greater than 35 minutes spent on this patients care, greater than 50% of time spent counseling, educating, and coordinating care regarding the above mentioned plan. ICD10 Worksheet Patient Problems: Problems Problem Status Onset Pneumonia Acute Quadriplegia Acute Abdominal pain Acute Anemia Acute Chronic complete quadriplegia Acute Constipation Acute Fecal impaction of colon Acute Fever Acute Generalized tonic-clonic seizure Acute Generalized weakness Acute History of quadriplegia Acute Hyponatremia Acute Hypoxia Acute MRSA (methicillin resistant Staphylococcus aureus) Acute ~09/02/16 MRSA (methicillin resistant Staphylococcus aureus) Acute ~11/08/16 New onset seizure Acute Thrombocytopenia Acute Urinary tract infection Acute chronic disease mgmt/transitional care Acute
--- NOTE | 2017-11-22 16:54 | ASMTCMCOM ---
CM Note CM Note Notes: ID reports that patient will be ready for discharge Tuesday. Notified Arabi and faxed referral. Date Signed: 11/22/2017 04:54 PM Electronically Signed By:Jackie Arevalo LCSW
[2017-11-22] MEDS: NS 1,000 ML IV SCH (17:02)
[2017-11-22] MEDS: traZODone 50 MG TAB TUBE SCH (20:38)
[2017-11-22] MEDS: ZOLPIDEM TARTRATE 5 MG TAB TUBE SCH (23:08)
[2017-11-23] MEDS: ACETAMINOPHEN 325 MG TAB TUBE SCH ×3 (00:54→13:01)
[2017-11-23] MEDS: ALBUTEROL 3 ML DEYVIAL IH PRN (05:15)
[2017-11-23] MEDS: GABAPENTIN 250 MG/5 ML 30 ML BOTTLE TUBE SCH (05:42)
[2017-11-23] MEDS: clonazePAM 0.5 MG TAB TUBE SCH ×2 (05:42→13:00)
[2017-11-23] MEDS: NS 1,000 ML IV SCH (08:17)
--- NOTE | 2017-11-23 09:19 | HOSPPROG ---
Hospitalist Progress Note Assessment/Plan: 62-year-old man with C3 quadriplegia status post trach, chronic SPC and G-tube admitted with fevers and increased oxygen needs. H/O of Stenotrophomonas pneumonia/tracheitis. # bronchial pneumonia/tracheitis - improving. He has had the trach for 4 yrs, but it is capped. Query if this is contributing to his tracheitis. -abx changed to cipro, patient has corynebacterium # chronic pain with chronic narcotic dependency. * cont baclofen and Dilaudid infusion pump # diarrhea -reviewed this finding w his , this is his baseline to have very loose stools -due to his quadriplegia he is on stool softeners multiple times daily # chronic supra pubic catheter, recently changed. Likely not source of infection # Presence of G-tube - cont home tube feeds. Per pt, he takes a lot more free water than 50 q4h and is requesting increase in free water * intial concern for G tube, J tube malfunction, reviewed this w Dr Chao, both are wide open # C3 quad # Underweight w a BMI of 17 # Pressure injury hx - wound care * appreciate wound care seeing him # DVT prophylaxis - Lovenox # Full code #Plan: dc to [facility] Subjective: Krzysztof said he feels just ok Objective: Vital Signs Temp Pulse Resp BP Pulse Ox 36.6 C 60 16 96/64 L 99 11/23/17 08:00 11/23/17 08:00 11/23/17 08:00 11/23/17 08:00 11/23/17 08:00 Microbiology 11/20/17 23:15 - Final Sputum, Induced/Suctioned 11/18/17 15:25 - Final Sputum, Induced/Suctioned Sputum Culture - Final Lillie Albicans Laboratory Results 11/19/17 04:25 11/21/17 08:42 11/22/17 11/23/17 11/24/17 05:59 05:59 05:59 Intake Total 2102 6636 Output Total 0990 5050 Balance -648 1586 - Physical Exam Constitutional: chronically ill appearing, cachectic Eyes: PERRL Ears, Nose, Mouth, Throat: hearing normal Cardiovascular: regular rate and rhythym Respiratory: no respiratory distress, rhonchi (few scattered on both lungs, lung sounds better today) Gastrointestinal: normoactive bowel sounds Skin: warm, No normal color (pale) Musculoskeletal: other (quadraplegia) Neurologic: AAOx3 Psychiatric: interacting appropriately ICD10 Worksheet Patient Problems: Problems Problem Status Onset Pneumonia Acute Quadriplegia Acute Abdominal pain Acute Anemia Acute Chronic complete quadriplegia Acute Constipation Acute Fecal impaction of colon Acute Fever Acute Generalized tonic-clonic seizure Acute Generalized weakness Acute History of quadriplegia Acute Hyponatremia Acute Hypoxia Acute MRSA (methicillin resistant Staphylococcus aureus) Acute ~09/02/16 MRSA (methicillin resistant Staphylococcus aureus) Acute ~11/08/16 New onset seizure Acute Thrombocytopenia Acute Urinary tract infection Acute chronic disease mgmt/transitional care Acute
--- NOTE | 2017-11-23 09:25 | PDIAF ---
- Diagnosis Diagnosis: pneumonia Code Status: Full Code - Medication Management Discharge Medications: Medications to Continue on Transfer Baclofen [Baclofen 10 mg (*)] 10 mg TUBE TID 07/04/17 [Last Taken Unknown] Ferrous Sulfate [Ferrous Sulf 325 MG (*)] 325 mg TUBE DAILY 07/04/17 [Last Taken Unknown] Magnesium Citrate [Magnesium Citrate 300 ml (*)] 150 ml TUBE DAILY PRN 07/04/17 [Last Taken Unknown] Magnesium Hydroxide [Milk of Magnesia] 30 ml TUBE BID PRN 07/04/17 [Last Taken Unknown] Midodrine HCl 10 mg TUBE BID@09,15 07/04/17 [Last Taken Unknown] Polyethylene Glycol 3350 [Miralax 17 gm (*)] 17 gm TUBE BID 07/04/17 [Last Taken Unknown] Polyethylene Glycol 3350 [Miralax 17 gm (*)] 17 gm TUBE DAILY PRN 07/04/17 [ Last Taken Unknown] Sennosides [Senna Lax] 8.6 mg TUBE DAILY 07/04/17 [Last Taken Unknown] Sertraline HCl [Zoloft 100mg (*)] 100 mg TUBE DAILY 07/04/17 [Last Taken Unknown ] Tizanidine HCl 4 mg TUBE BID 07/04/17 [Last Taken Unknown] Zolpidem Tartrate [Zolpidem Tartrate ER] 12.5 mg TUBE HS 07/04/17 [Last Taken Unknown] clonazePAM [Klonopin (*)] 0.25 mg TUBE QID 07/04/17 [Last Taken Unknown] fentaNYL [Duragesic 25 MCG Patch (*)] 25 mcg TD Q2D 07/04/17 [Last Taken ] oxyCODONE IR [Oxycodone Ir (*)] 30 mg TUBE 05,,17,23 07/04/17 [Last Taken Unknown] traZODone [traZODONE 50MG (*)] 50 mg TUBE HS 07/04/17 [Last Taken Unknown] Acetaminophen [Tylenol 325mg (*)] 650 mg TUBE Q6 11/18/17 [Last Taken Unknown] Acetaminophen [Tylenol 325mg (*)] 650 mg TUBE Q6 PRN 11/18/17 [Last Taken Unknown] Albuterol [Proventil Neb] 3 ml IH Q4H PRN 11/18/17 [Last Taken Unknown] Gabapentin 600 mg TUBE ,,11/18/17 [Last Taken Unknown] Magnesium Hydroxide [Milk of Magnesia] 30 ml TUBE Q3D PRN 11/18/17 [Last Taken Unknown] Midodrine HCl 10 mg TUBE PRN PRN 11/18/17 [Last Taken Unknown] Ondansetron Odt [Zofran Odt 4 mg (*)] 4 mg PO Q4 PRN 11/18/17 [Last Taken Unknown] Sodium Chloride [Salt Tablet] 1,000 mg TUBE TID 11/18/17 [Last Taken Unknown] oxyCODONE IR [Oxycodone Ir (*)] 10 - 20 mg TUBE Q6H PRN 11/18/17 [Last Taken Unknown] Ciprofloxacin [Cipro] 500 mg TUBE BID@999,1999 #13 tab 11/23/17 [Last Taken Unknown] Fpc Antibiotics: cipro Fpc Antibiotic Stop Date: 11/29/17 Discharge Medications: Refer to the Discharge Home Medication list for PRN reason. - Orders Services needed: Physical Therapy, Occupational Therapy Isolation Type: None Diet Recommendation: other (via feeding tube) - Follow Up Care Current Providers and Referrals: NONE *PRIMARY CARE P,. [Primary Care Provider] - As per Instructions
[2017-11-23] MEDS ORDERED: CIPROFLOXACIN 500 MG TAB TUBE SCH (10:00)
[2017-11-23] MEDS: BACLOFEN 10 MG TAB TUBE SCH (10:36)
[2017-11-23] MEDS: MIDODRINE HCL 5 MG TAB TUBE SCH ×2 (10:36→15:42)
[2017-11-23] MEDS: SERTRALINE HCL 100 MG TAB TUBE SCH (10:37)
[2017-11-23] MEDS: SODIUM CHLORIDE 1,000 MG TAB TUBE SCH (10:37)
[2017-11-23] MEDS: SENNOSIDES 1 TAB PO SCH (10:56)
[2017-11-23] MEDS: POLYETHYLENE GLYCOL 3350 17 GM PKT TUBE SCH (10:56)
[2017-11-23] MEDS: ENOXAPARIN 40 MG/0.4 ML SYR SC SCH (10:56)
--- NOTE | 2017-11-23 11:19 | GDS ---
DISCHARGE. DIAGNOSES: 1. Bronchial pneumonia. 2. Chronic pain with chronic narcotic dependency. 3. Diarrhea. 4. Chronic suprapubic catheter. 5. Concern for G/J tube malfunction. 6. C3 quadriplegia. 7. Underweight, with a body mass index of 17. 8. Pressure injury history. CONSULTATION: Dr. Jose Martinez. HISTORY: Briefly, the patient is a 62-year-old gentleman with C2 quadriplegia with a tracheostomy, chronic suprapubic catheter, and J,G tube. He was admitted for ongoing fevers and increased oxygen requirements. He was started on IV Levaquin with this history of Stenotrophomonas pneumonia, tracheitis. He slowly improved. His sputum culture grew out Corynebacterium striatum group. His antibiotics were changed to Cipro. Today he will be discharged back to [facility]. HOSPITAL COURSE: 1. Bronchial pneumonia, tracheitis. He has improved. He has had the trach for 3 years, but it is capped. He does not want this further evaluated. His antibiotics are changed to ciprofloxacin today. 2. Chronic pain with chronic narcotic dependency. Continue his home regimen. 3. Diarrhea. This is chronic due to his quadriplegia. He is on stool softeners multiple times daily. 4. Chronic suprapubic catheter. This was recently changed. 5. Concern for G-tube/J-tube malfunction. I reviewed this with Dr. Chao. Both are wide open. 6. C3 quadriplegia, at baseline. 7. Underweight. He has a BMI of 17. 8. Pressure injury. Wound Care has been seeing him. DISCHARGE CONDITION: Stable. Blood pressure is 96/64. Heart rate is 60. Respiratory rate is 16. O2 saturations on 2 L are 99%. Temperature 36.6 Celsius. DISCHARGE MEDICATIONS: Please see the EMR. DISCHARGE INSTRUCTIONS: 1. To continue antibiotics for 7 more days. 2. If he develops worsening fever, chills, chest pain, or shortness of breath, return to the ER. Greater than 30 minutes discharging and coordinating the patient's care. /[id number]/MODL MTDD
--- NOTE | 2017-11-23 11:56 | ASMTDCNOTE ---
Case Management Discharge Discharge Order Complete? Answers: Yes Patient to Obtain Answers: Other Notes: [facility] Medications Transportation Arranged Answers: Family/Friends Faxed Final Orders Answers: Yes Family Notified Answers: Yes Discharge Comments Notes: Patient discharging back to [facility]. His will transport them. Orders sent and received by [facility]. MURALI Marcelino to call report. Date Signed: 11/23/2017 11:55 AM Electronically Signed By:Krista Phillips RN
--- NOTE | 2017-11-23 11:57 | ASMTLACE ---
LACE Length of stay for Answers: 4-6 days current admission Acuity / Level of Answers: Yes Care: Did the patient have an inpatient admission? Comorbidities - select Answers: Other Notes: Quadriplegia all that apply # of Emergency department Answers: 3-4 visits in the last 6 months Score: 11 Date Signed: 11/23/2017 11:56 AM Electronically Signed By:Krista Phillips RN
[2017-11-23 12:19] VITALS: BP 136/86
[2017-11-23] MEDS: fentaNYL 25 MCG PATCH TD SCH (13:01)
[2017-11-23] MEDS: oxyCODONE IR 5 MG TAB TUBE PRN (15:42)
--- NOTE | 2017-11-24 13:29 | ASDISCHSUM ---
Discharge Information Plan Status: Medically Cleared to Leave: Discharge Date:11/23/2017 05:10 PM CM D/C Disposition: ADT D/C Disposition:Home, Routine, Self-Care Projected Discharge Date:11/23/2017 11:00 AM Transportation at D/C: Discharge Delay Reason: Follow-Up Date:11/23/2017 11:00 AM Discharge Slot: Final Diagnosis: Placement Information Referral Type:*[facility]/SNF Referral ID:[id number] Provider Name:[facility] Address 1:[address] Address 2: City:[place] Selection Factors: State:[place] Patient Contact Information Contact Name:KATHIE Relationship: Address:[address] Work Phone: City:[facility] Phone: State/Zip Code:[place] Email: Financial Information Financial Class:Medicare Primary Plan Desc:MEDICARE INPATIENT Primary Plan Number:[id number] Secondary Plan Desc: Secondary Plan Number: Assessment Information LACE LACE Length of stay for Answers: 4-6 days current admission Acuity / Level of Answers: Yes Care: Did the patient have an inpatient admission? Comorbidities - select Answers: Other Notes: Quadriplegia all that apply # of Emergency department Answers: 3-4 visits in the last 6 months Score: 11 Date Signed: 11/23/2017 11:56 AM Electronically Signed By:Krista Phillips RN [facility] CM Progress Note CM Note CM Note Notes: CM reviewing pt's chart for d/c planning. Pt is a 62y/o male with C3 paraplegia. He was brought in by his caregiver due to a low grade fever, increasing oxygen requirement and frequent suctioning of his trachea. Following his last hospitalization he was followed by home care with RN, RACHANA, PT/OT/BUSINESS DEVELOPMENT PROFESSIONAL. He presently lives in [facility] and will return there upon d/c. CM to follow. D/C Plan: [facility] Date Signed: 11/19/2017 01:58 PM Electronically Signed By:Shaina Johnson [facility] CM Progress Note CM Note CM Note Notes: Spoke with patient's Jenise who confirmed that patient is living at [facility]. I sent referral paperwork. ID recommendations for continued antibiotics pending. Case Management will follow. Date Signed: 11/21/2017 10:26 AM Electronically Signed By:Krista Phillips RN [facility] CM Progress Note CM Note CM Note Notes: ID reports that patient will be ready for discharge Tuesday. Notified Kasson and faxed referral. Date Signed: 11/22/2017 04:54 PM Electronically Signed By:Jackie Arevalo LCSW Case Management Discharge Plan Note Case Management Discharge Discharge Order Complete? Answers: Yes Patient to Obtain Answers: Other Notes: [facility] Medications Transportation Arranged Answers: Family/Friends Faxed Final Orders Answers: Yes Family Notified Answers: Yes Discharge Comments Notes: Patient discharging back to [facility]. His will transport them. Orders sent and received by Fabiola. MURALI Marcelino to call report. Date Signed: 11/23/2017 11:55 AM Electronically Signed By:Krista Phillips RN Intervention Information Intervention Type:IM-Pt. Not Available Date of Service:11/23/2017 02:44 PM Patient Type:Inpatient Staff Member:Mireya Carvalho Hours: Discipline: Severity: Comment:Patient was too nausea and weak to sig n the Medicare form. He asked that I leave a copy for his to review.
== END 2017-11-23 17:10 | DRG 193 ==
LOC: F3N 14:10
PROVIDERS: ADMIT Internal Medicine; ATTEND Internal Medicine
DX: J18.0 Bronchopneumonia, unspecified organism (principal); G82.52 Quadriplegia, C1-C4 incomplete; L89.154 Pressure ulcer of sacral region, stage 4; F11.20 Opioid dependence, uncomplicated; Z68.1 Body mass index [BMI] 19.9 or less, adult; G89.29 Other chronic pain; R19.7 Diarrhea, unspecified; R63.6 Underweight; Z93.0 Tracheostomy status; Z93.1 Gastrostomy status; Z93.4 Other artificial openings of gastrointestinal tract status
CPT/HCPCS: 96365; J1170; J1650; J1956; J2270; J7613; Q9967

== ENCOUNTER 2018-03-07 00:46 | Inpatient (IN) | payer OTHER ==
[2018-03-07] MEDS ORDERED: NS 1,000 ML IV ONE (01:16)
--- NOTE | 2018-03-07 01:42 | EDPHY ---
H & P Stated Complaint: chest congestion, fever Time Seen by Provider: 03/07/18 00:59 HPI/ROS: HPI The patient presents with cough, chest congestion, fever, body pain for the last 2 days. The patient has a history of C2 quadriplegia and is wheelchair- bound with cuffed trach in place, suprapubic tube, J-tube and G-tube. He was admitted to the hospital last in November for a pneumonia. He has had chest congestion over the last 2 days. He usually does not require any suctioning, however he has had brownish secretions upon suctioning, last performed just prior to arrival. He has chronic pain at baseline, however pain has become worse over the last 1 day throughout his body. He has had temperatures as high as 101 F. He normally wears 1.50to 2 L nasal cannula, however with this he is slightly hypoxic in the 80s to low 90s. He has not had rhinorrhea or sore throat. REVIEW OF SYSTEMS 10 systems were reviewed and negative with the exception of the elements mentioned in the history of present illness. PMHx: C2 quadriplegia, trach in place, last admission for pneumonia was November Hx: Here with his PHYSICAL General Appearance: Alert, no distress Eyes: Pupils equal and round no pallor or injection ENT, Mouth: Mucous membranes dry, nasal cannula is in place Respiratory: There are no retractions, there are coarse breath sounds of left lung field Cardiovascular: Regular rate and rhythm Gastrointestinal: Abdomen is soft and non-tender, no masses, bowel sounds normal Neurological: A&O Skin: Warm and dry, no rashes Musculoskeletal: Neck is supple non tender Extremities: In wheelchair, no movement of extremities Psychiatric: Patient is oriented X 3, there is no agitation Source: Patient, Family Exam Limitations: No limitations - Medical/Surgical History Hx Asthma: No Hx Chronic Respiratory Disease: No Hx Diabetes: No Hx Cardiac Disease: No Hx Renal Disease: No Hx Cirrhosis: No Hx Alcoholism: No Hx HIV/AIDS: No Hx Splenectomy or Spleen Trauma: No Other PMH: Quadriplegia C3-C4 2014, trach, pNA, Pericardial effusion, multple decubitus ulcer bottom and back, UTI's, Baclofen pump, Peg tube, Tracheostomy ( capped), APPY JANUARY 2017 - Social History Smoking Status: Never smoked Constitutional: Initial Vital Signs Temperature (C) 37.4 C 03/07/18 00:53 Heart Rate 80 03/07/18 00:53 Respiratory Rate 20 03/07/18 00:53 Blood Pressure 139/82 H 03/07/18 00:53 O2 Sat (%) 99 03/07/18 00:53 O2 (L/minute) 4 Allergies/Adverse Reactions: corn syrup Allergy (Severe, Verified 03/07/18 00:53) Unknown Milk Containing Products [dairy] Allergy (Severe, Verified 03/07/18 00:53) Swelling/neck,face,throat soy Allergy (Severe, Verified 03/07/18 00:53) Swelling/neck,face,throat nitrofurantoin [From Macrobid] Allergy (Unknown, Verified 03/07/18 00:53) Hives Penicillins Allergy (Unknown, Verified 03/07/18 00:53) Hives shellfish derived Allergy (Verified 03/07/18 00:53) tree nut [Nuts] Allergy (Verified 03/07/18 00:53) wheat Allergy (Severe, Uncoded 03/07/18 00:53) [place] Home Medications: Medication Instructions Recorded Baclofen [Baclofen 10 mg (*)] 10 mg TUBE TID 07/04/17 Ferrous Sulfate [Ferrous Sulf 325 325 mg TUBE DAILY 07/04/17 MG (*)] Magnesium Citrate [Magnesium 150 ml TUBE DAILY PRN 07/04/17 Citrate 300 ml (*)] Magnesium Hydroxide [Milk of 30 ml TUBE BID PRN 07/04/17 Magnesia] Midodrine HCl 10 mg TUBE BID@09,15 07/04/17 Polyethylene Glycol 3350 [Miralax 17 gm TUBE BID 07/04/17 17 gm (*)] Polyethylene Glycol 3350 [Miralax 17 gm TUBE DAILY PRN 07/04/17 17 gm (*)] Sennosides [Senna Lax] 8.6 mg TUBE DAILY 07/04/17 Sertraline HCl [Zoloft 100mg (*)] 100 mg TUBE DAILY 07/04/17 Tizanidine HCl 4 mg TUBE BID 07/04/17 Zolpidem Tartrate [Zolpidem 12.5 mg TUBE HS 07/04/17 Tartrate ER] clonazePAM [Klonopin (*)] 0.25 mg TUBE QID 07/04/17 fentaNYL [Duragesic 25 MCG Patch 25 mcg TD Q2D 07/04/17 (*)] oxyCODONE IR [Oxycodone Ir (*)] 30 mg TUBE 05,11,17,23 07/04/17 traZODone [traZODONE 50MG (*)] 50 mg TUBE HS 07/04/17 Acetaminophen [Tylenol 325mg (*)] 650 mg TUBE Q6 11/18/17 Acetaminophen [Tylenol 325mg (*)] 650 mg TUBE Q6 PRN 11/18/17 Albuterol [Proventil Neb] 3 ml IH Q4H PRN 11/18/17 Gabapentin 600 mg TUBE ,,11/18/17 Magnesium Hydroxide [Milk of 30 ml TUBE Q3D PRN 11/18/17 Magnesia] Midodrine HCl 10 mg TUBE PRN PRN 11/18/17 Ondansetron Odt [Zofran Odt 4 mg 4 mg PO Q4 PRN 11/18/17 (*)] Sodium Chloride [Salt Tablet] 1,000 mg TUBE TID 11/18/17 oxyCODONE IR [Oxycodone Ir (*)] 10 - 20 mg TUBE Q6H PRN 11/18/17 Ciprofloxacin [Cipro] 500 mg TUBE BID@1000,2000 #13 tab 11/23/17 Medical Decision Making - Diagnostics Imaging Results: Chest x-ray two views shows left lower lobe infiltrate, worse from prior chest x -ray, interpreted by me, radiology interpretation is pending. Imaging: I viewed and interpreted images myself Differential Diagnosis: This is a 62-year-old man who is a C2 quadriplegic who is brought in by his for increased chest congestion requiring suctioning, fever, body aches hypoxia for the last 1 day. This is concerning for recurrent pneumonia of which the patient has a history of. Labs were checked in the emergency department and they demonstrated stable anemia as well as CO2 retention. Chest x-ray does demonstrate infiltrate, worse as compared to prior chest x-ray. I suspect the patient has a pneumonia. I will check blood cultures and treat him with antibiotics. I have consulted with Dr. Sung of the hospitalist service who will admit the patient. Differential diagnosis includes pneumonia, atelectasis, bronchitis. - Data Points Laboratory Results: Laboratory Results 03/07/18 01:50 03/07/18 01:50 03/07/18 03/07/18 03/07/18 01:50 01:50 01:30 WBC 11.12 10^3/uL H 10^3/uL (3.80-9.50) RBC 2.92 10^6/uL L 10^6/uL (4.40-6.38) Hgb 8.9 g/dL L g/dL (13.7-17.5) Hct 28.7 % L % (40.0-51.0) MCV 98.3 fL fL (81.5-99.8) MCH 30.5 pg pg (27.9-34.1) MCHC 31.0 g/dL L g/dL (32.4-36.7) RDW 12.7 % % (11.5-15.2) Plt Count 161 10^3/uL 10^3/uL (150-400) MPV 9.9 fL fL (8.7-11.7) Neut % (Auto) 91.4 % H % (39.3-74.2) Lymph % (Auto) 3.0 % L % (15.0-45.0) [place] % (Auto) 5.1 % % (4.5-13.0) Eos % (Auto) 0.0 % L % (0.6-7.6) Baso % (Auto) 0.1 % L % (0.3-1.7) Nucleat RBC Rel Count 0.0 % % (0.0-0.2) Absolute Neuts (auto) 10.16 10^3/uL H 10^3/uL (1.70-6.50) Absolute Lymphs (auto) 0.33 10^3/uL L 10^3/uL (1.00-3.00) Absolute Monos (auto) 0.57 10^3/uL 10^3/uL (0.30-0.80) Absolute Eos (auto) 0.00 10^3/uL L 10^3/uL (0.03-0.40) Absolute Basos (auto) 0.01 10^3/uL L 10^3/uL (0.02-0.10) Absolute Nucleated RBC 0.00 10^3/uL 10^3/uL (0-0.01) Immature Gran % 0.4 % % (0.0-1.1) Immature Gran # 0.04 10^3/uL 10^3/uL (0.00-0.10) RBC/WBC/PLT Morphology TNP Platelet Estimate TNP Polychromasia 1+ H Stomatocytes 1+ H Sodium 131 mEq/L L mEq/L (135-145) Potassium 4.4 mEq/L mEq/L (3.5-5.2) Chloride 87 mEq/L L mEq/L (97-110) Carbon Dioxide 36 mEq/l H mEq/l (22-31) Anion Gap 8 mEq/L mEq/L (6-14) BUN 14 mg/dL mg/dL (7-23) Creatinine 0.3 mg/dL L mg/dL (0.7-1.3) Estimated GFR > 60 Glucose 98 mg/dL mg/dL (70-100) Calcium 8.4 mg/dL L mg/dL (8.5-10.4) Nasal Influenza A PCR NEGATIVE FOR FLU A (NEGATIVE) Nasal Influenza B PCR NEGATIVE FOR FLU B (NEGATIVE) RSV (PCR) NEGATIVE FOR RSV (NEGATIVE) Medications Given: Discontinued Medications Hydromorphone HCl (Dilaudid) 0.5 mg IVP EDNOW ONE Stop: 03/07/18 01:20 Last Admin: 03/07/18 01:55 Dose: 0.5 mg Hydromorphone HCl (Dilaudid) 0.5 mg IVP EDNOW ONE Stop: 03/07/18 02:37 Last Admin: 03/07/18 02:40 Dose: 0.5 mg Sodium Chloride (Ns) 1,000 mls @ 0 mls/hr IV ONCE ONE; Wide Open PRN Reason: Protocol Stop: 03/07/18 01:17 Last Admin: 03/07/18 01:56 Dose: 1,000 mls Levofloxacin/Dextrose (Levaquin 750 Mg (Premix)) 150 mls @ 100 mls/hr IV EDNOW ONE PRN Reason: Protocol Stop: 03/07/18 03:32 Last Admin: 03/07/18 02:47 Dose: 150 mls Departure - Departure Disposition: [facility] In[facility] Acute Clinical Impression: History of quadriplegia Anemia Qualifiers: Anemia type: unspecified type Qualified Code(s): D64.9 - Anemia, unspecified Pneumonia Qualifiers: Pneumonia type: due to unspecified organism Laterality: left Lung location: lower lobe of lung Qualified Code(s): J18.1 - Lobar pneumonia, unspecified organism Condition: Fair
[2018-03-07] MEDS: HYDROmorphONE/DILAUDID 2 MG/ML INJ IVP ONE ×2 (01:55→02:37)
[2018-03-07 02:01] LABS: PLATELET COUNT 161 10^3/uL (150-400)
[2018-03-07] MEDS ORDERED: HYDROmorphONE/DILAUDID 1 MG/ML INJ IVP ONE (02:36)
[2018-03-07] MEDS ORDERED: LORazepam 2 MG/ML INJ IVP PRN (02:44)
[2018-03-07] MEDS ORDERED: ACETAMINOPHEN 325 MG TAB PO PRN (02:44)
[2018-03-07] MEDS ORDERED: HYDROmorphONE/DILAUDID 1 MG/ML INJ IVP PRN (02:44)
[2018-03-07] MEDS ORDERED: ONDANSETRON 4 MG/2 ML VIAL IVP PRN (02:44)
[2018-03-07] MEDS ORDERED: ONDANSETRON DISINTEGRATING 4 MG TAB PO PRN (02:44)
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
[2018-03-07] MEDS ORDERED: ONDANSETRON DISINTEGRATING 4 MG TAB TUBE PRN (09:49)
[2018-03-07] MEDS ORDERED: MAGNESIUM CITRATE 300 ML BOTTLE TUBE PRN (09:49)
[2018-03-07] MEDS ORDERED: MIDODRINE HCL 10 MG TAB TUBE PRN (09:49)
[2018-03-07] MEDS ORDERED: ALBUTEROL 3 ML DEYVIAL IH PRN (09:49)
[2018-03-07] MEDS ORDERED: POLYETHYLENE GLYCOL 3350 17 GM PKT TUBE PRN (09:49)
[2018-03-07] MEDS ORDERED: MAGNESIUM HYDROXIDE 30 ML UDCUP TUBE PRN ×2 (09:49)
[2018-03-07] MEDS ORDERED: HYDROCORTISONE ACETATE 25 MG SUPP PR PRN (09:49)
--- NOTE | 2018-03-07 10:04 | HOSPPROG ---
Hospitalist Progress Note Assessment/Plan: 62 yo M w c3 quadriplegia w recurrent aspiration pneumonia a/w lethargy, LLL infiltrate pneumonia: recent sputu cx w stenotrophomonas and corynebacterium, hence LQ and doxy no resistent gm neg has hiatal hernia but definite airspace disease LLL SP tube: per notes, changed recently skin breakdown: present on admit wound care eval polypharmacy: he is on a great deal of medicines he was notably alert this AM after they wee held overnight i have rstarted them as this regimen was not arrived at overnight, but will follow proph: lmwh dispo: inpt code: will d/w Subjective: cxr w worsened LLL infiltrate c/w 11/24 (interp by me). case d/w dr moran Objective: Vital Signs Temp Pulse Resp BP Pulse Ox 37.2 C 76 18 114/77 96 03/07/18 07:52 03/07/18 07:52 03/07/18 07:52 03/07/18 07:52 03/07/18 07:52 Microbiology 03/07/18 04:00 - Final Sputum, Expectorated Sputum Culture - Final 03/06/18 03/07/18 03/08/18 05:59 05:59 05:59 Intake Total 1150 Output Total 1500 Balance -350 - Physical Exam Constitutional: no apparent distress, appears nourished Eyes: PERRL, anicteric sclera Ears, Nose, Mouth, Throat: moist mucous membranes, hearing normal Cardiovascular: regular rate and rhythym, no murmur, rub, or gallop Respiratory: other (crackles L base, good air movement) Gastrointestinal: normoactive bowel sounds, soft, non-tender abdomen, other ( PEG c/d/i) Genitourinary: other (SP tube) Skin: warm, other (erythema on L sacrum - present on admit) Musculoskeletal: No full muscle strength Neurologic: No AAOx3 ICD10 Worksheet Patient Problems: Problems Problem Status Onset Anemia Acute History of quadriplegia Acute Pneumonia Acute Abdominal pain Acute Chronic complete quadriplegia Acute Constipation Acute Fecal impaction of colon Acute Fever Acute Generalized tonic-clonic seizure Acute Generalized weakness Acute Hyponatremia Acute Hypoxia Acute MRSA (methicillin resistant Staphylococcus aureus) Acute ~09/02/16 MRSA (methicillin resistant Staphylococcus aureus) Acute ~11/08/16 New onset seizure Acute Quadriplegia Acute Thrombocytopenia Acute Urinary tract infection Acute chronic disease mgmt/transitional care Acute
[2018-03-07] MEDS: DOXYCYCLINE INJ 100 MG in NS 250 ML IV SCH ×2 (10:32→20:36)
[2018-03-07] MEDS: ENOXAPARIN 40 MG/0.4 ML SYR SC SCH (10:33)
--- NOTE | 2018-03-07 11:07 | WOCRNPDOC ---
SHILA Advanced Assessment Note - Skin Integrity Problem, Advanced Assess Left Illiac Crest Pressure Injury Dressing Type: Allevyn Life Dressing Description: Clean/Dry, Intact Exudate Amount: None Integumentary Issue Intervention: Visualized Under Dressing Masha Wound Tissue: Scarred Wound Bed Color: Red Wound Bed Constitution: Red/[place] - Non Granular Tissue (100%) Wound Edges: Attached Site Measurement - Head-to-Toe Length X Width X Depth (cm): 0.3x1x0.1 Pressure Injury Stage: Stage 4 Pressure Injury Present on Admit: Yes Skin Integrity Problem Comment: Reopening stage 4 that was surgically closed by [facility] about two years ago. Small partial thickness opening now present. Keep covered with Allevyn life and turn patient side to side. Support surface upgraded to [place]. RN's Randi in room for care. Coccyx Pressure Injury Dressing Type: Open to Air Masha Wound Tissue: Scarred Wound Bed Constitution: Scab, Healed Pressure Injury Stage: Stage 4 Pressure Injury Present on Admit: Yes Skin Integrity Problem Comment: Mostly healed wound. No current open areas but tiny scab of approximately 0.5x0.5. Covered area with Allevyn life dressing after patient was incontinent of stool. Wound care will follow.
[2018-03-07] MEDS: clonazePAM 0.5 MG TAB TUBE SCH ×3 (12:24→21:00)
--- NOTE | 2018-03-07 16:05 | PCMIDPN ---
Assessment/Plan: Assessment/Plan: * Left lower lobe pneumonia: Considerations include typical pathogens of community-acquired pneumonia, aspiration pneumonia, or healthcare associated pathogens given that patient has had Corynebacterium striatum and Stenotrophomonas previously. Clinically improved today. Agree with continued levofloxacin (targeting stenotrophomonas which was previously susceptible as well as community-acquired pathogens) and doxycycline (which prior isolate of Corynebacterium striatum was susceptible to). 03/07/18 16:00 Subjective: Patient known to our service from prior care for recurrent pneumonia. Prior microbiology and notes reviewed. Admitted with increasing respiratory effort and hypoxia from long-term care facility. Today feels clinically improved without significant shortness of breath or cough. Does have some sputum production. Objective: Vital Signs Temp Pulse Resp BP Pulse Ox 37.4 C 73 18 136/86 H 96 03/07/18 11:30 03/07/18 11:30 03/07/18 11:30 03/07/18 11:30 03/07/18 11:30 Microbiology 03/07/18 11:35 - Final Sputum, Induced/Suctioned 03/07/18 10:45 - Final Sputum, Induced/Suctioned Sputum Culture - Final 03/07/18 04:00 - Final Sputum, Expectorated Sputum Culture - Final 03/06/18 03/07/18 03/08/18 05:59 05:59 05:59 Intake Total 1150 Output Total 1500 Balance -350 Levofloxacin # 1 Doxycycline # 1 Sputum 4+ white blood cells, 4+ Gram-positive pleomorphic rods, 1+ yeast, 1+ intracellular GPC Chest x-ray with dense left lower lobe infiltrate which is worse than previous - Physical Exam General Appearance: alert, no apparent distress, non-toxic EENT: No scleral icterus, No thrush Respiratory: coarse breath sounds (Bilateral bases) Neck: other (Tracheostomy in place) Cardiac/Chest: regular rate, rhythm Abdomen: other (Peg site with minimal erythema; no drainage; suprapubic site with minimal erythema insertion), No distended Skin: other (Wound Care notes reviewed regarding decubitus) ICD10 Worksheet Patient Problems: Problems Problem Status Onset Anemia Acute History of quadriplegia Acute Pneumonia Acute Abdominal pain Acute Chronic complete quadriplegia Acute Constipation Acute Fecal impaction of colon Acute Fever Acute Generalized tonic-clonic seizure Acute Generalized weakness Acute Hyponatremia Acute Hypoxia Acute MRSA (methicillin resistant Staphylococcus aureus) Acute ~09/02/16 MRSA (methicillin resistant Staphylococcus aureus) Acute ~11/08/16 New onset seizure Acute Quadriplegia Acute Thrombocytopenia Acute Urinary tract infection Acute chronic disease [facility]/transitional care Acute
[2018-03-07] MEDS: BACLOFEN 10 MG TAB TUBE SCH ×2 (17:02→21:00)
[2018-03-07] MEDS: GABAPENTIN 300 MG CAP TUBE SCH ×2 (17:03→22:05)
[2018-03-07] MEDS: MIDODRINE HCL 10 MG TAB TUBE SCH (17:03)
[2018-03-07] MEDS: NS 1,000 ML IV SCH (19:17)
[2018-03-07] MEDS: POLYETHYLENE GLYCOL 3350 17 GM PKT TUBE SCH (20:33)
[2018-03-07] MEDS ORDERED: ZOLPIDEM TARTRATE 5 MG TAB PO SCH (21:00)
[2018-03-07] MEDS: traZODone 50 MG TAB TUBE SCH (21:00)
[2018-03-08] MEDS: clonazePAM 0.5 MG TAB TUBE SCH ×4 (05:03→20:55)
[2018-03-08] MEDS: GABAPENTIN 300 MG CAP TUBE SCH ×3 (05:03→22:54)
[2018-03-08] MEDS: DOXYCYCLINE INJ 100 MG in NS 250 ML IV SCH (09:35)
[2018-03-08] MEDS: ENOXAPARIN 40 MG/0.4 ML SYR SC SCH (09:37)
[2018-03-08] MEDS: MIDODRINE HCL 10 MG TAB TUBE SCH ×2 (09:40→15:02)
[2018-03-08] MEDS: SERTRALINE HCL 100 MG TAB TUBE SCH (09:41)
[2018-03-08] MEDS: BACLOFEN 10 MG TAB TUBE SCH ×3 (09:41→20:55)
[2018-03-08] MEDS: POLYETHYLENE GLYCOL 3350 17 GM PKT TUBE SCH ×2 (09:42→17:55)
[2018-03-08] MEDS: oxyCODONE IR 5 MG TAB TUBE PRN ×2 (09:50→15:02)
[2018-03-08] MEDS: NS 1,000 ML IV SCH ×2 (11:28→22:54)
--- NOTE | 2018-03-08 12:34 | HOSPPROG ---
Hospitalist Progress Note Assessment/Plan: 62 yo M w c3 quadriplegia w recurrent aspiration pneumonia a/w lethargy, LLL infiltrate pneumonia: recent sputu cx w stenotrophomonas and corynebacterium, hence LQ and doxy no resistant gm neg has hiatal hernia but definite airspace disease LLL 03/08- non lactose date pitter likely stenotrophomonas SP tube: per notes, changed recently skin breakdown: present on admit wound care eval polypharmacy: he is on a great deal of medicines he was notably alert this AM after they wee held overnight i have rstarted them as this regimen was not arrived at overnight, but will follow 03/08: he is alert, conversant and sharp continue current med regimen proph: lmwh dispo: inpt code: full Subjective: asking for biotene. copious secretions when suctioned. case d/w dr moran. micro w nonlactose date pitter gnr Objective: Vital Signs Temp Pulse Resp BP Pulse Ox 36.8 C 78 18 138/88 H 93 03/08/18 07:42 03/08/18 09:06 03/08/18 09:06 03/08/18 07:42 03/08/18 09:06 Microbiology 03/07/18 11:35 - Final Sputum, Induced/Suctioned 03/07/18 10:45 - Final Sputum, Induced/Suctioned Sputum Culture - Final 03/07/18 04:00 - Final Sputum, Expectorated Sputum Culture - Final 03/07/18 03/08/18 03/09/18 05:59 05:59 05:59 Intake Total 1150 4625 940 Output Total 1500 3250 1100 Balance -350 1375 -160 - Physical Exam Constitutional: no apparent distress, appears nourished Eyes: PERRL, anicteric sclera Ears, Nose, Mouth, Throat: moist mucous membranes, hearing normal Cardiovascular: regular rate and rhythym, systolic murmur Respiratory: no respiratory distress, other (crackles L base) Gastrointestinal: normoactive bowel sounds, soft, non-tender abdomen Genitourinary: other (SP catheter) Skin: warm, normal color Musculoskeletal: No full muscle strength Neurologic: AAOx3 ICD10 Worksheet Patient Problems: Problems Problem Status Onset Anemia Acute History of quadriplegia Acute Pneumonia Acute Abdominal pain Acute Chronic complete quadriplegia Acute Constipation Acute Fecal impaction of colon Acute Fever Acute Generalized tonic-clonic seizure Acute Generalized weakness Acute Hyponatremia Acute Hypoxia Acute MRSA (methicillin resistant Staphylococcus aureus) Acute ~09/02/16 MRSA (methicillin resistant Staphylococcus aureus) Acute ~11/08/16 New onset seizure Acute Quadriplegia Acute Thrombocytopenia Acute Urinary tract infection Acute chronic disease [facility]/transitional care Acute
[2018-03-08] MEDS: BIOTENE DRY MOUTH ORAL RINSE 237 ML BTL MM SCH ×2 (13:35→17:40)
--- NOTE | 2018-03-08 13:37 | PCMIDPN ---
Assessment/Plan: Left lower lobe Recurrent pneumonia likely due to aspiration, O2 requirements decreasing. Labs not repeated today. Low-grade fever T-max 37.7 degrees --Proteus and steno on cx, DC doxycycline --tentatively plan 7 days of therapy --may be able to transition to Levaquin via PEG tube tomorrow meds Levofloxacin 750mg IV daily # 2 Doxycycline 100mg IV q12# 2 Microbiology 03/07/18 11:35 Sputum, Induced/Suctioned Sputum Culture - Preliminary Proteus Mirabilis Stenotrophomonas Maltophilia 03/07/18 01:50 Blood Cx (2) NGTD Subjective: Patient complaining of dry mouth and need for mouth moisture. Patient also concerned about amount of tube feeds he is receiving. Feels respiratory status is improved Objective: Vital Signs Temp Pulse Resp BP Pulse Ox 37.7 C 65 18 147/95 H 96 03/08/18 12:32 03/08/18 12:32 03/08/18 12:32 03/08/18 12:32 03/08/18 12:32 Microbiology 03/07/18 11:35 - Final Sputum, Induced/Suctioned 03/07/18 10:45 - Final Sputum, Induced/Suctioned Sputum Culture - Final 03/07/18 04:00 - Final Sputum, Expectorated Sputum Culture - Final 03/07/18 03/08/18 03/09/18 05:59 05:59 05:59 Intake Total 1150 4625 940 Output Total 1500 3250 1100 Balance -350 1375 -160 - Physical Exam General Appearance: alert, cachetic Neck: other (Trach in place) Cardiac/Chest: tachycardia Extremities: other (muscular wasting of all 4 extremities), No pedal edema Abdomen: non-tender, soft Skin: pallor, No rash Neuro/Psych: alert, normal mood/affect, oriented x 3 - Time Spent With Patient Time Spent with Patient: greater than 25 minutes (Care coordinated with Dr. Vieira) Time Spent with Patient: Greater than 25 minutes spent on this patients care, greater than 50% of time spent counseling, educating, and coordinating care regarding the above mentioned plan. ICD10 Worksheet Patient Problems: Problems Problem Status Onset Anemia Acute History of quadriplegia Acute Pneumonia Acute Abdominal pain Acute Chronic complete quadriplegia Acute Constipation Acute Fecal impaction of colon Acute Fever Acute Generalized tonic-clonic seizure Acute Generalized weakness Acute Hyponatremia Acute Hypoxia Acute MRSA (methicillin resistant Staphylococcus aureus) Acute ~09/02/16 MRSA (methicillin resistant Staphylococcus aureus) Acute ~11/08/16 New onset seizure Acute Quadriplegia Acute Thrombocytopenia Acute Urinary tract infection Acute chronic disease mgmt/transitional care Acute
[2018-03-08] MEDS ORDERED: ACETAMINOPHEN 325 MG TAB TUBE PRN (14:00)
--- NOTE | 2018-03-08 17:27 | WOCRNPDOC ---
WOCRN Advanced Assessment Note - Skin Integrity Problem, Advanced Assess Abdomen Drain Site Dressing Type: Dressing Sponge Dressing Description: Intact, Shadowed Exudate Amount: Minimal Exudate Characteristic(s): Bilious Integumentary Issue Intervention: Dressing Changed Skin Integrity Problem Comment: Small area of erythema marty PEG tube site. Small amount of drainage on drain sponge. No concerns. Cleaned with Q tip and ns and placed drawtex dressing over area. OK to keep using drain sponge BID and prn. Wound care will sign off.
[2018-03-08] MEDS: BIOTENE DRY MOUTH MM SCH (19:50)
[2018-03-08] MEDS: ZOLPIDEM TARTRATE 5 MG TAB TUBE SCH (20:54)
[2018-03-08] MEDS: traZODone 50 MG TAB TUBE SCH (20:55)
[2018-03-08] MEDS: ACETAMINOPHEN 325 MG TAB TUBE SCH (20:55)
[2018-03-09] MEDS: oxyCODONE IR 5 MG TAB TUBE PRN ×2 (02:45→16:03)
[2018-03-09] MEDS: ACETAMINOPHEN 325 MG TAB TUBE SCH ×4 (02:45→21:11)
[2018-03-09] MEDS: clonazePAM 0.5 MG TAB TUBE SCH ×4 (05:10→21:11)
[2018-03-09] MEDS: GABAPENTIN 300 MG CAP TUBE SCH ×3 (05:10→22:59)
[2018-03-09] MEDS: BIOTENE DRY MOUTH MM SCH ×4 (05:11→21:13)
[2018-03-09] MEDS: MIDODRINE HCL 10 MG TAB TUBE SCH ×2 (08:42→14:30)
[2018-03-09] MEDS: SERTRALINE HCL 100 MG TAB TUBE SCH (08:43)
[2018-03-09] MEDS: ENOXAPARIN 40 MG/0.4 ML SYR SC SCH (08:44)
[2018-03-09] MEDS: POLYETHYLENE GLYCOL 3350 17 GM PKT TUBE SCH ×2 (08:44→17:16)
[2018-03-09] MEDS: SENNOSIDES 17.6 MG/10 ML UDL TUBE SCH (08:45)
[2018-03-09] MEDS: fentaNYL 25 MCG PATCH TD SCH (09:00)
[2018-03-09] MEDS: BACLOFEN 10 MG TAB TUBE SCH ×4 (09:07→21:11)
--- NOTE | 2018-03-09 12:29 | HOSPPROG ---
Hospitalist Progress Note Assessment/Plan: 62 yo M w c3 quadriplegia w recurrent aspiration pneumonia a/w lethargy, LLL infiltrate pneumonia, left lower lobe, likely aspiration. Has a hx of aspiration pneumonia -sputu cx w stenotrophomonas and proteus -cont with Levaquin, change to PO today -ID following, discussed Hyponatremia, resolved SP tube: per notes, changed recently Dysphagia: Tube feeds, continue skin breakdown: present on admit wound care eval Trach, chronic with chronic respiratory failure Long standing quadriplegia proph: lmwh dispo: change to oral abx tomorrow as already received IV dose today. consider discharging tomorrow vs day after so can ensure transition to oral abx. Will return to the [facility] code: full Subjective: no cp or sob. no n/v. tolerating tube feeds. Objective: Vital Signs Temp Pulse Resp BP Pulse Ox 36.6 C 67 18 134/87 H 95 03/09/18 11:29 03/09/18 12:18 03/09/18 12:18 03/09/18 11:29 03/09/18 12:18 Microbiology 03/07/18 11:35 - Final Sputum, Induced/Suctioned Laboratory Results 03/09/18 05:49 03/09/18 05:49 03/08/18 03/09/18 03/10/18 05:59 05:59 05:59 Intake Total 4625 5853 Output Total 3250 6500 Balance 1375 -647 - Physical Exam Constitutional: chronically ill appearing Eyes: PERRL, EOMI Ears, Nose, Mouth, Throat: moist mucous membranes, hearing normal Cardiovascular: regular rate and rhythym, No edema Respiratory: no respiratory distress, no rales or rhonchi, reduced air movement Gastrointestinal: normoactive bowel sounds, soft, non-tender abdomen Skin: warm Neurologic: AAOx3 Psychiatric: interacting appropriately, not anxious, not encephalopathic Lymph, Heme, Immunologic: No petechiae ICD10 Worksheet Patient Problems: Problems Problem Status Onset Anemia Acute History of quadriplegia Acute Pneumonia Acute Abdominal pain Acute Chronic complete quadriplegia Acute Constipation Acute Fecal impaction of colon Acute Fever Acute Generalized tonic-clonic seizure Acute Generalized weakness Acute Hyponatremia Acute Hypoxia Acute MRSA (methicillin resistant Staphylococcus aureus) Acute ~09/02/16 MRSA (methicillin resistant Staphylococcus aureus) Acute ~11/08/16 New onset seizure Acute Quadriplegia Acute Thrombocytopenia Acute Urinary tract infection Acute chronic disease mgmt/transitional care Acute
--- NOTE | 2018-03-09 16:20 | ASMTCMCOM ---
CM Note CM Note Notes: 03/09/2018 Case Management Note Discussed with MD this morning. Anticipating d/c tomorrow or Tuesday. Pt will d/c with iv medication needs. Case Management d/c poc: Return to [place]. Case Management to follow. Date Signed: 03/09/2018 04:20 PM Electronically Signed By:Hanna Davis RN
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
[2018-03-09] MEDS: traZODone 50 MG TAB TUBE SCH (21:13)
[2018-03-09] MEDS: ZOLPIDEM TARTRATE 5 MG TAB TUBE SCH (21:13)
[2018-03-10] MEDS: oxyCODONE IR 5 MG TAB TUBE PRN ×2 (02:26→15:38)
[2018-03-10] MEDS: ACETAMINOPHEN 325 MG TAB TUBE SCH ×4 (02:26→21:31)
[2018-03-10] MEDS: clonazePAM 0.5 MG TAB TUBE SCH ×4 (05:04→21:32)
[2018-03-10] MEDS: GABAPENTIN 300 MG CAP TUBE SCH ×3 (05:04→21:32)
[2018-03-10] MEDS: NS 1,000 ML IV SCH (05:04)
[2018-03-10] MEDS: BIOTENE DRY MOUTH MM SCH ×5 (05:05→22:10)
[2018-03-10] MEDS: MIDODRINE HCL 10 MG TAB TUBE SCH ×2 (09:21→15:39)
[2018-03-10] MEDS: SERTRALINE HCL 100 MG TAB TUBE SCH (09:22)
[2018-03-10] MEDS: ENOXAPARIN 40 MG/0.4 ML SYR SC SCH (09:22)
[2018-03-10] MEDS: BACLOFEN 10 MG TAB TUBE SCH ×3 (09:22→21:33)
[2018-03-10] MEDS: SENNOSIDES 17.6 MG/10 ML UDL TUBE SCH (10:33)
[2018-03-10] MEDS: POLYETHYLENE GLYCOL 3350 17 GM PKT TUBE SCH ×2 (10:34→17:39)
--- NOTE | 2018-03-10 11:09 | PCMIDPN ---
Assessment/Plan: 1. Probable aspiration pneumonia: Stenotrophomonas is indeed susceptible to the quinolones. Continue levofloxacin for 3 more days to complete 7 days of therapy. Stop date TuesdayMarch 13. He is now getting it through the G-tube. Unfortunately, he is at high risk of recurrence moving forward. Will need aggressive pulmonary toilet. 2. History of loose stool: C diff negative. Infectious Disease will sign off. Please feel free to call with questions. Thank you for allowing us to participate in his care. Subjective: No significant overnight events. Continues to improve. No skin breakdown. Objective: Levofloxacin 750 mg per G-tube day 05/14, stop date March 13 No fevers Vital Signs Temp Pulse Resp BP Pulse Ox 36.6 C 53 L 16 110/71 100 03/10/18 02:46 03/10/18 08:00 03/10/18 08:00 03/10/18 02:46 03/10/18 08:00 Microbiology 03/07/18 11:35 - Final Sputum, Induced/Suctioned Laboratory Results 03/09/18 05:49 03/09/18 05:49 03/09/18 03/10/18 03/11/18 05:59 05:59 05:59 Intake Total 5853 4726 Output Total 6200 5450 800 Balance -647 -724 -800 March 07 sputum: 2+ Proteus mirabilis NADYA of 2 to levofloxacin 2+ stenotrophomonas NADYA less than 1 to levofloxacin - Physical Exam General Appearance: no apparent distress, cachetic EENT: No thrush Respiratory: coarse breath sounds Cardiac/Chest: regular rate, rhythm Skin: No rash ICD10 Worksheet Patient Problems: Problems Problem Status Onset Anemia Acute History of quadriplegia Acute Pneumonia Acute Abdominal pain Acute Chronic complete quadriplegia Acute Constipation Acute Fecal impaction of colon Acute Fever Acute Generalized tonic-clonic seizure Acute Generalized weakness Acute Hyponatremia Acute Hypoxia Acute MRSA (methicillin resistant Staphylococcus aureus) Acute ~09/02/16 MRSA (methicillin resistant Staphylococcus aureus) Acute ~11/08/16 New onset seizure Acute Quadriplegia Acute Thrombocytopenia Acute Urinary tract infection Acute chronic disease mgmt/transitional care Acute
--- NOTE | 2018-03-10 11:40 | HOSPPROG ---
Hospitalist Progress Note Assessment/Plan: 62 yo M w c3 quadriplegia w recurrent aspiration pneumonia a/w lethargy, LLL infiltrate pneumonia, left lower lobe, likely aspiration. Has a hx of aspiration pneumonia -sputum cx w stenotrophomonas and proteus -cont with Levaquin, change to per tube on 03/10. Needs 7 day course -ID following, discussed. S/o 03/10 Hyponatremia, resolved Dehydration: will stop IVF today, cont tube feeds SP tube: per notes, changed recently Dysphagia: Tube feeds, continue skin breakdown: present on admit wound care eval Trach, chronic with chronic respiratory failure Long standing quadriplegia Diarrhea: C-Diff pending. appears better today. Can hopefully tolerate being off IVF proph: lmwh dispo: First day of po abx today stop IVF today, ensure maintain hydration on tube feeds d/c tomorrow Will return to the [facility] code: full Subjective: still on IVF. tolerating tube feeds. + diarrhea Objective: Vital Signs Temp Pulse Resp BP Pulse Ox 36.6 C 53 L 16 110/71 100 03/10/18 02:46 03/10/18 08:00 03/10/18 08:00 03/10/18 02:46 03/10/18 08:00 Microbiology 03/07/18 11:35 - Final Sputum, Induced/Suctioned Laboratory Results 03/09/18 05:49 03/09/18 05:49 03/09/18 03/10/18 03/11/18 05:59 05:59 05:59 Intake Total 5853 4726 Output Total 6500 5480 800 Balance -411 -724 -800 - Physical Exam Constitutional: no apparent distress Eyes: PERRL, EOMI Ears, Nose, Mouth, Throat: moist mucous membranes, hearing normal Cardiovascular: regular rate and rhythym, No edema Respiratory: no respiratory distress, no rales or rhonchi Gastrointestinal: normoactive bowel sounds Skin: warm Musculoskeletal: generalized weakness Neurologic: AAOx3 Psychiatric: interacting appropriately, not anxious, not encephalopathic Lymph, Heme, Immunologic: No petechiae ICD10 Worksheet Patient Problems: Problems Problem Status Onset Anemia Acute History of quadriplegia Acute Pneumonia Acute Abdominal pain Acute Chronic complete quadriplegia Acute Constipation Acute Fecal impaction of colon Acute Fever Acute Generalized tonic-clonic seizure Acute Generalized weakness Acute Hyponatremia Acute Hypoxia Acute MRSA (methicillin resistant Staphylococcus aureus) Acute ~09/02/16 MRSA (methicillin resistant Staphylococcus aureus) Acute ~11/08/16 New onset seizure Acute Quadriplegia Acute Thrombocytopenia Acute Urinary tract infection Acute chronic disease [facility]/transitional care Acute
[2018-03-10] MEDS: traZODone 50 MG TAB TUBE SCH (21:33)
[2018-03-10] MEDS: ZOLPIDEM TARTRATE 5 MG TAB TUBE SCH (23:26)
[2018-03-11] MEDS: ACETAMINOPHEN 325 MG TAB TUBE SCH ×3 (03:10→15:18)
[2018-03-11] MEDS: clonazePAM 0.5 MG TAB TUBE SCH ×2 (05:41→13:16)
[2018-03-11] MEDS: GABAPENTIN 300 MG CAP TUBE SCH (05:43)
[2018-03-11] MEDS: BIOTENE DRY MOUTH MM SCH ×2 (06:08→11:04)
[2018-03-11] MEDS: SERTRALINE HCL 100 MG TAB TUBE SCH (09:58)
[2018-03-11] MEDS: BACLOFEN 10 MG TAB TUBE SCH ×2 (09:58→15:19)
[2018-03-11] MEDS: MIDODRINE HCL 10 MG TAB TUBE SCH ×2 (09:58→15:19)
[2018-03-11] MEDS: ENOXAPARIN 40 MG/0.4 ML SYR SC SCH (10:02)
[2018-03-11] MEDS: SENNOSIDES 17.6 MG/10 ML UDL TUBE SCH (10:03)
[2018-03-11] MEDS: POLYETHYLENE GLYCOL 3350 17 GM PKT TUBE SCH (10:03)
[2018-03-11] MEDS: fentaNYL 25 MCG PATCH TD SCH (10:03)
[2018-03-11 11:29] VITALS: BP 136/85
--- NOTE | 2018-03-11 12:45 | PDDCSUM ---
Discharge Summary Discharge Summary: 62 yo M w c3 quadriplegia w recurrent aspiration pneumonia a/w lethargy, LLL infiltrate. Treated with IV Levaquin. ID consulted. Now on Oral Levaquin. Back to baseline from a resp standpoint. Tolerating tube feeds. No signs of dehydration. Dx diagnosis: pneumonia, left lower lobe, likely aspiration. Has a hx of aspiration pneumonia -sputum cx w stenotrophomonas and proteus -cont with Levaquin, last day is 2/4 Hyponatremia, resolved Dehydration: resolved SP tube: per notes, changed recently Dysphagia: Tube feeds, continue skin breakdown: present on admit wound care eval Trach, chronic with chronic respiratory failure Long standing quadriplegia Dispo: d/c to [facility] F/U: with PCP next week Exam: NAD AAOX3 RRR CTA B S/NT/ND MEDS: SEE MED REC TOTAL TIME SPENT ON D/C IS 35 MINS
--- NOTE | 2018-03-11 12:46 | PDIAF ---
- Diagnosis Diagnosis: PNEUMONIA Code Status: Full Code - Medication Management Discharge Medications: electronically signed and located in the Home Medication List. - Orders Isolation Type: None Diet Recommendation: no restrictions on diet Diet Texture: Regular Texture Diet Additional Instructions: activity: as tolerated f/u: with PCP in one week - Follow Up Care Current Providers and Referrals: NONE *PRIMARY CARE P,. [Primary Care Provider] -
--- NOTE | 2018-03-11 14:16 | ASMTDCNOTE ---
Case Management Discharge Discharge Order Complete? Answers: Yes Patient to Obtain Answers: Other Notes: [place] Medications Transportation Arranged Answers: Family/Friends Transport will Pick (Date 03/11/2018 02:30 PM & Time) Faxed Final Orders Answers: Yes Agency/Facility Transfer Answers: Yes Report Printed & Faxed to Receiving Agency Family Notified Answers: Yes Notes: called and will transport at 14:30 Discharge Comments Notes: Pt to discharge back home to [facility]. May notified of crab picker time and earlier she confirmed they are able to received. Orders Faxed to number she provided. No further CM needs noted at this time. Date Signed: 03/11/2018 02:16 PM Electronically Signed By:Jina Leach
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
[2018-03-11] MEDS: oxyCODONE IR 5 MG TAB TUBE PRN (15:19)
--- NOTE | 2018-03-15 10:38 | PQFORM ---
PHYSICIAN QUERY FORM Needs Your Response This query form is being sent to you to assure this patient record is coded properly. Please respond to the question below: GUILLOTINE TRIMMER QUESTION: Dear Dr. Clark, This patient had a documented BMI of 17.9 that fell to 16.2 during his admission. The operator maintainer reports severe malnutrition and underweight. Based on the clinical findings and your professional judgment, can any of the following diagnoses be added to the discharge summary? x Severe protein calorie malnutrition Underweight Other explanation for BMI Thank you for clarifying, ADRIENNE Harmon HIM Coding INSTRUCTIONS FOR RESPONSE: Answer question by clicking on the "Edit Document" button. Move cursor to area below the stars. When complete, hit "Save." Click on the "Sign" button, then click "Sign" again. Type in your PIN and hit "Enter." MTDD
--- NOTE | 2018-03-15 10:44 | PQFORM ---
PHYSICIAN QUERY FORM Needs Your Response This query form is being sent to you to assure this patient record is coded properly. Please respond to the question below: HANDLE MACHINE OPERATOR QUESTION: Dear Dr. Clark, In her history and physical, Dr. Sung documents the patient had acute on chronic hypoxic respiratory failure with O2 supplementation. Based on the clinical findings and your professional judgment, can the diagnosis of acute respiratory failure be added to the discharge summary? yes no other ____x_ Unknown Thank you for clarifying, Criselda Bullock FABRIC WORKER HIM Coding INSTRUCTIONS FOR RESPONSE: Answer question by clicking on the "Edit Document" button. Move cursor to area below the stars. When complete, hit "Save." Click on the "Sign" button, then click "Sign" again. Type in your PIN and hit "Enter." MTDD
== END 2018-03-11 16:40 | DRG 177 ==
LOC: F3E 02:55
PROVIDERS: ADMIT Family Medicine; ATTEND Family Medicine
DX: J69.0 Pneumonitis due to inhalation of food and vomit (principal); G82.50 Quadriplegia, unspecified; L89.154 Pressure ulcer of sacral region, stage 4; L89.224 Pressure ulcer of left hip, stage 4; E87.1 Hypo-osmolality and hyponatremia; E86.0 Dehydration; J96.10 Chronic respiratory failure, unspecified whether with hypoxia or hypercapnia; E43 Unspecified severe protein-calorie malnutrition; R13.10 Dysphagia, unspecified; D50.9 Iron deficiency anemia, unspecified; G89.29 Other chronic pain; Z93.0 Tracheostomy status; Z93.51 Cutaneous-vesicostomy status; Z93.1 Gastrostomy status; Z99.3 Dependence on wheelchair; Z66 Do not resuscitate; Z68.1 Body mass index [BMI] 19.9 or less, adult
CPT/HCPCS: 96365; 97166-GO; J1170; J1650; J1956

== ENCOUNTER 2018-04-14 15:24 | Inpatient (IN) | payer OTHER ==
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
[2018-04-14 17:24] LABS: PLATELET COUNT 198 10^3/uL (150-400)
[2018-04-14 17:32] LABS: INR 1.02 (0.83-1.16)
[2018-04-14] MEDS ORDERED: PIPERACILLIN/TAZO 2.25 GM/DEX 50 ML IV ONE (19:20)
[2018-04-14] MEDS ORDERED: VANCOMYCIN HCL/NORMAL SALINE 250 ML IV ONE (19:21)
[2018-04-14] MEDS ORDERED: ONDANSETRON 4 MG/2 ML VIAL IVP PRN (20:39)
[2018-04-14] MEDS ORDERED: ONDANSETRON DISINTEGRATING 4 MG TAB TUBE PRN (20:43)
[2018-04-14] MEDS ORDERED: MIDODRINE HCL 10 MG TAB TUBE PRN (20:43)
[2018-04-14] MEDS ORDERED: HYDROCORTISONE ACETATE 25 MG SUPP PR PRN (20:43)
[2018-04-14] MEDS ORDERED: ACETAMINOPHEN 325 MG TAB TUBE PRN (20:43)
[2018-04-14] MEDS ORDERED: POLYETHYLENE GLYCOL 3350 17 GM PKT TUBE PRN (20:43)
[2018-04-14] MEDS ORDERED: MAGNESIUM CITRATE 300 ML BOTTLE TUBE PRN (20:43)
[2018-04-14] MEDS ORDERED: MAGNESIUM HYDROXIDE 30 ML UDCUP TUBE PRN ×2 (20:43)
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
[2018-04-14] MEDS ORDERED: HYDROmorphONE/DILAUDID 1 MG/ML INJ IVP PRN (20:56)
[2018-04-14] MEDS ORDERED: HYDROmorphONE/DILAUDID 1 MG/ML INJ IVP ONE (20:58)
[2018-04-14] MEDS ORDERED: ZOLPIDEM TARTRATE 5 MG TAB PO SCH (21:00)
[2018-04-14] MEDS: NS W/ 20 KCl/L 1,000 ML IV SCH (22:08)
[2018-04-14] MEDS: traZODone 50 MG TAB TUBE SCH (22:55)
[2018-04-14] MEDS: clonazePAM 0.5 MG TAB TUBE SCH (23:24)
[2018-04-14] MEDS: BACLOFEN 10 MG TAB TUBE SCH (23:25)
[2018-04-14] MEDS: ZOLPIDEM TARTRATE 5 MG TAB TUBE SCH (23:25)
[2018-04-14] MEDS: fentaNYL 25 MCG PATCH TD SCH (23:26)
[2018-04-14] MEDS: GABAPENTIN 300 MG CAP TUBE SCH (23:26)
[2018-04-14] MEDS: POLYETHYLENE GLYCOL 3350 17 GM PKT TUBE SCH (23:27)
[2018-04-15] MEDS: CEFEPIME HCL 2 GM in NS 100 ML IV SCH ×2 (01:17→09:37)
[2018-04-15 04:52] LABS: PLATELET COUNT 187 10^3/uL (150-400)
[2018-04-15] MEDS: GABAPENTIN 300 MG CAP TUBE SCH ×3 (05:28→23:35)
[2018-04-15] MEDS: clonazePAM 0.5 MG TAB TUBE SCH ×4 (06:21→21:20)
--- NOTE | 2018-04-15 08:05 | PDMN ---
Medical Necessity Medical necessity: Pt meets IP criteria per MD & MCG [id number]; est los >2 mn for eval/tx of pneumonia w/increased secretions, hypoxemia & altered mental status; admit for further monitoring, ID consult, IV abx & respiratory supportive care/ suctioning; hx quadriplegia, has trach & peg tube, recurrent pneumonia, recurrent UTIs w/suprapubic cath; per H&P & order 04/14/18
[2018-04-15] MEDS ORDERED: FERROUS SULFATE 325 MG TAB PO SCH (09:00)
[2018-04-15] MEDS: BACLOFEN 10 MG TAB TUBE SCH ×3 (09:36→23:35)
[2018-04-15] MEDS: SERTRALINE HCL 100 MG TAB TUBE SCH (09:36)
[2018-04-15] MEDS: ENOXAPARIN 40 MG/0.4 ML SYR SC SCH (09:36)
[2018-04-15] MEDS: POLYETHYLENE GLYCOL 3350 17 GM PKT TUBE SCH ×2 (09:37→21:21)
[2018-04-15] MEDS: MIDODRINE HCL 10 MG TAB TUBE SCH ×2 (10:57→17:20)
[2018-04-15] MEDS: NS W/ 20 KCl/L 1,000 ML IV SCH (11:42)
[2018-04-15] MEDS ORDERED: PROTOCOL POTASSIUM 1 DOSE MISC PRN (12:23)
[2018-04-15] MEDS ORDERED: POTASSIUM CL 10 MEQ TAB TUBE ONE (12:29)
[2018-04-15] MEDS ORDERED: POTASSIUM CL 20 MEQ/15 ML UDCUP TUBE ONE ×2 (12:45→19:30)
--- NOTE | 2018-04-15 13:04 | PCMIDPN ---
Assessment/Plan: 1. Query aspiration pneumonia versus chemical pneumonitis: The patient improved within 24 hr, and is now on his baseline oxygen requirement. This rapid improvement argues against a bonafide aspiration pneumonia, per se. He also has minimal secretions, and no objective fever. Will therefore stop cefepime and observe overnight. Patient is fine with that plan and is eager to leave the hospital. Of note, the patient's sputum will likely be colonized with multiple pathogens. Will also obtain good PA and lateral chest x-ray, as admission chest x-ray was an AP film. 2. Hypochloremic metabolic alkalosis: ? Underlying chronic respiratory acidosis secondary to impaired respiratory mechanics in the setting of his quadriplegia. Have discussed with hospitalist, who will consult Pulmonary. Query underlying role for CPAP. Over 25 min spent with this patient today. 04/15/18 13:06 Subjective: Patient is well known to Infectious Disease. I saw this patient during his most recent admission for pneumonia secondary to stenotrophomonas, treated with 7 days of Levaquin. Patient was brought back into the emergency room yesterday given increasing oxygen requirements, perhaps increasing secretions, and fevers , although we have no documented fever here. Speaking with the patient today, he states that he feels like himself again. He denies cough, or worsening secretions. No sore throat. Objective: Cefepime 2 g IV q.8 hours day 1 Afebrile 93% on 1 L Vital Signs Temp Pulse Resp BP Pulse Ox 36.9 C 72 18 144/84 H 93 04/15/18 09:31 04/15/18 09:46 04/15/18 09:46 04/15/18 09:31 04/15/18 09:46 Microbiology 04/15/18 00:50 - Final Sputum, Expectorated Laboratory Results 04/15/18 04:06 04/15/18 04:06 04/14/18 04/15/18 04/16/18 05:59 05:59 06:59 Intake Total 640 Output Total 3550 700 Balance -2910 -700 Blood cultures and sputum cultures are pending - Physical Exam General Appearance: no apparent distress, cachetic EENT: pharynx normal, other (Trach is capped), No thrush Respiratory: coarse breath sounds, other (Faint rhonchi diffusely.) Cardiac/Chest: regular rate, rhythm, No systolic murmur Abdomen: other (PEG tube in place) Skin: No rash ICD10 Worksheet Patient Problems: Problems Problem Status Onset Hypoxia Acute Pneumonia Acute Abdominal pain Acute Anemia Acute Chronic complete quadriplegia Acute Constipation Acute Fecal impaction of colon Acute Fever Acute Generalized tonic-clonic seizure Acute Generalized weakness Acute History of quadriplegia Acute Hyponatremia Acute MRSA (methicillin resistant Staphylococcus aureus) Acute ~09/02/16 MRSA (methicillin resistant Staphylococcus aureus) Acute ~11/08/16 New onset seizure Acute Quadriplegia Acute Thrombocytopenia Acute Urinary tract infection Acute chronic disease mgmt/transitional care Acute
--- NOTE | 2018-04-15 15:14 | HOSPPROG ---
Hospitalist Progress Note Assessment/Plan: Recurrent PNA - recently treated with Levaquin for left sided PNA, which has improved, now with right sided infiltrate. He lives at [facility]F. He received Zosyn and Vanc in ED. Has had MRSA on UCx (suspect colonization) -was placed on Cefepime, ID consulted this AM, given clinical improvement overnight will d/c abx and monitor overnight -RT support for suctioning -speech/swallow eval - Repeat 2V CXR ordered by ID this afternoon Hypoxemia 2/2 above - no respiratory distress on arrival, but increased O2 requirement from 1-->3 LPM -RT, wean O2 as tolerated Quadriplegia with peg / trach / SPC - cont bowel regimen, tube feeds -dietary consult -wound/ostomy care Metabolic alkalosis - Bicarb 45 this M, 44 on admission, appears he has had chronic metabolic alkalosis but not to this degree - S/p IVF with no improvement, volume contraction less likely - Possible respiratory issue with chronic C02 retainer and compensatory metabolic alkalosis - Will obtain VBG this afternoon, if abnormal will consult Pulmonology for further evaluation Metabolic encephalopathy - mentation was not at baseline per family, suspect 2/ 2 infection - Improved this AM Hypokalemia - mild, replace, follow Malnutrition - Dietary consulted as above Full code Dispo - Pending clinical course Subjective: Patient reports feeling back to baseline this AM Objective: Vital Signs Temp Pulse Resp BP Pulse Ox 36.9 C 72 18 144/84 H 93 04/15/18 09:31 04/15/18 09:46 04/15/18 09:46 04/15/18 09:31 04/15/18 09:46 Microbiology 04/15/18 00:50 - Final Sputum, Expectorated Laboratory Results 04/15/18 04:06 04/15/18 04:06 04/14/18 04/15/18 04/16/18 05:59 05:59 06:59 Intake Total 640 Output Total 3550 700 Balance -2910 -700 PT 13.0 SEC (12.0-15.0) 04/14/18 17:17 INR 1.02 (0.83-1.16) 04/14/18 17:17 - Physical Exam Constitutional: chronically ill appearing, unkempt Eyes: PERRL Ears, Nose, Mouth, Throat: moist mucous membranes Cardiovascular: regular rate and rhythym Respiratory: no respiratory distress Gastrointestinal: other (PEG tube in place) Skin: warm Musculoskeletal: generalized weakness Neurologic: AAOx3 Psychiatric: interacting appropriately ICD10 Worksheet Patient Problems: Problems Problem Status Onset Hypoxia Acute Pneumonia Acute Abdominal pain Acute Anemia Acute Chronic complete quadriplegia Acute Constipation Acute Fecal impaction of colon Acute Fever Acute Generalized tonic-clonic seizure Acute Generalized weakness Acute History of quadriplegia Acute Hyponatremia Acute MRSA (methicillin resistant Staphylococcus aureus) Acute ~09/02/16 MRSA (methicillin resistant Staphylococcus aureus) Acute ~11/08/16 New onset seizure Acute Quadriplegia Acute Thrombocytopenia Acute Urinary tract infection Acute chronic disease mgmt/transitional care Acute
[2018-04-15] MEDS ORDERED: POTASSIUM CL 10 MEQ TAB PO ONE (19:15)
[2018-04-15] MEDS: oxyCODONE IR 5 MG TAB TUBE PRN ×2 (20:14→21:20)
[2018-04-15] MEDS: ZOLPIDEM TARTRATE 5 MG TAB TUBE SCH (21:21)
[2018-04-15] MEDS: traZODone 50 MG TAB TUBE SCH (23:35)
[2018-04-16] MEDS: NS W/ 20 KCl/L 1,000 ML IV SCH (01:11)
[2018-04-16 04:31] LABS: PLATELET COUNT 173 10^3/uL (150-400)
[2018-04-16] MEDS: GABAPENTIN 300 MG CAP TUBE SCH ×3 (05:50→23:16)
[2018-04-16] MEDS: clonazePAM 0.5 MG TAB TUBE SCH ×4 (05:50→21:20)
[2018-04-16] MEDS: SERTRALINE HCL 100 MG TAB TUBE SCH (08:21)
[2018-04-16] MEDS: FERROUS SULFATE 300 MG/5 ML UD CUP TUBE SCH (08:21)
[2018-04-16] MEDS: BACLOFEN 10 MG TAB TUBE SCH ×3 (08:21→21:21)
[2018-04-16] MEDS: oxyCODONE IR 5 MG TAB TUBE PRN ×3 (08:21→21:20)
[2018-04-16] MEDS: ENOXAPARIN 40 MG/0.4 ML SYR SC SCH (08:23)
[2018-04-16] MEDS: POLYETHYLENE GLYCOL 3350 17 GM PKT TUBE SCH ×2 (08:23→21:21)
[2018-04-16] MEDS ORDERED: POTASSIUM CL 10 MEQ TAB PO ONE (08:24)
[2018-04-16] MEDS ORDERED: POTASSIUM CL 10 MEQ TAB TUBE ONE ×2 (08:30→19:46)
[2018-04-16] MEDS ORDERED: POTASSIUM CL 20 MEQ/15 ML UDCUP TUBE ONE (08:45)
[2018-04-16] MEDS: MIDODRINE HCL 10 MG TAB TUBE SCH ×2 (09:45→15:27)
[2018-04-16] MEDS: ALBUTEROL 3 ML DEYVIAL IH PRN (11:23)
--- NOTE | 2018-04-16 12:34 | ASMTCMCOM ---
CM Note CM Note Notes: Pt is a 62 yo M who is a quad that resides at [facility]. Pt's is supportive ([phone] Jenise) and spoke with CM today about o2 stats and concerns that she doesn't feel comfortable with him going back to [facility] until O2 stats are more controlled. CM submit updates to [facility]. CM to follow. Plan: [facility] once medically ready. Date Signed: 04/16/2018 12:34 PM Electronically Signed By:CLAU Bains
--- NOTE | 2018-04-16 13:07 | PCMIDPN ---
Assessment/Plan: 1. Probable pneumonia/pneumonitis in patient with impaired respiratory mechanics /inability to clear secretions: He is clearly worse today, mostly secondary to the fact that he cannot clear his thick, tenacious secretions. The non lactose family practice physician assistant is likely stenotrophomonas. At this point, given clinical worsening I feel compelled to start antibiotics in the form of levofloxacin 750 mg daily per G-tube. Hopefully he can have a short 5-7 day course, with an emphasis on pulmonary toilet, as mucous plugging is a huge problem. This was all conveyed to the patient and his today via telephone. Subjective: When I walked in the room, the patient was with 2 nurses, attempting to suction and cough up thick, green at tenacious secretions. I was in there for over 25 min, and the patient's oxygenation deteriorated extensively into the 70s on multiple occasions secondary to inability to clear his secretions. Patient was complaining of shortness of breath earlier in the day as well. This is different compared to when I saw him yesterday, which point he was on his baseline O2 requirement. Patient clearly seems frustrated, and is irritable. Demanded that I talked to his to explain what's going on, which I did. Objective: Status post vancomycin, Zosyn, and cefepime for only 1 day Afebrile 85% on 6 L Vital Signs Temp Pulse Resp BP Pulse Ox 36.4 C 69 22 H 129/78 H 91 L 04/16/18 12:25 04/16/18 12:25 04/16/18 11:27 04/16/18 12:25 04/16/18 12:39 Microbiology 04/15/18 00:50 - Final Sputum, Expectorated Laboratory Results 04/16/18 03:42 04/16/18 03:42 04/15/18 04/16/18 04/17/18 04:59 05:59 05:59 Intake Total Output Total 400 Balance -400 Sputum with 4+ gram-negative non lactose family practice physician assistant Chest x-ray with possible pneumonia left base, scarring right middle lobe - Physical Exam General Appearance: cachetic, other (In mild distress secondary to inability to clear secretions. Coughing.) EENT: No thrush Respiratory: coarse breath sounds Cardiac/Chest: tachycardia Abdomen: non-tender, soft, other (G-tube in place) Skin: No rash ICD10 Worksheet Patient Problems: Problems Problem Status Onset Hypoxia Acute Pneumonia Acute Abdominal pain Acute Anemia Acute Chronic complete quadriplegia Acute Constipation Acute Fecal impaction of colon Acute Fever Acute Generalized tonic-clonic seizure Acute Generalized weakness Acute History of quadriplegia Acute Hyponatremia Acute MRSA (methicillin resistant Staphylococcus aureus) Acute ~09/02/16 MRSA (methicillin resistant Staphylococcus aureus) Acute ~11/08/16 New onset seizure Acute Quadriplegia Acute Thrombocytopenia Acute Urinary tract infection Acute chronic disease [facility]/transitional care Acute
--- NOTE | 2018-04-16 14:37 | HOSPPROG ---
Hospitalist Progress Note Assessment/Plan: Recurrent PNA/Pneumonitis - recently treated with Levaquin for left sided PNA, which has improved, now with right sided infiltrate on initial CXR. - He received Zosyn and Vanc in ED. Has had MRSA on UCx (suspect colonization) -was placed on Cefepime, ID consulted on 04/15, given clinical improvement abx were d/c yesterday, however given worsening respirtaory status this AM with increased secretions, ID started 750 mg PO Levaquin, 5-7 day course -Pulmonary toiler, RT support for suctioning - speech/swallow eval Hypoxemia 2/2 above - no respiratory distress on arrival, but increased O2 requirement from 1-->3 LPM -Management of PNA as above RT, wean O2 as tolerated Quadriplegia with peg / trach / SPC - cont bowel regimen, tube feeds -dietary consult -wound/ostomy care Metabolic alkalosis - Bicarb 45 this AM, 44 on admission, appears he has had chronic metabolic alkalosis but not to this degree - S/p IVF with no improvement, volume contraction less likely - Likely respiratory chronic C02 retainer and compensatory metabolic alkalosis Metabolic encephalopathy - mentation was not at baseline per family, suspect 2/ 2 infection - Improved Hypokalemia - mild, replace, follow Malnutrition - Dietary consulted as above Full code Dispo - Pending clinical course Subjective: Patient reports increase secretions this AM Objective: Vital Signs Temp Pulse Resp BP Pulse Ox 36.4 C 69 22 H 129/78 H 91 L 04/16/18 12:25 04/16/18 12:25 04/16/18 11:27 04/16/18 12:25 04/16/18 12:39 Microbiology 04/15/18 00:50 - Final Sputum, Expectorated Laboratory Results 04/16/18 03:42 04/16/18 03:42 04/15/18 04/16/18 04/17/18 04:59 05:59 05:59 Intake Total Output Total 400 Balance -400 PT 13.0 SEC (12.0-15.0) 04/14/18 17:17 INR 1.02 (0.83-1.16) 04/14/18 17:17 - Physical Exam Constitutional: chronically ill appearing, uncomfortable Eyes: PERRL Ears, Nose, Mouth, Throat: moist mucous membranes Cardiovascular: regular rate and rhythym Respiratory: reduced air movement, bronchial breath sounds, other (tracheostomy in place) Genitourinary: no bladder tenderness Skin: warm Neurologic: No AAOx3 Psychiatric: No interacting appropriately ICD10 Worksheet Patient Problems: Problems Problem Status Onset Hypoxia Acute Pneumonia Acute Abdominal pain Acute Anemia Acute Chronic complete quadriplegia Acute Constipation Acute Fecal impaction of colon Acute Fever Acute Generalized tonic-clonic seizure Acute Generalized weakness Acute History of quadriplegia Acute Hyponatremia Acute MRSA (methicillin resistant Staphylococcus aureus) Acute ~09/02/16 MRSA (methicillin resistant Staphylococcus aureus) Acute ~11/08/16 New onset seizure Acute Quadriplegia Acute Thrombocytopenia Acute Urinary tract infection Acute chronic disease mgmt/transitional care Acute
[2018-04-16] MEDS: traZODone 50 MG TAB TUBE SCH (21:20)
[2018-04-16] MEDS: ZOLPIDEM TARTRATE 5 MG TAB TUBE SCH (21:20)
[2018-04-16] MEDS: fentaNYL 25 MCG PATCH TD SCH (21:21)
[2018-04-17] MEDS: GABAPENTIN 300 MG CAP TUBE SCH ×3 (04:24→23:05)
[2018-04-17] MEDS: clonazePAM 0.5 MG TAB TUBE SCH ×4 (06:11→20:46)
[2018-04-17] MEDS ORDERED: POTASSIUM CL 10 MEQ TAB PO ONE (08:15)
[2018-04-17] MEDS ORDERED: POTASSIUM CL 20 MEQ/15 ML UDCUP TUBE ONE (08:30)
[2018-04-17] MEDS: ENOXAPARIN 40 MG/0.4 ML SYR SC SCH (08:32)
[2018-04-17] MEDS: BACLOFEN 10 MG TAB TUBE SCH ×3 (08:32→20:50)
[2018-04-17] MEDS: FERROUS SULFATE 300 MG/5 ML UD CUP TUBE SCH (08:41)
[2018-04-17] MEDS: MIDODRINE HCL 10 MG TAB TUBE SCH ×2 (08:42→16:15)
[2018-04-17] MEDS: SERTRALINE HCL 100 MG TAB TUBE SCH (08:42)
[2018-04-17] MEDS: oxyCODONE IR 5 MG TAB TUBE PRN ×2 (08:43→16:17)
[2018-04-17] MEDS: POLYETHYLENE GLYCOL 3350 17 GM PKT TUBE SCH ×2 (09:15→20:46)
--- NOTE | 2018-04-17 16:53 | HOSPPROG ---
Hospitalist Progress Note Assessment/Plan: Recurrent PNA/Pneumonitis - recently treated with Levaquin for left sided PNA, which has improved, now with right sided infiltrate on initial CXR. - He received Zosyn and Vanc in ED. Has had MRSA on UCx (suspect colonization) -was placed on Cefepime, ID consulted on 04/15, given clinical improvement abx were d/c on 04/15, however given worsening respiratory status on 04/16 with increased secretions, ID started 750 mg PO Levaquin, 5-7 day course -Pulmonary toiler, RT support for suctioning - speech/swallow eval Hypoxemia 2/2 above - no respiratory distress on arrival, but increased O2 requirement from 1-->3 LPM -Management of PNA as above RT, wean O2 as tolerated Quadriplegia with peg / trach / SPC - cont bowel regimen, tube feeds -dietary consult -wound/ostomy care Metabolic alkalosis - Bicarb 45, 44 on admission, appears he has had chronic metabolic alkalosis but not to this degree - S/p IVF with no improvement, volume contraction less likely - Likely respiratory chronic C02 retainer and compensatory metabolic alkalosis Metabolic encephalopathy - mentation was not at baseline per family, suspect 2/ 2 infection - Improved Hypokalemia - mild, replace, follow Malnutrition - Dietary consulted as above Full code Dispo - Pending clinical course Subjective: Patient reports no complaints this AM Objective: Vital Signs Temp Pulse Resp BP Pulse Ox 37.0 C 59 L 14 141/92 H 96 04/17/18 11:41 04/17/18 11:41 04/17/18 11:41 04/17/18 11:41 04/17/18 11:41 Microbiology 04/15/18 00:50 - Final Sputum, Expectorated Laboratory Results 04/16/18 03:42 04/17/18 03:55 04/16/18 04/17/18 04/18/18 05:59 05:59 05:59 Intake Total 3210 150 Output Total 4675 1100 Balance -1465 -950 PT 13.0 SEC (12.0-15.0) 04/14/18 17:17 INR 1.02 (0.83-1.16) 04/14/18 17:17 - Physical Exam Constitutional: chronically ill appearing Eyes: PERRL Ears, Nose, Mouth, Throat: moist mucous membranes Cardiovascular: regular rate and rhythym Respiratory: no respiratory distress, reduced air movement Gastrointestinal: soft, non-tender abdomen Musculoskeletal: generalized weakness Neurologic: No AAOx3 Psychiatric: interacting appropriately ICD10 Worksheet Patient Problems: Problems Problem Status Onset Hypoxia Acute Pneumonia Acute Abdominal pain Acute Anemia Acute Chronic complete quadriplegia Acute Constipation Acute Fecal impaction of colon Acute Fever Acute Generalized tonic-clonic seizure Acute Generalized weakness Acute History of quadriplegia Acute Hyponatremia Acute MRSA (methicillin resistant Staphylococcus aureus) Acute ~09/02/16 MRSA (methicillin resistant Staphylococcus aureus) Acute ~11/08/16 New onset seizure Acute Quadriplegia Acute Thrombocytopenia Acute Urinary tract infection Acute chronic disease mgmt/transitional care Acute
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
[2018-04-17] MEDS: ZOLPIDEM TARTRATE 5 MG TAB TUBE SCH (20:45)
[2018-04-17] MEDS: traZODone 50 MG TAB TUBE SCH (20:46)
[2018-04-18] MEDS ORDERED: POTASSIUM CL 20 MEQ/15 ML UDCUP TUBE ONE ×2 (00:45→09:45)
[2018-04-18] MEDS: oxyCODONE IR 5 MG TAB TUBE PRN ×3 (03:28→15:33)
[2018-04-18] MEDS: clonazePAM 0.5 MG TAB TUBE SCH ×4 (05:13→15:33)
[2018-04-18] MEDS: GABAPENTIN 300 MG CAP TUBE SCH (05:14)
[2018-04-18 05:44] VITALS: BP 138/83
[2018-04-18] MEDS: MIDODRINE HCL 10 MG TAB TUBE SCH ×2 (07:41→15:21)
[2018-04-18] MEDS: POLYETHYLENE GLYCOL 3350 17 GM PKT TUBE SCH (08:46)
[2018-04-18] MEDS: SERTRALINE HCL 100 MG TAB TUBE SCH (08:46)
[2018-04-18] MEDS: BACLOFEN 10 MG TAB TUBE SCH ×2 (08:46→15:33)
[2018-04-18] MEDS: FERROUS SULFATE 300 MG/5 ML UD CUP TUBE SCH (08:46)
[2018-04-18] MEDS: ENOXAPARIN 40 MG/0.4 ML SYR SC SCH (08:46)
[2018-04-18] MEDS ORDERED: POTASSIUM CL 10 MEQ TAB PO ONE (09:22)
--- NOTE | 2018-04-18 11:05 | PCMIDPN ---
Assessment/Plan: # Aspiration PNA vs mucous plug: more rapid improvement seems more c/w mucous plug but patient very high risk. Now on minimal O2 requirements. --Levofloxacin through 04/20, no side effects to FQ noted Subjective: no c/o today Objective: Vital Signs Temp Pulse Resp BP Pulse Ox 36.5 C 64 20 138/83 H 95 04/18/18 04:00 04/18/18 09:26 04/18/18 09:26 04/18/18 04:00 04/18/18 09:26 Microbiology 04/15/18 00:50 - Final Sputum, Expectorated Sputum Culture - Final Proteus Mirabilis Delftia Acidovorans Gram Neg Chalo Lactose Director [employer] Laboratory Results 04/16/18 03:42 04/18/18 08:00 04/17/18 04/18/18 04/19/18 05:59 05:59 05:59 Intake Total 3210 1950 160 Output Total 4675 1100 Balance -1465 850 160 ICD10 Worksheet Patient Problems: Problems Problem Status Onset Hypoxia Acute Pneumonia Acute Abdominal pain Acute Anemia Acute Chronic complete quadriplegia Acute Constipation Acute Fecal impaction of colon Acute Fever Acute Generalized tonic-clonic seizure Acute Generalized weakness Acute History of quadriplegia Acute Hyponatremia Acute MRSA (methicillin resistant Staphylococcus aureus) Acute ~09/02/16 MRSA (methicillin resistant Staphylococcus aureus) Acute ~11/08/16 New onset seizure Acute Quadriplegia Acute Thrombocytopenia Acute Urinary tract infection Acute chronic disease mgmt/transitional care Acute
--- NOTE | 2018-04-18 11:21 | PDIAF ---
- Diagnosis Diagnosis: PNA Code Status: Do Not Resuscitate - Medication Management Instructor Apparel Manufacture Antibiotics: Levaquin 750 mg qd Instructor Apparel Manufacture Antibiotic Stop Date: 04/20/18 Discharge Medications: electronically signed and located in the Home Medication List. - Orders Services needed: Home Care, Registered Nurse Home Care Face to Face: I certify that this patient was under my care and that I had the required [id number] encounter meeting the encounter requirements on the discharge day. My findings support the fact that the patient is homebound as defined in Home Care Face to Face Continued: CMS Chapter 7 Medicare Benefits Manual 30.1.1 , The condition of the patient is such that there exists a normal inability to leave home and consequently, leaving home would require a considerable and taxing effort. Isolation Type: None Diet Texture: No Oral Liquids, Non Oral Meds, None - Follow Up Care Current Providers and Referrals: NONE *PRIMARY CARE P,. [Primary Care Provider] - As per Instructions
[2018-04-18] MEDS: ALBUTEROL 3 ML DEYVIAL IH PRN (11:37)
--- NOTE | 2018-04-18 12:19 | ASMTLACE ---
PAVELE Length of stay for Answers: 3 days current admission Acuity / Level of Answers: Yes Care: Did the patient have an inpatient admission? Comorbidities - select Answers: Other Notes: quadriplegic all that apply # of Emergency department Answers: 3-4 visits in the last 6 months Score: 10 Date Signed: 04/18/2018 12:19 PM Electronically Signed By:Hanna Davis RN
--- NOTE | 2018-04-18 12:46 | ASMTDCNOTE ---
Case Management Discharge Discharge Order Complete? Answers: Yes Patient to Obtain Answers: Other Notes: [facility] to provide Medications Transportation Arranged Answers: Other Notes: transport arranged by Dorothy from [facility] will Pick (Date 04/18/2018 03:00 PM & Time) Faxed Final Orders Answers: Yes Notes: to [facility] Agency/Facility Transfer Answers: Yes Notes: to [facility] Report Printed & Faxed to Receiving Agency Family Notified Answers: Yes Notes: notified per inpatient pharmacist Comments Notes: 04/18/2018 Case Management Note Faxed final orders to [facility]. 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 RN to call report. Left VM with to discuss outpatient palliative care. Faxed referral to [facility] for outpatient meeting. Discusssed with Amina from [facility] who will coordinate with [facility] to meet family. Case Management d/c poc: [facility] care with [facility] outpatient follow. Date Signed: 04/18/2018 12:45 PM Electronically Signed By:Hanna Davis RN
--- NOTE | 2018-04-18 12:46 | ASDISCHSUM ---
Discharge Information Plan Status:SNF Medically Cleared to Leave:04/18/2018 Discharge Date:04/18/2018 CM D/C Disposition:Long Term Facility ADT D/C Disposition: Projected Discharge Date:04/16/2018 11:00 AM Transportation at D/C:Wheelchair Van Discharge Delay Reason: Follow-Up Date:04/16/2018 11:00 AM Discharge Slot: Final Diagnosis: Placement Information Referral Type:*Mcfp/SNF Referral ID:[id number] Provider Name:[facility] Address 1:[address] Address 2: City:[place] Selection Factors: State:[place] Referral Type:Palliative Care Referral ID:[id number] Provider Name:[facility] Address 1:[address] Phone Number: Address 2: Fax Number: [facility]:[place] Selection Factors: State:[place] Patient Contact Information Contact Name:ARMIDAAMY Relationship: Address:[address] [place] [address] Work Phone: City:[facility] Alternate Phone: State/Zip Code:[place] Email: Financial Information Financial Class:Medicare Primary Plan Desc:MEDICARE INPATIENT Primary Plan Number:[id number] Secondary Plan Desc:[employer] Secondary Plan Number:[id number] Assessment Information LACE LACE Length of stay for Answers: 3 days current admission Acuity / Level of Answers: Yes Care: Did the patient have an inpatient admission? Comorbidities - select Answers: Other Notes: quadriplegic all that apply # of Emergency department Answers: 3-4 visits in the last 6 months Score: 10 Date Signed: 04/18/2018 12:19 PM Electronically Signed By:Hanna Davis RN [facility] Progress Note CM Note CM Note Notes: Pt is a 62 yo M who is a quad that resides at [facility]. Pt's is supportive ([phone] Armida) and spoke with CM today about o2 stats and concerns that she doesn't feel comfortable with him going back to [facility] until O2 stats are more controlled. CM submit updates to [facility]. CM to follow. Plan: [facility] once medically ready. Date Signed: 04/16/2018 12:34 PM Electronically Signed By:CLAU Banis Case Management Discharge Plan Note Case Management Discharge Discharge Order Complete? Answers: Yes Patient to Obtain Answers: Other Notes: [facility] to provide Medications Transportation Arranged Answers: Other Notes: transport arranged by Dorothy from [facility] Transport will Pick (Date 04/18/2018 03:00 PM & Time) Faxed Final Orders Answers: Yes Notes: to [facility] Agency/Facility Transfer Answers: Yes Notes: to [facility] Report Printed & Faxed to Receiving Agency Family Notified Answers: Yes Notes: notified per auto body straightener Comments Notes: 04/18/2018 Case Management Note Faxed final orders to [facility]. Dorothy arranged transport for 1500 cone picker. RN to call report. Left VM with to discuss outpatient palliative care. [facility] Discusssed with Amina from [facility] who will coordinate with [facility] to meet family. Case Management d/c poc: [facility] snf care with [facility] outpatient follow. Date Signed: 04/18/2018 12:45 PM Electronically Signed By:Hanna Davis RN Intervention Information
--- NOTE | 2018-04-18 16:28 | PDDCSUM ---
Discharge Summary Discharge Summary: Date of Admission: 04/14/2018 Date of Discharge: 04/18/2018 Consults: ID Procedures: CXR x2 Followup: PCP Hospital Course Problem List: Recurrent PNA/Pneumonitis - recently treated with Levaquin for left sided PNA, which has improved, now with right sided infiltrate on initial CXR. - He received Zosyn and Vanc in ED. Has had MRSA on UCx (suspect colonization) -was placed on Cefepime, ID consulted on 04/15, given clinical improvement abx were d/c on 04/15, however given worsening respiratory status on 04/16 with increased secretions, ID started 750 mg PO Levaquin, will complete total 7 day course 04/20 -Pulmonary toiler, RT support for suctioning Hypoxemia 2/2 above - no respiratory distress on arrival, but increased O2 requirement from 1-->3 LPM, back to home 02 requirements on discharge -Management of PNA as above RT, wean O2 as tolerated Quadriplegia with peg / trach / SPC - cont bowel regimen, tube feeds -dietary consult -wound/ostomy care Metabolic alkalosis - Bicarb 45, 44 on admission, appears he has had chronic metabolic alkalosis but not to this degree - S/p IVF with no improvement, volume contraction less likely - Likely respiratory chronic C02 retainer and compensatory metabolic alkalosis Metabolic encephalopathy - mentation was not at baseline per family, suspect 2/ 2 infection - Improved Hypokalemia - mild, replace, follow Malnutrition - Dietary consulted as above Time spent on discharge was >35 minutes with >50% of time spent on patient education and counseling.
== END 2018-04-18 16:10 | DRG 193 ==
LOC: F2W 21:43
PROVIDERS: ADMIT Hospitalist; ATTEND Hospitalist
DX: J18.9 Pneumonia, unspecified organism (principal); E87.6 Hypokalemia; G93.41 Metabolic encephalopathy; E46 Unspecified protein-calorie malnutrition; G82.51 Quadriplegia, C1-C4 complete; J96.11 Chronic respiratory failure with hypoxia; Z93.0 Tracheostomy status; Z99.81 Dependence on supplemental oxygen; Z99.3 Dependence on wheelchair; Z87.01 Personal history of pneumonia (recurrent); Z66 Do not resuscitate; Z86.14 Personal history of Methicillin resistant Staphylococcus aureus infection; Z87.440 Personal history of urinary (tract) infections
CPT/HCPCS: 92523-GN; 96374; J0692; J1170; J1650; J1956; J2543; J3370; J7613

== ENCOUNTER 2018-05-08 06:12 | Emergency (ER) | payer OTHER ==
--- NOTE | 2018-05-08 06:43 | EDPHY ---
H & P Stated Complaint: J tube got pulled out - Personal History Current Tetanus/Diphtheria Vaccine: Yes Current Tetanus Diphtheria and Acellular Pertussis (TDAP): Yes - Medical/Surgical History Hx Asthma: No Hx Chronic Respiratory Disease: No Hx Diabetes: No Hx Cardiac Disease: No Hx Renal Disease: No Hx Cirrhosis: No Hx Alcoholism: No Hx HIV/AIDS: No Hx Splenectomy or Spleen Trauma: No Other PMH: Quadriplegia C3-C4 2013, trach, pNA, Pericardial effusion, multple decubitus ulcer bottom and back, UTI's, Baclofen pump, Peg tube, Tracheostomy ( capped), APPY JANUARY 2017 - Social History Smoking Status: Never smoked Time Seen by Provider: 05/08/18 06:32 HPI/ROS: Chief Complaint: GJ tube dislodged HPI: 62-year-old C3 quadriplegic with a chronic indwelling gastro jejunal feeding tube being brought in by his for his to being dislodged. Patient states that the tube got caught while he was being turned and pulled out the gastric portion of the tube this morning. The jejunal to remains intact and in place. has placed a Gamez catheter into the site to keep the tract open. The tell me that this tube was placed in June of last year. There are some complications with placement by intervention Radiology as the jejunal portion of the tube with recurrently coil in the fundus of the stomach. They were seen by Dr. Summers, gastroenterology who performed and endoscopies P and clipped the tube in place in the jejunum. Patient denies any pain. No nausea or vomiting. No fevers or chills or cough. ROS: 10 systems were reviewed and were negative except those elements noted in the HPI. Social History: No smoking Family History: non-contributory Physical Exam: Gen: Awake, Alert, No Distress HEENT: Nose: no rhinorrhea Eyes: PERRLA, EOMI Mouth: Moist mucosa Neck: Supple, no JVD Chest: nontender, lungs clear to auscultation Heart: S1, S2 normal, no murmur Abd: Soft, there is a Gamez catheter in the os of the gastrostomy site. The gastric portion is outside with the jejunal portion still in place. There is no erythema. No purulent discharge. There is no tenderness. Back: no CVA tenderness, no midline tenderness Ext: no edema, non-tender Skin: no rash Neuro: CN II-XII intact, Sensation grossly intact, Strength 5/5 in bilateral upper and lower extremities (Simon Lundberg) Constitutional: Initial Vital Signs Temperature (C) 36.6 C 05/08/18 06:19 Heart Rate 61 05/08/18 06:19 Respiratory Rate 16 05/08/18 06:19 Blood Pressure 129/89 H 05/08/18 06:19 O2 Sat (%) 94 05/08/18 06:19 O2 Delivery Mode Nasal Cannula O2 (L/minute) 1.5 Allergies/Adverse Reactions: corn syrup Allergy (Severe, Verified 05/08/18 06:19) Unknown Milk Containing Products [dairy] Allergy (Severe, Verified 05/08/18 06:19) Swelling/neck,face,throat soy Allergy (Severe, Verified 05/08/18 06:19) Swelling/neck,face,throat nitrofurantoin [From Macrobid] Allergy (Unknown, Verified 05/08/18 06:19) Hives Penicillins Allergy (Unknown, Verified 05/08/18 06:19) Hives shellfish derived Allergy (Verified 05/08/18 06:19) tree nut [Nuts] Allergy (Verified 05/08/18 06:19) wheat Allergy (Severe, Uncoded 05/08/18 06:19) [place] Home Medications: Medication Instructions Recorded Baclofen [Baclofen 10 mg (*)] 10 mg TUBE TID 07/04/17 Magnesium Citrate [Magnesium 150 ml TUBE DAILY PRN 07/04/17 Citrate 300 ml (*)] Magnesium Hydroxide [Milk of 30 ml TUBE BID PRN 07/04/17 Magnesia] Midodrine HCl 10 mg TUBE BID@09,15 07/04/17 Polyethylene Glycol 3350 [Miralax 17 gm TUBE BID 07/04/17 17 gm (*)] Polyethylene Glycol 3350 [Miralax 17 gm TUBE DAILY PRN 07/04/17 17 gm (*)] Sertraline HCl [Zoloft 100mg (*)] 100 mg TUBE DAILY 07/04/17 Tizanidine HCl 4 mg TUBE BID 07/04/17 clonazePAM [Klonopin (*)] 0.25 mg TUBE QID 07/04/17 fentaNYL [Duragesic 25 MCG Patch 25 mcg TD Q2D 05/28/18 (*)] oxyCODONE IR [Oxycodone Ir (*)] 30 mg TUBE 05,11,17,23 07/04/17 traZODone [traZODONE 50MG (*)] 50 mg TUBE HS 07/04/17 Acetaminophen [Tylenol 325mg (*)] 650 mg TUBE Q6 PRN 11/18/17 Albuterol [Proventil Neb] 3 ml IH Q4H PRN 11/18/17 Magnesium Hydroxide [Milk of 30 ml TUBE Q3D PRN 11/18/17 Magnesia] Midodrine HCl 10 mg TUBE PRN PRN 11/18/17 Ondansetron Odt [Zofran Odt 4 mg 4 mg TUBE Q4HRS PRN 11/18/17 (*)] oxyCODONE IR [Oxycodone Ir (*)] 10 - 20 mg TUBE Q6H PRN 11/18/17 Gabapentin [Neurontin 300 MG (*)] 600 mg TUBE BID@05,,03/07/18 Hydrocortisone Acetate 25 mg [place] DAILY PRN 03/07/18 [Hemorrhoidal Hc 25 mg supp (*)] Zolpidem Tartrate [Ambien 5MG (*)] 10 mg PO HS 03/07/18 Ferrous Sulfate [Ferrous Sulf 325 325 mg TUBE DAILY 04/14/18 MG (*)] Tuberculin (Ppd) [Tubersol] 0.1 ml ID Q7D 04/14/18 levOFLOXACIN [levAQUIN (*)] 750 mg PO DAILY AT 10AM #2 tab 04/18/18 Medical Decision Making ED Course/Re-evaluation: I have discussed the case with Dr. Olea, gastroenterology. He is requesting that we obtain an abdominal x-ray to assess the current placement of the tube and then give him a call. He will be happy to consult on the patient in the emergency department. Patient is signed out to Dr. Ayala pending x-ray and consultation. (Simon Lundberg) 0700: I assumed care of this patient at shift change. G-tube accidently dislodged with J-tube still in place. Pt desires G-tube only, uses a 24F. KUB reveals no evidence of a metallic clip. I spoke to Dr. Olea, who saw the pt in the ED. 24F G-tube replaced by Dr. Olea. (Caity Ayala) Departure - Departure Disposition: Home, Routine, Self-Care Clinical Impression: G-tube replacement Condition: Good Instructions: How to Use and Care for Your PEG Tube (ED) Referrals: Roger Olea MD [Medical Doctor] - As per Instructions
[2018-05-08 07:55] VITALS: BP 125/66
--- NOTE | 2018-05-08 15:11 | GCON ---
[f rep st] CONSULTATION CHIEF COMPLAINT: Gastrostomy tube management. HISTORY OF PRESENT ILLNESS: I have been asked to see this patient in consultation by Dr. Miguel Levy in the emergency department for management of gastrojejunal feeding tube. The patient is a 62-year-o ld C3 quadriplegic who has a chronic GJ tube. The tube had been not functioning. The G-tube portion had fallen out. Gamez catheter was replaced to keep the tract open. The patient had an attempt in the past with IR to place jejunal portion of the tube, unsuccessfully. The tube was subsequently nayeli mikie endoscopically by Dr. Summers. J tube was clipped in place in the jejunum. He presented to the [facility] department with malfunctioning GJ tube. G-tube portion of the gastrostomy tube had fallen out . The family requests that GJ tube be removed and replaced with a new 24-Welsh G-tube. Asked to se e patient for further management. SOCIAL HISTORY: Negative. FAMILY HISTORY: Noncontributory pertaining to chief complaint. PAST MEDICAL HISTORY: Quadriplegia, C3, C4; tracheostomy; history of decubitus ulcers; UTIs, previou s appendectomy. ALLERGIES: [place] syrup, milk-containing products, soy and nitrofurantoin. PHYSICAL EXAM: VITAL SIGNS: 125/66, respiratory rate 16, heart rate is 66, 96% sat on room air. AB DOMEN: Gastrostomy opening in the mid abdomen. Previous GJ-tube was removed by traction method. A 24-Welsh NADYA/Haylard tube was then replaced. Balloon was inflated with 9 mL of water. The G-tube w as pulled back to about 2.5 cm and external bolster applied. IMPRESSION: Status post G-tube replacement. The previous GJ-tube was removed and replaced with a LA C/Haylard 24-Welsh replacement gastrostomy tube. RECOMMENDATIONS: Resume tube feeds. Recommend changing every 6 months prophylactically. The patien t will call our office with any further problems or questions. /[id number]/MODL
== END 2018-05-08 07:55 | disposition home or self-care (01) ==
PROC: 0DH67UZ Insertion of Feeding Device into Stomach, Via Natural or Artificial Opening (ICD-10-PCS; principal; 2018-05-08)
DX: K94.23 Gastrostomy malfunction (principal)

== ENCOUNTER 2018-05-27 03:34 | Inpatient (IN) | payer OTHER ==
[2018-05-27] MEDS ORDERED: NS 1,000 ML IV ONE (03:39)
[2018-05-27] MEDS ORDERED: IPRATROPIUM/ALBUTEROL 3 ML DEYVIAL IH ONE (03:39)
[2018-05-27] MEDS ORDERED: VANCOMYCIN HCL/NORMAL SALINE 250 ML IV ONE (03:41)
[2018-05-27] MEDS ORDERED: CEFEPIME HCL 2 GM in NS 100 ML IV ONE (03:42)
--- NOTE | 2018-05-27 03:45 | EDPHY ---
H & P Time Seen by Provider: 05/27/18 03:42 HPI/ROS: HPI CHIEF COMPLAINT: Shortness of breath, hypoxia HISTORY OF PRESENT ILLNESS: This patient is a 62-year-old male, resides at the [facility], presents emergency room shortness of breath and hypoxia. Was found to be hypoxic in the 80s at his facility. They were unable to get him above 80s. 911 was called and presents emergency room for shortness of breath, he arrives on a non-rebreather 94%. He is on 10 L at this time. He has rhonchi throughout all lung [place]. Patient has a trach in place. No distress. He is afebrile. Past Medical History: Significant past medical history for pneumonia, hypoxic respiratory failure, quadriplegia, sepsis, tracheostomy, suprapubic catheterization Past Surgical History: Trach, peg, suprapubic catheterization Social History: Lives at the [facility]. Family History: Noncontributory ROS REVIEW OF SYSTEMS: Limited due to clinical state and mental state. Exam Constitutional triage nursing summary reviewed, vital signs reviewed, awake/ alert. Eyes normal conjunctivae and sclera, EOMI, PERRLA. HENT normal inspection, atraumatic, moist mucus membranes, no epistaxis, neck supple/ no meningismus, no raccoon eyes. Respiratory rhonchorous breath sounds throughout all lung felton. Trach in place. Cardiovascular rate normal, regular rhythm, no murmur, no edema, distal pulses normal. Gastrointestinal peg tube, suprapubic catheterization, pump intra-abdominal right lower quadrant, soft, non-tender, no rebound, no guarding, normal bowel sounds, no distension, no pulsatile mass. Genitourinary no CVA tenderness. Musculoskeletal no midline vertebral tenderness, full range of motion, no calf swelling, no tenderness of extremities, no meningismus, good pulses, neurovascularly intact. Skin pink, warm, & dry, no rash, skin atraumatic. Neurologic quadriplegic at baseline Differential Diagnosis: Includes but is not limited to in a particular order viral syndrome, URI, pneumonia, sepsis, bacteremia, dehydration, aspiration pneumonia. Medical Decision Making: Plan for this patient IV establishment IV fluid bolus , broad-spectrum antibiotics which include IV vanc IV cefepime, chest x-ray, labs, supplemental oxygen, will clean out his tracheostomy. Re-evaluate. Re-evaluation: EKG interpretation by ri on record in [facility] system. Impression time of EKG 4:08 a.m., sinus rate of 97, some motion artifact seen. No acute ST elevation. Troponin 0.02 Critical Care: Total Critical Care Time Spent Managing this Patient: 65 Minutes. This time was spent Exclusively with this patient. This Care was exclusive of procedures. The Organ System/life at risk was pulmonary, sepsis, hypoxia, pna, mucus plugging, trach This Patient was in Critical Condition because pulmonary, sepsis, hypoxia, pna , mucus plugging, trach, hypoxic respiratory failure. Source: Patient, EMS - Medical/Surgical History Hx Asthma: No Hx Chronic Respiratory Disease: No Hx Diabetes: No Hx Cardiac Disease: No Hx Renal Disease: No Hx Cirrhosis: No Hx Alcoholism: No Hx HIV/AIDS: No Hx Splenectomy or Spleen Trauma: No Other PMH: Quadriplegia C3-C4 2013, trach, pNA, Pericardial effusion, multple decubitus ulcer bottom and back, UTI's, Baclofen pump, Peg tube, Tracheostomy ( capped), APPY JANUARY 2017 - Social History Smoking Status: Never smoked Constitutional: Initial Vital Signs Temperature (C) 36.9 C 05/27/18 03:25 Heart Rate 81 05/27/18 03:25 Respiratory Rate 20 05/27/18 03:25 Blood Pressure 102/66 05/27/18 03:25 O2 Sat (%) 93 05/27/18 03:25 O2 Delivery Mode Non-Rebreather Mask O2 (L/minute) 5 Allergies/Adverse Reactions: corn syrup Allergy (Severe, Verified 05/08/18 06:19) Unknown Milk Containing Products [dairy] Allergy (Severe, Verified 05/08/18 06:19) Swelling/neck,face,throat soy Allergy (Severe, Verified 05/08/18 06:19) Swelling/neck,face,throat nitrofurantoin [From Macrobid] Allergy (Unknown, Verified 05/08/18 06:19) Hives Penicillins Allergy (Unknown, Verified 05/08/18 06:19) Hives shellfish derived Allergy (Verified 05/08/18 06:19) tree nut [Nuts] Allergy (Verified 05/08/18 06:19) wheat Allergy (Severe, Uncoded 05/08/18 06:19) [place] Home Medications: Medication Instructions Recorded Baclofen [Baclofen 10 mg (*)] 10 mg TUBE TID 07/04/17 Magnesium Citrate [Magnesium 150 ml TUBE DAILY PRN 07/04/17 Citrate 300 ml (*)] Magnesium Hydroxide [Milk of 30 ml TUBE BID PRN 07/04/17 Magnesia] Midodrine HCl 10 mg TUBE BID@09,15 07/04/17 Polyethylene Glycol 3350 [Miralax 17 gm TUBE BID 07/04/17 17 gm (*)] Sertraline HCl [Zoloft 100mg (*)] 100 mg TUBE DAILY 07/04/17 Tizanidine HCl 4 mg TUBE BID 07/04/17 clonazePAM [Klonopin (*)] 0.25 mg TUBE QID 07/04/17 fentaNYL [Duragesic 25 MCG Patch 25 mcg TD Q2D 07/04/17 (*)] oxyCODONE IR [Oxycodone Ir (*)] 30 mg TUBE QID 07/04/17 traZODone [traZODONE 50MG (*)] 50 mg TUBE HS 07/04/17 Acetaminophen [Tylenol 325mg (*)] 650 mg TUBE Q6 PRN 11/18/17 Albuterol [Proventil Neb] 3 ml IH Q4H PRN 11/18/17 Ondansetron Odt [Zofran Odt 4 mg 4 mg TUBE Q4HRS PRN 11/18/17 (*)] oxyCODONE IR [Oxycodone Ir (*)] 10 - 20 mg TUBE BID PRN 11/18/17 Gabapentin [Neurontin 300 MG (*)] 600 mg TUBE TID@05,17,03/07/18 Hydrocortisone Acetate 25 mg [place] DAILY PRN 03/07/18 [Hemorrhoidal Hc 25 mg supp (*)] Zolpidem Tartrate [Ambien 5MG (*)] 10 mg PO HS 03/07/18 Ferrous Sulfate [Ferrous Sulf 325 325 mg TUBE DAILY 04/14/18 MG (*)] Tuberculin (Ppd) [Tubersol] 0.1 ml ID Q7D 04/14/18 Acetaminophen [Tylenol 325mg (*)] 650 mg PO Q6 05/27/18 Biotine Mouth [place] 1 spray PO Q1H PRN 05/27/18 Sodium Chloride [Salt Tablet] 1,000 mg PO TID 05/27/18 Medical Decision Making - Data Points Laboratory Results: Laboratory Results 05/27/18 03:46 05/27/18 03:46 Microbiology Results: MICROBIOLOGY 05/27/18 04:25 Urine,Clean Catch Urine Culture - Preliminary 05/27/18 04:00 Sputum, Induced/Suctioned - Final 05/27/18 04:25 Nasal, Sinus - Aspirate Respiratory Panel (PCR) - Final No Organism Detected By Pcr Medications Given: Acetaminophen (Tylenol 650/20.3ml Oral Liquid) 650 mg TUBE Q4HRS PRN PRN Reason: Pain, Mild/Fever, Can Take PO Stop: 11/23/18 09:17 Last Admin: 05/27/18 16:10 Dose: 650 mg Baclofen (Baclofen) 10 mg TUBE TID [facility] Stop: 11/23/18 08:59 Last Admin: 05/27/18 16:38 Dose: 10 mg Clonazepam (Klonopin) 0.25 mg TUBE QID [facility] Stop: 11/23/18 11:59 Last Admin: 05/27/18 16:39 Dose: 0.25 mg Enoxaparin Sodium (Lovenox) 40 mg SC DAILY [facility] Stop: 11/23/18 08:59 Last Admin: 05/27/18 09:28 Dose: 40 mg Gabapentin (Neurontin Oral Liquid) 600 mg TUBE TID@,, [facility] Stop: 11/23/18 16:59 Last Admin: 05/27/18 18:51 Dose: 600 mg Midodrine (Midodrine Hcl) 10 mg TUBE BID@,15 [facility] Stop: 11/23/18 08:59 Last Admin: 05/27/18 14:59 Dose: 10 mg Oxycodone HCl (Oxycodone Ir) 10 - 20 mg TUBE BID PRN PRN Reason: Pain, Breakthrough Stop: 06/06/18 08:31 Last Admin: 05/27/18 14:59 Dose: 20 mg Oxycodone HCl (Oxycodone Ir) 30 mg TUBE QID [facility] Stop: 06/06/18 09:29 Last Admin: 05/27/18 16:38 Dose: 30 mg Polyethylene Glycol (Miralax) 17 gm TUBE BID [facility]Y Stop: 11/23/18 08:59 Last Admin: 05/27/18 09:29 Dose: 17 gm Sertraline HCl (Zoloft) 100 mg TUBE DAILY [facility] Stop: 11/23/18 08:59 Last Admin: 05/27/18 09:30 Dose: 100 mg Sodium Chloride (Salt Tablet) 1,000 mg TUBE TID [facility] Stop: 11/23/18 08:59 Last Admin: 05/27/18 16:38 Dose: 1,000 mg Tizanidine HCl (Zanaflex) 4 mg TUBE BID [facility] Stop: 11/23/18 08:59 Last Admin: 05/27/18 09:30 Dose: 4 mg Discontinued Medications Albuterol/Ipratropium (Duoneb) 3 ml IH EDNOW ONE Stop: 05/27/18 03:40 Last Admin: 05/27/18 03:56 Dose: 3 ml Fentanyl (Duragesic) 25 mcg TD Q2D M[facility]Y Stop: 06/06/18 08:59 Last Admin: 05/27/18 09:31 Dose: Not Given Ferrous Sulfate (Ferrous Sulfate) 325 mg PO DAILY M[facility]Y Stop: 11/23/18 08:59 Last Admin: 05/27/18 09:31 Dose: Not Given Sodium Chloride (Ns) 1,000 mls @ 0 mls/hr IV ONCE ONE; Wide Open PRN Reason: Protocol Stop: 05/27/18 03:40 Last Admin: 05/27/18 03:56 Dose: 1,000 mls Cefepime HCl 2 gm/ Sodium (Chloride) 100 mls @ 200 mls/hr IV EDNOW ONE PRN Reason: Protocol Stop: 05/27/18 04:11 Last Admin: 05/27/18 04:34 Dose: 100 mls Vancomycin/Sodium Chloride (Vancomycin 1 Gm (Premix)) 250 mls @ 250 mls/hr IV EDNOW ONE PRN Reason: Protocol Stop: 05/27/18 04:40 Last Admin: 05/27/18 04:46 Dose: 250 mls Potassium Chloride (Potassium Cl 20 Meq (Premix)) 100 mls @ 50 mls/hr IV EDNOW ONE Stop: 05/27/18 06:10 Last Admin: 05/27/18 07:03 Dose: Not Given Potassium Chloride (Potassium Cl 10 Meq (Premix)) 100 mls @ 100 mls/hr IV Q1H MERRY Stop: 05/27/18 06:59 Last Admin: 05/27/18 07:03 Dose: 100 mls Potassium Chloride (Potassium Chloride Oral Liquid) 20 meq PO ONCE ONE Stop: 05/27/18 05:08 Last Admin: 05/27/18 07:02 Dose: Not Given Sodium Chloride (Salt Tablet) 1,000 mg PO TID MERRY Stop: 11/23/18 08:59 Last Admin: 05/27/18 09:31 Dose: Not Given Point of Care Test Results: Chemistry 05/27/18 04:14 POC Troponin I 0.02 ng/mL ng/mL (0.00-0.08) Departure - Departure Disposition: [facility] Inpatient Acute Clinical Impression: Hypoxia Pneumonia Qualifiers: Pneumonia type: due to unspecified organism Laterality: bilateral Lung location : unspecified part of lung Qualified Code(s): J18.9 - Pneumonia, unspecified organism Condition: Critical
[2018-05-27 03:54] LABS: PLATELET COUNT 128 10^3/uL (150-400)
[2018-05-27] MEDS ORDERED: POTASSIUM Cl (KCl) 100 ML IV ONE (04:11)
[2018-05-27] MEDS ORDERED: ACETAMINOPHEN 325 MG TAB PO PRN (04:46)
[2018-05-27] MEDS ORDERED: ONDANSETRON DISINTEGRATING 4 MG TAB PO PRN (04:46)
[2018-05-27] MEDS ORDERED: ONDANSETRON 4 MG/2 ML VIAL IVP PRN (04:46)
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
[2018-05-27] MEDS ORDERED: POTASSIUM CL 20 MEQ/15 ML UDCUP PO ONE (05:07)
[2018-05-27] MEDS: POTASSIUM Cl (KCl) 100 ML IV SCH ×2 (05:07→07:03)
[2018-05-27] MEDS ORDERED: ONDANSETRON DISINTEGRATING 4 MG TAB TUBE PRN ×2 (08:32→09:30)
[2018-05-27] MEDS ORDERED: MAGNESIUM CITRATE 300 ML BOTTLE TUBE PRN (08:32)
[2018-05-27] MEDS ORDERED: ALBUTEROL 3 ML DEYVIAL IH PRN (08:32)
[2018-05-27] MEDS ORDERED: ACETAMINOPHEN 325 MG TAB TUBE PRN (08:32)
[2018-05-27] MEDS ORDERED: MAGNESIUM HYDROXIDE 30 ML UDCUP TUBE PRN (08:32)
[2018-05-27] MEDS ORDERED: HYDROCORTISONE ACETATE 25 MG SUPP PR PRN (08:32)
[2018-05-27] MEDS ORDERED: [UNRECOGNIZED DRUG - OTHER] PO PRN (08:32)
[2018-05-27] MEDS ORDERED: fentaNYL 25 MCG PATCH TD SCH (09:00)
[2018-05-27] MEDS ORDERED: SODIUM CHLORIDE 1,000 MG TAB PO SCH (09:00)
[2018-05-27] MEDS ORDERED: FERROUS SULFATE 325 MG TAB PO SCH (09:00)
[2018-05-27] MEDS: BACLOFEN 10 MG TAB TUBE SCH ×3 (09:28→21:49)
[2018-05-27] MEDS: ENOXAPARIN 40 MG/0.4 ML SYR SC SCH (09:28)
[2018-05-27] MEDS: POLYETHYLENE GLYCOL 3350 17 GM PKT TUBE SCH ×2 (09:29→21:50)
[2018-05-27] MEDS: MIDODRINE HCL 10 MG TAB TUBE SCH ×2 (09:29→14:59)
[2018-05-27] MEDS: SERTRALINE HCL 100 MG TAB TUBE SCH (09:30)
--- NOTE | 2018-05-27 11:24 | HOSPPROG ---
Hospitalist Progress Note Assessment/Plan: 62 yo M w/ hx of quadriplegia s/p peg/trach/SPC and CHRF presents with acute on chronic hypoxia also found to be severely hypercarbic. #Acute on chronic hypoxemic hypercarbic respiratory failure: pCO2 in 80s - Starting mechanical ventilation, repeat gas this afternoon - Pulm hygiene with regular suctioning as needed - If oxygen needs worsen, trial diuresis #Acute metabolic encephalopathy: Likely d/t hypercarbia. Management per above. #Anemia, thrombocytopenia: Chronic. No e/o bleeding. #Hypokalemia: Started on replacement protocol. #Quadriplegia: S/p peg/trach/SPC - Resumed home medications VTE ppx: LMWH Code: full Diet: resume home tube feeds Dispo: Switch to inpatient, will update to ICU for ventilator needs. Prior living situation not adequate (unable to provide pulmonary care). CM working on possible LTAC. Subjective: More confused over last few weeks per . Hasn't required mechanical ventilation since 2014 per her report. No significant pain. Objective: Vital Signs Temp Pulse Resp BP Pulse Ox 36.7 C 92 19 143/87 H 97 05/27/18 08:00 05/27/18 08:00 05/27/18 08:00 05/27/18 08:00 05/27/18 08:00 05/26/18 05/27/18 05/28/18 05:59 05:59 05:59 Intake Total 1000 Output Total 400 Balance 1000 -400 - Physical Exam Constitutional: no apparent distress, chronically ill appearing Eyes: PERRL Ears, Nose, Mouth, Throat: dry mucous membranes Cardiovascular: regular rate and rhythym, no murmur, rub, or gallop, No edema Respiratory: reduced air movement, other (trach in place) Gastrointestinal: other (PEG c/d/i) Genitourinary: guaman in urethra (suprapubic catheter) Musculoskeletal: other (contractures) Neurologic: other (alert, not oriented) Psychiatric: encephalopathic ICD10 Worksheet Patient Problems: Problems Problem Status Onset Hypoxia Acute Pneumonia Acute Abdominal pain Acute Anemia Acute Chronic complete quadriplegia Acute Constipation Acute Fecal impaction of colon Acute Fever Acute Generalized tonic-clonic seizure Acute Generalized weakness Acute History of quadriplegia Acute Hyponatremia Acute MRSA (methicillin resistant Staphylococcus aureus) Acute ~09/02/16 MRSA (methicillin resistant Staphylococcus aureus) Acute ~11/08/16 New onset seizure Acute Quadriplegia Acute Thrombocytopenia Acute Urinary tract infection Acute chronic disease [facility]/transitional care Acute
[2018-05-27] MEDS ORDERED: PROTOCOL POTASSIUM 1 DOSE MISC PRN (11:26)
[2018-05-27] MEDS: clonazePAM 0.5 MG TAB TUBE SCH ×3 (11:41→21:50)
[2018-05-27] MEDS ORDERED: ACETAMINOPHEN 325 MG TAB PO SCH (12:00)
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
--- NOTE | 2018-05-27 14:55 | ASMTCMCOM ---
CM Note CM Note Notes: Pt is a 62 yo M, quad since 2014 who came from [facility] where he has been there for about a year. CM spoke with Dr. Vazquez who is recommending a referral be initated to [facility]. CM initiated referral process via [employer] and called the liason at [phone]. They are reviewing the referral and CM will provide updates as they review the referral. Pt has been treated at [facility] 3 times in the last year for pneumonia. Jenise reports that since pt has been at [facility] she has not been able to suction pt and feels that this is greatly contributing to his frequent hospitalizations. She has been working with [facility] who has been recommending various facilities as she doesn't feel [facility] is able to adequately provide care. CM to follow. Plan: [facility]. Date Signed: 05/27/2018 02:54 PM Electronically Signed By:CLAU Bains
[2018-05-27] MEDS: oxyCODONE IR 5 MG TAB TUBE PRN (14:59)
[2018-05-27] MEDS: ACETAMINOPHEN 650 MG/20.3 ML UDCUP TUBE PRN (16:10)
[2018-05-27] MEDS: SODIUM CHLORIDE 1,000 MG TAB TUBE SCH ×2 (16:38→21:50)
[2018-05-27] MEDS ORDERED: ALTEPLASE 2 MG VIAL IVP PRN (17:14)
[2018-05-27] MEDS: GABAPENTIN 250 MG/5 ML 30 ML BOTTLE TUBE SCH ×2 (18:51→23:23)
[2018-05-27] MEDS ORDERED: POTASSIUM CL 10 MEQ TAB TUBE ONE (20:19)
[2018-05-27] MEDS: traZODone 50 MG TAB TUBE SCH (21:49)
[2018-05-27] MEDS: ZOLPIDEM TARTRATE 5 MG TAB TUBE SCH (21:49)
[2018-05-27] MEDS: CHLORHEXIDINE GLUCONATE 15 ML UDL PO SCH (21:51)
[2018-05-27] MEDS ORDERED: DOPamine/DEXTROSE 400 MG/250 ML BAG IV ONE (23:16)
--- NOTE | 2018-05-28 01:46 | HOSPPROG ---
Hospitalist Progress Note Assessment/Plan: XC: Notified by RN of acute hypotension. The patient was responsive with normal BP just prior to receiving nighttime meds. He received Oxycodone 30 mg, Klonopin .25 mg, Ambien 10 mg, and Trazodone 50 mg. Shortly after this his SBP droped into the 50's and he became unresponsive. His BP has improved with fluid bolus, and I suspect his hypotension is due to the high load of sedating medications. His infectious work-up remains reassuringly negative. Will continue to monitor closely in the ICU. Objective: Vital Signs Temp Pulse Resp BP Pulse Ox 37.1 C 55 L 22 H 79/55 L 100 05/28/18 00:00 05/28/18 00:00 05/28/18 00:00 05/28/18 00:00 05/28/18 00:00 Laboratory Results 05/27/18 16:30 05/26/18 05/27/18 05/28/18 05:59 05:59 05:59 Intake Total 1000 1370 Output Total 3000 Balance 1000 -1630 ICD10 Worksheet Patient Problems: Problems Problem Status Onset Chronic complete quadriplegia Acute Thrombocytopenia Acute Quadriplegia Acute Hypoxia Acute Fever Acute Generalized weakness Acute MRSA (methicillin resistant Staphylococcus aureus) Acute ~11/08/16 MRSA (methicillin resistant Staphylococcus aureus) Acute ~09/02/16 chronic disease mgmt/transitional care Acute History of quadriplegia Acute Generalized tonic-clonic seizure Acute New onset seizure Acute Urinary tract infection Acute Constipation Acute Abdominal pain Acute Fecal impaction of colon Acute Anemia Acute Hyponatremia Acute Pneumonia Acute
[2018-05-28] MEDS: oxyCODONE IR 5 MG TAB TUBE PRN ×2 (05:23→05:24)
[2018-05-28] MEDS: GABAPENTIN 250 MG/5 ML 30 ML BOTTLE TUBE SCH ×3 (05:25→22:08)
[2018-05-28] MEDS: CHLORHEXIDINE GLUCONATE 15 ML UDL PO SCH ×2 (08:39→20:13)
[2018-05-28] MEDS: ENOXAPARIN 40 MG/0.4 ML SYR SC SCH (08:39)
[2018-05-28] MEDS: MIDODRINE HCL 10 MG TAB TUBE SCH ×2 (08:40→16:15)
[2018-05-28] MEDS: BACLOFEN 10 MG TAB TUBE SCH ×3 (08:40→20:14)
[2018-05-28] MEDS: SODIUM CHLORIDE 1,000 MG TAB TUBE SCH ×3 (08:40→22:08)
[2018-05-28] MEDS: POLYETHYLENE GLYCOL 3350 17 GM PKT TUBE SCH (08:40)
[2018-05-28] MEDS: SERTRALINE HCL 100 MG TAB TUBE SCH (08:40)
[2018-05-28] MEDS: fentaNYL 25 MCG PATCH TD SCH (08:40)
[2018-05-28] MEDS ORDERED: POTASSIUM CL 20 MEQ/15 ML UDCUP TUBE ONE (09:03)
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
[2018-05-28] MEDS: FERROUS SULFATE 300 MG/5 ML UD CUP TUBE SCH (09:20)
[2018-05-28] MEDS ORDERED: FUROSEMIDE 40 MG/4 ML VIAL IVP ONE (10:15)
--- NOTE | 2018-05-28 10:31 | HOSPPROG ---
Hospitalist Progress Note Assessment/Plan: 62 yo M w/ hx of quadriplegia s/p peg/trach/SPC and CHRF presents with acute on chronic hypoxia also found to be severely hypercarbic. #Acute on chronic hypoxemic hypercarbic respiratory failure: pCO2 slightly better on vent but still high - Pulm increasing minute ventilation, recheck ABG later today - Continue mechanical ventilation - Lasix 40mg IV x1 - Considering bronchoscopy #Acute metabolic encephalopathy: Likely d/t hypercarbia. Improving. Management per above. #Episodic hypotension: Suspect autonomic dysfunction in setting of paralysis. Would hold on additional fluids if BP low. #Loose stools: Stopping laxatives. If continues, would check for C diff. #Anemia, thrombocytopenia: Chronic. No e/o bleeding. #Hypokalemia: Started on replacement protocol. #Quadriplegia: S/p peg/trach/SPC - Resumed home medications VTE ppx: LMWH Code: full Diet: resume home tube feeds Dispo: Remain in ICU for vent. Prior living situation at [facility] not adequate (unable to provide pulmonary care). CM working on LTAC. Subjective: Started on vent yesterday. Episode of low BP overnight, received 1L NS. Denies pain this AM. He is having frequent stools per RN. Objective: Vital Signs Temp Pulse Resp BP Pulse Ox 36.9 C 54 L 20 164/98 H 100 05/28/18 04:00 05/28/18 10:00 05/28/18 10:00 05/28/18 10:00 05/28/18 10:00 Laboratory Results 05/28/18 05:30 05/28/18 05:30 05/27/18 05/28/18 05/29/18 05:59 05:59 05:59 Intake Total 1000 3883 Output Total 4250 Balance 1000 -367 - Physical Exam Constitutional: no apparent distress, chronically ill appearing, cachectic Ears, Nose, Mouth, Throat: other (mechanically vented via trach) Cardiovascular: regular rate and rhythym, no murmur, rub, or gallop, No edema Respiratory: reduced air movement, other (coarse throughout) Gastrointestinal: other (PEG tube) Genitourinary: other (suprapubic catheter) Skin: warm Musculoskeletal: other (quadraplegic) Neurologic: other (alert, unclear if oriented) ICD10 Worksheet Patient Problems: Problems Problem Status Onset Hypoxia Acute Pneumonia Acute Abdominal pain Acute Anemia Acute Chronic complete quadriplegia Acute Constipation Acute Fecal impaction of colon Acute Fever Acute Generalized tonic-clonic seizure Acute Generalized weakness Acute History of quadriplegia Acute Hyponatremia Acute MRSA (methicillin resistant Staphylococcus aureus) Acute ~09/02/16 MRSA (methicillin resistant Staphylococcus aureus) Acute ~11/08/16 New onset seizure Acute Quadriplegia Acute Thrombocytopenia Acute Urinary tract infection Acute chronic disease [facility]/transitional care Acute
[2018-05-28] MEDS: clonazePAM 0.5 MG TAB TUBE SCH ×3 (12:45→20:13)
[2018-05-28] MEDS ORDERED: LIDOCAINE 1% 300 MG/30 ML SDV MISC ONE (13:14)
[2018-05-28] MEDS ORDERED: MIDAZOLAM 2 MG/2 ML VIAL ONE (13:26)
[2018-05-28] MEDS ORDERED: MIDAZOLAM 2 MG/2 ML VIAL IVP ONE (13:45)
[2018-05-28] MEDS: ACETAMINOPHEN 650 MG/20.3 ML UDCUP TUBE PRN ×2 (17:42→22:06)
[2018-05-28] MEDS: VANCOMYCIN 1.25 GM in NS 250 ML IV SCH (17:52)
--- NOTE | 2018-05-28 18:04 | PDMN ---
Medical Necessity Medical necessity: Pt meets IP criteria as of 05/27/2018 per and [facility] MG-PUL ( Pulmonary Disease GRG); los > 2 mn for ongoing tx and management of acute on chronic hypoxia as well as hypercarbia (PCO2 in the 80's) in a pt with qudraplegia, peg tube and trach; requiring mechanical ventilation, pulmonary hygiene, and ICU level care.
--- NOTE | 2018-05-28 19:05 | HOSPPROG ---
Hospitalist Progress Note Assessment/Plan: presumptive ID of blood cx- coag neg staph Objective: Vital Signs Temp Pulse Resp BP Pulse Ox 38.1 C 68 18 172/104 H 98 05/28/18 16:23 05/28/18 17:56 05/28/18 17:56 05/28/18 17:56 05/28/18 17:56 Laboratory Results 05/28/18 05:30 05/28/18 17:45 05/27/18 05/28/18 05/29/18 05:59 05:59 05:59 Intake Total 3883 1206 Output Total 3850 2700 Balance 33 -1494 ICD10 Worksheet Patient Problems: Problems Problem Status Onset Hypoxia Acute Pneumonia Acute Abdominal pain Acute Anemia Acute Chronic complete quadriplegia Acute Constipation Acute Fecal impaction of colon Acute Fever Acute Generalized tonic-clonic seizure Acute Generalized weakness Acute History of quadriplegia Acute Hyponatremia Acute MRSA (methicillin resistant Staphylococcus aureus) Acute ~09/02/16 MRSA (methicillin resistant Staphylococcus aureus) Acute ~11/08/16 New onset seizure Acute Quadriplegia Acute Thrombocytopenia Acute Urinary tract infection Acute chronic disease mgmt/transitional care Acute
[2018-05-28] MEDS ORDERED: POTASSIUM CL 20 MEQ/15 ML UDCUP PO ONE (20:00)
[2018-05-28] MEDS: ZOLPIDEM TARTRATE 5 MG TAB TUBE SCH (22:07)
[2018-05-28] MEDS: traZODone 50 MG TAB TUBE SCH (22:10)
--- NOTE | 2018-05-28 23:32 | GPN ---
[f rep st] PROCEDURE NOTE PROCEDURE: Fiberoptic bronchoscopy. INDICATION: Mucous plugging. ANESTHESIA: Patient was given Versed 2 mg. DESCRIPTION OF PROCEDURE: The procedure was performed in the intensive care unit. Continuous pulse ox, EKG, and blood pressure monitoring. Please note, patient is on mechanical ventilation which is b y definition a closed system and poses no risk to airborne pathogens. After informed consent was obt ained and time-out was performed, bronchoscope was entered through a #6 tracheostomy tube. Distal tr achea and yancy were visualized, showed no endobronchial lesions normal-appearing mucosa. Bronchosc ope in the right lung. Right upper lobe, right middle lobe showed no endobronchial lesion, normal-ap pearing mucosa. Right lower lobe showed modest amount of mucus plugging that was therapeutically asp irated. Bronchoscope the left lung. Left upper lobe and left lower lobe including subsegments were subsequently visualized, showed no endobronchial lesion and normal-appearing mucosa. The patient triston erated the procedure well. There were no apparent complications, /[id number]/MODL
[2018-05-29] MEDS ORDERED: POTASSIUM CL 10 MEQ TAB PO ONE (01:12)
[2018-05-29] MEDS ORDERED: POTASSIUM CL 20 MEQ/15 ML UDCUP PO ONE ×2 (01:30→06:00)
[2018-05-29] MEDS: GABAPENTIN 250 MG/5 ML 30 ML BOTTLE TUBE SCH ×3 (06:32→22:29)
[2018-05-29] MEDS: clonazePAM 0.5 MG TAB TUBE SCH ×4 (06:33→19:55)
[2018-05-29] MEDS: VANCOMYCIN 1.25 GM in NS 250 ML IV SCH (07:32)
[2018-05-29] MEDS: FERROUS SULFATE 300 MG/5 ML UD CUP TUBE SCH (09:12)
[2018-05-29] MEDS: SODIUM CHLORIDE 1,000 MG TAB TUBE SCH ×3 (09:12→22:27)
[2018-05-29] MEDS: fentaNYL 25 MCG PATCH TD SCH (09:13)
[2018-05-29] MEDS: SERTRALINE HCL 100 MG TAB TUBE SCH (09:13)
[2018-05-29] MEDS: MIDODRINE HCL 10 MG TAB TUBE SCH ×2 (09:13→15:31)
[2018-05-29] MEDS: BACLOFEN 10 MG TAB TUBE SCH ×3 (09:13→22:27)
[2018-05-29] MEDS: CHLORHEXIDINE GLUCONATE 15 ML UDL PO SCH ×2 (09:13→19:55)
[2018-05-29] MEDS: ENOXAPARIN 40 MG/0.4 ML SYR SC SCH (09:16)
--- NOTE | 2018-05-29 09:25 | PCMIDPN ---
Assessment/Plan: Assessment/Plan: * Positive blood culture: 1/4 bottles with growth of coagulase-negative Staphylococcus. Suspect this represents skin contaminant as 2 preceding blood cultures also showed no growth. Will discontinue vancomycin and observe off antibiotic therapy. * Respiratory failure: Clinically improved after bronchoscopy with removal of mucous plug. Chest x-ray without focal consolidation. Sputum likely represents chronic colonization. Plan continued observation off antibiotic therapy. * Positive urine culture: Patient with suprapubic catheter in place with high likelihood of colonization. Did not feel sick prior to hospitalization other than respiratory symptoms. Will continue to observe without antibiotic therapy a suspect this does not represent active urinary tract infection. * Low-grade temperature: Present over last 24 hr. May be related to cytokine release with bronchoscopy and removal of mucous plug. No specific symptomatology otherwise. Continue to observe off antibiotic therapy and follow temperature curve over time. Time spent, > 35 minutes, of which greater than half was spent in coordination of care related to positive blood culture, respiratory failure, and low-grade temperature including coordination with ICU nursing staff and Dr. Hernandez. 05/29/18 09:22 Subjective: Patient well known to me from previous care for recurrent pneumonia in the setting of quadriplegia. Previously has grown stenotrophomonas on several occasions. Readmitted to the hospital with acute respiratory failure with notation that patient was not receiving suctioning at [facility]. Bronchoscopy performed after hospitalization here revealed significant right- sided mucus plugging which was removed. No significant inflammatory findings noted. Patient does not describe having symptoms similar to that which he experienced with pneumonia previously including no fever or chills. He has been managed with mechanical ventilation for respiratory failure and hypercarbia. He currently states he feels close to his baseline. He has experienced low-grade temperature over the last 24 hr. Blood cultures obtained show 1/4 sets showing growth of a coagulase-negative Staphylococcus. Based on this finding, I am now asked to assist in his ongoing management. Objective: Vital Signs Temp Pulse Resp BP Pulse Ox 38.0 C 67 17 128/75 H 96 05/29/18 06:00 05/29/18 06:00 05/29/18 06:00 05/29/18 06:00 05/29/18 06:00 Microbiology 05/27/18 16:30 Blood Panel (PCR) - Final Blood Staph Coagulase Negative Laboratory Results 05/29/18 04:22 05/29/18 04:22 05/28/18 05/29/18 05/30/18 05:59 05:59 05:59 Intake Total 3883 0086 Output Total 3046 7790 Balance 33 -1374 - Physical Exam General Appearance: alert, no apparent distress, non-toxic EENT: other (Mechanical ventilation via tracheostomy) Respiratory: coarse breath sounds Cardiac/Chest: regular rate, rhythm, No systolic murmur Extremities: No inflammation Abdomen: non-tender, other (G-tube and suprapubic catheter in place), No distended Skin: No embolic lesions Neuro/Psych: No confused ICD10 Worksheet Patient Problems: Problems Problem Status Onset Hypoxia Acute Pneumonia Acute Abdominal pain Acute Anemia Acute Chronic complete quadriplegia Acute Constipation Acute Fecal impaction of colon Acute Fever Acute Generalized tonic-clonic seizure Acute Generalized weakness Acute History of quadriplegia Acute Hyponatremia Acute MRSA (methicillin resistant Staphylococcus aureus) Acute ~09/02/16 MRSA (methicillin resistant Staphylococcus aureus) Acute ~11/08/16 New onset seizure Acute Quadriplegia Acute Thrombocytopenia Acute Urinary tract infection Acute chronic disease mgmt/transitional care Acute
[2018-05-29] MEDS ORDERED: BIOTENE DRY MOUTH ORAL RINSE 237 ML BTL MM PRN (10:39)
--- NOTE | 2018-05-29 10:46 | WOCRNPDOC ---
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 Necrotic wound bed cleaned with ns and gauze. Wound gel applied and Mepilex sacral border reapplied. Wound care will follow. RNs Fe and Carli in room for assessment. Left Greater Trochanter Pressure Injury Dressing Type: Allevyn Life Dressing Description: Clean/Dry, Intact Integumentary Issue Intervention: Visualized Under Dressing Masha Wound Tissue: Blanching, Erythema Wound Bed Color: Onward, Purple Pressure Injury Stage: Deep Tissue Injury (DTI) Skin Integrity Problem Comment: 2x2cm blanching area at left greater trochanter with a 1x1cm area of non blanching ecchymotic area suspect of possible DTI. Wound care will follow. Left Posterior Illiac Crest Dressing Type: Mepilex Border Dressing Description: Clean/Dry, Intact Integumentary Issue Intervention: Visualized Under Dressing Masha Wound Tissue: Blanching, Erythema Pressure Injury Stage: Stage 4 Pressure Injury Present on Admit: Yes Skin Integrity Problem Comment: Small area of blanching erythema on this Chronic stage 4 pressure injury. Cleaned with ns and gauze. No open area or breakdown noted. Wound care will follow. Carli and Fe RNs in room for assessment.
--- NOTE | 2018-05-29 11:08 | HOSPPROG ---
Hospitalist Progress Note Assessment/Plan: 62 yo M w/ hx of quadriplegia s/p peg/trach/SPC and CHRF presents with acute on chronic hypoxia also found to be severely hypercarbic. #Acute on chronic hypoxemic hypercarbic respiratory failure: pCO2 trending down on vent. Positive sputum Cx likely colonization. - Vent per pulm - Bronch 05/28 with removal of mucus plug - Needs LTAC for vent management #Acute metabolic encephalopathy: Likely d/t hypercarbia. Improving. Management per above. #Episodic hypotension: Suspect autonomic dysfunction in setting of paralysis. - Defer fluids. #Loose stools: Laxatives held, has not recurred today. #Anemia, thrombocytopenia: Chronic. No e/o bleeding. #Hypokalemia: Replace per protocol #Quadriplegia: S/p peg/trach/SPC - UCx reviewed, likely colonization VTE ppx: LMWH Code: full Diet: home tube feeds Dispo: cont ICU, on vent, prior living situation at [facility] not adequate ( unable to provide pulmonary care). CM working on LTAC. Subjective: Pt awake, more alert today. He is trying to speak to us, but difficult to understand with breathing tube in place. No fevers. No loose stools today. Denies CP or SOB. Objective: Vital Signs Temp Pulse Resp BP Pulse Ox 38.0 C 63 14 128/75 H 98 05/29/18 06:00 05/29/18 08:10 05/29/18 08:10 05/29/18 06:00 05/29/18 08:10 Microbiology 05/27/18 16:30 Blood Panel (PCR) - Final Blood Staph Coagulase Negative Laboratory Results 05/29/18 04:22 05/29/18 04:22 05/28/18 05/29/18 05/30/18 05:59 05:59 05:59 Intake Total 3883 2326 Output Total 3850 3700 Balance 33 -1374 - Physical Exam Constitutional: no apparent distress, chronically ill appearing Eyes: PERRL Ears, Nose, Mouth, Throat: moist mucous membranes Cardiovascular: regular rate and rhythym Respiratory: no respiratory distress, clear to auscultation, reduced air movement Gastrointestinal: normoactive bowel sounds, soft, non-tender abdomen Skin: warm Musculoskeletal: other (quadriplegic) Neurologic: AAOx3 Psychiatric: interacting appropriately ICD10 Worksheet Patient Problems: Problems Problem Status Onset Hypoxia Acute Pneumonia Acute Abdominal pain Acute Anemia Acute Chronic complete quadriplegia Acute Constipation Acute Fecal impaction of colon Acute Fever Acute Generalized tonic-clonic seizure Acute Generalized weakness Acute History of quadriplegia Acute Hyponatremia Acute MRSA (methicillin resistant Staphylococcus aureus) Acute ~09/02/16 MRSA (methicillin resistant Staphylococcus aureus) Acute ~11/08/16 New onset seizure Acute Quadriplegia Acute Thrombocytopenia Acute Urinary tract infection Acute chronic disease mgmt/transitional care Acute
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
--- NOTE | 2018-05-29 16:20 | ASMTCMCOM ---
CM Note CM Note Notes: Fanny from [facility] came to screen pt today ([phone]). CM awaiting response about acceptance. CM did notifiy Fanny that pt with updates via [employer]. Fanny said she would reach out to pt's . CM met with pt's miles Burden to provide updates and answer questions. CM will continue to update her with information about acceptance. Palliative Care Consult order was placed by MD today, Meeting was arranged with pt's for 1:00pm tomorrow (05/30/18) with the [facility] palliative care team. Plan: [facility] [place] [facility] pending acceptance. Date Signed: 05/29/2018 04:08 PM Electronically Signed By:CLAU Bains
[2018-05-29] MEDS: POTASSIUM Cl (KCl) 50 ML IV SCH ×3 (19:51→22:26)
[2018-05-29] MEDS: oxyCODONE IR 5 MG TAB TUBE PRN ×2 (19:55→20:17)
[2018-05-29] MEDS: POLYETHYLENE GLYCOL 3350 17 GM PKT TUBE SCH (19:56)
[2018-05-29] MEDS: traZODone 50 MG TAB TUBE SCH (19:57)
[2018-05-29] MEDS: ZOLPIDEM TARTRATE 5 MG TAB TUBE SCH (19:57)
[2018-05-30] MEDS: oxyCODONE IR 5 MG TAB TUBE PRN (04:06)
[2018-05-30] MEDS: clonazePAM 0.5 MG TAB TUBE SCH ×4 (06:09→22:45)
[2018-05-30] MEDS: GABAPENTIN 250 MG/5 ML 30 ML BOTTLE TUBE SCH ×3 (06:10→23:31)
[2018-05-30] MEDS ORDERED: POTASSIUM CL 10 MEQ TAB PO ONE (07:59)
[2018-05-30] MEDS: MIDODRINE HCL 10 MG TAB TUBE SCH ×2 (09:20→15:40)
[2018-05-30] MEDS: SODIUM CHLORIDE 1,000 MG TAB TUBE SCH ×3 (09:20→21:39)
[2018-05-30] MEDS: ENOXAPARIN 40 MG/0.4 ML SYR SC SCH (09:20)
[2018-05-30] MEDS: FERROUS SULFATE 300 MG/5 ML UD CUP TUBE SCH (09:20)
[2018-05-30] MEDS: BACLOFEN 10 MG TAB TUBE SCH ×3 (09:21→21:39)
[2018-05-30] MEDS: SERTRALINE HCL 100 MG TAB TUBE SCH (09:21)
[2018-05-30] MEDS: POLYETHYLENE GLYCOL 3350 17 GM PKT TUBE SCH ×2 (09:21→22:45)
[2018-05-30] MEDS: CHLORHEXIDINE GLUCONATE 15 ML UDL PO SCH ×2 (09:21→21:39)
--- NOTE | 2018-05-30 10:31 | HOSPPROG ---
Hospitalist Progress Note Assessment/Plan: 62 yo M w/ hx of quadriplegia s/p peg/trach/SPC and CHRF presents with acute on chronic hypoxia also found to be severely hypercarbic. Developed fever today to 39.6 with abnormal chest wall exam. #Acute on chronic hypoxemic hypercarbic respiratory failure: pCO2 trending down on vent. Positive sputum Cx likely colonization. - Vent per pulm, check VBG in am - Bronch 05/28 with removal of mucus plug - Needs LTAC for vent management, discussed with pulm and pt's that pt might be able to wean off vent over weeks/months #Fever: difficult to ascertain source as pt unable to provide history, increased sputum production noted - check CXR (possible infiltrates) - send BCx's - discussed with ID, who will initiate empiric atbx (Levaquin, Vanc started) #Chest wall ?mass: right chest wall with palpable firm mass and surrounding ecchymosis, ?fluid collection such as abscess or hematoma - CT chest with contrast now #Acute metabolic encephalopathy: Likely d/t hypercarbia / infection. Mentation worse today. #Episodic hypotension: Suspect autonomic dysfunction in setting of paralysis. - Defer fluids. #Loose stools: Laxatives held, has not recurred today. #Anemia, thrombocytopenia: Chronic. No e/o bleeding. #Hypokalemia: Replace per protocol #Quadriplegia: S/p peg/trach/SPC VTE ppx: LMWH Code: full Diet: home tube feeds Dispo: cont ICU, on vent, prior living situation at [facility] not adequate ( unable to provide pulmonary care). CM working on LTAC. 30 min crit care Subjective: Pt more somnolent today, responds to verbal stimuli, follows commands. On vent, unable to talk. Fever to 39.6, increase respiratory secretions. No cough . No obvious pain. He is unable to report symptoms or answer questions. Objective: Vital Signs Temp Pulse Resp BP Pulse Ox 37.2 C 71 24 H 99/64 L 93 05/30/18 04:00 05/30/18 10:10 05/30/18 10:10 05/30/18 10:10 05/30/18 10:10 Microbiology 05/27/18 16:30 Blood Panel (PCR) - Final Blood Staph Coagulase Negative Laboratory Results 05/30/18 06:20 05/30/18 06:20 05/29/18 05/30/18 05/31/18 05:59 05:59 05:59 Intake Total 5588 9880 Output Total 0653 1430 Balance -7375 -143 - Physical Exam Constitutional: chronically ill appearing Eyes: PERRL Ears, Nose, Mouth, Throat: moist mucous membranes Cardiovascular: regular rate and rhythym, other (right chest wall with palpable firm mass and surrounding ecchymosis and edema) Respiratory: no respiratory distress, reduced air movement, inspiratory crackles Gastrointestinal: normoactive bowel sounds, soft, non-tender abdomen Skin: warm Musculoskeletal: other (quadriplegic) Psychiatric: encephalopathic ICD10 Worksheet Patient Problems: Problems Problem Status Onset Hypoxia Acute Pneumonia Acute Abdominal pain Acute Anemia Acute Chronic complete quadriplegia Acute Constipation Acute Fecal impaction of colon Acute Fever Acute Generalized tonic-clonic seizure Acute Generalized weakness Acute History of quadriplegia Acute Hyponatremia Acute MRSA (methicillin resistant Staphylococcus aureus) Acute ~09/02/16 MRSA (methicillin resistant Staphylococcus aureus) Acute ~11/08/16 New onset seizure Acute Quadriplegia Acute Thrombocytopenia Acute Urinary tract infection Acute chronic disease mgmt/transitional care Acute
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
[2018-05-30] MEDS: FAMOTIDINE 20 MG TAB TUBE SCH ×2 (14:09→21:38)
[2018-05-30] MEDS: ACETAMINOPHEN 650 MG/20.3 ML UDCUP TUBE PRN ×2 (14:32→21:38)
[2018-05-30 15:47] LABS: PLATELET COUNT 131 10^3/uL (150-400)
[2018-05-30] MEDS: VANCOMYCIN HCL/NORMAL SALINE 250 ML IV SCH (16:14)
--- NOTE | 2018-05-30 16:39 | ASMTCMCOM ---
CM Note CM Note Notes: Received a voice mail from Fanny at [facility] #[phone]. Per vm, Fanny has spoken with and DIRECTOR OF HEALTH EDUCATION and would like to discuss further with CM. Attempted to call Fanny back, message left. Will need to follow-up with Fanny on Tuesday. CM will follow. Plan: Pending acceptance at [facility]. Date Signed: 05/30/2018 04:38 PM Electronically Signed By:Dinorah Peralta RN
--- NOTE | 2018-05-30 16:39 | PCMIDPN ---
Assessment/Plan: Assessment/Plan: * Positive blood culture: 1/4 bottles with growth of coagulase-negative Staphylococcus. Remains consistent with contaminant. * Fever: Patient with elevated temperature this afternoon to 39.6. Diagnostic considerations would include potential healthcare associated pneumonia or line- related infection in the setting of indwelling PICC line. 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 1 episode of diarrhea in the setting of MiraLax use earlier today; will observe for further diarrhea prior to diagnostic evaluation for C difficile. Agree with plans for repeat blood cultures and chest x-ray. Will begin empiric vancomycin and levofloxacin (prior history of susceptible Proteus and stenotrophomonas). * Respiratory failure: See above discussion. Continues to require mechanical ventilation for respiratory support. * Positive urine culture: Patient with suprapubic catheter in place with high likelihood of colonization. Time spent, > 35 minutes, of which greater than half was spent in coordination of care related to new onset fever, positive blood culture, respiratory failure , a including coordination with ICU nursing staff and Dr. Montes. 05/30/18 16:35 05/30/18 16:39 05/30/18 16:40 Subjective: Patient with fever this afternoon to 39.6. CPAP earlier today but now return to mechanical ventilator support. 1 episode of diarrhea with notation patient received MiraLax. Objective: Vital Signs Temp Pulse Resp BP Pulse Ox 38.3 C H 101 H 19 154/91 H 96 05/30/18 15:42 05/30/18 15:42 05/30/18 15:42 05/30/18 15:42 05/30/18 15:42 Microbiology 05/30/18 15:40 - Final Sputum, Induced/Suctioned 05/27/18 16:30 Blood Panel (PCR) - Final Blood Staph Coagulase Negative Laboratory Results 05/30/18 15:10 05/30/18 06:20 05/29/18 05/30/18 05/31/18 05:59 05:59 05:59 Intake Total 2326 2481 230 Output Total 3700 8967 975 Balance -7945 -693 -496 T-max 39.6 degrees - Physical Exam General Appearance: non-toxic, other (Somnolent) EENT: other (Tracheostomy in place), No scleral icterus, No thrush Respiratory: coarse breath sounds Extremities: No inflammation Abdomen: non-tender, No distended Skin: decubitus (2 shallow decubiti over sacral region without surrounding cellulitis or purulence) ICD10 Worksheet Patient Problems: Problems Problem Status Onset Hypoxia Acute Pneumonia Acute Abdominal pain Acute Anemia Acute Chronic complete quadriplegia Acute Constipation Acute Fecal impaction of colon Acute Fever Acute Generalized tonic-clonic seizure Acute Generalized weakness Acute History of quadriplegia Acute Hyponatremia Acute MRSA (methicillin resistant Staphylococcus aureus) Acute ~09/02/16 MRSA (methicillin resistant Staphylococcus aureus) Acute ~11/08/16 New onset seizure Acute Quadriplegia Acute Thrombocytopenia Acute Urinary tract infection Acute chronic disease mgmt/transitional care Acute
[2018-05-30] MEDS ORDERED: IOPAMIDOL (ISOVUE-300) 100 ML BTL ONE (17:59)
[2018-05-30] MEDS ORDERED: POTASSIUM CL 20 MEQ/15 ML UDCUP TUBE ONE (18:00)
[2018-05-30] MEDS: MEROPENEM 1 GM in NS 100 ML IV SCH (19:29)
[2018-05-30] MEDS ORDERED: MEROPENEM 1 GM in NS 100 ML IV SCH (19:30)
[2018-05-30] MEDS ORDERED: MIDAZOLAM 2 MG/2 ML VIAL ONE (20:14)
[2018-05-30] MEDS ORDERED: fentaNYL 100 MCG/2 ML INJ ONE (20:14)
[2018-05-30] MEDS ORDERED: ROCURONIUM 100 MG/10 ML VIAL ONE (20:15)
[2018-05-30] MEDS ORDERED: PROPOFOL 200 MG/20 ML VIAL ONE (20:17)
--- NOTE | 2018-05-30 20:19 | GCON ---
[f rep st] CONSULTATION I was asked to see the patient because of fever of unknown origin and the area of concern on the righ t anterior chest wall. He has a hot, somewhat violaceous, swollen area across the right pectoralis m uscle below the clavicle. An attempted needle aspiration did not yield any fluid, but by palpation a nd looking at the skin, I am concerned about this representing necrotizing fasciitis. I feel the saf est course would be to make an incision and explore the area for neck . Chart is reviewed. Patient has altered mental status. It is unclear if he understands what I have e xplained to him about the need to make an incision to explore the wound or for debridement if it was a necrotizing soft tissue infection. I have discussed the case with his attending, Dr. Montes, who has spoken with the , who agrees with operative intervention. /[id number]/MODL
[2018-05-30] MEDS ORDERED: BUPIVACAINE 0.5% 30 ML SDV ONE (20:57)
--- NOTE | 2018-05-30 21:07 | PDANEPAE ---
ANE History of Present Illness septic pt with right chest infection ANE Past Medical History - Cardiovascular History Hx Hypertension: No Hx Arrhythmias: No Hx Chest Pain: No Hx Coronary Artery / Peripheral Vascular Disease: No Hx CHF / Valvular Disease: No Hx Palpitations: No Cardiovascular History Comment: low blood pressure on midodrine - Pulmonary History Hx COPD: No Hx Asthma/Reactive Airway Disease: No Hx Recent Upper Respiratory Infection: No Hx Oxygen in Use at Home: Yes O2 in Use at Home (L/minute): 2 Hx Sleep Apnea: No Sleep Apnea Screening Result - Last Documented: Negative Pulmonary History Comment: tracheostomy-capped - Neurologic History Hx Cerebrovascular Accident: No Hx Seizures: Yes Hx Dementia: No Neurologic History Comment: seizure withdrew klonopin without a taper - Endocrine History Hx Diabetes: No - Renal History Hx Renal Disorders: Yes Renal History Comment: suprapubic catheter; chronic UTIs - Liver History Hx Hepatic Disorders: No - Neurological & Psychiatric Hx Hx Neurological and Psychiatric Disorders: Yes Neurological / Psychiatric History Comment: Quadrapalegic-incomplete; nerve pain - Cancer History Hx Cancer: No - Congenital Disorder History Hx Congenital Disorders: No - GI History Hx Gastrointestinal Disorders: Yes Gastrointestinal History Comment: chronic stomach ache - Chronic Pain History Chronic Pain: Yes (Neck, shoulders) - Surgical History Prior Surgeries: lap appy, baclofen pump replacement; Peg tube; suprapubic catheter; double hernia umbilical surgery; left knee arthro ANE Review of Systems Review of systems is: negative Review of Systems: - Exercise capacity Exercise capacity: limited by disability ANE Patient History - Allergies Allergies/Adverse Reactions: corn syrup Allergy (Severe, Verified 05/08/18 06:19) Unknown Milk Containing Products [dairy] Allergy (Severe, Verified 05/08/18 06:19) Swelling/neck,face,throat soy Allergy (Severe, Verified 05/08/18 06:19) Swelling/neck,face,throat nitrofurantoin [From Macrobid] Allergy (Unknown, Verified 05/08/18 06:19) Hives Penicillins Allergy (Unknown, Verified 05/08/18 06:19) Hives shellfish derived Allergy (Verified 05/08/18 06:19) tree nut [Nuts] Allergy (Verified 05/08/18 06:19) wheat Allergy (Severe, Uncoded 05/08/18 06:19) Flushing - Home Medications Home medications: home medication list seen and reviewed Home Medications: Baclofen [Baclofen 10 mg (*)] 10 mg TUBE TID 07/04/17 [Last Taken Unknown] Magnesium Citrate [Magnesium Citrate 300 ml (*)] 150 ml TUBE DAILY PRN 07/04/17 [Last Taken Unknown] Magnesium Hydroxide [Milk of Magnesia] 30 ml TUBE BID PRN 07/04/17 [Last Taken Unknown] Midodrine HCl 10 mg TUBE BID@,07/04/17 [Last Taken Unknown] Polyethylene Glycol 3350 [Miralax 17 gm (*)] 17 gm TUBE BID 07/04/17 [Last Taken Unknown] Sertraline HCl [Zoloft 100mg (*)] 100 mg TUBE DAILY 07/04/17 [Last Taken Unknown ] Tizanidine HCl 4 mg TUBE BID 07/04/17 [Last Taken Unknown] clonazePAM [Klonopin (*)] 0.25 mg TUBE QID 07/04/17 [Last Taken Unknown] fentaNYL [Duragesic 25 MCG Patch (*)] 25 mcg TD Q2D 07/04/17 [Last Taken ] oxyCODONE IR [Oxycodone Ir (*)] 30 mg TUBE QID 07/04/17 [Last Taken Unknown] traZODone [traZODONE 50MG (*)] 50 mg TUBE HS 07/04/17 [Last Taken Unknown] Acetaminophen [Tylenol 325mg (*)] 650 mg TUBE Q6 PRN 11/18/17 [Last Taken Unknown] Albuterol [Proventil Neb] 3 ml IH Q4H PRN 11/18/17 [Last Taken Unknown] Ondansetron Odt [Zofran Odt 4 mg (*)] 4 mg TUBE Q4HRS PRN 11/18/17 [Last Taken Unknown] oxyCODONE IR [Oxycodone Ir (*)] 10 - 20 mg TUBE BID PRN 11/18/17 [Last Taken Unknown] Gabapentin [Neurontin 300 MG (*)] 600 mg TUBE TID@,,03/07/18 [Last Taken Unknown] Hydrocortisone Acetate [Hemorrhoidal Hc 25 mg supp (*)] 25 mg FL DAILY PRN 03/07 [Last Taken Unknown] Zolpidem Tartrate [Ambien 5MG (*)] 10 mg PO HS 03/07/18 [Last Taken Unknown] Ferrous Sulfate [Ferrous Sulf 325 MG (*)] 325 mg TUBE DAILY 04/14/18 [Last Taken Unknown] Tuberculin (Ppd) [Tubersol] 0.1 ml ID Q7D 04/14/18 [Last Taken Unknown] Acetaminophen [Tylenol 325mg (*)] 650 mg PO Q6 05/27/18 [Last Taken Unknown] Biotine Mouth Thayer 1 spray PO Q1H PRN 05/27/18 [Last Taken Unknown] Sodium Chloride [Salt Tablet] 1,000 mg PO TID 05/27/18 [Last Taken Unknown] - NPO status NPO Since - Liquids (Date): 05/30/18 NPO Since - Liquids (Time): 19:30 - Smoking Hx Smoking Status: Never smoked - Family Anes Hx Family Hx Anesthesia Complications: none ANE Labs/Vital Signs - Labs Result Diagrams: 05/30/18 15:10 05/30/18 17:15 - Vital Signs Blood Pressure: 159/96 Heart Rate: 93 Respiratory Rate: 12 O2 Sat (%): 99 Height: 187.96 cm Weight: 63.503 kg ANE Physical Exam - Airway Neck exam: FROM Mallampati Score: Unable to assesss Mouth exam: ETT in situ - Pulmonary Pulmonary: no respiratory distress - Cardiovascular Cardiovascular: regular rate and rhythym - ASA Status ASA Status: IV, E ANE Anesthesia Plan Anesthesia Plan: general endotracheal anesthesia Urgent/Emergent Case: Hernando lorenzana completed preop but documented later for safe timely pt care
--- NOTE | 2018-05-30 21:27 | POSTOPPROG ---
Post Op Note Date of Operation: 05/30/18 Surgeon: Camron Castañeda Anesthesia: GET(General Endotracheal) Pre-op Diagnosis: possible necrotizing fasccitis Post-op Diagnosis: myositis Indication: psosoible nec fasc Procedure: chest wall exploration for possible nec fasc, muscle biopsy, cultures Findings: no necrotizing fasciitis, no purulence, muscle hemorrhagic butnot gangrenou Inf/Abcess present in the surg proc area at time of surgery?: No EBL: Minimal
--- NOTE | 2018-05-30 21:44 | GOP ---
[f rep st] OPERATIVE REPORT DATE OF OPERATION: SURGEON: Camron Castañeda MD PREOPERATIVE DIAGNOSIS: Swollen right chest, fever of unknown origin, possible necrotizing fasciitis . POSTOPERATIVE DIAGNOSIS: No necrotizing fasciitis, apparent myositis or hemorrhagic musculature of r ight pectoralis major. PROCEDURE PERFORMED: FINDINGS: INDICATIONS: A 62-year-old quadriplegic male with a fever of 105 degrees and gross swelling on the r ight pectoralis area, with CT scan showing swelling of the whole anterior soft tissue component witho ut obvious abscess. Aspiration at the bedside yielded no fluid, but this was concerning for necrotiz ing fasciitis, and it was felt appropriate to explore this area. DESCRIPTION OF PROCEDURE: The patient was brought to the operating room. He already had a tracheost du tube and was on a ventilator. General anesthetic. The area was scrubbed with Betadine, draped in the usual sterile fashion, and 0.5% Marcaine was infiltrated in the skin and incision made. It was obvious there was no loosening of the subcutaneous fat on the fascia, essentially ruling out necrotiz ing fasciitis. The muscle, however, was hemorrhagic in quality. It was not black or necrotic, but d iffusely hemorrhagic. Cultures were taken in the muscle belly, and several fragments of muscle were cut free, to be analyzed under the microscope. The incision that was made in the muscle was closed w ith a running 2-0 Vicryl, and then the skin closed with stainless steel clips. The skin edges bled q uite liberally despite the patient not being on aspirin or blood thinners, and after this was control led with cautery, again aimee were used, dressing was applied. Patient tolerated the procedure aishwarya zee OPERATION: Exploration of right anterior chest wall with muscle biopsy and cultures. /[id number]/MODL
[2018-05-30] MEDS: traZODone 50 MG TAB TUBE SCH (22:46)
[2018-05-30] MEDS: ZOLPIDEM TARTRATE 5 MG TAB TUBE SCH (22:46)
[2018-05-30] MEDS ORDERED: NS 1,000 ML IV ONE (23:16)
[2018-05-31] MEDS: oxyCODONE IR 5 MG TAB TUBE PRN (01:37)
[2018-05-31] MEDS: clonazePAM 0.5 MG TAB TUBE SCH ×4 (01:38→20:59)
[2018-05-31] MEDS: VANCOMYCIN HCL/NORMAL SALINE 250 ML IV SCH ×2 (02:37→16:02)
--- NOTE | 2018-05-31 03:19 | HOSPPROG ---
Hospitalist Progress Note Assessment/Plan: XC: Notified by RN of acute hypotension. The patient has been febrile this afternoon/evening and underwent surgical exploration as well. He is broadly covered with Meropenem, vancomycin, and levofloxacin. He has been recently cultured. I checked a CBC notable for Hgb of 6.2 and lactate, which was normal. I ordered 1 L NS and a unit of blood, which resulted in resolution of hypotension. The patient is currently hemodynamically stable and his fever has improved. Objective: Vital Signs Temp Pulse Resp BP Pulse Ox 37.8 C 85 22 H 153/92 H 97 05/31/18 01:22 05/31/18 01:22 05/31/18 01:22 05/31/18 01:22 05/31/18 01:22 Microbiology 05/30/18 15:40 - Final Sputum, Induced/Suctioned 05/27/18 16:30 Blood Panel (PCR) - Final Blood Staph Coagulase Negative Laboratory Results 05/30/18 23:30 05/30/18 17:15 05/29/18 05/30/18 05/31/18 05:59 05:59 05:59 Intake Total 2326 2481 2376 Output Total 3700 3000 2175 Balance -1374 -519 201 ICD10 Worksheet Patient Problems: Problems Problem Status Onset Chronic complete quadriplegia Acute Thrombocytopenia Acute Quadriplegia Acute Hypoxia Acute Fever Acute Generalized weakness Acute MRSA (methicillin resistant Staphylococcus aureus) Acute ~11/08/16 MRSA (methicillin resistant Staphylococcus aureus) Acute ~09/02/16 chronic disease mgmt/transitional care Acute History of quadriplegia Acute Generalized tonic-clonic seizure Acute New onset seizure Acute Urinary tract infection Acute Constipation Acute Abdominal pain Acute Fecal impaction of colon Acute Anemia Acute Hyponatremia Acute Pneumonia Acute
[2018-05-31 03:47] LABS: PLATELET COUNT 94 10^3/uL (150-400)
[2018-05-31] MEDS: MEROPENEM 1 GM in NS 100 ML IV SCH ×3 (03:59→19:47)
[2018-05-31] MEDS: GABAPENTIN 250 MG/5 ML 30 ML BOTTLE TUBE SCH ×2 (03:59→17:35)
[2018-05-31] MEDS: ACETAMINOPHEN 650 MG/20.3 ML UDCUP TUBE PRN ×3 (04:25→18:47)
[2018-05-31] MEDS: POTASSIUM Cl (KCl) 50 ML IV SCH ×5 (05:33→17:50)
[2018-05-31 06:57] LABS: CREATINE KINASE 115 IU/L (0-224)
[2018-05-31] MEDS: ENOXAPARIN 40 MG/0.4 ML SYR SC SCH (08:58)
[2018-05-31] MEDS: FERROUS SULFATE 300 MG/5 ML UD CUP TUBE SCH (08:58)
[2018-05-31] MEDS: SERTRALINE HCL 100 MG TAB TUBE SCH (08:59)
[2018-05-31] MEDS: FAMOTIDINE 20 MG TAB TUBE SCH ×2 (08:59→21:00)
[2018-05-31] MEDS: BACLOFEN 10 MG TAB TUBE SCH ×2 (08:59→16:01)
[2018-05-31] MEDS: MIDODRINE HCL 10 MG TAB TUBE SCH ×2 (09:00→16:00)
[2018-05-31] MEDS: SODIUM CHLORIDE 1,000 MG TAB TUBE SCH ×3 (09:00→21:00)
[2018-05-31] MEDS: CHLORHEXIDINE GLUCONATE 15 ML UDL PO SCH ×2 (09:00→19:47)
[2018-05-31] MEDS: POLYETHYLENE GLYCOL 3350 17 GM PKT TUBE SCH ×2 (09:01→21:02)
--- NOTE | 2018-05-31 09:38 | PCMIDPN ---
Assessment/Plan: #High persistent fever, encephalopathy: Ddx drug fever, LABOR EXPEDITER process (stroke), line infection, aspiration PNA, R chest wall process. Notable lack of leukocytosis but this is not unusual - he does not typically mount an elevated wbc. Patient was started on broad coverage yesterday with minimal change in fever curve. He has MDR Gram-negative rods covered, MRSA, anaerobes, atypicals. Main gap in coverage is Lillie, which he could be at risk for due to significant past antibiotic exposure. Swelling R chest wall very prominent but not erythematous or warm --with AMS, ideal to try to avoid agents with LABOR EXPEDITER toxicity but LABOR EXPEDITER depression started prior to delivery of levofloxacin and meropenem therefore will continue this empiric coverage for now and continue to assess on a daily basis --agree for evaluating for central source of fever with CT head, appreciate neuro consultation and EEG this afternoon. If above workup is unrevealing could reassess lumbar puncture, notably patient is on broad coverage with LABOR EXPEDITER penetration which would cover for majority of meningitis with in nosocomial source --if fever continues w/o etiology may have to consider CT abd/pelvis --likely can dc vancomycin soon if no pertinent isolates from micro ID'd # PCN : allergy hives in childhood, likely safe to retry # baclofen/Dilaudid pump filled 1 mo ago, scheduled filling q 3 mo -- to let us know what the 3rd agent is # slight elevation in LFTs: may be related to underlying process above. # Blood cx 1/2 : CoNS c/w contaminant meds meropenem 1gm IV q8h #1 Levofloxacin 750mg IV daily #2 Vancomycin 1gm IV q12h Microbiology 05/30/18 Chest - Cx: gram stain neg : cx pending 05/27/18 Blood Cx 1/2 CoNS Staph Coagulase Negative 05/27/18 Resp PCR neg 05/27/18 Sputum, Induced/Suctioned Sputum Culture - Final Proteus Mirabilis Gram Neg Chalo Lactose Envelope Fold Operator Streptococcus Canis 05/27/18 Blood Cx 2/2 NGTD 05/30/18 blood cx (2) Pending Subjective: Patient developed fever yesterday and has been nearly persistent sense. He also has significant encephalopathy. He was noted to have swelling of the right chest wall and went to the OR overnight to rule out necrotizing fasciitis which was reportedly negative. No purulence was noted. Objective: Vital Signs Temp Pulse Resp BP Pulse Ox 40.5 C H 99 24 H 155/96 H 95 05/31/18 09:15 05/31/18 09:15 05/31/18 09:15 05/31/18 08:00 05/31/18 09:15 Microbiology 05/30/18 21:50 Gram Stain - Final Chest - Eswab 05/30/18 15:40 - Final Sputum, Induced/Suctioned 05/27/18 16:30 Blood Panel (PCR) - Final Blood Staph Coagulase Negative Laboratory Results 05/31/18 03:35 05/31/18 03:35 Laboratory Tests 05/31/18 03:35 Total Bilirubin 0.7 AST 164 H ALT 94 H Alkaline Phosphatase 85 Creatine Kinase 115 05/30/18 05/31/18 06/01/18 05:59 05:59 05:59 Intake Total 2481 4285 Output Total 3000 3200 Balance -519 1085 - Physical Exam General Appearance: thin, toxic EENT: pale conjunctiva, dry mucous membranes, No scleral icterus Respiratory: accessory muscle use, other (Shallow inspiration with decreased breath sounds in the bases) Neck: limited range of motion, other (trach site with clear drainage/sputum) Cardiac/Chest: tachycardia, other (R chest wall swelling), No systolic murmur Extremities: other (diffuse muscular wasting), No pedal edema Abdomen: normal bowel sounds, non-tender, soft, other ([place] for medication pump right lower quadrant without erythema; PEG tube in place, leaking a bit) Male Genitalia: other (Suprapubic catheter), No guaman, No scrotal edema Skin: diaphoresis, pallor, No jaundice, No rash Neuro/Psych: motor weakness (Quadraplegic), confused, No facial droop - Line/s RUE PICC Lines: No drainage, No erythema - Time Spent With Patient Time Spent with Patient: greater than 35 minutes Time Spent with Patient: Greater than 35 minutes spent on this patients care, greater than 50% of time spent counseling, educating, and coordinating care regarding the above mentioned plan. ICD10 Worksheet Patient Problems: Problems Problem Status Onset Hypoxia Acute Pneumonia Acute Abdominal pain Acute Anemia Acute Chronic complete quadriplegia Acute Constipation Acute Fecal impaction of colon Acute Fever Acute Generalized tonic-clonic seizure Acute Generalized weakness Acute History of quadriplegia Acute Hyponatremia Acute MRSA (methicillin resistant Staphylococcus aureus) Acute ~09/02/16 MRSA (methicillin resistant Staphylococcus aureus) Acute ~11/08/16 New onset seizure Acute Quadriplegia Acute Thrombocytopenia Acute Urinary tract infection Acute chronic disease [place] [facility]/transitional care Acute
--- NOTE | 2018-05-31 09:46 | HOSPPROG ---
Hospitalist Progress Note Assessment/Plan: 62 yo M w/ hx of quadriplegia s/p peg/trach/SPC and CHRF presents with acute on chronic hypoxia and hypercarbia, requiring mechanical ventilation. Developed fever to 39.6 05/30, which has persisted, Tmax 40.8. #Fever unknown source: Possible sources- right chest wall (operative Cx's pending, no abscess or e/o nec fasc), respiratory source unlikely (bronch today clear), covered broadly for possible urinary source. Also consider drug fever ( baclofen w/d or toxicity can do this) vs SENIOR ARCHITECTURAL DESIGNER source (neg head CT, EEG neg for status, c/w dense metabolic encephalopathy) or intra-abdominal source. Nl lactate. - cont broad spectrum atbx (meropenem, vanc, levo), ID following, appreciate assistance - LP in am for cell count, GS/Cx, HSV, WNV, VZV, cryptococcal Ag - CT abd/pelvis if CSF eval benign - follow Cx data - hold baclofen per peg in case this is baclofen toxicity, gauge effect, watch for increased spasticity - discussed case with Dr[facility] Santos ([facility] [place]) Pump contents refilled 05/09/2018 (3 month supply): Baclofen 1400 mcg/mL, he receives 198 mcg/24hrs Hydromorphone 15.5 mg/mL, he receives 2.1 mg /24hrs Bupivacaine 18 mg/mL, receives 2.5 mg/24hrs Pump alarms if not functioning, no alarm. Consider catheter kink, though would expect alarm If CSF positive for infection, consult neurosurg to consider removal of pump #Hypotension: received NS bolus and 1 u prbc's. May be underlying autonomic dysfunction vs sepsis. - IV Levophed if needed - maintenance IVF's as tube feeds held, see below #Acute on chronic hypoxemic hypercarbic respiratory failure - Vent per pulm - Bronch 05/28 with removal of mucus plug, 05/31 bronch normal - Will need LTAC for ongoing vent management #Chest wall mass: surgical exploration yesterday revealed myositis, hemorrhage into muscle, no purulence or e/o infection - Cx and muscle biopsy pending #Acute metabolic encephalopathy: Mentation worse today, not status per EEG - appreciate neurology input - CT head neg - LP in am #Malfunctioning peg tube: gastric contents leaking out - tube feeds held - needs GI or surgery consult to replace #Loose stools: Laxatives held, has not recurred. #Anemia, thrombocytopenia: s/p 1 u prbc's this am, hgb stable, no e/o bleeding #Hypokalemia: Replace per protocol #Quadriplegia: S/p peg/trach/SPC VTE ppx: LMWH held for LP in am Diet: tube feeds held, mIVF's for now Goals of care: Met with Jenise and daughter. They understand Krzysztof is critically ill and he might succomb to this process. If he does not survive this, Jenise (MDPOA) would want to allow a peaceful and thus wishes to change him to DNR. We will continue to search for a cause and they hope he makes a recovery back to baseline. They feel he has meaning in his life and would change back to full code if he recovers. Code status: change to DNR as above Dispo: cont ICU, on vent, prior living situation at [facility] not adequate ( unable to provide pulmonary care). CM working on LTAC. 120 min crit care Additional 30 minutes in family meeting addressing advanced care goals. Subjective: Obtunded, unresponsive. Gaze deviated, does not track or follow commands. High fever persists. Objective: Vital Signs Temp Pulse Resp BP Pulse Ox 40.5 C H 99 24 H 155/96 H 95 05/31/18 09:15 05/31/18 09:15 05/31/18 09:15 05/31/18 08:00 05/31/18 09:15 Microbiology 05/30/18 21:50 Gram Stain - Final Chest - Eswab 05/30/18 15:40 - Final Sputum, Induced/Suctioned 05/27/18 16:30 Blood Panel (PCR) - Final Blood Staph Coagulase Negative Laboratory Results 05/31/18 03:35 05/31/18 03:35 05/30/18 05/31/18 06/01/18 05:59 05:59 05:59 Intake Total 2481 4285 Output Total 3000 3200 Balance -519 1085 - Physical Exam Constitutional: chronically ill appearing Eyes: PERRL, other (gaze deviation to upper right, does not track) Ears, Nose, Mouth, Throat: dry mucous membranes Cardiovascular: regular rate and rhythym Respiratory: no respiratory distress, bronchial breath sounds, other ( diminished at bases) Gastrointestinal: other (soft, nd, nt, peg tube is displaced, bilious gastric contents draining) Skin: other (right upper chest wall with ongoing edema, discoloration s/p incision. Small ~1cm purpural lesion right upper thigh) Musculoskeletal: other (quadriplegia, chronic hand contractures) Psychiatric: encephalopathic ICD10 Worksheet Patient Problems: Problems Problem Status Onset Hypoxia Acute Pneumonia Acute Abdominal pain Acute Anemia Acute Chronic complete quadriplegia Acute Constipation Acute Fecal impaction of colon Acute Fever Acute Generalized tonic-clonic seizure Acute Generalized weakness Acute History of quadriplegia Acute Hyponatremia Acute MRSA (methicillin resistant Staphylococcus aureus) Acute ~09/02/16 MRSA (methicillin resistant Staphylococcus aureus) Acute ~11/08/16 New onset seizure Acute Quadriplegia Acute Thrombocytopenia Acute Urinary tract infection Acute chronic disease mgmt/transitional care Acute
[2018-05-31] MEDS: BIOTENE DRY MOUTH ORAL RINSE 237 ML BTL MM PRN ×2 (09:57→16:32)
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
[2018-05-31] MEDS ORDERED: NS W/ 20 KCl/L 1,000 ML IV SCH (13:30)
[2018-05-31 13:58] LABS: INR 1.67 (0.83-1.16); PROTIME(PATIENT) 18.9 SEC (12.0-15.0)
[2018-05-31] MEDS: POTASSIUM Cl (KCl) 40 MEQ in NS 1,000 ML IV SCH (14:00)
--- NOTE | 2018-05-31 15:08 | ASMTCMCOM ---
CM Note CM Note Notes: Fanny from [facility] called and requested updates. Updates were Allscripted to her today. CM will follow. Date Signed: 05/31/2018 03:04 PM Electronically Signed By:Flor Tamayo LCSW
[2018-05-31] MEDS ORDERED: LIDOCAINE 1% 300 MG/30 ML SDV MISC ONE (15:34)
[2018-05-31] MEDS ORDERED: LIDOCAINE 2% JELLY 6 ML TOPICAL SYR TP ONE (15:34)
[2018-05-31] MEDS ORDERED: D50W 25 GM/50 ML SYR IVP PRN (18:12)
--- NOTE | 2018-05-31 19:00 | SUROPNOTE ---
[facility] Operative Report - Surgery PROCEDURE NOTE: Flexible bronchoscopy with bronchoalveolar lavage Procedure Allocations Clerk S Guanakito Hernandez MD Procedure: Flexible bronchoscopy with bronchoalveolar lavage Preoperative diagnosis: Pneumonia, respiratory failure Postoperative diagnosis: respiratory failure Consent: Obtained from prior to procedure after explanation of the procedure, alternatives, risks, and benefits. Anesthesiologist NA Sedation Type: None Sedation Medications: None Medications: Topical 2% lidocaine: 5 cc via tracheostomy tube Procedure Summary: Time out was performed. 5 cc of lidocaine were injected into the tracheostomy tube. Next, the bronchoscope was then introduced via the tracheostomy tube into the airway. The entire tracheobronchial tree was examined. Area mucosa appeared normal throughout. There were scant secretions but generally clear. A formal bronchoalveolar lavage was performed in the lingula with instillation of 100 cc in return of 40 cc of translucent chiang fluid. Patient tolerated the procedure well without any complications. Fluid was sent for culture. EBL none Complications: None Impression: Clear airways without secretions. Normal mucosa Items to Follow-up: BAL fluid sent cell count, diff, Gram stain and culture Chace Hernandez MD Pulmonary and Critical Care Medicine [phone]
[2018-05-31] MEDS: INSULIN LISPRO 100 UNIT/ML SC SCH (19:12)
[2018-05-31] MEDS: ZOLPIDEM TARTRATE 5 MG TAB TUBE SCH (20:59)
[2018-05-31] MEDS: traZODone 50 MG TAB TUBE SCH (21:02)
--- NOTE | 2018-05-31 23:09 | CPEEG ---
[f rep st] ELECTROENCEPHALOGRAM DATE OF STUDY: 05/31/2018 DATE OF INTERPRETATION: 05/31/2018 INTERPRETATION: This EEG is abnormal due to the following reasons: 1. There are generalized atypical triphasic waves. 2. There is a moderate degree of diffuse slowing of the background activity. These findings are consistent with a generalized metabolic or toxic encephalopathy of a moderately severe degree. There were no definite electrographic seizures recorded during the recording. REPORT: This inpatient EEG performed in ICU contains 6-7 hertz theta activity posterior head regions. There was a moderate degree of diffuse slowing consisting of theta and [id number] amplitude delta activity. The primary feature of this recording was the presence of generalized atypical triphasic waves. The triphasic waves had a posterior to anterior lag at times. There was shifting asymmetry in terms of amplitudes over the hemispheres. The morphology, at times, was irregular of the triphasic waves. They did not evolve into a definite electrographic seizure pattern. They persisted during times when the technologist noted the patient being awake with his eyes open - with some improvement of the background slowing. The findings of this recording were communicated to the hospitalist involved with his care. /[id number]/MODL MTDD
[2018-06-01] MEDS: GABAPENTIN 250 MG/5 ML 30 ML BOTTLE TUBE SCH ×3 (00:24→18:50)
[2018-06-01] MEDS: ACETAMINOPHEN 650 MG/20.3 ML UDCUP TUBE PRN ×3 (00:25→13:34)
[2018-06-01] MEDS: INSULIN LISPRO 100 UNIT/ML SC SCH ×4 (00:41→18:52)
[2018-06-01] MEDS: VANCOMYCIN HCL/NORMAL SALINE 250 ML IV SCH (03:00)
[2018-06-01] MEDS: NOREPINEPHRINE BITARTRATE 4 MG in NS 500 ML IV SCH ×2 (03:01→10:00)
[2018-06-01] MEDS: MEROPENEM 1 GM in NS 100 ML IV SCH ×3 (04:04→20:38)
[2018-06-01] MEDS: POTASSIUM Cl (KCl) 40 MEQ in NS 1,000 ML IV SCH ×2 (05:20→06:22)
[2018-06-01] MEDS: clonazePAM 0.5 MG TAB TUBE SCH ×4 (05:21→20:39)
[2018-06-01 05:52] LABS: PLATELET COUNT 46 10^3/uL (150-400)
[2018-06-01] MEDS: POTASSIUM Cl (KCl) 50 ML IV SCH ×2 (06:22→07:35)
[2018-06-01] MEDS ORDERED: AMIODARONE HCL 100 ML IV ONE (06:26)
[2018-06-01] MEDS ORDERED: AMIODARONE HCL 200 ML IV ONE (06:26)
--- NOTE | 2018-06-01 06:32 | HOSPPROG ---
Hospitalist Progress Note Assessment/Plan: XC: Notified by RN of new tachycardia. ECG consistent with atrial fibrillation, which seems new from my review of documentation. He is on norepinephrine for vasopressor support. I will start amiodarone load for rate control and work on electrolyte deficiencies as well. Objective: Vital Signs Temp Pulse Resp BP Pulse Ox 39.3 C H 144 H 25 H 112/67 100 06/01/18 05:00 06/01/18 05:00 06/01/18 05:00 06/01/18 05:00 06/01/18 05:00 Microbiology 05/31/18 16:20 Gram Stain - Final Bronchial Alveolar Lavage - Unspecified 05/30/18 15:40 - Final Sputum, Induced/Suctioned 05/30/18 21:50 Gram Stain - Final Chest - Eswab Laboratory Results 06/01/18 05:15 06/01/18 05:15 05/31/18 06/01/18 06/02/18 05:59 05:59 05:59 Intake Total 4285 5420 Output Total 3200 2355 Balance 1085 3065 PT 18.9 SEC (12.0-15.0) H 05/31/18 13:30 INR 1.67 (0.83-1.16) H 05/31/18 13:30 ICD10 Worksheet Patient Problems: Problems Problem Status Onset Chronic complete quadriplegia Acute Thrombocytopenia Acute Quadriplegia Acute Hypoxia Acute Fever Acute Generalized weakness Acute MRSA (methicillin resistant Staphylococcus aureus) Acute ~11/08/16 MRSA (methicillin resistant Staphylococcus aureus) Acute ~09/02/16 chronic disease mgmt/transitional care Acute History of quadriplegia Acute Generalized tonic-clonic seizure Acute New onset seizure Acute Urinary tract infection Acute Constipation Acute Abdominal pain Acute Fecal impaction of colon Acute Anemia Acute Hyponatremia Acute Pneumonia Acute
[2018-06-01] MEDS ORDERED: LORazepam 2 MG/ML INJ ONE (06:43)
[2018-06-01] MEDS ORDERED: LORazepam 2 MG/ML INJ IVP ONE (06:45)
[2018-06-01] MEDS ORDERED: AMIODARONE A.FIB-6HR INFSN (ORDER 2/3) PREMIX IV ONE (07:00)
[2018-06-01] MEDS: SERTRALINE HCL 100 MG TAB TUBE SCH (08:08)
[2018-06-01] MEDS: SODIUM CHLORIDE 1,000 MG TAB TUBE SCH ×3 (08:08→23:34)
[2018-06-01] MEDS: fentaNYL 25 MCG PATCH TD SCH (08:08)
[2018-06-01] MEDS: MIDODRINE HCL 10 MG TAB TUBE SCH ×2 (08:08→15:25)
[2018-06-01] MEDS: FAMOTIDINE 20 MG TAB TUBE SCH ×2 (08:08→21:00)
[2018-06-01] MEDS: FERROUS SULFATE 300 MG/5 ML UD CUP TUBE SCH (08:08)
[2018-06-01] MEDS: CHLORHEXIDINE GLUCONATE 15 ML UDL PO SCH ×2 (08:09→20:38)
[2018-06-01] MEDS: POLYETHYLENE GLYCOL 3350 17 GM PKT TUBE SCH ×2 (08:14→23:59)
--- NOTE | 2018-06-01 10:29 | CPEKG ---
Test Reason : OPEN Blood Pressure : / mmHG Vent. Rate : 132 BPM Atrial Rate : 144 BPM P-R Int : 148 ms QRS Dur : 077 ms QT Int : 339 ms P-R-T Axes : 000 -62 000 degrees QTc Int : 503 ms Atrial fibrillation Left anterior fascicular block Abnormal R-wave progression, early transition Nonspecific T abnormalities, lateral leads Prolonged QT interval Confirmed by Nelson Chow ([id number]) on 06/01/2018 10:28:35 AM Referred By: Jose Guadalupe Kumar Confirmed By:Nelson Chow
--- NOTE | 2018-06-01 11:27 | NEUROPROG ---
Assessment: 1. Status posttraumatic Cervical quadriplegia 2. Encephalopathy The EEG done yesterday shows atypical triphasic waves superimposed over generalized slowing. These findings would be consistent with a metabolic/toxic encephalopathy. He continues to be encephalopathic today with some irregular multifocal myoclonic twitches which can be seen in metabolic encephalopathy. He will have his baclofen pump interrogated and we will proceed with MRI brain as it is apparently compatible with MRI. When safe from platelets standpoint, I recommend lumbar puncture for possible meningitis. I defer to Infectious Disease regarding management of antimicrobial therapy. We will follow up on the above Subjective: No overt seizures Objective: Vital Signs Temp Pulse Resp BP Pulse Ox 37.7 C 93 20 121/87 H 100 06/01/18 11:00 06/01/18 11:00 06/01/18 11:00 06/01/18 11:00 06/01/18 11:00 Microbiology 05/31/18 16:20 Gram Stain - Final Bronchial Alveolar Lavage - Unspecified 05/30/18 15:40 - Final Sputum, Induced/Suctioned 05/30/18 21:50 Gram Stain - Final Chest - Eswab Laboratory Results 06/01/18 05:15 06/01/18 05:15 05/31/18 06/01/18 06/02/18 05:59 05:59 05:59 Intake Total 4285 5420 Output Total 3200 2355 Balance 1085 3065 PT 18.9 SEC (12.0-15.0) H 05/31/18 13:30 INR 1.67 (0.83-1.16) H 05/31/18 13:30 Patient remains nonresponsive to environment and significantly encephalopathic Does have some multifocal myoclonus 35 total minutes floor time; over 50% counseling and coordination of care. Allergies/Adverse Reactions: corn syrup Allergy (Severe, Verified 05/08/18 06:19) Unknown Milk Containing Products [dairy] Allergy (Severe, Verified 05/08/18 06:19) Swelling/neck,face,throat soy Allergy (Severe, Verified 05/08/18 06:19) Swelling/neck,face,throat nitrofurantoin [From Macrobid] Allergy (Unknown, Verified 05/08/18 06:19) Hives Penicillins Allergy (Unknown, Verified 05/08/18 06:19) Hives shellfish derived Allergy (Verified 05/08/18 06:19) tree nut [Nuts] Allergy (Verified 05/08/18 06:19) wheat Allergy (Severe, Uncoded 05/08/18 06:19) [place]
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
[2018-06-01] MEDS ORDERED: NS IV SCH (11:45)
[2018-06-01] MEDS ORDERED: DOXYCYCLINE IV SCH (11:45)
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
[2018-06-01] MEDS ORDERED: AMIODARONE A.FIB-18HR INFSN (ORDER 3/3) IV ONE (13:30)
[2018-06-01] MEDS: levETIRAcetam 500MG/NACL 100 ML IV SCH ×2 (14:03→20:39)
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
[2018-06-01] MEDS ORDERED: POTASSIUM CL 20 MEQ/15 ML UDCUP TUBE ONE ×2 (14:44→22:00)
[2018-06-01] MEDS ORDERED: oxyCODONE IR 5 MG TAB PO PRN (14:49)
[2018-06-01] MEDS: oxyCODONE IR 15 MG TAB TUBE SCH ×2 (15:25→20:40)
[2018-06-01 15:35] LABS: INR 1.34 (0.83-1.16)
--- NOTE | 2018-06-01 15:41 | ASMTCMCOM ---
CM Note CM Note Notes: A family meeting was held today with Patient's Jenise and daughter Brittnee. Please see Merry Ordonez's family meeting documentation in notes. The family states the patient will not be returning to [facility]. [facility] has changed their policies and no longer does suctioning of patients. The family feels Krzysztof will need a higher level of care at discharge this time. They still are planning on [facility] program for him at discharge. Jenise and Fanny from [facility] have been communicating via telephone. CM will continue to send them updates. CM will follow. Date Signed: 06/01/2018 03:40 PM Electronically Signed By:Flor Tamayo LCSW
[2018-06-01] MEDS ORDERED: LIDOCAINE 1% 300 MG/30 ML SDV ONE (15:54)
[2018-06-01] MEDS: traZODone 50 MG TAB TUBE SCH (20:40)
[2018-06-01] MEDS: ACYCLOVIR IV SCH (20:43)
[2018-06-01] MEDS: D5W IV SCH (20:43)
[2018-06-01] MEDS: ZOLPIDEM TARTRATE 5 MG TAB TUBE SCH (20:44)
[2018-06-01] MEDS: DOXYCYCLINE INJ 100 MG in NS 250 ML IV SCH (23:34)
[2018-06-02] MEDS: GABAPENTIN 250 MG/5 ML 30 ML BOTTLE TUBE SCH ×4 (00:29→23:20)
[2018-06-02] MEDS: INSULIN LISPRO 100 UNIT/ML SC SCH ×4 (03:09→18:30)
[2018-06-02] MEDS: MEROPENEM 1 GM in NS 100 ML IV SCH ×3 (05:56→20:41)
[2018-06-02] MEDS: clonazePAM 0.5 MG TAB TUBE SCH ×4 (05:57→21:29)
[2018-06-02] MEDS: oxyCODONE IR 15 MG TAB TUBE SCH ×4 (05:57→21:30)
[2018-06-02] MEDS: D5W IV SCH ×3 (06:23→20:08)
[2018-06-02] MEDS: ACYCLOVIR IV SCH ×3 (06:23→20:08)
[2018-06-02] MEDS: POLYETHYLENE GLYCOL 3350 17 GM PKT TUBE SCH (07:39)
[2018-06-02 08:50] LABS: PLATELET COUNT 54 10^3/uL (150-400)
[2018-06-02] MEDS: DOXYCYCLINE INJ 100 MG in NS 250 ML IV SCH ×2 (10:19→20:40)
--- NOTE | 2018-06-02 10:25 | NEUROPROG ---
Assessment: 1. Status posttraumatic Cervical quadriplegia 2. Encephalopathy The lumbar puncture showed 3 white blood cells and mildly elevated protein. Protein can be chronically elevated in the setting of previous spinal cord injury. Essentially, no evidence of REAL ESTATE AGENT infection based on this LP result. EEG showed atypical triphasic waves superimposed over generalized slowing. These findings would be consistent with a metabolic/toxic encephalopathy. He continues to be encephalopathic today with some irregular multifocal myoclonic twitches which can be seen in metabolic encephalopathy. We are still trying to understand whether his baclofen pump is MRI compatible. Going forward, we will try to resume baclofen to see if this helps and indicates a withdrawal syndrome. In addition, we will obtain MRI brain. Finally, if there is no improvement or etiology found, the next step would be consideration for transfer for continuous EEG monitoring. We initiated Keppra for anti myoclonic effects. Will follow along. Subjective: No new symptoms Objective: Vital Signs Temp Pulse Resp BP Pulse Ox 36.6 C 86 15 94/56 L 100 06/02/18 04:00 06/02/18 07:50 06/02/18 07:50 06/02/18 07:00 06/02/18 07:50 Microbiology 05/30/18 15:40 - Final Sputum, Induced/Suctioned 05/27/18 18:35 Blood Culture - Final Blood 05/27/18 16:30 Blood Culture - Final Blood Staphylococcus Sp Coag Neg Blood Panel (PCR) - Final Staph Coagulase Negative 05/31/18 18:59 Gram Stain - Final Cerebral Spinal Fluid 05/31/18 16:20 Gram Stain - Final Bronchial Alveolar Lavage - Unspecified 05/30/18 21:50 Gram Stain - Final Chest - Eswab Laboratory Results 06/02/18 08:40 06/02/18 08:40 06/01/18 06/02/18 06/03/18 05:59 05:59 05:59 Intake Total 5420 6755 Output Total 2355 2700 Balance 3065 4055 PT 16.0 SEC (12.0-15.0) H 06/01/18 15:00 INR 1.34 (0.83-1.16) H 06/01/18 15:00 The patient has eyes open and does not respond He has irregular myoclonus, multifocal in his face Allergies/Adverse Reactions: corn syrup Allergy (Severe, Verified 05/08/18 06:19) Unknown Milk Containing Products [dairy] Allergy (Severe, Verified 05/08/18 06:19) Swelling/neck,face,throat soy Allergy (Severe, Verified 05/08/18 06:19) Swelling/neck,face,throat nitrofurantoin [From Macrobid] Allergy (Unknown, Verified 05/08/18 06:19) Hives Penicillins Allergy (Unknown, Verified 05/08/18 06:19) Hives shellfish derived Allergy (Verified 05/08/18 06:19) tree nut [Nuts] Allergy (Verified 05/08/18 06:19) wheat Allergy (Severe, Uncoded 05/08/18 06:19) Flushing
[2018-06-02] MEDS: FAMOTIDINE 20 MG TAB TUBE SCH ×2 (10:30→21:30)
[2018-06-02] MEDS: SERTRALINE HCL 100 MG TAB TUBE SCH (10:31)
[2018-06-02] MEDS: MIDODRINE HCL 10 MG TAB TUBE SCH ×2 (10:31→14:31)
[2018-06-02] MEDS: SODIUM CHLORIDE 1,000 MG TAB TUBE SCH ×3 (10:31→21:29)
[2018-06-02] MEDS: FERROUS SULFATE 300 MG/5 ML UD CUP TUBE SCH (10:32)
[2018-06-02] MEDS: CHLORHEXIDINE GLUCONATE 15 ML UDL PO SCH ×2 (10:33→20:08)
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
[2018-06-02] MEDS: levETIRAcetam 500MG/NACL 100 ML IV SCH ×2 (10:45→21:47)
[2018-06-02] MEDS ORDERED: POTASSIUM CL 10 MEQ TAB PO ONE (11:19)
[2018-06-02] MEDS ORDERED: POTASSIUM CL 20 MEQ/15 ML UDCUP TUBE ONE ×2 (11:45→22:30)
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
--- NOTE | 2018-06-02 14:27 | WOCRNPDOC ---
SHILA Advanced Assessment Note - Skin Integrity Problem, Advanced Assess Sacrum Pressure Injury Dressing Type: Mepilex Border (sacral) Dressing Description: Clean/Dry, Intact Closure Description: Not Approximated Exudate Amount: Scant Exudate Color: Reddish/Yellow Exudate Characteristic(s): Serosanguinous Integumentary Issue Intervention: Dressing Changed, Hydrogel Applied Masha Wound Tissue: Blanching, Erythema, Intact, Thin, Scarred Masha Wound Swelling: None Wound Bed Color: Red, Yellow Wound Bed Constitution: Smooth Tissue (40%), Adhered Slough (60%) Wound Edges: Attached, Well Defined Site Measurement - Head-to-Toe Length X Width X Depth (cm): 3x2.3x0.2 Pressure Injury Stage: Stage 4 Pressure Injury Present on Admit: Yes Skin Integrity Problem Comment: Patient rolled to his left side with assist from city designer. Mepilex sacral removed, area cleaned with NS and gauze, hydrogel applied to wound bed and Mepilex sacral dressing replaced. Patient's Jenise able to visualize. She agrees (and measurements confirm) that the open area is larger than earlier in the week. Will continue with aggressive offloading measures. Discussed with both Jenise and daughter Brittnee that given how sick Krzysztof has been, we may very well see some deterioration in his skin. They are both aware and have seen this happen in previous hospitalizations when he has been extremely ill. Wound care will round again later next week. Left Greater Trochanter Pressure Injury Dressing Type: Allevyn Life Dressing Description: Clean/Dry, Intact Closure Description: Approximated Exudate Amount: None Exudate Characteristic(s): None Integumentary Issue Intervention: Visualized Under Dressing Masha Wound Tissue: Blanching, Intact Masha Wound Swelling: None Skin Integrity Problem Comment: Protective dressing in place. No breakdown under dressing. Skin intact and blanching. Left Posterior Illiac Crest Dressing Type: Mepilex Border Dressing Description: Clean/Dry, Intact Closure Description: Approximated Exudate Amount: None Exudate Characteristic(s): None Integumentary Issue Intervention: Visualized Under Dressing Masha Wound Tissue: Blanching, Scarred Masha Wound Swelling: None Wound Bed Color: Calpine Pressure Injury Stage: Stage 4 Pressure Injury Present on Admit: Yes Skin Integrity Problem Comment: Protective dressing in place over this Stage 4 pressure injury. No current breakdown under dressing. Skin intact and blanching. Right Anterior Chest Surgical Wound/Incision Dressing Type: Gauze Dressing Description: Clean/Dry, Intact Closure Description: Hilary, Approximated Exudate Amount: None Integumentary Issue Intervention: Dressing Changed, Dressing Initialed & Dated Masha Wound Tissue: Ecchymotic, Swollen Msaha Wound Swelling: Mild Skin Integrity Problem Comment: Surgical incision closed with hilary. Dry gauze dressing changed and covered with medipore tape. Anterior Medial Abdomen Drain Site Dressing Type: Dressing Sponge Dressing Description: Intact, Shadowed Closure Description: Not Approximated Exudate Amount: Scant Exudate Color: Reddish/Yellow Exudate Characteristic(s): Serosanguinous Integumentary Issue Intervention: Dressing Changed Masha Wound Tissue: Raw, Denuded (0.5cm circumferentially) Wound Bed Constitution: Smooth Tissue Wound Edges: Well Defined Skin Integrity Problem Comment: Removed old drain sponge around PEG tube site. Cleaned with NS and gauze and replaced new drain sponge. Will send clear zinc as well which can be used PRN. Right Greater Trochanter Dressing Type: Allevyn Life Dressing Description: Clean/Dry, Intact Exudate Amount: None Integumentary Issue Intervention: Visualized Under Dressing Masha Wound Tissue: Blanching, Intact Skin Integrity Problem Comment: Protective dressing in place. No current breakdown under dressing. Skin intact and blanching.
[2018-06-02] MEDS: traZODone 50 MG TAB TUBE SCH (21:29)
[2018-06-02] MEDS: ZOLPIDEM TARTRATE 5 MG TAB TUBE SCH (21:30)
[2018-06-03] MEDS: ACYCLOVIR IV SCH (04:01)
[2018-06-03] MEDS: D5W IV SCH (04:01)
[2018-06-03] MEDS: MEROPENEM 1 GM in NS 100 ML IV SCH ×3 (04:01→21:00)
[2018-06-03] MEDS: INSULIN LISPRO 100 UNIT/ML SC SCH ×4 (04:01→17:22)
[2018-06-03] MEDS: POLYETHYLENE GLYCOL 3350 17 GM PKT TUBE SCH ×2 (04:02→08:00)
[2018-06-03] MEDS: clonazePAM 0.5 MG TAB TUBE SCH ×4 (05:17→21:01)
[2018-06-03] MEDS: GABAPENTIN 250 MG/5 ML 30 ML BOTTLE TUBE SCH ×3 (05:17→23:28)
[2018-06-03] MEDS: oxyCODONE IR 15 MG TAB TUBE SCH (05:18)
[2018-06-03 06:36] LABS: PLATELET COUNT 67 10^3/uL (150-400)
[2018-06-03] MEDS: levETIRAcetam 500MG/NACL 100 ML IV SCH ×2 (07:50→21:00)
[2018-06-03] MEDS: CHLORHEXIDINE GLUCONATE 15 ML UDL PO SCH ×2 (07:53→23:28)
[2018-06-03] MEDS: FAMOTIDINE 20 MG TAB TUBE SCH ×2 (08:00→21:01)
[2018-06-03] MEDS: MIDODRINE HCL 10 MG TAB TUBE SCH ×3 (08:00→21:01)
[2018-06-03] MEDS: SODIUM CHLORIDE 1,000 MG TAB TUBE SCH ×3 (08:00→23:28)
[2018-06-03] MEDS: FERROUS SULFATE 300 MG/5 ML UD CUP TUBE SCH (08:00)
[2018-06-03] MEDS: SERTRALINE HCL 100 MG TAB TUBE SCH (08:00)
[2018-06-03] MEDS: NOREPINEPHRINE BITARTRATE 4 MG in NS 500 ML IV SCH (09:27)
[2018-06-03] MEDS ORDERED: oxyCODONE IR 5 MG TAB PO PRN (09:30)
[2018-06-03] MEDS ORDERED: oxyCODONE IR 5 MG TAB TUBE PRN (09:30)
[2018-06-03] MEDS: DOXYCYCLINE INJ 100 MG in NS 250 ML IV SCH (10:12)
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
--- NOTE | 2018-06-03 11:25 | NEUROPROG ---
Assessment: 1. Status posttraumatic Cervical quadriplegia 2. Encephalopathy The lumbar puncture showed 3 white blood cells and mildly elevated protein. Protein can be chronically elevated in the setting of previous spinal cord injury. Essentially, no evidence of INSIDE SALES ENGINEER infection based on this LP result. EEG showed atypical triphasic waves superimposed over generalized slowing. These findings would be consistent with a metabolic/toxic encephalopathy. The patient is markedly improved today in terms of his mental status. He arouses to voice and followed commands. Specifically, he blinked 3 times to command. MRI brain did not show any acute infarct, hemorrhage or mass lesions etc. There was some subtle T2 changes consistent with possible PRES. This would not be entirely unusual in the setting of the patient's critical illness. There was no specific finding such as diffusion-weighted abnormalities in a focal cortical distribution to suggest ongoing focal status epilepticus, for example. Discussed plan at length with Hospital Medicine and ICU team: - Consider slowly reintroducing p.o. Baclofen. The pump continues to be operational. - We can keep him on Keppra today for its anti-myoclonic effects. It can be decreased to 500 mg once daily tomorrow, then discontinue thereafter. - If there is recurrent waxing and waning of mental status, then please contact Neurology to reassess as we may need to reconsider nonconvulsive seizures and would need to consider transfer for continuous EEG monitoring at that time. We will continue to follow as needed. Please do not hesitate to call for any questions or changes in neurologic status with this patient. Subjective: The patient's mental status has improved Objective: Vital Signs Temp Pulse Resp BP Pulse Ox 37 C 81 16 98/74 L 98 06/02/18 16:00 06/03/18 09:00 06/03/18 09:00 06/03/18 09:00 06/03/18 09:00 Microbiology 05/30/18 21:50 Gram Stain - Final Chest - Eswab 05/31/18 16:20 Gram Stain - Final Bronchial Alveolar Lavage - Unspecified 05/31/18 18:59 Gram Stain - Final Cerebral Spinal Fluid 05/30/18 15:40 - Final Sputum, Induced/Suctioned Sputum Culture - Final Stenotrophomonas Maltophilia Proteus Mirabilis Klebsiella Variicola 05/27/18 18:35 Blood Culture - Final Blood 05/27/18 16:30 Blood Culture - Final Blood Staphylococcus Sp Coag Neg Blood Panel (PCR) - Final Staph Coagulase Negative Laboratory Results 06/03/18 06:20 06/03/18 06:20 06/02/18 06/03/18 06/04/18 05:59 05:59 05:59 Intake Total 6755 4055 Output Total 2700 1550 Balance 4055 2505 PT 16.0 SEC (12.0-15.0) H 06/01/18 15:00 INR 1.34 (0.83-1.16) H 06/01/18 15:00 Today on exam the patient open his eyes to saying his name and regarded me. He followed commands by blinking 3 times in a row on command. The facial multifocal myoclonus has resolved. 35 total minutes floor time; over 50% counseling and coordination of care. Allergies/Adverse Reactions: corn syrup Allergy (Severe, Verified 05/08/18 06:19) Unknown Milk Containing Products [dairy] Allergy (Severe, Verified 05/08/18 06:19) Swelling/neck,face,throat soy Allergy (Severe, Verified 05/08/18 06:19) Swelling/neck,face,throat nitrofurantoin [From Macrobid] Allergy (Unknown, Verified 05/08/18 06:19) Hives Penicillins Allergy (Unknown, Verified 05/08/18 06:19) Hives shellfish derived Allergy (Verified 05/08/18 06:19) tree nut [Nuts] Allergy (Verified 05/08/18 06:19) wheat Allergy (Severe, Uncoded 05/08/18 06:19) [place]
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
[2018-06-03] MEDS: traZODone 50 MG TAB TUBE SCH (21:01)
[2018-06-03] MEDS ORDERED: POTASSIUM CL 20 MEQ/15 ML UDCUP TUBE ONE (22:45)
[2018-06-03] MEDS ORDERED: PROPOFOL/EMULSION 1,000 MG/100 ML BOTTLE IV ONE (23:12)
[2018-06-03] MEDS: ZOLPIDEM TARTRATE 5 MG TAB TUBE SCH (23:29)
[2018-06-04] MEDS: MEROPENEM 1 GM in NS 100 ML IV SCH ×2 (04:24→10:58)
[2018-06-04] MEDS: MIDODRINE HCL 10 MG TAB TUBE SCH ×3 (06:23→17:23)
[2018-06-04] MEDS: clonazePAM 0.5 MG TAB TUBE SCH ×4 (06:35→22:23)
[2018-06-04] MEDS: GABAPENTIN 250 MG/5 ML 30 ML BOTTLE TUBE SCH ×2 (06:36→15:35)
[2018-06-04 06:55] LABS: PLATELET COUNT 70 10^3/uL (150-400)
[2018-06-04] MEDS: INSULIN LISPRO 100 UNIT/ML SC SCH ×3 (07:28→14:21)
[2018-06-04] MEDS: POLYETHYLENE GLYCOL 3350 17 GM PKT TUBE SCH ×3 (07:29→22:42)
[2018-06-04] MEDS: FERROUS SULFATE 300 MG/5 ML UD CUP TUBE SCH (07:53)
[2018-06-04] MEDS: CHLORHEXIDINE GLUCONATE 15 ML UDL PO SCH ×2 (07:53→22:42)
[2018-06-04] MEDS: ACETAMINOPHEN 650 MG/20.3 ML UDCUP TUBE PRN (07:53)
[2018-06-04] MEDS: SODIUM CHLORIDE 1,000 MG TAB TUBE SCH ×3 (07:53→22:23)
[2018-06-04] MEDS: SERTRALINE HCL 100 MG TAB TUBE SCH (07:54)
[2018-06-04] MEDS: FAMOTIDINE 20 MG TAB TUBE SCH ×2 (07:54→22:24)
[2018-06-04] MEDS: levETIRAcetam 500MG/NACL 100 ML IV SCH ×2 (08:35→21:55)
[2018-06-04] MEDS ORDERED: POTASSIUM CL 10 MEQ TAB PO ONE ×2 (09:30→21:45)
[2018-06-04] MEDS ORDERED: LIDOCAINE 1% 300 MG/30 ML SDV MISC ONE (09:35)
[2018-06-04] MEDS ORDERED: LIDOCAINE 2% JELLY 6 ML TOPICAL SYR TP ONE (09:35)
--- NOTE | 2018-06-04 10:44 | ASMTCMCOM ---
CM Note CM Note Notes: Updated notes sent to [facility]. Per rounds, patient is doing a lot better and will likely d/c mid-week. ID to make antibiotic therapy recommendations. Case Management will follow. Date Signed: 06/04/2018 10:44 AM Electronically Signed By:Krista Phillips RN
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
[2018-06-04] MEDS ORDERED: LIDOCAINE 1% 300 MG/30 ML SDV ONE (12:03)
[2018-06-04] MEDS ORDERED: LIDOCAINE 2% JELLY 6 ML TOPICAL SYR ONE (12:04)
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
--- NOTE | 2018-06-04 13:06 | SUROPNOTE ---
[facility] Operative Report - Surgery PROCEDURE NOTE: Flexible bronchoscopy with therapeutic aspiration Procedure Salt Plant Operator S Guanakito Hernandez MD Procedure: Flexible bronchoscopy with bronchoalveolar lavage and therapeutic aspiration Indication: High airway pressures on the ventilator with difficulties ventilating Preoperative diagnosis: Mucous plugging, respiratory failure Postoperative diagnosis: Mucous plugging, respiratory failure Consent: Obtained from family prior to procedure after explanation of the procedure, alternatives, risks, and benefits. Anesthesiologist NA Sedation Type: None Sedation Medications: None Medications: Topical 1% lidocaine: 10 cc via tracheostomy tube Procedure Summary: Time out was performed. The bronchoscope was then introduced via the tracheostomy tube into the airway. Thick tenacious secretions were noted partially occluding the the tracheostomy tube. There are multiple thick tenacious secretions most prominently in bilateral lower lobes. All secretions were washed therapeutically aspirated. Airway mucosa appeared normal throughout. Patient tolerated procedure well without complication immediate resolution of high peak pressures on ventilator. EBL none Complications: None Impression: Recurrent mucus plugging Plan: initiate metaneb treatment, maintain eunatremia Items to Follow-up: none S Guanakito Hernandez MD Pulmonary and Critical Care Medicine [phone]
--- NOTE | 2018-06-04 16:08 | NEUROPROG ---
Assessment: 1. Status posttraumatic Cervical quadriplegia 2. Encephalopathy The lumbar puncture showed 3 white blood cells and mildly elevated protein. Protein can be chronically elevated in the setting of previous spinal cord injury. Essentially, no evidence of SENIOR [employer] CONSULTANT infection based on this LP result. EEG showed atypical triphasic waves superimposed over generalized slowing. These findings would be consistent with a metabolic/toxic encephalopathy. The patient is markedly improved today in terms of his mental status. He arouses to voice and followed commands. Specifically, he again blinked 3 times to command. MRI brain did not show any acute infarct, hemorrhage or mass lesions etc. There was some subtle T2 changes consistent with possible PRES. This would not be entirely unusual in the setting of the patient's critical illness. There was no specific finding such as diffusion-weighted abnormalities in a focal cortical distribution to suggest ongoing focal status epilepticus, for example. Discussed plan at length with Hospital Medicine and ICU team: - holding pain medications. They will consider reintroducing p.o. Baclofen based on his clinical course. The pump continues to be operational. - Keppra 500 mg once daily today, then discontinue thereafter. - If there is recurrent waxing and waning of mental status, then please contact Neurology to reassess as we may need to reconsider nonconvulsive seizures and would need to consider transfer for continuous EEG monitoring at that time. We will sign off and follow up as needed. Please do not hesitate to call for any questions or changes in neurologic status with this patient. Subjective: No new symptoms, improving Objective: Vital Signs Temp Pulse Resp BP Pulse Ox 37 C 79 16 112/80 94 06/04/18 14:00 06/04/18 15:39 06/04/18 15:39 06/04/18 15:39 06/04/18 15:39 Microbiology 05/31/18 18:59 Gram Stain - Final Cerebral Spinal Fluid CSF Culture - Final 05/31/18 16:20 Gram Stain - Final Bronchial Alveolar Lavage - Unspecified Bronchial Culture - Final Stenotrophomonas Maltophilia Laboratory Results 06/04/18 06:30 06/04/18 06:30 06/03/18 06/04/18 06/05/18 05:59 05:59 05:59 Intake Total 4055 5711 452 Output Total 1550 1700 Balance 2505 4011 452 PT 16.0 SEC (12.0-15.0) H 06/01/18 15:00 INR 1.34 (0.83-1.16) H 06/01/18 15:00 Patient remains more alert and awake and is able to blink 3 times on command. 35 total minutes floor time; over 50% counseling and coordination of care. Allergies/Adverse Reactions: corn syrup Allergy (Severe, Verified 05/08/18 06:19) Unknown Milk Containing Products [dairy] Allergy (Severe, Verified 05/08/18 06:19) Swelling/neck,face,throat soy Allergy (Severe, Verified 05/08/18 06:19) Swelling/neck,face,throat nitrofurantoin [From Macrobid] Allergy (Unknown, Verified 05/08/18 06:19) Hives Penicillins Allergy (Unknown, Verified 05/08/18 06:19) Hives shellfish derived Allergy (Verified 05/08/18 06:19) tree nut [Nuts] Allergy (Verified 05/08/18 06:19) wheat Allergy (Severe, Uncoded 05/08/18 06:19) [place]
[2018-06-04] MEDS: traZODone 50 MG TAB TUBE SCH (22:24)
[2018-06-04] MEDS: ZOLPIDEM TARTRATE 5 MG TAB TUBE SCH (22:24)
[2018-06-05] MEDS: MIDODRINE HCL 10 MG TAB TUBE SCH ×4 (02:59→22:58)
[2018-06-05] MEDS: GABAPENTIN 250 MG/5 ML 30 ML BOTTLE TUBE SCH ×4 (02:59→23:02)
[2018-06-05] MEDS: clonazePAM 0.5 MG TAB TUBE SCH ×4 (07:20→21:30)
[2018-06-05] MEDS ORDERED: POTASSIUM CL 20 MEQ/15 ML UDCUP TUBE ONE (07:30)
[2018-06-05] MEDS: SERTRALINE HCL 100 MG TAB TUBE SCH (08:24)
[2018-06-05] MEDS: SODIUM CHLORIDE 1,000 MG TAB TUBE SCH ×3 (08:24→21:30)
[2018-06-05] MEDS: CHLORHEXIDINE GLUCONATE 15 ML UDL PO SCH ×2 (08:24→21:29)
[2018-06-05] MEDS: FERROUS SULFATE 300 MG/5 ML UD CUP TUBE SCH (08:24)
[2018-06-05] MEDS: FAMOTIDINE 20 MG TAB TUBE SCH ×2 (08:25→21:31)
[2018-06-05 09:24] LABS: PLATELET COUNT 113 10^3/uL (150-400)
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
[2018-06-05] MEDS: POLYETHYLENE GLYCOL 3350 17 GM PKT TUBE SCH ×2 (10:44→21:30)
--- NOTE | 2018-06-05 14:03 | ASMTCMCOM ---
CM Note CM Note Notes: CM spoke with Pt's Jenise and daughter this morning to provide support and answer questions. Jenise reports she still wants the plan to be for pt to go to [facility]. CM provided reassurance that we have been continuing to provide updates to them and working towards that d/c plan. RN truck supervisor alerted CM of family meeting and need to provide daily check-ins with pt's /dtr. CM to follow. Plan: [facility] Date Signed: 06/05/2018 02:02 PM Electronically Signed By:CLAU Bains
--- NOTE | 2018-06-05 14:48 | ASMTLACE ---
[facility]ACE Length of stay for Answers: 7-13 days current admission Acuity / Level of Answers: Yes Care: Did the patient have an inpatient admission? Comorbidities - select Answers: Opioid dependence all that apply / Chronic pain Other Notes: Hypoxic respiratory failure; Quadriplegia # of Emergency department Answers: 3-4 visits in the last 6 months Score: 16 Date Signed: 06/05/2018 02:47 PM Electronically Signed By:Mireya Carvalho
[2018-06-05] MEDS: BACLOFEN 10 MG TAB PO SCH ×2 (15:30→21:30)
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
[2018-06-05] MEDS: BIOTENE DRY MOUTH ORAL RINSE 237 ML BTL MM PRN (17:43)
[2018-06-05] MEDS: traZODone 50 MG TAB TUBE SCH (21:30)
[2018-06-05] MEDS: ZOLPIDEM TARTRATE 5 MG TAB TUBE SCH (21:30)
--- NOTE | 2018-06-05 21:52 | CPEKG ---
Test Reason : OPEN Blood Pressure : / mmHG Vent. Rate : 097 BPM Atrial Rate : 098 BPM P-R Int : 207 ms QRS Dur : 092 ms QT Int : 356 ms P-R-T Axes : 082 -71 060 degrees QTc Int : 452 ms Sinus tachycardia Supraventricular bigeminy Borderline prolonged VT interval Left atrial enlargement Left anterior fascicular block Abnormal R-wave progression, early transition Confirmed by Maximus Elaine ([id number]) on 06/05/2018 9:50:58 PM Also confirmed by Maximus Elaine ([id number]) on 06/05/2018 9:51:43 PM Referred By: Maximus Elaine Confirmed By:Maximus Elaine
[2018-06-06] MEDS: clonazePAM 0.5 MG TAB TUBE SCH ×4 (06:16→20:27)
[2018-06-06] MEDS: GABAPENTIN 250 MG/5 ML 30 ML BOTTLE TUBE SCH ×3 (06:18→22:31)
[2018-06-06] MEDS: MIDODRINE HCL 10 MG TAB TUBE SCH ×2 (06:28→22:27)
[2018-06-06] MEDS: CHLORHEXIDINE GLUCONATE 15 ML UDL PO SCH ×2 (08:22→20:27)
[2018-06-06] MEDS: SERTRALINE HCL 100 MG TAB TUBE SCH (08:22)
[2018-06-06] MEDS: FERROUS SULFATE 300 MG/5 ML UD CUP TUBE SCH (08:22)
[2018-06-06] MEDS: FAMOTIDINE 20 MG TAB TUBE SCH ×2 (08:22→20:28)
[2018-06-06] MEDS: SODIUM CHLORIDE 1,000 MG TAB TUBE SCH ×3 (08:22→21:00)
[2018-06-06] MEDS: POLYETHYLENE GLYCOL 3350 17 GM PKT TUBE SCH ×2 (08:23→22:24)
[2018-06-06] MEDS ORDERED: BACLOFEN 10 MG TAB TUBE SCH (09:00)
--- NOTE | 2018-06-06 09:46 | PCMIDPN ---
Assessment/Plan: #High persistent fever, elevated LFTs, transient leukopenia, thrombocytopenia: likely all attributable to vancomycin. Off all abx almost 48h, no fever, wbc normal. Platelets normalizing. --call ID for additional questions --continue to monitor off abx # AMS still present this AM, RLE> ALONZO fine pulsations, query seizure activity. 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 Streptococcus Canis 05/27/18 Blood Cx 2/2 Neg 05/30/18 Chest - Cx: gram stain neg : cx p acnes 05/30/18 blood cx (2) Neg 05/31/18 BAL: Stenotrophomonas Subjective: patient remains unresponsive, eyes rolled back does not respond to painful stimuli RLE> RUE fine pulsations ongoing at time of exam on vent current for concern of worsening hypercarbia Objective: Vital Signs Temp Pulse Resp BP Pulse Ox 37.5 C 75 14 154/99 H 98 06/06/18 08:00 06/06/18 08:00 06/06/18 08:00 06/06/18 08:00 06/06/18 08:00 Microbiology 05/30/18 21:50 Gram Stain - Final Chest - Eswab 05/30/18 15:35 Blood Culture - Final Blood 05/30/18 15:10 Blood Culture - Final Blood Laboratory Results 06/05/18 08:35 06/06/18 04:35 06/05/18 06/06/18 06/07/18 05:59 05:59 05:59 Intake Total 7801 2049 150 Output Total 1600 3650 1350 Balance 1621 -1121 -1200 Gen: cachetic, very ill appearing on vent, unresponsive HEENT: pale conjunctival, eyes rolled back in head, Dry MMM Neck trach CV: RRR Chest: course bs B Abd: PEG site ok, soft NT Ext: diffuse muscular wasting, contractures at baseline PICC RUE c/d/i Skin: no rash - Time Spent With Patient Time Spent with Patient: greater than 35 minutes Time Spent with Patient: Greater than 35 minutes spent on this patients care, greater than 50% of time spent counseling, educating, and coordinating care regarding the above mentioned plan. ICD10 Worksheet Patient Problems: Problems Problem Status Onset Hypoxia Acute Pneumonia Acute Abdominal pain Acute Anemia Acute Chronic complete quadriplegia Acute Constipation Acute Fecal impaction of colon Acute Fever Acute Generalized tonic-clonic seizure Acute Generalized weakness Acute History of quadriplegia Acute Hyponatremia Acute MRSA (methicillin resistant Staphylococcus aureus) Acute ~09/02/16 MRSA (methicillin resistant Staphylococcus aureus) Acute ~11/08/16 New onset seizure Acute Quadriplegia Acute Thrombocytopenia Acute Urinary tract infection Acute chronic disease mgmt/transitional care Acute
[2018-06-06] MEDS ORDERED: BACLOFEN 10 MG TAB TUBE PRN (11:04)
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
[2018-06-06] MEDS: ENOXAPARIN 40 MG/0.4 ML SYR SC SCH (16:14)
[2018-06-06] MEDS: ZOLPIDEM TARTRATE 5 MG TAB TUBE SCH (20:27)
[2018-06-06] MEDS: traZODone 50 MG TAB TUBE SCH (21:03)
[2018-06-06] MEDS ORDERED: NS BOLUS 500 ML (Wide open) IV ONE (22:30)
[2018-06-07] MEDS: MIDODRINE HCL 10 MG TAB TUBE SCH ×3 (05:52→22:23)
[2018-06-07] MEDS: clonazePAM 0.5 MG TAB TUBE SCH (05:52)
[2018-06-07] MEDS: GABAPENTIN 250 MG/5 ML 30 ML BOTTLE TUBE SCH ×3 (05:53→22:23)
[2018-06-07] MEDS: FERROUS SULFATE 300 MG/5 ML UD CUP TUBE SCH (08:39)
[2018-06-07] MEDS: CHLORHEXIDINE GLUCONATE 15 ML UDL PO SCH ×2 (08:39→21:05)
[2018-06-07] MEDS: ENOXAPARIN 40 MG/0.4 ML SYR SC SCH (08:40)
[2018-06-07] MEDS: POLYETHYLENE GLYCOL 3350 17 GM PKT TUBE SCH ×2 (08:40→21:05)
[2018-06-07] MEDS: SODIUM CHLORIDE 1,000 MG TAB TUBE SCH ×3 (08:40→21:06)
[2018-06-07] MEDS: SERTRALINE HCL 100 MG TAB TUBE SCH (08:40)
[2018-06-07] MEDS: FAMOTIDINE 20 MG TAB TUBE SCH ×2 (08:40→21:05)
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
[2018-06-07] MEDS: traZODone 50 MG TAB TUBE SCH (21:05)
[2018-06-07] MEDS: ZOLPIDEM TARTRATE 5 MG TAB TUBE SCH (21:06)
[2018-06-08] MEDS: GABAPENTIN 250 MG/5 ML 30 ML BOTTLE TUBE SCH ×3 (06:05→23:58)
[2018-06-08] MEDS: MIDODRINE HCL 10 MG TAB TUBE SCH ×3 (06:24→21:48)
[2018-06-08] MEDS: CHLORHEXIDINE GLUCONATE 15 ML UDL PO SCH ×2 (08:49→21:48)
[2018-06-08] MEDS: ENOXAPARIN 40 MG/0.4 ML SYR SC SCH (08:49)
[2018-06-08] MEDS: SERTRALINE HCL 100 MG TAB TUBE SCH (08:50)
[2018-06-08] MEDS: FAMOTIDINE 20 MG TAB TUBE SCH ×2 (08:50→21:48)
[2018-06-08] MEDS: SODIUM CHLORIDE 1,000 MG TAB TUBE SCH ×3 (08:50→21:49)
[2018-06-08] MEDS: FERROUS SULFATE 300 MG/5 ML UD CUP TUBE SCH ×2 (08:50→21:48)
[2018-06-08] MEDS: POLYETHYLENE GLYCOL 3350 17 GM PKT TUBE SCH ×2 (09:56→22:05)
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
--- NOTE | 2018-06-08 16:30 | ASMTCMCOM ---
CM Note CM Note Notes: CM spoke to [facility]. Fanny reports that LTAC is medically following the pt due to him continuing to be on a vent. If pt is not able to ween off of vent, [facility] might not be able to accept [facility]. [facility] suggest that the family look into a backup plan, perhaps including another LTAC. CM attempted to follow up with family but they were not present. CM will follow up on Tuesday. Plan: [facility] vs other [facility]'s Date Signed: 06/08/2018 04:29 PM Electronically Signed By:Maida Perdue
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
[2018-06-08] MEDS: ZOLPIDEM TARTRATE 5 MG TAB TUBE SCH (21:48)
[2018-06-09] MEDS: GABAPENTIN 250 MG/5 ML 30 ML BOTTLE TUBE SCH ×3 (06:51→23:49)
[2018-06-09] MEDS: POLYETHYLENE GLYCOL 3350 17 GM PKT TUBE SCH ×2 (07:25→20:08)
[2018-06-09] MEDS: FAMOTIDINE 20 MG TAB TUBE SCH ×2 (08:04→20:08)
[2018-06-09] MEDS: SODIUM CHLORIDE 1,000 MG TAB TUBE SCH ×3 (08:04→22:06)
[2018-06-09] MEDS: MIDODRINE HCL 10 MG TAB TUBE SCH ×3 (08:04→22:06)
[2018-06-09] MEDS: SERTRALINE HCL 100 MG TAB TUBE SCH (08:06)
[2018-06-09] MEDS: FERROUS SULFATE 300 MG/5 ML UD CUP TUBE SCH ×2 (08:07→20:08)
[2018-06-09] MEDS: ENOXAPARIN 40 MG/0.4 ML SYR SC SCH (08:16)
[2018-06-09] MEDS: CHLORHEXIDINE GLUCONATE 15 ML UDL PO SCH ×2 (08:19→20:08)
[2018-06-09] MEDS: BIOTENE DRY MOUTH ORAL RINSE 237 ML BTL MM PRN ×2 (08:24→20:17)
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
--- NOTE | 2018-06-09 14:07 | ASMTCMCOM ---
CM Note CM Note Notes: Case Management Note 06/08/18: CM spoke to Fanny at [facility]. Fanny reports that LTAC is medically following the pt due to him continuing to be on a vent. If pt is not able to ween off of vent, [facility] might not be able to accept pt. [facility] suggest that the family look into a backup plan, perhaps including another LTAC. CM attempted to follow up with family but they were not present. CM will follow up on Tuesday. Plan: [facility] vs other [facility]'s CM Note 06/09/18: Discussed patient's case in daily rounds, MD felt like a referral to [facility] may be appropriate. New referral sent via [employer], await response. As mentioned above, [facility] may not be able to accommodate patient's current vent needs. CM will follow. Plan: Likely [facility]AC [facility] [place] Date Signed: 06/09/2018 01:59 PM Electronically Signed By:Dinorah Peralta RN
--- NOTE | 2018-06-09 16:03 | ASMTCMCOM ---
CM Note CM Note Notes: Update: CM spoke with pt's . reports that she does not want pt to go to [facility], message left for [facility] on [employer] to notify is open to a referral to [facility]. CM explained [facility] may not be able to accommodate pt's needs. Await response from [facility]. CM will follow. Plan: [facility] Date Signed: 06/09/2018 04:02 PM Electronically Signed By:Maida Perdue
--- NOTE | 2018-06-09 17:51 | WOCRNPDOC ---
WOCRN Advanced Assessment Note - Skin Integrity Problem, Advanced Assess Sacrum Dressing Type: Mepilex Border Exudate Amount: Scant Exudate Characteristic(s): Serosanguinous Masha Wound Tissue: Blanching, Erythema Wound Bed Constitution: Adhered Slough (100%) Site Measurement - Head-to-Toe Length X Width X Depth (cm): 1.4x1.3x0 Pressure Injury Stage: Stage 4 Pressure Injury Present on Admit: Yes Skin Integrity Problem Comment: Reopening wound that will need debridement in the future. Will not debride at this time as patient is still quite sick. Wound care will follow. Patient will need outpatient wound care. Left Greater Trochanter Pressure Injury Dressing Type: Allevyn Life Wound Bed Constitution: Healed Left Posterior Illiac Crest Dressing Type: Mepilex Border Integumentary Issue Intervention: Visualized Under Dressing Wound Bed Constitution: Healed
--- NOTE | 2018-06-09 18:54 | HOSPPROG ---
Hospitalist Progress Note Assessment/Plan: DIAGNOSES: * Acute hypoxemic respiratory failure requiring mechanical ventilator and multiple bronchoscopies; suspect mucous plugging airways disease as the cause, question possible aspiration -at this time is able to breathe with OxyMask during the day, needing assisted ventilation with PS 10 at night * Fever, possibly related to above or other cause, uncertain; now resolved * Hypotension * Acute encephalopathy, metabolic, multifactorial * Chest wall hematoma and blood collection -status post evacuation, ongoing wound care * Atrial fibrillation -now in sinus rhythm * Chronic quadriplegia * Hypokalemia - ? Autonomic dysreflexia -on my to drain PLANS: * At this point patient has a lot of significant nursing needs and respiratory care needs * Probably stable for discharge from hospital but needs advanced care, social research assistant is looking for LTAC or other setting that he could go to * Continue current respiratory care and pulmonary toilet * Minimize sedating medicines, narcotic medication has been decreased and trazodone discontinued * Muscle relaxer as needed for pain Seen by me on hospitalist rounds as well as multidisciplinary rounds Reviewed with Dr. 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, my review: Sinus Exam: alert, significant spasticity appears to be his chronic skin warm dry pale resps mildly labored at rest in bed lungs course BSs heart regular abd soft nondistended nontender, bowel sounds present limbs warm, no edema iv site ok Hemoglobin stable on CBC which is otherwise unremarkable CO2 36 on chemistry renal function stable with good electrolytes Objective: Vital Signs Temp Pulse Resp BP Pulse Ox 36.4 C 62 21 H 141/88 H 98 06/09/18 12:00 06/09/18 18:00 06/09/18 18:00 06/09/18 18:00 06/09/18 18:00 Laboratory Results 06/09/18 04:30 06/06/18 04:35 06/08/18 06/09/18 06/10/18 06:59 06:59 06:59 Intake Total 2810 2641 1322 Output Total 5250 5150 1680 Balance -2440 -6589 -358 PT 16.0 SEC (12.0-15.0) H 06/01/18 15:00 INR 1.34 (0.83-1.16) H 06/01/18 15:00 - Time Spent With Patient Time Spent with Patient: greater than 35 minutes Time Spent with Patient: Greater than 35 minutes spent on this patients care, greater than 50% of time spent counseling, educating, and coordinating care regarding the above mentioned plan. ICD10 Worksheet Patient Problems: Problems Problem Status Onset Hypoxia Acute Pneumonia Acute Abdominal pain Acute Anemia Acute Chronic complete quadriplegia Acute Constipation Acute Fecal impaction of colon Acute Fever Acute Generalized tonic-clonic seizure Acute Generalized weakness Acute History of quadriplegia Acute Hyponatremia Acute MRSA (methicillin resistant Staphylococcus aureus) Acute ~09/02/16 MRSA (methicillin resistant Staphylococcus aureus) Acute ~11/08/16 New onset seizure Acute Quadriplegia Acute Thrombocytopenia Acute Urinary tract infection Acute chronic disease mgmt/transitional care Acute
[2018-06-09] MEDS: oxyCODONE IR 5 MG TAB TUBE PRN (20:04)
[2018-06-09] MEDS: ZOLPIDEM TARTRATE 5 MG TAB TUBE SCH (20:05)
[2018-06-10] MEDS: oxyCODONE IR 5 MG TAB TUBE PRN (02:23)
[2018-06-10] MEDS: MIDODRINE HCL 10 MG TAB TUBE SCH ×3 (05:22→22:52)
[2018-06-10] MEDS: GABAPENTIN 250 MG/5 ML 30 ML BOTTLE TUBE SCH ×3 (05:22→22:51)
[2018-06-10] MEDS: FAMOTIDINE 20 MG TAB TUBE SCH ×2 (10:00→20:10)
[2018-06-10] MEDS: POLYETHYLENE GLYCOL 3350 17 GM PKT TUBE SCH ×2 (10:00→20:05)
[2018-06-10] MEDS: SERTRALINE HCL 100 MG TAB TUBE SCH (10:12)
[2018-06-10] MEDS: FERROUS SULFATE 300 MG/5 ML UD CUP TUBE SCH ×2 (10:12→20:05)
[2018-06-10] MEDS: CHLORHEXIDINE GLUCONATE 15 ML UDL PO SCH ×2 (10:12→20:05)
[2018-06-10] MEDS: SODIUM CHLORIDE 1,000 MG TAB TUBE SCH ×3 (10:12→22:52)
[2018-06-10] MEDS: ENOXAPARIN 40 MG/0.4 ML SYR SC SCH (10:13)
[2018-06-10] MEDS: traMADol 50 MG TAB PO PRN (14:36)
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
--- NOTE | 2018-06-10 18:38 | HOSPPROG ---
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 ? Autonomic dysreflexia * Acute on chronic encephalopathy, metabolic, multifactorial; medication side effects likely have significant role * Chest wall hematoma and blood collection -status post evacuation, ongoing wound care * Atrial fibrillation -now in sinus rhythm * Chronic quadriplegia * Hypokalemia - PLANS: * At this point patient has a lot of significant nursing needs and respiratory care needs * will need ongoing titration of pain management and respiratory management, but may be approaching stability for DC over next 3-4 days; would need ongoing high level care however; Case management is pursuing options * Continue current respiratory care and pulmonary toilet * Minimize sedating medicines, ongoing trial of tramadol; continue gabapentin; may do well w addition of a newer antidepressant with nerve pain benefits * Muscle relaxer as needed for pain Seen by me on hospitalist rounds as well as multidisciplinary rounds Reviewed with Dr. Calabrese SUBJECTIVE: Patient nonverbal he is able to signal today that he has had some pain but it was completely relieved by tramadol his daughter describes that his main pain syndrome has been peripheral paresthesias mainly tingling in limbs OBJECTIVE Vitals reviewed: some HTN otherwise stable w/o fever [employer], my review: Sinus Exam: alert, significant spasticity appears to be his chronic skin warm dry pale resps mildly labored at rest in bed lungs course BSs heart regular abd soft nondistended nontender, bowel sounds present limbs warm, no edema Objective: Vital Signs Temp Pulse Resp BP Pulse Ox 36.6 C 58 L 21 H 141/87 H 98 06/10/18 16:00 06/10/18 18:00 06/10/18 18:00 06/10/18 18:00 06/10/18 18:00 Laboratory Results 06/09/18 04:30 06/06/18 04:35 06/09/18 06/10/18 06/11/18 06:59 06:59 06:59 Intake Total 2641 3000 1000 Output Total 5150 3030 2500 Balance -2509 -30 -1500 PT 16.0 SEC (12.0-15.0) H 06/01/18 15:00 INR 1.34 (0.83-1.16) H 06/01/18 15:00 - Time Spent With Patient Time Spent with Patient: greater than 35 minutes Time Spent with Patient: Greater than 35 minutes spent on this patients care, greater than 50% of time spent counseling, educating, and coordinating care regarding the above mentioned plan. ICD10 Worksheet Patient Problems: Problems Problem Status Onset Hypoxia Acute Pneumonia Acute Abdominal pain Acute Anemia Acute Chronic complete quadriplegia Acute Constipation Acute Fecal impaction of colon Acute Fever Acute Generalized tonic-clonic seizure Acute Generalized weakness Acute History of quadriplegia Acute Hyponatremia Acute MRSA (methicillin resistant Staphylococcus aureus) Acute ~09/02/16 MRSA (methicillin resistant Staphylococcus aureus) Acute ~11/08/16 New onset seizure Acute Quadriplegia Acute Thrombocytopenia Acute Urinary tract infection Acute chronic disease mgmt/transitional care Acute
[2018-06-10] MEDS: ZOLPIDEM TARTRATE 5 MG TAB TUBE SCH (20:06)
[2018-06-11] MEDS: traMADol 50 MG TAB PO PRN (05:23)
[2018-06-11] MEDS: MIDODRINE HCL 10 MG TAB TUBE SCH ×3 (05:24→23:44)
[2018-06-11] MEDS: GABAPENTIN 250 MG/5 ML 30 ML BOTTLE TUBE SCH ×3 (05:25→23:48)
[2018-06-11] MEDS ORDERED: POTASSIUM CL 20 MEQ/15 ML UDCUP TUBE ONE (08:00)
[2018-06-11] MEDS: POLYETHYLENE GLYCOL 3350 17 GM PKT TUBE SCH ×2 (09:35→21:38)
[2018-06-11] MEDS: FERROUS SULFATE 300 MG/5 ML UD CUP TUBE SCH ×2 (09:35→21:37)
[2018-06-11] MEDS: CHLORHEXIDINE GLUCONATE 15 ML UDL PO SCH ×2 (09:35→21:00)
[2018-06-11] MEDS: SODIUM CHLORIDE 1,000 MG TAB TUBE SCH ×3 (09:36→21:37)
[2018-06-11] MEDS: FAMOTIDINE 20 MG TAB TUBE SCH ×2 (09:36→21:38)
[2018-06-11] MEDS: ENOXAPARIN 40 MG/0.4 ML SYR SC SCH (09:36)
[2018-06-11] MEDS: SERTRALINE HCL 100 MG TAB TUBE SCH (09:36)
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
[2018-06-11] MEDS: traMADol 50 MG TAB PO SCH ×3 (12:52→23:47)
[2018-06-11] MEDS: oxyCODONE IR 5 MG TAB TUBE SCH ×2 (17:15→23:48)
[2018-06-11] MEDS: clonazePAM 0.5 MG TAB TUBE SCH ×2 (17:15→21:37)
--- NOTE | 2018-06-11 17:53 | HOSPPROG ---
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 ? Autonomic dysreflexia * Acute on chronic encephalopathy, metabolic, multifactorial; medication side effects likely have significant role * Chest wall hematoma and blood collection -status post evacuation, ongoing wound care * Atrial fibrillation -now in sinus rhythm * Chronic quadriplegia * Hypokalemia - PLANS: * Ongoing significant nursing needs and respiratory care needs are being met here * ongoing titration of pain management and respiratory management * Continue current respiratory care and pulmonary toilet * Minimize sedating medicines, ongoing trial of tramadol; continue gabapentin; may do well w addition of a newer antidepressant with nerve pain benefits * Muscle relaxer as needed for pain * Continue discharge planning efforts Seen by me on hospitalist rounds as well as multidisciplinary rounds Reviewed with Dr. Calabrese SUBJECTIVE: Patient nonverbal Less interactive with me today but again signal some communication OBJECTIVE Vitals reviewed: Some tachypnea otherwise stable vitals good oxygen saturations Wooden Box Maker, my review: Sinus Exam: alert, significant spasticity unchanged skin warm dry pale resps not labored at rest in bed lungs course BSs heart regular abd soft nondistended nontender, bowel sounds present limbs warm, no edema Lab data: Stable hemoglobin Mild hypokalemia otherwise stable metabolic panel with persisting CO2 retention Objective: Vital Signs Temp Pulse Resp BP Pulse Ox 37.1 C 62 26 H 130/84 H 98 06/11/18 16:00 06/11/18 16:00 06/11/18 16:00 06/11/18 16:00 06/11/18 16:00 Laboratory Results 06/11/18 04:30 06/11/18 04:30 06/10/18 06/11/18 06/12/18 06:59 06:59 06:59 Intake Total 3000 2210 Output Total 3030 3500 Balance -30 -1290 PT 16.0 SEC (12.0-15.0) H 06/01/18 15:00 INR 1.34 (0.83-1.16) H 06/01/18 15:00 - Time Spent With Patient Time Spent with Patient: greater than 35 minutes Time Spent with Patient: Greater than 35 minutes spent on this patients care, greater than 50% of time spent counseling, educating, and coordinating care regarding the above mentioned plan. ICD10 Worksheet Patient Problems: Problems Problem Status Onset Hypoxia Acute Pneumonia Acute Abdominal pain Acute Anemia Acute Chronic complete quadriplegia Acute Constipation Acute Fecal impaction of colon Acute Fever Acute Generalized tonic-clonic seizure Acute Generalized weakness Acute History of quadriplegia Acute Hyponatremia Acute MRSA (methicillin resistant Staphylococcus aureus) Acute ~09/02/16 MRSA (methicillin resistant Staphylococcus aureus) Acute ~11/08/16 New onset seizure Acute Quadriplegia Acute Thrombocytopenia Acute Urinary tract infection Acute chronic disease mgmt/transitional care Acute
[2018-06-11] MEDS: ZOLPIDEM TARTRATE 5 MG TAB TUBE SCH (21:37)
[2018-06-12] MEDS: GABAPENTIN 250 MG/5 ML 30 ML BOTTLE TUBE SCH ×2 (05:00→18:06)
[2018-06-12] MEDS: clonazePAM 0.5 MG TAB TUBE SCH ×4 (06:29→20:53)
[2018-06-12] MEDS: MIDODRINE HCL 10 MG TAB TUBE SCH ×3 (06:29→20:53)
[2018-06-12] MEDS: traMADol 50 MG TAB PO SCH (06:30)
[2018-06-12] MEDS: oxyCODONE IR 5 MG TAB TUBE SCH ×3 (06:30→18:12)
[2018-06-12] MEDS: NS 1,000 ML IV SCH (07:08)
[2018-06-12] MEDS: POLYETHYLENE GLYCOL 3350 17 GM PKT TUBE SCH ×2 (09:11→21:10)
[2018-06-12] MEDS: FERROUS SULFATE 300 MG/5 ML UD CUP TUBE SCH ×2 (09:11→20:52)
[2018-06-12] MEDS: SODIUM CHLORIDE 1,000 MG TAB TUBE SCH ×3 (09:11→20:52)
[2018-06-12] MEDS: ENOXAPARIN 40 MG/0.4 ML SYR SC SCH (09:11)
[2018-06-12] MEDS: SERTRALINE HCL 100 MG TAB TUBE SCH (09:12)
[2018-06-12] MEDS: FAMOTIDINE 20 MG TAB TUBE SCH ×2 (09:12→20:53)
[2018-06-12] MEDS: CHLORHEXIDINE GLUCONATE 15 ML UDL PO SCH ×2 (09:20→21:09)
[2018-06-12] MEDS: traMADol 50 MG TAB TUBE SCH ×2 (13:29→18:11)
--- NOTE | 2018-06-12 13:45 | HOSPPROG ---
Hospitalist Progress Note Assessment/Plan: DIAGNOSES: * Acute hypoxemic respiratory failure requiring mechanical ventilator and multiple bronchoscopies -at this time is able to breathe with OxyMask during the day, needing assisted ventilation with PS 10 at night -concerned that pain medicines may be inhibiting respiratory drive significantly for him * Encephalopathy, acute, metabolic and toxic -today was notably sedated not interacting with staff earlier this shift, likely due to addition of oxycodone * Hypotension as low as 59 systolic overnight; this has been an issue intermittently, autonomic dysreflexia may be a factor -no signs of bleeding or infection or other significant lab changes -the only thing change we can see as a cause in the past 12 hr is addition of oxycodone * Fever, possibly related to above or other cause, uncertain; now resolved * Chest wall hematoma and blood collection -status post evacuation, ongoing wound care * Atrial fibrillation -now in sinus rhythm * Chronic quadriplegia * Hypokalemia - PLANS: * Oxycodone being held at this time; will need a further discussion with family about his pain management * ongoing titration of pain management, currently using tramadol gabapentin and muscle relaxants. He could potentially benefit from a newer antidepressant with neuropathic pain benefits; it is not clear to me that the patient really needs oxycodone and he does not tolerate it well as described above * Continue current respiratory care and pulmonary toilet * Minimize sedating medicines as able * Continue discharge planning efforts Seen by me on hospitalist rounds as well as multidisciplinary rounds Reviewed with Dr. Zambrano SUBJECTIVE: At this time the patient is able to tell me that he does not have pain or discomfort, does not feel like he needs pain medicine He does not feel short of breath or nauseous (scheduled oxycodone 5 mg q.6 had been started last evening, his last dose just before midnight last night. 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, my review: Sinus Exam: alert, able to communicate quite clearly with yes no answers orally that are easy reading his lips but I can also minimally hear him He does seem very oriented now skin warm dry pale resps not labored at rest in bed lungs diminished but otherwise clear BSs heart regular abd soft nondistended nontender limbs warm, no edema Lab data: Stable hemoglobin Mild hypokalemia otherwise stable metabolic panel with persisting CO2 retention Objective: Vital Signs Temp Pulse Resp BP Pulse Ox 37.1 C 60 19 89/60 L 99 06/12/18 10:00 06/12/18 12:00 06/12/18 12:00 06/12/18 12:00 06/12/18 12:00 Laboratory Results 06/11/18 04:30 06/11/18 04:30 06/11/18 06/12/18 06/13/18 06:59 06:59 06:59 Intake Total 2210 4783 Output Total 3500 2150 Balance -1290 2633 PT 16.0 SEC (12.0-15.0) H 06/01/18 15:00 INR 1.34 (0.83-1.16) H 06/01/18 15:00 - Time Spent With Patient Time Spent with Patient: greater than 35 minutes Time Spent with Patient: Greater than 35 minutes spent on this patients care, greater than 50% of time spent counseling, educating, and coordinating care regarding the above mentioned plan. ICD10 Worksheet Patient Problems: Problems Problem Status Onset Hypoxia Acute Pneumonia Acute Abdominal pain Acute Anemia Acute Chronic complete quadriplegia Acute Constipation Acute Fecal impaction of colon Acute Fever Acute Generalized tonic-clonic seizure Acute Generalized weakness Acute History of quadriplegia Acute Hyponatremia Acute MRSA (methicillin resistant Staphylococcus aureus) Acute ~09/02/16 MRSA (methicillin resistant Staphylococcus aureus) Acute ~11/08/16 New onset seizure Acute Quadriplegia Acute Thrombocytopenia Acute Urinary tract infection Acute chronic disease mgmt/transitional care Acute
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
--- NOTE | 2018-06-12 16:31 | ASMTCMCOM ---
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 Fanny reports pt needs dispo plan for after LTAC. CM spoke with Floridalma from [facility] who reports Summer is covering the case. CM submit updates via [employer]. CM spoke with pt's to schedule family meeting. She is able to come in on Tuesday, June 14 at 11:00am. At this time she said she was interested in Palliative Care being involved in the meeting to help discuss goals of care. Her goal continues to be to get Krzysztof to the next level of care and feels very frustrated that she keeps getting pushback from the various facilities. CM discussed his ongoing needs for vent and how [facility] is concerned about long-term placement and feels [facility] will have same concerns. She says she wishes she knew what his long-term needs would be but is uncertain. She feels she doesn't think Krzysztof would want to live like this since his decline over this past year. CM provided education about discussing goals of care and how we can meet his and her needs. She said she has thought about medicaid but is not an option right now. CM to follow. Plan: [facility] vs [facility]. Date Signed: 06/12/2018 04:30 PM Electronically Signed By:CLAU Bains
[2018-06-12] MEDS: ZOLPIDEM TARTRATE 5 MG TAB TUBE SCH (21:10)
[2018-06-13] MEDS: traMADol 50 MG TAB TUBE SCH ×4 (00:42→17:21)
[2018-06-13] MEDS: GABAPENTIN 250 MG/5 ML 30 ML BOTTLE TUBE SCH ×4 (00:44→23:00)
[2018-06-13] MEDS: oxyCODONE IR 5 MG TAB TUBE SCH ×4 (00:46→17:20)
[2018-06-13] MEDS: NS 1,000 ML IV SCH ×2 (00:49→15:15)
[2018-06-13] MEDS: clonazePAM 0.5 MG TAB TUBE SCH ×4 (05:49→21:09)
[2018-06-13] MEDS: MIDODRINE HCL 10 MG TAB TUBE SCH ×3 (05:49→21:10)
[2018-06-13] MEDS: ENOXAPARIN 40 MG/0.4 ML SYR SC SCH (08:09)
[2018-06-13] MEDS: POLYETHYLENE GLYCOL 3350 17 GM PKT TUBE SCH ×2 (08:10→21:10)
[2018-06-13] MEDS: FAMOTIDINE 20 MG TAB TUBE SCH (08:10)
[2018-06-13] MEDS: CHLORHEXIDINE GLUCONATE 15 ML UDL PO SCH ×2 (08:10→21:00)
[2018-06-13] MEDS: SODIUM CHLORIDE 1,000 MG TAB TUBE SCH ×3 (08:10→21:10)
[2018-06-13] MEDS: SERTRALINE HCL 100 MG TAB TUBE SCH (08:10)
[2018-06-13] MEDS: FERROUS SULFATE 300 MG/5 ML UD CUP TUBE SCH ×2 (08:10→21:10)
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
--- NOTE | 2018-06-13 19:11 | HOSPPROG ---
Hospitalist Progress Note Assessment/Plan: This patient with cervical paraplegia marked spasticity, severe muscle wasting, and chronic respiratory failure comes in with acute respiratory failure and has had a prolonged course. There has been quite a bit of difficulty with decreased alertness, and concerned that pain medicines and other issues are interfering with both his breathing and his mentation. Significant involvement of family who have historically been caretakers though they have been less involved in the outpatient setting over the past year as he has moved to [place] DIAGNOSES: * Acute on chronic hypoxemic/hypercarbic respiratory failure requiring mechanical ventilator and multiple bronchoscopies here -at this time is able to breathe with OxyMask during the day, needing assisted ventilation with PS 10 at night -concerned that pain medicines may be inhibiting respiratory drive significantly for him * Encephalopathy, acute, metabolic and toxic -reasonably good through the day today * Hypotension intermittently seems to be significantly temporally correlated with oxycodone when given at four times daily schedule which has been family's request * Fever, possibly related to above or other cause, uncertain; now resolved * Chest wall hematoma and blood collection -status post evacuation early during this stay, ongoing wound care * Atrial fibrillation -now in sinus rhythm * Chronic quadriplegia * Hypokalemia - PLANS: * Continue TEDs tramadol and try and minimize oxycodone but will need ongoing discussion with family * Is also on gabapentin and muscle relaxants, could consider use of a new or antidepressant with neuropathic pain benefits * Continue current respiratory care and pulmonary toilet * Efforts to increase nutrition * Minimize sedating medicines as able * Continue discharge planning efforts In discussions so far the patient's family are now becoming more receptive to the idea that he will likely remain dependent on intermittent use of assisted ventilation for breathing, and that this will limit where he is able to receive his care. They are willing to begin engaging in palliative discussions and conversation is planned for 06/14 Seen by me on hospitalist rounds as well as multidisciplinary rounds Reviewed with Dr. 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: Sinus Exam: alert, communicating with the yes no answers skin warm dry pale resps not labored at rest in bed lungs diminished but otherwise clear BSs heart regular abd soft nondistended nontender limbs warm, no edema Lab data: Stable hemoglobin Mild hypokalemia otherwise stable metabolic panel with persisting CO2 retention Objective: Vital Signs Temp Pulse Resp BP Pulse Ox 36.8 C 62 22 H 152/90 H 98 06/13/18 11:54 06/13/18 16:00 06/13/18 16:00 06/13/18 16:00 06/13/18 16:00 Laboratory Results 06/11/18 04:30 06/11/18 04:30 06/12/18 06/13/18 06/14/18 06:59 06:59 06:59 Intake Total 4791 4474 2576 Output Total 2150 3225 3100 Balance 2633 1249 -524 PT 16.0 SEC (12.0-15.0) H 06/01/18 15:00 INR 1.34 (0.83-1.16) H 06/01/18 15:00 - Time Spent With Patient Time Spent with Patient: greater than 35 minutes Time Spent with Patient: Greater than 35 minutes spent on this patients care, greater than 50% of time spent counseling, educating, and coordinating care regarding the above mentioned plan. ICD10 Worksheet Patient Problems: Problems Problem Status Onset Hypoxia Acute Pneumonia Acute Abdominal pain Acute Anemia Acute Chronic complete quadriplegia Acute Constipation Acute Fecal impaction of colon Acute Fever Acute Generalized tonic-clonic seizure Acute Generalized weakness Acute History of quadriplegia Acute Hyponatremia Acute MRSA (methicillin resistant Staphylococcus aureus) Acute ~09/02/16 MRSA (methicillin resistant Staphylococcus aureus) Acute ~11/08/16 New onset seizure Acute Quadriplegia Acute Thrombocytopenia Acute Urinary tract infection Acute chronic disease mgmt/transitional care Acute
[2018-06-13] MEDS: ZOLPIDEM TARTRATE 5 MG TAB TUBE SCH (23:30)
[2018-06-14] MEDS: traMADol 50 MG TAB TUBE SCH ×3 (03:21→14:18)
[2018-06-14] MEDS: clonazePAM 0.5 MG TAB TUBE SCH ×4 (05:29→21:58)
[2018-06-14] MEDS: oxyCODONE IR 5 MG TAB TUBE SCH ×4 (05:29→17:43)
[2018-06-14] MEDS: MIDODRINE HCL 10 MG TAB TUBE SCH (05:29)
[2018-06-14] MEDS: GABAPENTIN 250 MG/5 ML 30 ML BOTTLE TUBE SCH ×3 (05:38→22:02)
[2018-06-14 05:42] LABS: PLATELET COUNT 178 10^3/uL (150-400)
[2018-06-14] MEDS: ENOXAPARIN 40 MG/0.4 ML SYR SC SCH (08:54)
[2018-06-14] MEDS: POLYETHYLENE GLYCOL 3350 17 GM PKT TUBE SCH ×2 (08:54→21:58)
[2018-06-14] MEDS: FERROUS SULFATE 300 MG/5 ML UD CUP TUBE SCH ×2 (08:54→21:57)
[2018-06-14] MEDS: SERTRALINE HCL 100 MG TAB TUBE SCH (08:54)
[2018-06-14] MEDS: SODIUM CHLORIDE 1,000 MG TAB TUBE SCH ×3 (08:54→21:58)
[2018-06-14] MEDS: CHLORHEXIDINE GLUCONATE 15 ML UDL PO SCH ×2 (08:55→21:56)
[2018-06-14] MEDS: NS 1,000 ML IV SCH (11:48)
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
[2018-06-14] MEDS ORDERED: BACLOFEN 10 MG TAB TUBE PRN (14:29)
--- NOTE | 2018-06-14 16:17 | HOSPPROG ---
Hospitalist Progress Note Assessment/Plan: # acute metabolic and toxic encephalopathy - held trazodone - multiple sedating meds (trazodone, tizanidine, oxy) - would ideally like to stop tizanidine - resp acidosis contributing # C3 quadriplegia - some hypotension (midodrine) and bradycardia - baclofen # fever - no clear infective source (LP negative, pulm cultures likely colonization per ID - no fever since 06/01 # acute hypercapnic resp failure - currently ventilating via trach - high dose oxy may contribute to hypoventilation # chronic trach # chest wall enhancing mass - s/p debridement, not infective per ID # FEN - tube feeds # anemia - slow trend down, follow without transfusion today # a-fib - now in sinus # DNR; pall care consult today; family would like to try to talk with Krzysztof about his wishes when he is lucid Subjective: patient suctioned with improved resp status this afternoon Objective: Vital Signs Temp Pulse Resp BP Pulse Ox 37.2 C 52 L 12 91/60 L 97 06/14/18 10:00 06/14/18 15:50 06/14/18 15:50 06/14/18 15:03 06/14/18 15:50 Laboratory Results 06/14/18 05:15 06/14/18 05:15 06/13/18 06/14/18 06/15/18 05:59 05:59 05:59 Intake Total 4474 4855 Output Total 3225 5200 Balance 1249 -345 PT 16.0 SEC (12.0-15.0) H 06/01/18 15:00 INR 1.34 (0.83-1.16) H 06/01/18 15:00 carisa reviewed CXR personally reviewed - Physical Exam Constitutional: chronically ill appearing, cachectic Ears, Nose, Mouth, Throat: other (trach) Cardiovascular: regular rate and rhythym, no murmur, rub, or gallop Respiratory: no respiratory distress, no rales or rhonchi Gastrointestinal: soft, non-tender abdomen, No guarding, No rebound, No distension ICD10 Worksheet Patient Problems: Problems Problem Status Onset Chronic complete quadriplegia Acute Thrombocytopenia Acute Quadriplegia Acute Hypoxia Acute Fever Acute Generalized weakness Acute MRSA (methicillin resistant Staphylococcus aureus) Acute ~11/08/16 MRSA (methicillin resistant Staphylococcus aureus) Acute ~09/02/16 chronic disease mgmt/transitional care Acute History of quadriplegia Acute Generalized tonic-clonic seizure Acute New onset seizure Acute Urinary tract infection Acute Constipation Acute Abdominal pain Acute Fecal impaction of colon Acute Anemia Acute Hyponatremia Acute Pneumonia Acute
--- NOTE | 2018-06-14 17:01 | ASMTCMCOM ---
CM Note CM Note Notes: Met with patient's and daughter today in a family meeting that included a palliative care consult and Dr. Zambrano addressing goals of care. (please see Mihai Kenny's note) The family is currently considering their options and they hope to possibly have another conversation with the patient to see if he has current thoughts about continuing treatment or moving to comfort measures. He has been unable to communicate so they may let him cap his trach and see if he can engage. The family plans to also include the other daughter Sabrina in the conversation. CM will follow. Date Signed: 06/14/2018 05:00 PM Electronically Signed By:Flor Tamayo LCSW
[2018-06-14] MEDS ORDERED: MIDODRINE HCL 10 MG TAB TUBE SCH (21:00)
[2018-06-15] MEDS: oxyCODONE IR 5 MG TAB TUBE SCH ×2 (00:19→06:28)
[2018-06-15] MEDS: GABAPENTIN 250 MG/5 ML 30 ML BOTTLE TUBE SCH ×3 (05:23→22:13)
[2018-06-15] MEDS: clonazePAM 0.5 MG TAB TUBE SCH (06:28)
[2018-06-15] MEDS: CHLORHEXIDINE GLUCONATE 15 ML UDL PO SCH ×2 (08:20→20:43)
[2018-06-15] MEDS: NS 1,000 ML IV SCH (08:20)
[2018-06-15] MEDS: POLYETHYLENE GLYCOL 3350 17 GM PKT TUBE SCH ×2 (09:23→20:43)
[2018-06-15] MEDS: SERTRALINE HCL 100 MG TAB TUBE SCH (09:23)
[2018-06-15] MEDS: MIDODRINE HCL 10 MG TAB TUBE SCH ×2 (09:23→16:30)
[2018-06-15] MEDS: ENOXAPARIN 40 MG/0.4 ML SYR SC SCH (09:24)
[2018-06-15] MEDS: SODIUM CHLORIDE 1,000 MG TAB TUBE SCH ×3 (09:24→22:13)
[2018-06-15] MEDS: FERROUS SULFATE 300 MG/5 ML UD CUP TUBE SCH ×2 (09:24→20:43)
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
[2018-06-15 10:19] LABS: PLATELET COUNT 152 10^3/uL (150-400)
--- NOTE | 2018-06-15 16:11 | ASMTCMCOM ---
CM Note CM Note Notes: Palliative care referral sent to [facility] per Mihai Kenny's request. [facility] stopped by today and they were informed the patient's family is deciding if they want to continue with medical intervention or if they want to move to comfort care. CM to contact them when we have the family's decision. D/C plan is [facility] for continued care vs. Hospice, comfort measures. CM following. Date Signed: 06/15/2018 04:10 PM Electronically Signed By:Flor Tamayo LCSW
--- NOTE | 2018-06-15 16:54 | HOSPPROG ---
Hospitalist Progress Note Assessment/Plan: # acute metabolic and toxic encephalopathy - his worsening mental status seemed to correlate with significantly improved rigidity, which seems to implicate medications - held trazodone - we are slowly decreasing his sedating meds - resp acidosis contributing # C3 quadriplegia - some hypotension (on midodrine) and bradycardia - baclofen pump, zanaflex, oxy for pain # fever - no clear infective source (LP negative, pulm cultures likely colonization per ID - no fever since 06/01 # acute hypercapnic resp failure - currently ventilating via trach intermittently - high dose oxy may contribute to hypoventilation # chronic trach # chest wall enhancing mass - s/p debridement, not infective per ID # FEN - tube feeds # anemia - slow trend down, follow without transfusion today # a-fib - now in sinus # DNR; family is trying to talk to Krzysztof about what his wishes are given his very difficult situation Subjective: no acute events overnight; per his , he is much less rtigid than previously Objective: Vital Signs Temp Pulse Resp BP Pulse Ox 37.7 C 54 L 14 154/89 H 100 06/15/18 16:00 06/15/18 16:00 06/15/18 16:00 06/15/18 16:00 06/15/18 16:00 Laboratory Results 06/15/18 10:10 06/14/18 05:15 06/14/18 06/15/18 06/16/18 05:59 05:59 05:59 Intake Total 4855 3771 Output Total 5200 2850 1800 Balance -345 921 -1800 PT 16.0 SEC (12.0-15.0) H 06/01/18 15:00 INR 1.34 (0.83-1.16) H 06/01/18 15:00 - Time Spent With Patient Time Spent with Patient: greater than 35 minutes Time Spent with Patient: Greater than 35 minutes spent on this patients care, greater than 50% of time spent counseling, educating, and coordinating care regarding the above mentioned plan. - Physical Exam Constitutional: uncomfortable, cachectic Ears, Nose, Mouth, Throat: other (trach) ICD10 Worksheet Patient Problems: Problems Problem Status Onset Chronic complete quadriplegia Acute Thrombocytopenia Acute Quadriplegia Acute Hypoxia Acute Fever Acute Generalized weakness Acute MRSA (methicillin resistant Staphylococcus aureus) Acute ~11/08/16 MRSA (methicillin resistant Staphylococcus aureus) Acute ~09/02/16 chronic disease mgmt/transitional care Acute History of quadriplegia Acute Generalized tonic-clonic seizure Acute New onset seizure Acute Urinary tract infection Acute Constipation Acute Abdominal pain Acute Fecal impaction of colon Acute Anemia Acute Hyponatremia Acute Pneumonia Acute
[2018-06-15] MEDS ORDERED: acetaZOLAMIDE 250 MG in SYRINGE 0 ML IVP ONE (20:00)
[2018-06-16 05:32] LABS: PLATELET COUNT 144 10^3/uL (150-400)
[2018-06-16] MEDS: NS 1,000 ML IV SCH (05:35)
[2018-06-16] MEDS: GABAPENTIN 250 MG/5 ML 30 ML BOTTLE TUBE SCH ×3 (05:35→22:29)
[2018-06-16] MEDS: SODIUM CHLORIDE 1,000 MG TAB TUBE SCH ×3 (08:56→21:51)
[2018-06-16] MEDS: SERTRALINE HCL 100 MG TAB TUBE SCH (08:56)
[2018-06-16] MEDS: CHLORHEXIDINE GLUCONATE 15 ML UDL PO SCH ×2 (08:56→20:44)
[2018-06-16] MEDS: FERROUS SULFATE 300 MG/5 ML UD CUP TUBE SCH ×2 (08:56→20:45)
[2018-06-16] MEDS: ENOXAPARIN 40 MG/0.4 ML SYR SC SCH (08:56)
[2018-06-16] MEDS: MIDODRINE HCL 10 MG TAB TUBE SCH ×2 (08:56→15:02)
[2018-06-16] MEDS: POLYETHYLENE GLYCOL 3350 17 GM PKT TUBE SCH ×2 (08:57→20:45)
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
--- NOTE | 2018-06-16 12:34 | ASMTCMCOM ---
CM Note CM Note Notes: Spoke with Jenise, patient's and she was able to talk to the patient enough to discern that he is still interested in staying with medical treatment at this time vs. comfort measures. Spoke with Nancy to let them know patient is still interested in d/cing to their facility. Vent and medications adjustments are still being made. CM will follow. Date Signed: 06/16/2018 12:31 PM Electronically Signed By:Flor Tamayo LCSW
--- NOTE | 2018-06-16 13:12 | HOSPPROG ---
Hospitalist Progress Note Assessment/Plan: # acute metabolic and toxic encephalopathy -appears to have some improvement this morning. He was able to follow some commands. -cont hold trazodone, Klonopin, Oxy, Tramadol -cont vent as needed per pulm -cont to optimize hydration, appears euvolemic currently -minimal narcotics # C3 quadriplegia, long standing - some hypotension (on midodrine) and bradycardia - baclofen pump, zanaflex, oxy for pain # fever - no clear infective source (LP negative, pulm cultures likely colonization per ID - no fever since 06/01 - monitor off abx - Frequently has an aspiration pneumonia # acute hypercapnic resp failure - currently ventilating via trach intermittently - high dose oxy may contribute to hypoventilation # chronic trach # chest wall enhancing mass - s/p debridement, not infective per ID # FEN - tube feeds # anemia - slow trend down, follow without transfusion today -cont iron supplementation # a-fib - now in sinus #chronic pain Syndrome -holding meds per above -appears to be comfortable off them Lovenox for DVT proph # DNR; Family and pt are still seeking medical care. Plan is for LTAC once medically stable Subjective: following commands. no overnight events Objective: Vital Signs Temp Pulse Resp BP Pulse Ox 37.6 C 64 16 150/82 H 97 06/16/18 04:00 06/16/18 12:00 06/16/18 12:00 06/16/18 12:00 06/16/18 12:00 Laboratory Results 06/16/18 05:15 06/14/18 05:15 06/15/18 06/16/18 06/17/18 05:59 05:59 05:59 Intake Total 3771 4199 Output Total 2850 3300 Balance 921 899 PT 16.0 SEC (12.0-15.0) H 06/01/18 15:00 INR 1.34 (0.83-1.16) H 06/01/18 15:00 - Physical Exam Constitutional: chronically ill appearing Eyes: PERRL, EOMI Ears, Nose, Mouth, Throat: moist mucous membranes Cardiovascular: regular rate and rhythym Respiratory: no respiratory distress, no rales or rhonchi, clear to auscultation Gastrointestinal: normoactive bowel sounds Skin: warm Neurologic: No AAOx3 Psychiatric: interacting appropriately, not anxious, encephalopathic Lymph, Heme, Immunologic: No petechiae ICD10 Worksheet Patient Problems: Problems Problem Status Onset Hypoxia Acute Pneumonia Acute Abdominal pain Acute Anemia Acute Chronic complete quadriplegia Acute Constipation Acute Fecal impaction of colon Acute Fever Acute Generalized tonic-clonic seizure Acute Generalized weakness Acute History of quadriplegia Acute Hyponatremia Acute MRSA (methicillin resistant Staphylococcus aureus) Acute ~09/02/16 MRSA (methicillin resistant Staphylococcus aureus) Acute ~11/08/16 New onset seizure Acute Quadriplegia Acute Thrombocytopenia Acute Urinary tract infection Acute chronic disease [facility]/transitional care Acute
--- NOTE | 2018-06-16 14:04 | WOCRNPDOC ---
SHILA Advanced Assessment Note - Skin Integrity Problem, Advanced Assess Left Greater Trochanter Pressure Injury Dressing Type: Allevyn Life Dressing Description: Clean/Dry, Intact Integumentary Issue Intervention: Visualized Under Dressing Masha Wound Tissue: Blanching, Intact Skin Integrity Problem Comment: Skin to this area remains intact. Left Posterior Illiac Crest Dressing Type: Open to Air Masha Wound Tissue: Scarred Skin Integrity Problem Comment: Skin to this area remains intact. Sacrum Pressure Injury Dressing Type: Mepilex Border (sacral) Dressing Description: Clean/Dry, Intact Closure Description: Not Approximated Exudate Amount: None Integumentary Issue Intervention: Visualized Under Dressing Masha Wound Tissue: Erythema, Intact, Thin Wound Bed Color: Yellow Wound Bed Constitution: Adhered Slough Site Measurement - Head-to-Toe Length X Width X Depth (cm): 1.3x1x0.3 Pressure Injury Stage: Stage 4 Pressure Injury Present on Admit: Yes Skin Integrity Problem Comment: Patient rolled to his left side with assist from MURALI Umanzor. Mepilex border sacral in place. Wound largely filled with adherant slough. I attempted to mechanically debride but was not successful in loosening any of the slough. Will modify what we are placing on the wound bed to see if we can soften. Wound care will round again later next week. Right Greater Trochanter Dressing Type: Allevyn Life Dressing Description: Clean/Dry, Intact Integumentary Issue Intervention: Visualized Under Dressing Masha Wound Tissue: Blanching, Intact Masha Wound Swelling: None Skin Integrity Problem Comment: Skin to this area remains intact.
--- NOTE | 2018-06-16 17:16 | PDPCPN ---
Palliative Care Progress Note Assessment/Plan: Assessment: [facility] [address] [place] [id number] (O) [phone](F) PALLIATIVE CARE NOTE NAME: Bruno Millan : [id number] VISIT TYPE: Initial LOCATION: [facility] DATE: 06/14/2018 DIAGNOSES: 1. C3 quadriplegia 2. Toxic/metabolic encephalopathy CC: Hospital request for palliative care visit HPI: Mister Millan is a 63-year-old male with a history of a C3 quadriplegia. He has been living at [facility] . He has had recent history of difficulty maintaining oxygen saturations. He was brought to the emergency room and found to have toxic/metabolic encephalopathy with CO2 levels in the 80s. He has been placed on the ventilator which has significantly improved his CO2 levels. His encephalopathy has not improved as much. He continues on intermittent ventilator support. He has a long-standing history of a tracheostomy. He has a long-standing history of a G-tube. He has had decubiti in the past which have healed however he now has another coccyx decubiti. Extensive discussion with the and daughter regarding goals of care. Both family members state that in his current condition he would not want to continue to live this way. The patient is a DNR. Both and daughter indicate that when he was able to communicate he have the desire to continue to live. PMH: As above ALLERGIES: Linden syrup, milk, soy, nitrofurantoin, penicillin, shellfish, tree nuts, wheat FAMILY HISTORY: Family history of cancer SOCIAL HISTORY: PATIENT GOALS OF CARE: Per 1. Continue to live if able to communicate ACTIVE SYMPTOMS/ASSESSMENTS/RECOMMENDATIONS: 1. C3 quadriplegia G 82.52: Long-standing injury 2. Acidosis E87.2: Improvement with ventilator support 3. Chronic pain G 89.4: Intrathecal baclofen, Dilaudid and bupivacain. Still requires opioids with reported levels of pain being 8-10 consistently. 4. Prognosis: Months 2 years 2. Hospice Eligibility: Yes. Goals do not align Recommended Hospice Admitting Diagnosis: MODIFIED [place] SYMPTOM ASSESSMENT SCALE: 0-none; 1-3 mild; 4-6 moderate; 7-10 severe Unable to Respond: Yes [ ] Delirium: 0-none Depression: 0-none Anxiety: 0none Tiredness (fatigue): 0none Drowsiness (sleepiness): 0-none Pain: 0-none Nausea: 0-none Anorexia: 0-none Shortness of Breath: 0-none Secretions: 0-none Constipation: 0-none Symptom and side effect management: acceptable to patient and family RISK FACTORS FOR RE-HOSPITALIZATION: o NEEDS ASSISTANCE WITH ADLS/FALL RISK o MEDICATION MANAGEMENT o SKILLED CARE NEEDED o CAREGIVER ANXIETY o >2 HOSPITALIZATIONS IN PAST 12 MONTHS o DISEASE EDUCATION DEFICIT OBJECTIVE FINDINGS Palliative Performance Score: 10 FAST: NYHA: n/a Vital Signs: Wt: MAC: Neuro: Essentially nonresponsive HEENT: Normocephalic; atraumatic RESP: Ventilator support CV: no LE edema GI: soft, round : Suprapubic catheter in place MSK: Marked muscle wasting. SKIN: intact LAB Data: N/A Disposition:- hospitalized ADVANCE CARE PLANNING DISCUSSION : Current DNR PLAN: 1. LOCAL SALES MANAGER visit schedule: Schedule community palliative visit upon discharge 2. Palliative Supportive Service referrals for SW/grocery manager: 3. Physician and Facility Collaboration: Thank you for the opportunity to participate in the care of this patient. TIME SPENT: [id number] 70 min >50% of the time spent counseling, educating and coordinating the above topics. Rojelio De La Garza ANP Plan: 06/16/18 17:16 Objective: Vital Signs Temp Pulse Resp BP Pulse Ox 37.1 C 60 16 150/86 H 100 06/16/18 16:00 06/16/18 16:00 06/16/18 16:00 06/16/18 16:00 06/16/18 16:00 Laboratory Results 06/16/18 05:15 06/14/18 05:15 06/15/18 06/16/18 06/17/18 05:59 05:59 05:59 Intake Total 5761 4199 Output Total 2850 3300 Balance 921 899 PT 16.0 SEC (12.0-15.0) H 06/01/18 15:00 INR 1.34 (0.83-1.16) H 06/01/18 15:00 ICD10 Worksheet Patient Problems: Problems Problem Status Onset Hypoxia Acute Pneumonia Acute Abdominal pain Acute Anemia Acute Chronic complete quadriplegia Acute Constipation Acute Fecal impaction of colon Acute Fever Acute Generalized tonic-clonic seizure Acute Generalized weakness Acute History of quadriplegia Acute Hyponatremia Acute MRSA (methicillin resistant Staphylococcus aureus) Acute ~09/02/16 MRSA (methicillin resistant Staphylococcus aureus) Acute ~11/08/16 New onset seizure Acute Quadriplegia Acute Thrombocytopenia Acute Urinary tract infection Acute chronic disease mgmt/transitional care Acute
[2018-06-17 05:20] LABS: PLATELET COUNT 127 10^3/uL (150-400)
[2018-06-17] MEDS: GABAPENTIN 250 MG/5 ML 30 ML BOTTLE TUBE SCH (05:34)
[2018-06-17] MEDS: SODIUM CHLORIDE 1,000 MG TAB TUBE SCH ×3 (07:58→20:54)
[2018-06-17] MEDS: CHLORHEXIDINE GLUCONATE 15 ML UDL PO SCH ×2 (07:58→20:54)
[2018-06-17] MEDS: FERROUS SULFATE 300 MG/5 ML UD CUP TUBE SCH ×3 (07:58→20:55)
[2018-06-17] MEDS: SERTRALINE HCL 100 MG TAB TUBE SCH (07:58)
[2018-06-17] MEDS: MIDODRINE HCL 10 MG TAB TUBE SCH (07:58)
[2018-06-17] MEDS: ENOXAPARIN 40 MG/0.4 ML SYR SC SCH (07:58)
[2018-06-17] MEDS: POLYETHYLENE GLYCOL 3350 17 GM PKT TUBE SCH ×2 (07:59→20:54)
[2018-06-17] MEDS: MEDIUM CHAIN TRIGLYCERIDES TUBE SCH (08:56)
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
[2018-06-17] MEDS ORDERED: PROTOCOL POTASSIUM 1 DOSE MISC PRN (10:00)
[2018-06-17] MEDS ORDERED: POTASSIUM CL 10 MEQ TAB PO ONE (10:14)
[2018-06-17] MEDS ORDERED: POTASSIUM CL 20 MEQ/15 ML UDCUP TUBE ONE ×2 (10:30)
--- NOTE | 2018-06-17 13:25 | HOSPPROG ---
Hospitalist Progress Note Assessment/Plan: # acute metabolic and toxic encephalopathy -appears to be improving -cont hold trazodone, Klonopin, Oxy, Tramadol -cont vent as needed per pulm, trach capping -cont to optimize hydration, appears euvolemic currently -minimal narcotics # C3 quadriplegia, long standing #Spasticity: stable # HTN -trial off the Midodrine today # fever - no clear infective source (LP negative, pulm cultures likely colonization per ID - no fever since 06/01 - monitor off abx - Frequently has an aspiration pneumonia # acute hypercapnic resp failure - currently ventilating via trach intermittently # chronic trach # chest wall enhancing mass - s/p debridement, not infective per ID # FEN - tube feeds # anemia - slow trend down, may benefit from transfusion -cont iron supplementation, which was increased to TID # a-fib - now in sinus #chronic pain Syndrome -holding meds per above -appears to be comfortable off them #Sacral Wound: chronic #Severe protein calorie malnutrition Lovenox for DVT proph # DNR; Family and pt are still seeking medical care. Plan is for LTAC once medically stable Overall the pt is improved. Cognition is likely to to cont to improve slowly. Midodrine is being stopped today. If does well overnight, can likely transition back to LTAC tomorrow. May benefit from a blood transfusion Subjective: no overnight events. on Vent. denies pain Objective: Vital Signs Temp Pulse Resp BP Pulse Ox 37 C 54 L 16 145/81 H 100 06/17/18 08:00 06/17/18 12:00 06/17/18 12:00 06/17/18 12:00 06/17/18 12:00 Laboratory Results 06/17/18 04:35 06/17/18 11:10 06/16/18 06/17/18 06/18/18 05:59 05:59 05:59 Intake Total 4199 3912 Output Total 3300 2600 Balance 899 1312 PT 16.0 SEC (12.0-15.0) H 06/01/18 15:00 INR 1.34 (0.83-1.16) H 06/01/18 15:00 - Physical Exam Constitutional: chronically ill appearing Eyes: PERRL, EOMI Ears, Nose, Mouth, Throat: moist mucous membranes Cardiovascular: No edema Respiratory: no respiratory distress, reduced air movement Gastrointestinal: normoactive bowel sounds, soft, non-tender abdomen Skin: warm Musculoskeletal: generalized weakness Psychiatric: interacting appropriately, not anxious Lymph, Heme, Immunologic: No petechiae ICD10 Worksheet Patient Problems: Problems Problem Status Onset Hypoxia Acute Pneumonia Acute Abdominal pain Acute Anemia Acute Chronic complete quadriplegia Acute Constipation Acute Fecal impaction of colon Acute Fever Acute Generalized tonic-clonic seizure Acute Generalized weakness Acute History of quadriplegia Acute Hyponatremia Acute MRSA (methicillin resistant Staphylococcus aureus) Acute ~09/02/16 MRSA (methicillin resistant Staphylococcus aureus) Acute ~11/08/16 New onset seizure Acute Quadriplegia Acute Thrombocytopenia Acute Urinary tract infection Acute chronic disease mgmt/transitional care Acute
[2018-06-17] MEDS ORDERED: POTASSIUM Cl (KCl) 50 ML IV ONE (21:00)
[2018-06-18 05:25] LABS: PLATELET COUNT 137 10^3/uL (150-400)
[2018-06-18] MEDS: ACETAMINOPHEN 650 MG/20.3 ML UDCUP TUBE PRN (06:44)
[2018-06-18] MEDS ORDERED: POTASSIUM CL 10 MEQ TAB PO ONE (07:12)
[2018-06-18] MEDS ORDERED: POTASSIUM CL 20 MEQ/15 ML UDCUP PO ONE (07:15)
[2018-06-18] MEDS ORDERED: POTASSIUM CL 20 MEQ/15 ML UDCUP TUBE ONE (07:15)
[2018-06-18] MEDS: POLYETHYLENE GLYCOL 3350 17 GM PKT TUBE SCH ×2 (09:04→22:21)
[2018-06-18] MEDS: SERTRALINE HCL 100 MG TAB TUBE SCH (09:04)
[2018-06-18] MEDS: FERROUS SULFATE 300 MG/5 ML UD CUP TUBE SCH ×3 (09:04→22:21)
[2018-06-18] MEDS: SODIUM CHLORIDE 1,000 MG TAB TUBE SCH ×3 (09:04→22:21)
[2018-06-18] MEDS: CHLORHEXIDINE GLUCONATE 15 ML UDL PO SCH ×2 (09:05→20:30)
[2018-06-18] MEDS: ENOXAPARIN 40 MG/0.4 ML SYR SC SCH (09:05)
[2018-06-18] MEDS: MEDIUM CHAIN TRIGLYCERIDES TUBE SCH (09:24)
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
--- NOTE | 2018-06-18 10:32 | NEUROPROG ---
Assessment: CC: F/U for Worsening mentation - HPI: This is a patient previously seen by my colleague, Dr. Adam Adamson. Please see his notes (last on 06/04/18) for full details. Neurology was reconsulted as pt's mentation has not improved to his baseline. ICU team would appreciate neurologic re-evaluation. At bedside pt is only minimally reactive with me questioning. I will get a brain MRI wwo to ensure no stroke or brain lesion to explain his symptoms. Dr. Adamson will take over the neurologic service tomorrow so he can reassess the patient at that time as well as he is more familiar with the patient. - A/R: 1. [place] mentation - Brain WWO - Neurology will continue to follow closely Objective: Vital Signs Temp Pulse Resp BP Pulse Ox 38.8 C H 78 16 123/78 H 99 06/18/18 06:00 06/18/18 08:10 06/18/18 08:10 06/18/18 08:00 06/18/18 08:10 Laboratory Results 06/18/18 05:00 06/18/18 05:00 06/17/18 06/18/18 06/19/18 05:59 05:59 05:59 Intake Total 3912 3867 Output Total 2600 3125 Balance 1312 742 PT 16.0 SEC (12.0-15.0) H 06/01/18 15:00 INR 1.34 (0.83-1.16) H 06/01/18 15:00 Allergies/Adverse Reactions: corn syrup Allergy (Severe, Verified 05/08/18 06:19) Unknown Milk Containing Products [dairy] Allergy (Severe, Verified 05/08/18 06:19) Swelling/neck,face,throat soy Allergy (Severe, Verified 05/08/18 06:19) Swelling/neck,face,throat nitrofurantoin [From Macrobid] Allergy (Unknown, Verified 05/08/18 06:19) Hives Penicillins Allergy (Unknown, Verified 05/08/18 06:19) Hives shellfish derived Allergy (Verified 05/08/18 06:19) tree nut [Nuts] Allergy (Verified 05/08/18 06:19) wheat Allergy (Severe, Uncoded 05/08/18 06:19) [place]
[2018-06-18] MEDS ORDERED: GADOBUTROL 10 ML VIAL IVP ONE (13:16)
--- NOTE | 2018-06-18 14:27 | ASMTCMCOM ---
CM Note CM Note Notes: Pt reportedly to dc yesterday to [facility], but opposed discharge so patient stayed overnight and then spiked a fever. Per hospitalist pt will needs at least a couple more days before discharge to [facility]. Updates sent in referral to [facility]. RN placed ethics consult. CM to follow. D/C Plan: [facility] Date Signed: 06/18/2018 02:26 PM Electronically Signed By:Jina Leach
--- NOTE | 2018-06-18 15:38 | HOSPPROG ---
Hospitalist Progress Note Assessment/Plan: # acute metabolic and toxic encephalopathy -still not at baseline -cont hold trazodone, Klonopin, Oxy, Tramadol -cont vent as needed per pulm, trach capping -cont to optimize hydration, appears euvolemic currently -minimal narcotics -Neurology to reconsult and obtain brain MRI # C3 quadriplegia, long standing #Spasticity: stable # HTN -trial off the Midodrine, tolerating well # fever - Had 2 documented fevers overnigh. no clear infective source previously (LP negative, pulm cultures likely colonization per ID). CXR and UA are ordered # acute hypercapnic resp failure - currently ventilating via trach intermittently # chronic trach # chest wall enhancing mass - s/p debridement, not infective per ID # FEN - tube feeds # anemia - slow trend down, may benefit from transfusion -cont iron supplementation, which was increased to TID # a-fib - now in sinus #chronic pain Syndrome -holding meds per above -appears to be comfortable off them #Sacral Wound: chronic #Severe protein calorie malnutrition Lovenox for DVT proph # DNR; Family and pt are still seeking medical care. Plan is for LTAC once medically stable cont ICU care Subjective: had 2 documented fevers last night. wakes up. does not follow commands Objective: Vital Signs Temp Pulse Resp BP Pulse Ox 37.2 C 72 20 148/93 H 100 06/18/18 12:00 06/18/18 12:00 06/18/18 12:00 06/18/18 12:00 06/18/18 12:00 Laboratory Results 06/18/18 05:00 06/18/18 05:00 06/17/18 06/18/18 06/19/18 05:59 05:59 05:59 Intake Total 3912 3867 Output Total 2600 3125 Balance 1312 742 PT 16.0 SEC (12.0-15.0) H 06/01/18 15:00 INR 1.34 (0.83-1.16) H 06/01/18 15:00 - Physical Exam Constitutional: no apparent distress Eyes: PERRL, EOMI Ears, Nose, Mouth, Throat: moist mucous membranes Cardiovascular: regular rate and rhythym Respiratory: no respiratory distress, reduced air movement Gastrointestinal: normoactive bowel sounds, soft, non-tender abdomen Skin: warm Neurologic: No AAOx3 Psychiatric: encephalopathic, No interacting appropriately Lymph, Heme, Immunologic: No petechiae ICD10 Worksheet Patient Problems: Problems Problem Status Onset Hypoxia Acute Pneumonia Acute Abdominal pain Acute Anemia Acute Chronic complete quadriplegia Acute Constipation Acute Fecal impaction of colon Acute Fever Acute Generalized tonic-clonic seizure Acute Generalized weakness Acute History of quadriplegia Acute Hyponatremia Acute MRSA (methicillin resistant Staphylococcus aureus) Acute ~09/02/16 MRSA (methicillin resistant Staphylococcus aureus) Acute ~11/08/16 New onset seizure Acute Quadriplegia Acute Thrombocytopenia Acute Urinary tract infection Acute chronic disease mgmt/transitional care Acute
--- NOTE | 2018-06-18 17:07 | NEUROPROG ---
Assessment: Brain MRI shows new bilateral globus pallidus T2 hyperintensities. This is a finding usually caused by toxic-metabolic issues (CO poisoning, hypoglycemia) or neurodegenerative disorders. It has been seen at times in people with hypoxia. I am not exactly sure why he has these findings but no stroke or bleed seen and no enhancing masses to suggest infection. At this time I am no sure of the clinical significance of these findings but I do not think that any emergent further neurologic w/u is needed at this time. We can reassess the patient tomorrow. Objective: Vital Signs Temp Pulse Resp BP Pulse Ox 37.2 C 57 L 16 145/89 H 97 06/18/18 12:00 06/18/18 16:00 06/18/18 16:00 06/18/18 16:00 06/18/18 16:00 Laboratory Results 06/18/18 05:00 06/18/18 05:00 06/17/18 06/18/18 06/19/18 05:59 05:59 05:59 Intake Total 3912 3867 Output Total 2600 3125 Balance 1312 742 PT 16.0 SEC (12.0-15.0) H 06/01/18 15:00 INR 1.34 (0.83-1.16) H 06/01/18 15:00 Allergies/Adverse Reactions: corn syrup Allergy (Severe, Verified 05/08/18 06:19) Unknown Milk Containing Products [dairy] Allergy (Severe, Verified 05/08/18 06:19) Swelling/neck,face,throat soy Allergy (Severe, Verified 05/08/18 06:19) Swelling/neck,face,throat nitrofurantoin [From Macrobid] Allergy (Unknown, Verified 05/08/18 06:19) Hives Penicillins Allergy (Unknown, Verified 05/08/18 06:19) Hives shellfish derived Allergy (Verified 05/08/18 06:19) tree nut [Nuts] Allergy (Verified 05/08/18 06:19) wheat Allergy (Severe, Uncoded 05/08/18 06:19) [place]
[2018-06-18] MEDS: POTASSIUM Cl (KCl) 50 ML IV SCH ×3 (21:17→22:20)
[2018-06-19 05:24] LABS: PLATELET COUNT 109 10^3/uL (150-400)
[2018-06-19] MEDS: POTASSIUM Cl (KCl) 50 ML IV SCH (06:17)
[2018-06-19] MEDS: SERTRALINE HCL 100 MG TAB TUBE SCH (09:13)
[2018-06-19] MEDS: FERROUS SULFATE 300 MG/5 ML UD CUP TUBE SCH ×3 (09:13→21:34)
[2018-06-19] MEDS: CHLORHEXIDINE GLUCONATE 15 ML UDL PO SCH ×2 (09:13→21:35)
[2018-06-19] MEDS: ENOXAPARIN 40 MG/0.4 ML SYR SC SCH (09:13)
[2018-06-19] MEDS: POLYETHYLENE GLYCOL 3350 17 GM PKT TUBE SCH (09:13)
[2018-06-19] MEDS: SODIUM CHLORIDE 1,000 MG TAB TUBE SCH ×3 (09:13→21:34)
--- NOTE | 2018-06-19 11:31 | NEUROPROG ---
Assessment: 1. Status posttraumatic Cervical quadriplegia 2. Metabolic/toxic Encephalopathy 3. Abnormal brain MRI Neurology was reconsulted because of fluctuations in mental status and abnormal MRI brain. MRI brain was repeated and shows bilateral signal increase in the globus pallidi. In reviewing his history since I last saw this patient. Apparently, according nursing, family requested pain medication be restarted any at hypotension and medicine was discontinued with normalization of blood pressure. I did review vital signs and on June 12 there were lower blood pressures. This may be associated with the MRI findings. Not clear. He has no new infectious signs. Previous lumbar puncture showed 3 white blood cells and mildly elevated protein. Protein can be chronically elevated in the setting of previous spinal cord injury. Essentially, no evidence of R DEVELOPER infection based on this LP result. Previous EEG showed atypical triphasic waves superimposed over generalized slowing. These findings would be consistent with a metabolic/toxic encephalopathy. He has had no definite seizures. Continue supportive care for family care plan. No further recommendations now. We will continue to follow closely as needed. Please do not hesitate to call for any questions or changes in this patient's neurologic status. Subjective: No new symptoms Objective: Vital Signs Temp Pulse Resp BP Pulse Ox 36.7 C 51 L 16 133/77 H 24 L 06/19/18 08:25 06/19/18 08:25 06/19/18 08:25 06/19/18 08:00 06/19/18 08:25 Laboratory Results 06/19/18 05:00 06/19/18 05:00 06/18/18 06/19/18 06/20/18 05:59 05:59 05:59 Intake Total 3867 3379 Output Total 3125 3050 Balance 742 329 PT 16.0 SEC (12.0-15.0) H 06/01/18 15:00 INR 1.34 (0.83-1.16) H 06/01/18 15:00 He is awake He follows commands with eye blinking No seizure activity in my presence 35 total minutes floor time; over 50% counseling coordination of care. Allergies/Adverse Reactions: corn syrup Allergy (Severe, Verified 05/08/18 06:19) Unknown Milk Containing Products [dairy] Allergy (Severe, Verified 05/08/18 06:19) Swelling/neck,face,throat soy Allergy (Severe, Verified 05/08/18 06:19) Swelling/neck,face,throat nitrofurantoin [From Macrobid] Allergy (Unknown, Verified 05/08/18 06:19) Hives Penicillins Allergy (Unknown, Verified 05/08/18 06:19) Hives shellfish derived Allergy (Verified 05/08/18 06:19) tree nut [Nuts] Allergy (Verified 05/08/18 06:19) wheat Allergy (Severe, Uncoded 05/08/18 06:19) [place]
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
[2018-06-19] MEDS: ACETAMINOPHEN 650 MG/20.3 ML UDCUP TUBE PRN (13:13)
--- NOTE | 2018-06-19 14:11 | ASMTCMCOM ---
CM Note CM Note Notes: CM spoke with Fanny from [facility]. She requested updates and said she was still considering pt and did not say a hard "no". [facility] continues to be pt's first choice. Fanny informed CM that [facility] and [facility] are owned by the same company. Ethics are involved. Pt is signed on with [facility] to follow. Plan: [facility] vs [facility]. Pending acceptance to [facility]. Date Signed: 06/19/2018 02:10 PM Electronically Signed By:CLAU Bains
--- NOTE | 2018-06-19 15:04 | WOCRNPDOC ---
WOCRN Advanced Assessment Note - Skin Integrity Problem, Advanced Assess Sacrum Pressure Injury Dressing Type: Allevyn Life Dressing Description: Intact Integumentary Issue Intervention: Dressing Changed Masha Wound Tissue: Blanching, Erythema Wound Bed Constitution: Adhered Slough Wound Edges: Attached Site Measurement - Head-to-Toe Length X Width X Depth (cm): 1.2x1x0.2 Pressure Injury Stage: Stage 4 Skin Integrity Problem Comment: Within 1 cm above known sacral wound there two slivers of color one red and one purple within 1 cm of each other running vertically 12-6 oclock measuring 1.5 cm. Will monitor. Cleaned sacral wound with ns and gauze. Wound gel applied and covered with Mepilex sacral border dressing. Nae CARRION in room for care.
--- NOTE | 2018-06-19 16:37 | ASMTCMCOM ---
CM Note CM Note Notes: RN notified CM that pt's was here visiting. William from Palliative Care came to speak with her. CM spoke with her and she said she wanted to give up on [facility] and change her first choice to [facility]. She said she has visited [facility] and she would like him to go there. CM notified Care team. Palliative care to touch base with her tomorrow. She asked for clarification about the difference between Palliative and Hospice. Plan: [facility] once medically stable. Date Signed: 06/19/2018 04:36 PM Electronically Signed By:CLAU Bains
[2018-06-19] MEDS ORDERED: POTASSIUM Cl (KCl) 50 ML IV ONE (21:45)
[2018-06-20 05:30] LABS: PLATELET COUNT 115 10^3/uL (150-400)
[2018-06-20] MEDS: ENOXAPARIN 40 MG/0.4 ML SYR SC SCH (08:40)
[2018-06-20] MEDS: SERTRALINE HCL 100 MG TAB TUBE SCH (08:41)
[2018-06-20] MEDS: SODIUM CHLORIDE 1,000 MG TAB TUBE SCH ×3 (08:41→20:38)
[2018-06-20] MEDS: FERROUS SULFATE 300 MG/5 ML UD CUP TUBE SCH ×3 (08:41→20:38)
[2018-06-20] MEDS: CHLORHEXIDINE GLUCONATE 15 ML UDL PO SCH ×2 (08:41→20:00)
[2018-06-20] MEDS ORDERED: POTASSIUM CL 20 MEQ/15 ML UDCUP TUBE ONE (08:45)
[2018-06-20] MEDS: BIOTENE DRY MOUTH ORAL RINSE 237 ML BTL MM PRN (08:51)
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
--- NOTE | 2018-06-20 15:45 | ASMTCMCOM ---
CM Note CM Note Notes: CM spoke with pt's , Dr. Crespo and Dr. Yates who feel plan for discharge tomorrow to [facility] is a good plan. CM spoke with Summer from [facility] who is able to accept pt tomorrow and will schedule transport for sometime between 11:00am and noon. RN notified. Jenise requested that transport take "all" of his belongings, including his electric wheelchair. CM left message for Summer including this information. CM submit updates via [facility]. Plan: [facility] Tomorrow between 11 and 12noon. Date Signed: 06/20/2018 03:44 PM Electronically Signed By:CLAU Bains
[2018-06-20] MEDS: POTASSIUM Cl (KCl) 50 ML IV SCH ×3 (20:35→22:50)
[2018-06-21] MEDS ORDERED: POTASSIUM CL 10 MEQ TAB PO ONE (07:47)
[2018-06-21] MEDS: CHLORHEXIDINE GLUCONATE 15 ML UDL PO SCH (08:20)
[2018-06-21] MEDS: SERTRALINE HCL 100 MG TAB TUBE SCH (08:20)
[2018-06-21] MEDS: SODIUM CHLORIDE 1,000 MG TAB TUBE SCH (08:20)
[2018-06-21] MEDS: ENOXAPARIN 40 MG/0.4 ML SYR SC SCH (08:20)
[2018-06-21] MEDS: FERROUS SULFATE 300 MG/5 ML UD CUP TUBE SCH (08:20)
[2018-06-21 08:49] VITALS: BP 157/99
--- NOTE | 2018-06-21 10:38 | PDIAF ---
- Diagnosis Diagnosis: C3 quadriplegia, chronic respiratory failure Code Status: Do Not Resuscitate - Medication Management Additional Medication Instructions: We have stopped his clonazepam, gabapentin, oxycodone, fentanyl patch, tizanidine, tramadol, PRN baclofen, zolpidem, and trazodone. We are holding his midodrine as blood pressures have been normal. Discharge Medications: electronically signed and located in the Home Medication List. PICC Care - Routine: N/A - Orders Isolation Type: None Tube feeding: Per protocol. Wound Care Instructions: Wound care: Recommend Air fluidized surface for reopening stage 4 pressure injuries on pelvis. Please contact [facility] for an appointment, at [phone], If your wounds re/ open or dont improve, or if you have any further questions or concerns. Negro Pacheco RN Team - Follow Up Care Current Providers and Referrals: Patient,NotPresent [Unknown] - As per Instructions
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
--- NOTE | 2018-06-21 12:19 | ASMTDCNOTE ---
Case Management Discharge Discharge Order Complete? Answers: Yes Patient to Obtain Answers: Other Notes: [facility] Medications Transportation Arranged Answers: Other Notes: Summer with Nancy arrange d transport for 11:00 AM today Transport will Pick (Date 06/21/2018 12:00 AM & Time) Case Management Transport Answers: Yes Notes: PCS Form Complete Faxed Final Orders Answers: Yes Notes: Nancy Agency/Facility Transfer Answers: Yes Notes: Nancy Report Printed & Faxed to Receiving Agency Family Notified Answers: Yes Notes: , Jenise Discharge Comments Notes: Patient is discharging to [facility] today with a flower picker time of 11:00 AM. Transport was arranged by Summer with Nancy [phone]. to and nurse to nurse conferences complete. ([phone]) Discharge summaries have been Allscripted to [facility]. A paper copy of the patient's medical file has been copied and will accompany patient to [facility]. Spoke with Venus, patient's who is coming to the hospital for the 11:00 AM transfer. Patient's pain specialist Dr. Santos with [facility] has been managing patient's pain pump and this info was given to Nancy (Domi in admissions) today as well. [facility] status note copied and given to [facility] with Jenise's approval. Jenise took the patient's belongings and his wheelchair and made arrangements with her daughter Tamkea who is bringing their van and picking them up at the curb. No further needs. Date Signed: 06/21/2018 12:18 PM Electronically Signed By:Flor Tamayo LCSW
== END 2018-06-21 11:55 | DRG 166 ==
LOC: EDBD → EDUNIT# → F2N 05:28 → OBSVTOIN 11:24
PROVIDERS: ADMIT Student in an Organized Health Care Education/Training Program; ATTEND Student in an Organized Health Care Education/Training Program
PROC: 5A1955Z Respiratory Ventilation, Greater than 96 Consecutive Hours (ICD-10-PCS; 2018-05-27)
PROC: 02HV33Z Insertion of Infusion Device into Superior Vena Cava, Percutaneous Approach (ICD-10-PCS; 2018-05-27)
PROC: 0B9L8ZX Drainage of Left Lung, Via Natural or Artificial Opening Endoscopic, Diagnostic (ICD-10-PCS; 2018-05-28)
PROC: 0B9F8ZX Drainage of Right Lower Lung Lobe, Via Natural or Artificial Opening Endoscopic, Diagnostic (ICD-10-PCS; 2018-05-28)
PROC: 0KBH0ZX Excision of Right Thorax Muscle, Open Approach, Diagnostic (ICD-10-PCS; principal; 2018-05-29)
PROC: 0B9M8ZZ Drainage of Bilateral Lungs, Via Natural or Artificial Opening Endoscopic (ICD-10-PCS; 2018-05-31)
PROC: 009U3ZX Drainage of Spinal Canal, Percutaneous Approach, Diagnostic (ICD-10-PCS; 2018-06-01)
PROC: 30233N1 Transfusion of Nonautologous Red Blood Cells into Peripheral Vein, Percutaneous Approach (ICD-10-PCS; 2018-06-01)
PROC: 0B9M8ZZ Drainage of Bilateral Lungs, Via Natural or Artificial Opening Endoscopic (ICD-10-PCS; 2018-06-04)
DX: J96.22 Acute and chronic respiratory failure with hypercapnia (principal); J96.21 Acute and chronic respiratory failure with hypoxia; G93.41 Metabolic encephalopathy; E43 Unspecified severe protein-calorie malnutrition; M60.9 Myositis, unspecified; J98.09 Other diseases of bronchus, not elsewhere classified; L89.154 Pressure ulcer of sacral region, stage 4; I48.0 Paroxysmal atrial fibrillation; G90.4 Autonomic dysreflexia; E87.6 Hypokalemia; R50.2 Drug induced fever; M62.89 Other specified disorders of muscle; G89.29 Other chronic pain; D53.9 Nutritional anemia, unspecified; S14.153S Other incomplete lesion at C3 level of cervical spinal cord, sequela; S14.154S Other incomplete lesion at C4 level of cervical spinal cord, sequela; V00.18 Accident on other rolling-type pedestrian conveyance; R74.0 Nonspecific elevation of levels of transaminase and lactic acid dehydrogenase [LDH]; G47.00 Insomnia, unspecified; Z93.0 Tracheostomy status; Z99.3 Dependence on wheelchair; Z96.0 Presence of urogenital implants; Z96.89 Presence of other specified functional implants; Z87.440 Personal history of urinary (tract) infections; Z87.01 Personal history of pneumonia (recurrent); Z66 Do not resuscitate
CPT/HCPCS: 70551-PN; 84484-ER; 96365; 97161-GP; A9585; C1751; J0133; J0282; J0692; J1265; J1650; J1815; J1940; J1953; J1956; J2060; J2185; J2250; J2704; J2997; J3010; J3370; J3480; P9016; P9073; Q9967